=== PATIENT | female | born 1945 | race Caucasian/White ===

== ENCOUNTER → 2016-07-28 | Outpatient (CLI) | payer BC ==
[~2016-07-28] MED LIST: ALBUAER2 INH; AMOX875T PO; DIGO30TA PO; DIPH-437 PO; GABA1CAP4 PO; IMD/2 PO; INSDGI SC; INSUINJ7 SC; INSUINJ7 SQ; LABE1TAB28 PO; LEVO125T4 PO; LYR75 PO; OXYC-57 PO; PANT40TA PO; PREG1CAP70 PO; SPIR25TA PO; SYN125 PO; VNTHFA/IN INH; WARF4TAB43 PO; WARF4TAB44 PO
--- NOTE | 2016-07-28 15:12 | DIAGNOSTIC IMAGING REPORT ---
CHEST 2 VIEWS ROUTINE CLINICAL HISTORY: E11.9 Diabetes [id number] dyspnea COMPARISON STUDY: 11/18/2006 FINDINGS: The bones soft tissues and hemidiaphragms are normal. The cardiomediastinal silhouette is normal. The lungs are clear. The pulmonary vasculature is normal. IMPRESSION: Negative chest. Electronically signed by: Ron Spence M.D. 07/28/2016 3:11 PM Dictated Date/Time: 07/28/2016 3:10 PM
[2016-07-29 06:03] LABS: ESTIMATED AVERAGE GLUCOSE 163 mg/dl; HA1C FLAG Normal (Normal)
== END | disposition home or self-care (01) ==
LOC: C.RAD1850 14:27
PROVIDERS: ATTEND Internal Medicine
DX: E11.9 Type 2 diabetes mellitus without complications (principal); I10 Essential (primary) hypertension

== ENCOUNTER → 2016-08-15 | Outpatient (CLI) | payer BC ==
[~2016-08-15] MED LIST changes: -LEVO125T4 PO; +LEVO125T5 PO
[2016-08-15 16:39] LABS: URINE APPEARANCE CLOUDY (CLEAR); URINE BILIRUBIN NEG (NEG); URINE COLOR YELLOW; URINE NITRITE NEG (NEG); URINE SPECIFIC GRAVITY 1.014 (1.000-1.030); UROBILINOGEN NEG (NEG); ZZUR CULT IF INDIC CLEAN CATCH YES
[2016-08-15 16:40] LABS: REVIEW REQ? YES
[2016-08-15 16:41] LABS: MANUAL MICROSCOPIC REQUIRED? NO
== END | disposition home or self-care (01) ==
LOC: C.LABBFT 14:43
PROVIDERS: ATTEND Internal Medicine
DX: R39.9 Unspecified symptoms and signs involving the genitourinary system (principal)

== ENCOUNTER → 2016-08-21 | Outpatient (CLI) | payer BC ==
--- NOTE | 2016-08-22 07:42 | MAMMOGRAPHY REPORT ---
BILATERAL DIGITAL SCREENING MAMMOGRAM WITH CAD: 08/21/2016 CLINICAL HISTORY: Routine screening. Patient has no complaints. TECHNIQUE: Current study was also evaluated with a Computer Aided Detection (CAD) system. Bilatera l CC and MLO views were obtained. COMPARISON: Comparison is made to exams dated: 08/21/2015 mammogram, 08/17/2014 mammogram, 12/19/2009 [facility], 12/04/2008, 08/15/2008, and 10/27/2007. BREAST COMPOSITION: There are scattered areas of fibroglandular density in both breasts. FINDINGS: No suspicious masses, calcifications, or areas of architectural distortion are noted in e ither breast. There has been no significant interval change compared to prior exams. A linear scar marker denotes a scar on the left anterior breast. Bilateral benign vascular calcifications are aga in noted. Grouped calcifications seen within the left central breast are stable dating back to [place] the 2008 and 2007 exams, and are considered benign given long-term stability. Grouped coarse h eterogeneous calcifications in the left 12:00 breast are also stable dating back to the 2007 exam. IMPRESSION: ACR BI-RADS CATEGORY 2: BENIGN There is no mammographic evidence of malignancy. A 1 year screening mammogram is recommended. The p atient will receive written notification of the results. Approximately 10% of breast cancers are not detected with mammography. A negative mammographic repor t should not delay biopsy if a clinically suggestive mass is present. Jany Read M.D. ah/:08/21/2016 15:00:11 Hospital Librarian: Alexandra ALCARAZ(R)(George), [facility] letter sent: Normal 1/2 BI-RADS Code: ACR BI-RADS Category 2: Benign
== END | disposition home or self-care (01) ==
LOC: C.MAMM 11:36
PROVIDERS: ATTEND Internal Medicine
DX: Z12.31 Encounter for screening mammogram for malignant neoplasm of breast (principal)

== ENCOUNTER 2016-08-29 20:00 | Inpatient (IN) | payer BC, OTHER ==
[~2016-08-29] VITALS: Ht 162.6 cm; Wt 102.0 kg
[~2016-08-29 20:00] MED LIST changes: -AMOX875T PO; -DIGO30TA PO; -GABA1CAP4 PO; -INSUINJ7 SC; -LEVO125T5 PO; -LYR75 PO; -PREG1CAP70 PO; -VNTHFA/IN INH; -WARF4TAB43 PO; -WARF4TAB44 PO
[2016-08-29] MEDS ORDERED: SODIUM CHLORIDE 0.9% 1000ML 1,000 ML IV ONE (20:37)
--- NOTE | 2016-08-29 20:49 | EMERGENCY ROOM VISIT NOTE ---
History Report prepared by Kalen: Fuad Means Under the Supervision of: Dr. Swapnil Segal D.O. 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 Additional symptoms include fever, and shortness of breath with exertion. The patient states that she was walking up her stairs tonight when she became dizzy and fell down onto the stairs. She denies loss of consciousness. The patient mentions that she has been sick for the past two weeks. She was originally diagnosed with a respiratory infection, for which she was treated with amoxicillin. The patient states this turned in to a UTI. She is currently being treated with a 14 day course of Augmentin for this UTI. She has 4 days left of this prescription. The patient denies nausea, vomiting, swelling of the legs, abdominal pain, urinary symptoms, chest pain, cough, melena, hematochezia, and shortness of breath while lying flat. 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 A total of 10 systems reviewed and were otherwise negative. Past Medical & Surgical Medical Problems: (1) Diabetes (2) Hx of blood clots (3) Hypertension (4) Lymph edema (5) UTI (urinary tract infection) Family History Cancer Social History Smoking Status: Never Smoker Drug Use: none Marital Status: Housing Status: lives with significant other Current/Historical Medications Scheduled Acetaminophen/Diphenhydramine (Tylenol Pm), 2 TAB PO HS PRN Amoxicillin & Pot Clavulanate (Augmentin 875-125 mg), 1 TAB PO BID Insulin Glargine (Lantus), 50 UNITS SC AMPM Insulin Regular (Human) (Novolin R U-100), Unknown Dose SC DIRECTED Labetalol (Normodyne), 200 MG PO BID Levothyroxine Sodium (Levothyroxine Sodium), 125 MCG PO DAILY Loperamide Hcl (Imodium), 2 MG PO BID OR TID Oxycodone/Acetaminophen 5MG/325MG (Percocet 5MG/325MG), 1-2 TABLETS PO Q4HR PRN Pantoprazole (Protonix), 40 MG PO QAM Spironolactone (Aldactone), 25 MG PO BID Scheduled PRN Albuterol Hfa (Ventolin Hfa), 2 PUFFS INH Q6H PRN for Shortness of Breath Allergies Coded Allergies: Chloramphenicol (Verified Allergy, Mild, RASH, 08/29/16) RASH Quinolones (Verified Allergy, Mild, RASH, 08/29/16) RASH Ciprofloxacin (Verified Allergy, Unknown, UNKNOWN, 08/29/16) Codeine (Verified Allergy, Unknown, RASH, 08/29/16) Esomeprazole (Verified Allergy, Unknown, RASH - PT HAS TAKEN PROTONIX AT HOME, 08/29/16) Lansoprazole (Verified Allergy, Unknown, RASH - PT HAS TAKEN PROTONIX AT HOME, 08/29/16) Milk (Verified Allergy, Unknown, 08/29/16) Omeprazole (Verified Allergy, Unknown, RASH - PT HAS TAKEN PROTONIX AT HOME, 08/29/16) Procainamide (Verified Allergy, Unknown, UNKNOWN, 08/29/16) Propoxyphene (Verified Allergy, Unknown, 08/29/16) Verapamil (Verified Allergy, Unknown, 08/29/16) Physical Exam Vital Signs Date Time Temp Pulse Resp B/P Pulse Ox O2 Delivery O2 Flow Rate FiO2 08/30/16 00:30 37.9 81 22 135/79 95 Room Air 08/29/16 23:45 86 20 94 Room Air 08/29/16 23:15 82 20 94 Room Air 08/29/16 22:30 85 19 130/63 94 Room Air 08/29/16 22:01 88 17 135/66 96 Room Air 08/29/16 21:41 38.0 83 19 159/84 96 Room Air 08/29/16 21:20 Room Air 08/29/16 20:20 93 08/29/16 20:04 37.6 94 18 121/63 97 Room Air Physical Exam GENERAL: Somewhat listless appearing but comfortable. Does not appear to be experiencing any pain. EYES: The conjunctivae are clear. The pupils are round and reactive. EARS, NOSE, MOUTH AND THROAT: The nose is without any evidence of any deformity. Mucous membranes are dry, tongue is midline NECK: The neck is nontender and supple. RESPIRATORY: Normal respiratory effort is noted there is no evidence of wheezing rhonchi or rales CARDIOVASCULAR: Tachycardic but regular rhythm. No definite murmurs to auscultation. GASTROINTESTINAL: The abdomen is soft. Bowel sounds are present in all quadrants. Abdomen is nontender MUSCULOSKELETAL/EXTREMITIES: There is no evidence of gross deformity full range of motion is noted in the hips and shoulders SKIN: Pedal edema noted bilaterally. There is no obvious evidence of any rash. There are no petechiae, pallor or cyanosis noted. NEUROLOGIC: Patient is awake alert and oriented x3. Medical Decision & Procedures ER Provider Diagnostic Interpretation: X-ray results as stated below per interpretation by me and the radiologist. SINGLE VIEW CHEST CLINICAL HISTORY: Sepsis. FINDINGS: An AP, portable, upright chest radiograph is compared to study dated 07/28/2016 and correlated with chest CT dated 11/13/2006. The heart is mildly enlarged and there is atherosclerotic calcification of the thoracic aorta. The pulmonary vasculature is noncongested. Platelike atelectasis is seen at the left lung base. No airspace consolidation is seen typical for pneumonia and there is no large pleural effusion. No pneumothorax is seen. The skeletal structures are osteopenic. Degenerative change is noted throughout the thoracic spine. Fusion hardware is seen in the lower cervical spine. Calcific tendinopathy is noted in the right shoulder. Surgical clips project over the lower neck. IMPRESSION: Cardiomegaly with no acute cardiopulmonary abnormality. Electronically signed by: Tejas Klein M.D. 08/29/2016 8:51 PM Dictated Date/Time: 08/29/2016 8:50 PM Laboratory Results 08/29/16 21:21 Red Blood Count 4.29, Mean Corpuscular Volume 82.3, Mean Corpuscular Hemoglobin 27.5, Mean Corpuscular Hemoglobin Concent 33.4, Mean Platelet Volume 9.9, Neutrophils (%) (Auto) 83.8, Lymphocytes (%) (Auto) 10.7, Monocytes (%) (Auto) 4.0, Eosinophils (%) (Auto) 0.4, Basophils (%) (Auto) 0.1, Neutrophils # (Auto) 5.81, Lymphocytes # (Auto) 0.74, Monocytes # (Auto) 0.28, Eosinophils # (Auto) 0.03, Basophils # (Auto) 0.01 08/29/16 21:21 Test 08/29/16 21:21 08/29/16 23:35 White Blood Count 6.94 K/uL (4.8-10.8) Red Blood Count 4.29 M/uL (4.2-5.4) Hemoglobin 11.8 g/dL (12.0-16.0) Hematocrit 35.3 % (37-47) Mean Corpuscular Volume 82.3 fL (80-100) Mean Corpuscular Hemoglobin 27.5 pg (25-34) Mean Corpuscular Hemoglobin Concent 33.4 g/dl (32-36) Platelet Count 209 K/uL (130-400) Mean Platelet Volume 9.9 fL (7.4-10.4) Neutrophils (%) (Auto) 83.8 % Lymphocytes (%) (Auto) 10.7 % Monocytes (%) (Auto) 4.0 % Eosinophils (%) (Auto) 0.4 % Basophils (%) (Auto) 0.1 % Neutrophils # (Auto) 5.81 K/uL (1.4-6.5) Lymphocytes # (Auto) 0.74 K/uL (1.2-3.4) Monocytes # (Auto) 0.28 K/uL (0.11-0.59) Eosinophils # (Auto) 0.03 K/uL (0-0.5) Basophils # (Auto) 0.01 K/uL (0-0.2) RDW Standard Deviation 53.0 fL (36.4-46.3) RDW Coefficient of Variation 18.0 % (11.5-14.5) Immature Granulocyte % (Auto) 1.0 % Immature Granulocyte # (Auto) 0.07 K/uL (0.00-0.02) Erythrocyte Sedimentation Rate 28 mm/hr (0-21) Prothrombin Time 26.8 SECONDS (9.0-12.0) Prothromb Time International Ratio 2.4 (0.9-1.1) Activated Partial Thromboplast Time 28.7 SECONDS (21.0-31.0) Partial Thromboplastin Ratio 1.1 Anion Gap 8.0 mmol/L (3-11) Estimated GFR () 43.4 Estimated GFR (Non- 37.4 BUN/Creatinine Ratio 14.1 (10-20) Calcium Level 8.7 mg/dl (8.5-10.1) Phosphorus Level 2.1 mg/dl (2.5-4.9) Magnesium Level 1.5 mg/dl (1.8-2.4) Total Bilirubin 1.3 mg/dl (0.2-1) Aspartate Amino Transf (AST/SGOT) 33 U/L (15-37) Alanine Aminotransferase (ALT/SGPT) 35 U/L (12-78) Alkaline Phosphatase 85 U/L (45-117) Total Creatine Kinase 153 U/L (26-192) Creatine Kinase MB 1.2 ng/ml (0.5-3.6) Creatine Kinase MB Ratio 0.8 (0-3.0) Troponin I < 0.015 ng/ml (0-0.045) C-Reactive Protein 1.57 mg/dl (0-0.29) Pro-B-Type Natriuretic Peptide 262 pg/ml (0-900) Total Protein 7.6 gm/dl (6.4-8.2) Albumin 3.6 gm/dl (3.4-5.0) Globulin 4.0 gm/dl (2.5-4.0) Albumin/Globulin Ratio 0.9 (0.9-2) Lipase 41 U/L (73-393) Urine Color YELLOW Urine Appearance CLEAR (CLEAR) Urine pH 5.5 (4.5-7.5) Urine Specific [place] 1.018 (1.000-1.030) Urine Protein NEG (NEG) Urine Glucose (UA) 1+ (NEG) Urine Ketones NEG (NEG) Urine Occult Blood TRACE (NEG) Urine Nitrite NEG (NEG) Urine Bilirubin NEG (NEG) Urine Urobilinogen NEG (NEG) Urine Leukocyte Esterase MODERATE (NEG) Urine WBC (Auto) >30 /hpf (0-5) Urine RBC (Auto) 0-4 /hpf (0-4) Urine Hyaline Casts (Auto) 5-10 /lpf (0-5) Urine Epithelial Cells (Auto) 10-20 /lpf (0-5) Urine Bacteria (Auto) 2+ (NEG) Laboratory results per my review. Medications Administered Medications (Trade) Dose Ordered Sig/Dave Route Start Time Stop Time Status Last Admin Dose Admin Sodium Chloride (Nss 1000ml) 1,000 ml @ 999 mls/hr Q1H1M ONCE IV 08/29/16 20:37 08/29/16 21:37 DC 08/29/16 21:20 999 MLS/HR Magnesium Sulfate (Magnesium Sulfate) 2 gm NOW STAT IV 08/29/16 21:59 08/29/16 22:00 DC 08/29/16 23:04 2 GM Piperacillin Sod/ Tazobactam Sod (Zosyn Iv) 4.5 gm NOW STAT IV 08/29/16 23:51 08/29/16 23:52 DC 08/29/16 00:20 4.5 GM Acetaminophen (Tylenol Tab) 1,000 mg STK-MED ONCE PO 08/30/16 00:28 08/30/16 00:29 DC 08/30/16 00:30 1,000 MG ECG Indication: weakness Rate (beats per minute): 83 Rhythm: normal sinus Findings: no ectopy, other (No acute ST segment abnormality) Comparison ECG Date: 11/16/06 Change: no significant change ED Course 2025: The patient was evaluated in room B7. A complete history and physical examination were performed. 2036: Ordered Sodium Chloride 1,000 ml @ 999 mls/hr IV. 2158: Ordered Magnesium Sulfate 2 gm IV. Medical Decision Prior records/ancillary studies reviewed and summarized above. Nursing notes reviewed. Additional history obtained from the patient's family members. Differential diagnosis: Etiologies such as metabolic, infection, hypo/hyperglycemia, electrolyte abnormalities, cardiac sources, intracerebral event, toxicologic, neurologic, as well as others were entertained. The patient is a 71-year-old female who presented to the emergency department for an evaluation of generalized weakness. The patient has been diagnosed with urinary tract infection at the end of July. She's been on multiple antibiotics but the infection appears to continue to worsen. She presented to the emergency department today with family murmurs because of generalized weakness to the point where she had an episode where she fell and could not stand. The patient appeared to have an elevated lactic acid as well as signs of urinary tract infection. Urinalysis was positive for pseudomonas. The patient was started on Zosyn in the emergency department. She is allergic to quinolones. I discussed the patient's laboratory and radiographic studies with her. I also discussed his case with the on-call [facility] hospitalist group. They've agreed to evaluate the patient in the emergency department for further management and disposition. Consults Time Called: 24 Consulting Physician: Dr Jordan Returned Call: 29 He will evaluate the patient in the emergency department for further management and disposition. Impression Primary Impression: Weakness Additional Impressions: Hypomagnesemia Urinary tract infection Acute kidney injury (nontraumatic) Scribe Attestation The scribe's documentation has been prepared under my direction and personally reviewed by me in its entirety. I confirm that the note above accurately reflects all work, treatment, procedures, and medical decision making performed by me. Departure Information Referrals Manolo Milian M.D. (PCP) Patient Instructions My [facility] Problem Qualifiers Additional Impressions: Urinary tract infection Urinary tract infection type: site unspecified Hematuria presence: without hematuria Qualified Codes: N39.0 - Urinary tract infection, site not specified
--- NOTE | 2016-08-29 20:53 | DIAGNOSTIC IMAGING REPORT ---
SINGLE VIEW CHEST CLINICAL HISTORY: Sepsis. FINDINGS: An AP, portable, upright chest radiograph is compared to study dated 07/28/2016 and correlated with chest CT dated 11/13/2006. The heart is mildly enlarged and there is atherosclerotic calcification of the thoracic aorta. The pulmonary vasculature is noncongested. Platelike atelectasis is seen at the left lung base. No airspace consolidation is seen typical for pneumonia and there is no large pleural effusion. No pneumothorax is seen. The skeletal structures are osteopenic. Degenerative change is noted throughout the thoracic spine. Fusion hardware is seen in the lower cervical spine. Calcific tendinopathy is noted in the right shoulder. Surgical clips project over the lower neck. IMPRESSION: Cardiomegaly with no acute cardiopulmonary abnormality. Electronically signed by: Tejas Klein M.D. 08/29/2016 8:51 PM Dictated Date/Time: 08/29/2016 8:50 PM
[2016-08-29] MEDS ORDERED: INSDGI SC (21:07)
[2016-08-29] MEDS ORDERED: AMOX875T PO (21:07)
[2016-08-29] MEDS ORDERED: VNTHFA/IN INH (21:07)
[2016-08-29] MEDS ORDERED: LEVO125T5 PO (21:07)
[2016-08-29] MEDS ORDERED: INSUINJ7 SC (21:07)
[2016-08-29 21:38] LABS: BASO % 0.1 %; BASO ABS # 0.01 K/uL (0-0.2); COMPLETE YES; EOS % 0.4 %; HEMATOCRIT 35.3 % (37-47); LYMPH % 10.7 %; LYMPH ABS # 0.74 K/uL (1.2-3.4); MEAN CELL VOLUME 82.3 fL (80-100); MEAN CORPUSCULAR HEMOGLOBIN 27.5 pg (25-34); MEAN CORPUSCULAR HGB CONC 33.4 g/dl (32-36); MEAN PLATELET VOLUME 9.9 fL (7.4-10.4); NEUT % 83.8 %; PLATELET COUNT 209 K/uL (130-400); RED BLOOD COUNT 4.29 M/uL (4.2-5.4); WHITE BLOOD COUNT 6.94 K/uL (4.8-10.8)
[2016-08-29 21:47] LABS: INR 2.4 (0.9-1.1); PARTIAL THROMBOPLASTIN RATIO 1.1; PROTHROMBIN TIME (PATIENT) 26.8 SECONDS (9.0-12.0)
[2016-08-29 21:55] LABS: ALT/SGPT 35 U/L (12-78); BLOOD UREA NITROGEN 20 mg/dl (7-18); BUN/CREATININE RATIO 14.1 (10-20); C-REACTIVE PROTEIN 1.57 mg/dl (0-0.29); CARBON DIOXIDE 28 mmol/L (21-32); CHLORIDE 100 mmol/L (98-107); GLUCOSE 269 mg/dl (70-99); MAGNESIUM 1.5 mg/dl (1.8-2.4); POTASSIUM 3.6 mmol/L (3.5-5.1); SODIUM 136 mmol/L (136-145)
[2016-08-29 21:58] LABS: ALB/GLOB RATIO 0.9 (0.9-2); ALKALINE PHOSPHATASE 85 U/L (45-117); AST/SGOT 33 U/L (15-37); CKMB/CK RATIO 0.8 (0-3.0); PHOSPHORUS 2.1 mg/dl (2.5-4.9)
[2016-08-29] MEDS ORDERED: MAGNESIUM SULFATE 1GM / D5W 1 GM BAG IV STA (21:59)
[2016-08-29 22:04] LABS: CALCIUM 8.7 mg/dl (8.5-10.1)
[2016-08-29] MEDS ORDERED: PIPERACILLIN/TAZOBACTAM 4.5 GM/100ML D5W IV STA (23:51)
[2016-08-29 23:54] LABS: URINE APPEARANCE CLEAR (CLEAR); URINE BILIRUBIN NEG (NEG); URINE COLOR YELLOW; URINE NITRITE NEG (NEG); URINE PH 5.5 (4.5-7.5); URINE SPECIFIC GRAVITY 1.018 (1.000-1.030); UROBILINOGEN NEG (NEG); ZZURINE CULT IF INDIC CATH YES
[2016-08-30] VITALS (7 sets, daily range): BP systolic 106–131; BP diastolic 64–84; PULSE 73–89; TEMP 36.6–37.5; O2SAT 95–98; Ht 162.6 cm; Wt 102.0 kg
[2016-08-30 00:04] LABS: MANUAL MICROSCOPIC REQUIRED? NO; REVIEW REQ? NO
[2016-08-30] MEDS ORDERED: ACETAMINOPHEN 500 MG TAB PO ONE (00:28)
[2016-08-30] MEDS ORDERED: ALBUTEROL HFA 8 GM INHALER INH PRN (01:15)
[2016-08-30] MEDS ORDERED: MAGNESIUM HYDROXIDE SUSP 30 ML UDC PO PRN (01:15)
[2016-08-30] MEDS ORDERED: HEPARIN SOD 5000 UNIT/0.5 ML CARP SQ SCH (01:15)
[2016-08-30] MEDS ORDERED: OXYCODONE/ACETAMINOPHEN 5-325 TAB PO PRN (01:15)
[2016-08-30] MEDS ORDERED: ZOLPIDEM TARTRATE 5 MG TAB PO PRN (01:15)
[2016-08-30] MEDS ORDERED: ALUMINUM/MAGNESIUM/SIMETH (MAALOX MAX) 30 ML UDC PO PRN (01:15)
[2016-08-30] MEDS ORDERED: ONDANSETRON INJ 2 MG/ML 2 ML VIAL IV PRN (01:15)
[2016-08-30] MEDS ORDERED: ACETAMINOPHEN 325 MG TAB PO PRN (01:15)
--- NOTE | 2016-08-30 01:40 | History and Physical ---
History & Physical Date & Time of Service: Aug 30, 2016 at 01:22 Chief Complaint: Weakness,Fell At Home Primary Care Physician: Manolo Milian M.D. History of Present Illness Source: patient 71 y/o F w/Hx HTN, IDDM, recurrent UTIs. Pt has been treated for the past 3 weeks for a UTI. She has been taking Augmentin based on cultures which were + for Pseudomonas sensitive to Augmentin. Despite this she has become progressively weak over the past 2 days to the point where she could not support her own weight and suffered a few falls. She additionally had a fever this AM which was confirmed in the ER. She denies CP, SOB, N/V/D. Initial labs reveal a + UA and mild NATI. Past Medical/Surgical History Medical Problems: (1) Diabetes Status: Chronic (2) Hx of blood clots Status: Resolved (3) Hypertension Status: Chronic (4) Lymph edema Status: Chronic (5) UTI (urinary tract infection) Status: Resolved Family History Cancer Mother owing to lung CA Father due to pancreatic CA Social History Does not drink or smoke Smoking Status: Never Smoker Drug Use: none Marital Status: Immunizations History of Influenza Vaccine: Unknown History of Tetanus Vaccine?: Unknown History of Pneumococcal: Unknown History of Hepatitis B Vaccine: Unknown Multi-Drug Resistant Organisms History of MDRO: No Allergies Coded Allergies: Chloramphenicol (Verified Allergy, Mild, RASH, 08/29/16) RASH Quinolones (Verified Allergy, Mild, RASH, 08/29/16) RASH Ciprofloxacin (Verified Allergy, Unknown, UNKNOWN, 08/29/16) Codeine (Verified Allergy, Unknown, RASH, 08/29/16) Esomeprazole (Verified Allergy, Unknown, RASH - PT HAS TAKEN PROTONIX AT HOME, 08/29/16) Lansoprazole (Verified Allergy, Unknown, RASH - PT HAS TAKEN PROTONIX AT HOME, 08/29/16) Milk (Verified Allergy, Unknown, 08/29/16) Omeprazole (Verified Allergy, Unknown, RASH - PT HAS TAKEN PROTONIX AT HOME, 08/29/16) Procainamide (Verified Allergy, Unknown, UNKNOWN, 08/29/16) Propoxyphene (Verified Allergy, Unknown, 08/29/16) Verapamil (Verified Allergy, Unknown, 08/29/16) Home Medications Scheduled Acetaminophen/Diphenhydramine (Tylenol Pm), 2 TAB PO HS PRN Amoxicillin & Pot Clavulanate (Augmentin 875-125 mg), 1 TAB PO BID Insulin Glargine (Lantus), 50 UNITS SC AMPM Insulin Regular (Human) (Novolin R U-100), Unknown Dose SC DIRECTED Labetalol (Normodyne), 200 MG PO BID Levothyroxine Sodium (Levothyroxine Sodium), 125 MCG PO DAILY Loperamide Hcl (Imodium), 2 MG PO BID OR TID Oxycodone/Acetaminophen 5MG/325MG (Percocet 5MG/325MG), 1-2 TABLETS PO Q4HR PRN Pantoprazole (Protonix), 40 MG PO QAM Spironolactone (Aldactone), 25 MG PO BID Scheduled PRN Albuterol Hfa (Ventolin Hfa), 2 PUFFS INH Q6H PRN for Shortness of Breath Review of Systems Constitutional: + fatigue, + fever, + weakness, No chills, No sweats Eyes: No eye pain, No worsening of vision ENT: No hearing loss, No nasal symptoms, No unusual epistaxis Respiratory: No cough, No sputum, No wheezing Cardiovascular: No PND, No chest pain, No orthopnea Abdomen: No nausea, No pain, No vomiting Musculoskeletal: No joint pain, No muscle pain Genitourinary - Female: No dysuria, No hematuria, No urinary frequency, No urinary incontinence, No urinary retention, No urinary urgency Neurologic: No memory loss, No paralysis, No weakness Psychiatric: + depression symptoms Endocrine: + fatigue Hematologic / Lymphatic: No abnormal bleeding/bruising Integumentary: No rash Allergic / Immunologic: No environmental allergies Physical Exam Vital Signs Date Time Temp Pulse Resp B/P Pulse Ox O2 Delivery O2 Flow Rate FiO2 08/30/16 00:30 37.9 81 22 135/79 95 Room Air 08/29/16 23:45 86 20 94 Room Air 08/29/16 23:15 82 20 94 Room Air 08/29/16 22:30 85 19 130/63 94 Room Air 08/29/16 22:01 88 17 135/66 96 Room Air 08/29/16 21:41 38.0 83 19 159/84 96 Room Air 08/29/16 21:20 Room Air 08/29/16 20:20 93 08/29/16 20:04 37.6 94 18 121/63 97 Room Air General Appearance: WD/WN, no apparent distress Head: normocephalic, atraumatic Eyes: normal inspection, PERRL, EOMI ENT: normal ENT inspection, pharynx normal Neck: supple, no JVD Respiratory/Chest: chest non-tender, lungs clear, normal breath sounds, no respiratory distress, no accessory muscle use Cardiovascular: regular rate, rhythm, no edema, no gallop, no JVD, no murmur, normal peripheral pulses Abdomen/GI: normal bowel sounds, non tender, soft Back: normal inspection, no CVA tenderness, no muscle spasm, normal range of motion Extremities/Musculoskelatal: no calf tenderness, normal capillary refill, + pedal edema Neurologic/Psych: flake miller wheat and oats II-XII nml as tested, no motor/sensory deficits, alert, normal mood/affect, normal reflexes, oriented x 3 Skin: normal color, warm/dry, no rash Diagnostics Laboratory Results Results Past 24 Hours Test 08/29/16 21:21 08/29/16 23:35 Range/Units White Blood Count 6.94 4.8-10.8 K/uL Red Blood Count 4.29 4.2-5.4 M/uL Hemoglobin 11.8 12.0-16.0 g/dL Hematocrit 35.3 37-47 % Mean Corpuscular Volume 82.3 80-100 fL Mean Corpuscular Hemoglobin 27.5 25-34 pg Mean Corpuscular Hemoglobin Concent 33.4 32-36 g/dl Platelet Count 209 130-400 K/uL Mean Platelet Volume 9.9 7.4-10.4 fL Neutrophils (%) (Auto) 83.8 % Lymphocytes (%) (Auto) 10.7 % Monocytes (%) (Auto) 4.0 % Eosinophils (%) (Auto) 0.4 % Basophils (%) (Auto) 0.1 % Neutrophils # (Auto) 5.81 1.4-6.5 K/uL Lymphocytes # (Auto) 0.74 1.2-3.4 K/uL Monocytes # (Auto) 0.28 0.11-0.59 K/uL Eosinophils # (Auto) 0.03 0-0.5 K/uL Basophils # (Auto) 0.01 0-0.2 K/uL RDW Standard Deviation 53.0 36.4-46.3 fL RDW Coefficient of Variation 18.0 11.5-14.5 % Immature Granulocyte % (Auto) 1.0 % Immature Granulocyte # (Auto) 0.07 0.00-0.02 K/uL Erythrocyte Sedimentation Rate 28 0-21 mm/hr Prothrombin Time 26.8 9.0-12.0 SECONDS Prothromb Time International Ratio 2.4 0.9-1.1 Activated Partial Thromboplast Time 28.7 21.0-31.0 SECONDS Partial Thromboplastin Ratio 1.1 Sodium Level 136 136-145 mmol/L Potassium Level 3.6 3.5-5.1 mmol/L Chloride Level 100 98-107 mmol/L Carbon Dioxide Level 28 21-32 mmol/L Anion Gap 8.0 3-11 mmol/L Blood Urea Nitrogen 20 7-18 mg/dl Creatinine 1.40 0.60-1.20 mg/dl Estimated GFR () 43.4 Estimated GFR (Non- 37.4 BUN/Creatinine Ratio 14.1 10-20 Random Glucose 269 70-99 mg/dl Calcium Level 8.7 8.5-10.1 mg/dl Phosphorus Level 2.1 2.5-4.9 mg/dl Magnesium Level 1.5 1.8-2.4 mg/dl Total Bilirubin 1.3 0.2-1 mg/dl Aspartate Amino Transf (AST/SGOT) 33 15-37 U/L Alanine Aminotransferase (ALT/SGPT) 35 12-78 U/L Alkaline Phosphatase 85 45-117 U/L Total Creatine Kinase 153 26-192 U/L Creatine Kinase MB 1.2 0.5-3.6 ng/ml Creatine Kinase MB Ratio 0.8 0-3.0 Troponin I < 0.015 0-0.045 ng/ml C-Reactive Protein 1.57 0-0.29 mg/dl Pro-B-Type Natriuretic Peptide 262 0-900 pg/ml Total Protein 7.6 6.4-8.2 gm/dl Albumin 3.6 3.4-5.0 gm/dl Globulin 4.0 2.5-4.0 gm/dl Albumin/Globulin Ratio 0.9 0.9-2 Lipase 41 73-393 U/L Urine Color YELLOW Urine Appearance CLEAR CLEAR Urine pH 5.5 4.5-7.5 Urine Specific [place] 1.018 1.000-1.030 Urine Protein NEG NEG Urine Glucose (UA) 1+ NEG Urine Ketones NEG NEG Urine Occult Blood TRACE NEG Urine Nitrite NEG NEG Urine Bilirubin NEG NEG Urine Urobilinogen NEG NEG Urine Leukocyte Esterase MODERATE NEG Urine WBC (Auto) >30 0-5 /hpf Urine RBC (Auto) 0-4 0-4 /hpf Urine Hyaline Casts (Auto) 5-10 0-5 /lpf Urine Epithelial Cells (Auto) 10-20 0-5 /lpf Urine Bacteria (Auto) 2+ NEG Microbiology Results 08/29/16 Blood Culture, Received Pending 08/29/16 Blood Culture, Received Pending 08/29/16 Urine Culture, Received Pending Impression Assessment and Plan 71 y/o F w/Hx HTN, IDDM, recurrent UTIs. Pt has been treated for the past 3 weeks for a UTI. She has been taking Augmentin based on cultures which were + for Pseudomonas sensitive to Augmentin. Despite this she has become progressively weak over the past 2 days to the point where she could not support her own weight and suffered a few falls. She additionally had a fever this AM which was confirmed in the ER. She denies CP, SOB, N/V/D. Initial labs reveal a + UA and mild NATI. 1) UTI - recent micro indicates Pseudomonas - per sensitivity this should respond to Augmentin, however she continues to have fever and weakness and her UA is +. We will obtain repeat cultures, place her on Augmentin and consult ID. She may need urology involvement if this does not resolve. 2) NATI - IVF - hold Aldactone - repeat BMP AM 3) HTN - Cont Labetolol 4) DM -placed on sliding scale Full code - Heparin prophylaxis - Total time for this admit including review of labs, meds, records - discussion with ER MD and Pt 35 min Level of Care Med/Surg Resuscitation Status FULL RESUSCITATION VTE Prophylaxis VTE Risk Assessment Done? Y/N: Yes Risk Level: Moderate Given or contraindicated: Unfractionated heparin SQ
[2016-08-30] MEDS ORDERED: POLYETHYLENE (MIRALAX) 17 GM PACK PO PRN (01:45)
[2016-08-30] MEDS ORDERED: DEXTROSE 50% 50 ML SYR IV PRN (01:45)
[2016-08-30] MEDS ORDERED: GLUCOSE 40% GEL 15 GM TUBE PO PRN (01:45)
[2016-08-30] MEDS ORDERED: GLUCOSE 10 TABS/TUBE PO PRN (01:45)
[2016-08-30] MEDS ORDERED: GLUCAGON FOR INJ 1 MG VIAL SQ PRN (01:45)
[2016-08-30] MEDS ORDERED: IMIPENEM/CILASTATIN CONSULT ACTIVE PRN (02:45)
[2016-08-30] MEDS ORDERED: NSS + 20MEQ KCL 1000ML 1,000 ML IV SCH (03:00)
[2016-08-30] MEDS ORDERED: NURSING VERBAL MED ORDER ONE (03:00)
[2016-08-30] MEDS: IMIPENEM/CILASTATIN IV 500 MG in DEXTROSE 5% 100ML 100 ML IV SCH ×3 (03:03→18:33)
[2016-08-30] MEDS ORDERED: PIPERACILL/TAZOBAC IV 3.375 GM in DEXTROSE 5% 100ML 100 ML IV SCH (06:00)
[2016-08-30] MEDS: LEVOTHYROXINE 125 MCG TAB PO SCH (06:09)
[2016-08-30 06:50] LABS: INR 1.9 (0.9-1.1); PROTHROMBIN TIME (PATIENT) 21.4 SECONDS (9.0-12.0)
[2016-08-30] MEDS ORDERED: PNEUMOCOCCAL ADMINISTRATION CHARGE ONE (08:00)
[2016-08-30] MEDS: LOPERAMIDE HCL 2 MG CAP PO SCH ×2 (08:00→19:51)
[2016-08-30] MEDS ORDERED: PNEUMOCOCCAL POLYSACCHARIDES 25 MCG/0.5 ML VIAL/SYR IM. ONE (08:00)
[2016-08-30] MEDS: GABAPENTIN 100 MG CAP PO SCH ×2 (08:34→19:50)
[2016-08-30] MEDS: PANTOprazole SOD 40 MG TAB PO SCH (08:35)
[2016-08-30] MEDS: LABETALOL HCL 200 MG TAB PO SCH ×2 (08:35→19:50)
[2016-08-30] MEDS: INSULIN ASPART 100 UNITS/ML 3 ML PEN SC SCH ×4 (08:42→21:58)
[2016-08-30] MEDS: INSULIN GLARGINE SOLOSTAR 100 UNITS/ML 3 ML PEN SC SCH ×2 (08:42→21:59)
[2016-08-30] MEDS: PREGABALIN 75 MG CAP PO SCH (08:43)
[2016-08-30] MEDS ORDERED: SPIRONOLACTONE 25 MG TAB PO SCH (09:00)
--- NOTE | 2016-08-30 11:09 | Progress Note ---
Progress Note Date of Service Aug 30, 2016. Progress Note ID Consult Dictated #[id number] A/P: 1. Uti - pseudomonas -Pt will need to complete abx via IV as she has quinolone allergy -would give Imipenem x 3 days, then stop -thank you
--- NOTE | 2016-08-30 12:47 | Progress Note ---
Progress Note Date of Service Aug 30, 2016. Progress Note Patient admitted early this morning. I saw and examined patient today. Plan will be as per admission history and physial with the exception of the following : continue imipenem day #1/3 per ID recommendation and d/c IVF
[2016-08-30] MEDS: PREGABALIN 150 MG CAP PO SCH (21:59)
[2016-08-31] MEDS: IMIPENEM/CILASTATIN IV 500 MG in DEXTROSE 5% 100ML 100 ML IV SCH ×3 (03:20→18:34)
[2016-08-31] MEDS: LEVOTHYROXINE 125 MCG TAB PO SCH (06:09)
[2016-08-31 07:04] LABS: HEMATOCRIT 29.9 % (37-47); MEAN CELL VOLUME 80.4 fL (80-100); MEAN CORPUSCULAR HEMOGLOBIN 26.9 pg (25-34); MEAN CORPUSCULAR HGB CONC 33.4 g/dl (32-36); MEAN PLATELET VOLUME 9.8 fL (7.4-10.4); PLATELET COUNT 168 K/uL (130-400); RED BLOOD COUNT 3.72 M/uL (4.2-5.4); WHITE BLOOD COUNT 3.75 K/uL (4.8-10.8)
[2016-08-31 07:32] LABS: BUN/CREATININE RATIO 10.4 (10-20); CALCIUM 7.8 mg/dl (8.5-10.1); CREATININE 1.1 mg/dl (0.60-1.20); POTASSIUM 3.5 mmol/L (3.5-5.1)
[2016-08-31 07:49] VITALS: BP 138/82; PULSE 67; TEMP 37; O2SAT 95
[2016-08-31] MEDS: LABETALOL HCL 200 MG TAB PO SCH ×2 (08:33→20:31)
[2016-08-31] MEDS: INSULIN ASPART 100 UNITS/ML 3 ML PEN SC SCH ×4 (08:34→22:41)
[2016-08-31] MEDS: LOPERAMIDE HCL 2 MG CAP PO SCH ×2 (08:34→09:33)
[2016-08-31] MEDS: GABAPENTIN 100 MG CAP PO SCH ×2 (08:34→20:31)
[2016-08-31] MEDS: PANTOprazole SOD 40 MG TAB PO SCH (08:35)
[2016-08-31] MEDS: PREGABALIN 75 MG CAP PO SCH (08:44)
[2016-08-31] MEDS: INSULIN GLARGINE SOLOSTAR 100 UNITS/ML 3 ML PEN SC SCH ×2 (08:44→20:31)
[2016-08-31 15:30] VITALS: BP 113/74; PULSE 82; TEMP 36.5; O2SAT 96
[2016-08-31] MEDS ORDERED: WARFARIN SOD 2 MG TAB PO SCH (16:00)
--- NOTE | 2016-08-31 17:56 | Hospitalist Progress Note ---
Hospitalist Progress Note Date of Service Aug 31, 2016. Subjective Pt evaluation today including: conversation w/ patient Patient states she had diarrhea this am Pt denies any chest pain, n/v SOB Constitutional: No fever Eyes: No worsening of vision ENT: No hearing loss Respiratory: No cough, No shortness of breath Cardiovascular: No chest pain Abdomen: + diarrhea, No GI bleeding, No constipation, No nausea, No pain, No vomiting Musculoskeletal: No joint pain Female : No dysuria Objective Vital Signs Date Time Temp Pulse Resp B/P Pulse Ox O2 Delivery O2 Flow Rate FiO2 08/31/16 16:00 Room Air 08/31/16 08:00 Room Air 08/31/16 07:49 37.0 67 18 138/82 95 Room Air 08/31/16 00:00 Room Air 08/30/16 23:47 36.6 89 20 131/73 95 Room Air 08/30/16 20:00 Room Air Physical Exam General Appearance: WD/WN, no apparent distress Eyes: normal inspection ENT: normal ENT inspection Neck: supple, no adenopathy Respiratory/Chest: chest non-tender, lungs clear Cardiovascular: regular rate, rhythm, no edema Abdomen: normal bowel sounds, non tender, soft Extremities: normal range of motion, non-tender Neurologic/Psychiatric: educational interpreter II-XII nml as tested, no motor/sensory deficits, alert, oriented x 3 Skin: normal color, warm/dry, no rash Lymphatic: no adenopathy Laboratory Results Last 24 Hours Test 08/30/16 17:55 08/30/16 20:02 08/31/16 06:30 08/31/16 08:04 Bedside Glucose 244 mg/dl 233 mg/dl 155 mg/dl White Blood Count 3.75 K/uL Red Blood Count 3.72 M/uL Hemoglobin 10.0 g/dL Hematocrit 29.9 % Mean Corpuscular Volume 80.4 fL Mean Corpuscular Hemoglobin 26.9 pg Mean Corpuscular Hemoglobin Concent 33.4 g/dl RDW Standard Deviation 53.6 fL RDW Coefficient of Variation 18.3 % Platelet Count 168 K/uL Mean Platelet Volume 9.8 fL Sodium Level 141 mmol/L Potassium Level 3.5 mmol/L Chloride Level 105 mmol/L Carbon Dioxide Level 28 mmol/L Anion Gap 8.0 mmol/L Blood Urea Nitrogen 11 mg/dl Creatinine 1.10 mg/dl Est Creatinine Clear Calc Drug Dose 53.7 ml/min Estimated GFR () 58.1 Estimated GFR (Non- 50.1 BUN/Creatinine Ratio 10.4 Random Glucose 147 mg/dl Calcium Level 7.8 mg/dl Test 08/31/16 11:37 08/31/16 17:09 Bedside Glucose 220 mg/dl 204 mg/dl Assessment and Plan 71 y/o F w/Hx HTN, IDDM, recurrent UTIs. Pt has been treated for the past 3 weeks for a UTI. She has been taking Augmentin based on cultures which were + for Pseudomonas sensitive to Augmentin. Despite this she has become progressively weak over the past 2 days to the point where she could not support her own weight and suffered a few falls. She additionally had a fever this AM which was confirmed in the ER. Pseudomonas UTI - appreciate I/D input - continue imipenem day #3/3 - await sensitivities Chronic Diarrhea - check c- diff - cont loperamide NATI - resolved - hold Aldactone HTN - Cont Labetolol DM - sliding scale - continue lantus Full Code
[2016-08-31] MEDS ORDERED: LOPERAMIDE HCL 2 MG CAP PO SCH (20:00)
[2016-08-31] MEDS: PREGABALIN 150 MG CAP PO SCH (22:31)
[2016-09-01 00:22] VITALS: BP 102/61; PULSE 70; TEMP 36.8; O2SAT 95
[2016-09-01] MEDS: IMIPENEM/CILASTATIN IV 500 MG in DEXTROSE 5% 100ML 100 ML IV SCH ×2 (02:50→11:08)
[2016-09-01] MEDS: LEVOTHYROXINE 125 MCG TAB PO SCH (06:10)
[2016-09-01 07:01] LABS: HEMATOCRIT 29.6 % (37-47); MEAN CELL VOLUME 82.2 fL (80-100); MEAN CORPUSCULAR HEMOGLOBIN 26.9 pg (25-34); MEAN CORPUSCULAR HGB CONC 32.8 g/dl (32-36); MEAN PLATELET VOLUME 9.3 fL (7.4-10.4); PLATELET COUNT 171 K/uL (130-400)
[2016-09-01 07:05] VITALS: BP 99/63; PULSE 74; TEMP 36.7; O2SAT 96
--- NOTE | 2016-09-01 07:09 | INFECT. DISEASE CONSULTATION ---
DATE OF CONSULTATION: 08/30/2016 REQUESTING PHYSICIAN: Dr. Jordan. HISTORY OF PRESENT ILLNESS: This is a 71-year-old female who was admitted with UTI. She recently had a positive urine culture which grew pansensitive pseudomonas. She was placed on Augmentin but did not have any relief of her symptoms. She continued to have fevers and chills and some abdominal pain at home. She presented to the Emergency Room yesterday and was admitted and started on imipenem. Her white blood cell count was normal. Her sed rate was mildly elevated. She did have a T-max last night of 38. Urinalysis done in the Emergency Room had greater than 30 wbc's and +2 bacteria. She is tolerating antibiotics well. She did have 1 episode of diarrhea this morning but denies any diarrhea prior to admission. SHE DOES CARRY A QUINOLONE ALLERGY WHICH CAUSES A "RED RASH." She currently denies any chest pain, cough, shortness of breath, nausea, vomiting, or abdominal pain. She did have burning with urination, that seems to be getting better. All remaining review of systems are reviewed and are negative. PAST MEDICAL HISTORY: Significant for type 2 diabetes, history of DVT, hypertension, lymphedema, and urinary tract infection. PAST SURGICAL HISTORY: Unremarkable. FAMILY HISTORY: Unremarkable. SOCIAL HISTORY: Negative for alcohol, tobacco use or drug use. She is and lives with her family. She denies any sick contacts. ALLERGIES: INCLUDE CHLORAMPHENICOL, FLUOROQUINOLONES, CODEINE, PPI'S, MILK, PROCAINAMIDE, VERAPAMIL. CURRENT MEDICATIONS: Include Lyrica, Benadryl, Lantus, labetalol, Imodium, Protonix, Neurontin, Synthroid, insulin, potassium, imipenem, albuterol, Percocet, Tylenol, Maalox, milk of magnesia, Ambien, and Zofran. PHYSICAL EXAMINATION: VITAL SIGNS: T-max is 38, current temperature is 37.1, pulse 74, respiratory rate 18, blood pressure 121/84, oxygen saturation is 98% on room air. GENERAL: She is awake, alert and oriented x3. She is in no acute distress. HEENT: Mucous membranes are moist. Extraocular muscles are intact. HEART: Regular. LUNGS: Clear. ABDOMEN: Soft, nontender, nondistended. There is no edema. SKIN: Without rash. LABORATORY STUDIES: CBC on the reveals a white blood cell count of 6.9, hemoglobin 11.8 and platelets are 209. Chemistry panel yesterday reveals a sodium of 136, potassium 3.6, chloride 100, bicarbonate 28, BUN 20, creatinine 1.4, glucose is 186. LFTs are within normal limits. Urinalysis is as above. Urine and blood cultures are pending. Recent urine culture on 08/15 grew pansensitive pseudomonas. Chest x-ray was done in the ER and is unremarkable. ASSESSMENT AND PLAN: Pseudomonas urinary tract infection. She will continue on imipenem. She will need 3 days total. Unfortunately, she cannot tolerate quinolones and there are no other oral options available for treatment of this. She may stay on imipenem to complete a course of antibiotics. Thank you for this consultation.
[2016-09-01 07:14] LABS: INR 1.3 (0.9-1.1); PROTHROMBIN TIME (PATIENT) 14.6 SECONDS (9.0-12.0)
[2016-09-01 07:21] LABS: BUN/CREATININE RATIO 10.7 (10-20); CALCIUM 8.1 mg/dl (8.5-10.1); POTASSIUM 3.5 mmol/L (3.5-5.1)
[2016-09-01] MEDS ORDERED: LOPERAMIDE HCL 2 MG CAP PO SCH (08:00)
[2016-09-01] MEDS: PANTOprazole SOD 40 MG TAB PO SCH (08:00)
[2016-09-01] MEDS: LABETALOL HCL 200 MG TAB PO SCH (08:06)
[2016-09-01] MEDS: GABAPENTIN 100 MG CAP PO SCH (08:07)
[2016-09-01] MEDS: INSULIN ASPART 100 UNITS/ML 3 ML PEN SC SCH ×2 (08:07→12:17)
[2016-09-01] MEDS: PREGABALIN 75 MG CAP PO SCH (08:13)
[2016-09-01] MEDS: INSULIN GLARGINE SOLOSTAR 100 UNITS/ML 3 ML PEN SC SCH (08:13)
[2016-09-01] MEDS ORDERED: DIGO30TA PO (09:30)
[2016-09-01] MEDS ORDERED: NURSING DECISION MEDICATION ORDER SCH (09:30)
[2016-09-01] MEDS ORDERED: GABA1CAP4 PO (09:49)
[2016-09-01] MEDS ORDERED: WARF4TAB43 PO (09:49)
[2016-09-01] MEDS ORDERED: WARF4TAB44 PO (09:49)
[2016-09-01] MEDS ORDERED: LYR75 PO (09:50)
[2016-09-01] MEDS ORDERED: PREG1CAP70 PO (09:50)
[2016-09-01 11:27] VITALS: BP 99/63; PULSE 74; TEMP 36.7; O2SAT 96
--- NOTE | 2016-09-01 12:34 | Discharge Instructions ---
Discharge Instructions Date of Service Sep 01, 2016. Admission Reason for Admission: Systemic Inflammatory Response Syndrome, Uti Discharge Discharge Diagnosis / Problem: Urinary tract infection Discharge Goals Goal(s): Decrease discomfort, Improve function, Diagnostic testing, Therapeutic intervention Activity Recommendations Activity Limitations: resume your previous activity . Instructions / Follow-Up Instructions / Follow-Up You were admitted to the hospital after presenting to the emergency room with a urinary tract infection (UTI) that had failed outpatient treatment. Infectious disease was consulted on your case and you were started on a broad-spectrum IV antibiotic called imipenem, which you received for 3 days to complete the antibiotic course. Upon arriving to the ER, you were found to have some mild kidney impairment. This resolved with IV fluids. You are now medically stable for discharge. Medications: *STOP taking your spironolactone medication for now until you follow up with your primary care provider. This medication had been held while you were an inpatient due to the kidney impairment, and prior to discharge your blood pressure was low. You may resume spironolactone after seeing your primary care provider if your kidney function and blood pressure allow. *STOP Augmentin (amoxicillin/clavulanate) as you already received a full antibiotic course in the hospital. *Please resume your home warfarin dosing TOMORROW, September 02. You received a dose of warfarin 5 mg on 09/01 prior to discharge since your INR had been subtherapeutic. This was a one time higher dose to help you get into therapeutic range, but you may resume your home regimen tomorrow. *Resume your other home medications as prescribed. Follow up: *Continue to follow up routinely to check your PT/INR. *You have been scheduled to follow up with Michelle Cruz PA-C, who works with Dr. Milian, on September 08 at 12:30 pm. Please hold spironolactone until then. Please seek medical attention if you experience fevers, chills, sweats, chest pain, shortness of breath, nausea, vomiting, numbness, tingling, lightheadedness , or loss of consciousness. Current Hospital Diet Patient's current hospital diet: AHA Diet (Heart Healthy), Diabetes Type 2 Diet Discharge Diet Recommended Diet: AHA Diet (Heart Healthy), Diabetes Type 2 Diet Pending Studies Studies pending at discharge: no Laboratory Results Hemoglobin A1c Test 07/28/16 14:31 Range/Units Estimated Average Glucose 163 mg/dl Hemoglobin A1c 7.3 H 4.5-5.6 % Medical Emergencies . Who to Call and When: Medical Emergencies: If at any time you feel your situation is an emergency, please call 911 immediately. . Non-Emergent Contact Non-Emergency issues call your: Primary Care Provider Call Non-Emergent contact if: you have a fever, you have any medication questions . Past History Medical & Surgical History: (1) Urinary tract infection (2) Acute kidney injury (nontraumatic) . "Provider Documentation" section prepared by Rafaela Birch. VTE Core Measure Inpt VTE Proph given/why not?: Unfractionated heparin SQ
[2016-09-01] MEDS ORDERED: WARFARIN SOD 5 MG TAB PO ONE (13:00)
--- NOTE | 2016-09-01 14:45 | Discharge Summary ---
Discharge Summary Date of Service Sep 01, 2016. (Rafaela Birch PA-C) Discharge Summary Admission Date: Aug 30, 2016 at 01:07 Discharge Date: Sep 01, 2016 Discharge Disposition: Home Principal Diagnosis: UTI Immunizations: Have You Had Influenza Vaccine: Unknown History of Tetanus Vaccine?: Unknown History of Pneumococcal: Unknown History of Hepatitis B Vaccine: Unknown (Rafaela Birch PA-C) Medication Reconciliation Continued Medications: Acetaminophen/Diphenhydramine (Tylenol Pm) 500 Mg/25 Mg Tab 2 TAB PO HS PRN, 0 Refills Albuterol Hfa (Ventolin Hfa) 200 Puffs/12062 Mcg Aers 2 PUFFS INH Q6H PRN for Shortness of Breath, #1 INHALER Digoxin (Digitek) 0.125 Mg Tab 125 MCG PO QAM Gabapentin (Gabapentin) 300 Mg Cap 1 CAP PO BID for 30 Days, #60 CAP 5 Refills Insulin Glargine (Lantus) 100 Unit/Ml Inj 50 UNITS SC AMPM, VIAL Insulin Regular (Human) (Novolin R U-100) 100 Unit/Ml Inj Unknown Dose SC DIRECTED SLIDING SCALE PER MD. Labetalol (Normodyne) 200 Mg Tab 200 MG PO BID, 0 Refills Levothyroxine Sodium (Levothyroxine Sodium) 125 Mcg Tab 125 MCG PO DAILY for 90 Days, #90 TAB 3 Refills Loperamide Hcl (Imodium) 2 Mg Cap 2 MG PO BID OR TID, 0 Refills Pantoprazole (Protonix) 40 Mg Tab 40 MG PO QPM, #30 0 Refills Pregabalin (Lyrica) 75 Mg Cap 1 CAP PO QAM for 30 Days, #60 CAP 1 Refill Pregabalin (Lyrica) 150 Mg Cap 150 MG PO QPM, CAP Warfarin Sodium (Warfarin Sodium) 1 Mg Tab 1 TAB PO UD for 90 Days, #90 TAB Mondays and Wednesdays Warfarin Sodium (Warfarin Sodium) 2 Mg Tab 1 TAB PO UD for 90 Days, #90 TAB 1 Refill 5x/week Discontinued Medications: Amoxicillin & Pot Clavulanate (Augmentin 875-125 mg) 1 Tab Tab 1 TAB PO BID, #14 TAB STARTED 08/20/16 FOR 14 DAYS. Spironolactone (Aldactone) 25 Mg Tab 25 MG PO BID, 0 Refills Discharge Exam Patient reports feeling well. She denies any dysuria, urinary frequency, hematuria, suprapubic pain or cloudy urine. The patient denies fevers, chills, sweats, chest pain, palpitations, claudication, cough, wheezing, shortness of breath, nausea, vomiting, abdominal pain, dysuria, hematuria, urinary retention , paralysis, weakness, numbness and tingling. Review of Systems: Constitutional: No chills, No fever, No sweats Eyes: No diplopia, No discharge, No worsening of vision ENT: No hearing loss, No sore throat, No trouble swallowing Respiratory: No cough, No shortness of breath, No wheezing Cardiovascular: No chest pain, No claudication, No palpitations Abdomen: No nausea, No pain, No vomiting Musculoskeletal: No calf pain, No joint pain, No muscle pain Genitourinary - Female: No dysuria, No hematuria, No urinary frequency Neurologic: No numbness/tingling, No paralysis, No weakness Integumentary: No color change, No itch, No rash Physical Exam: General Appearance: WD/WN, no apparent distress, + obese Eyes: normal inspection, PERRL, EOMI ENT: normal ENT inspection, hearing grossly normal, pharynx normal Neck: supple, no JVD, trachea midline Respiratory/Chest: lungs clear, normal breath sounds, no respiratory distress Cardiovascular: regular rate, rhythm, no gallop, no murmur Abdomen / GI: normal bowel sounds, non tender, soft Extremities: no calf tenderness, normal capillary refill, no pedal edema Neurologic/Psychiatric: alert, normal mood/affect, oriented x 3 Skin: normal color, warm/dry, no rash (Rafaela Birch ., PA-C) Hospital Course 71 y/o female with a history of HTN, DM, a-fib, and recurrent UTIs. Pt has been treated for the past 3 weeks for a UTI. She has been taking Augmentin as an outpatient. Outpatient cultures positive for pseudomonas sensitive to Augmentin. Pt continued to feel progressively weak, subsequently had some falls. Also reported fever prior to arrival to the ED at home. Patient was febrile here at the ED as well. Pseudomonas UTI--stable -Admit to med/surg -Infectious disease consulted, appreciate recs: continue imipenem, total of 3 days abx. -Abx course completed while inpatient -Urine culture positive for pseudomonas, ha sensitive but failed outpatient tx Chronic Diarrhea--improving -C-diff negative -Continue loperamide NATI--baseline creatinine 1.2. Resolved -Creatinine 1.4 on arrival -Creatinine 1.0 on 09/01 -Spironolactone held due to NATI. Will continue to hold on discharge due to low BP, follow up with PCP in 1 week and can resume then HTN--stable, low to low normal -Continue labetalol -Spironolactone as above A-fib--currently in sinus rhythm -Continue digoxin 125 mcg PO qd -INR subtherapeutic at 1.3 on 09/01--pt not given warfarin while inpatient -Given warfarin 5 mg PO x1, resume home regimen at discharge DM II--HgbA1c on 07/28/16 was 7.3 -Lantus 50 units SC BID -Insulin sliding scale -Check BSGs q ac and qhs DVT prophylaxis -Warfarin Code Status -Level I, FULL RESUSCITATION STATUS This chart was completed in part utilizing [employer] Speech Voice Recognition software. Attempts were made to minimize the grammatical errors, random word insertions, pronoun errors and incomplete sentences. Any formal questions or concerns about the content, text or information contained within the body of this dictation should be directly addressed to the provider for clarification. Total Time Spent: Greater than 30 minutes This includes examination of the patient, discharge planning, medication reconciliation, and communication with other providers. (Rafaela Birch ., PA-C) I agree with PA assessment and plan and have seen and examined pt myself Pt resting comfortably in bed Finished 3 days IV antibx Asymptomatic No urinary sx Hemodynamically stable Discharge today (Shane Perez D.O.) Discharge Instructions Please refer to the electronic Patient Visit Report (Discharge Instructions) for additional information. (Rafaela Birch ., PA-C) Additional Copies To Manolo Milian M.D.
[2016-09-01] MEDS ORDERED: PANTOprazole SOD 40 MG TAB PO SCH (21:00)
== END 2016-09-01 15:17 | disposition home or self-care (01) | DRG 690 ==
LOC: ENRESERVTM → ENRESERVDT → C.EDB 20:01 → C.MS4W 08-30 01:07
PROVIDERS: ADMIT Internal Medicine; ATTEND Hospitalist
DX: N39.0 Urinary tract infection, site not specified (principal); N17.9 Acute kidney failure, unspecified; B96.5 Pseudomonas (aeruginosa) (mallei) (pseudomallei) as the cause of diseases classified elsewhere; E83.42 Hypomagnesemia; R29.6 Repeated falls; R79.1 Abnormal coagulation profile; K52.9 Noninfective gastroenteritis and colitis, unspecified; I48.91 Unspecified atrial fibrillation; E11.9 Type 2 diabetes mellitus without complications; I10 Essential (primary) hypertension; Z86.718 Personal history of other venous thrombosis and embolism; Z79.4 Long term (current) use of insulin; Z79.891 Long term (current) use of opiate analgesic; Z79.899 Other long term (current) drug therapy

== ENCOUNTER → 2016-09-08 | Outpatient (CLI) | payer BC ==
[~2016-09-08] MED LIST changes: -ALBUAER2 INH; +DIGO30TA PO; +GABA1CAP4 PO; +INSUINJ7 SC; -INSUINJ7 SQ; +LEVO125T5 PO; +LYR75 PO; -OXYC-57 PO; +PREG1CAP70 PO; -SPIR25TA PO; -SYN125 PO; +VNTHFA/IN INH; +WARF4TAB43 PO; +WARF4TAB44 PO
[2016-09-08 16:14] LABS: URINE APPEARANCE CLEAR (CLEAR); URINE BILIRUBIN NEG (NEG); URINE COLOR YELLOW; URINE NITRITE NEG (NEG); URINE PH 5.5 (4.5-7.5); URINE SPECIFIC GRAVITY 1.016 (1.000-1.030); UROBILINOGEN NEG (NEG)
[2016-09-08 16:19] LABS: MANUAL MICROSCOPIC REQUIRED? NO; REVIEW REQ? NO
== END | disposition home or self-care (01) ==
LOC: C.LAB1850 12:58
PROVIDERS: ATTEND Physician Assistant
DX: N39.0 Urinary tract infection, site not specified (principal)

== ENCOUNTER → 2016-09-24 | Outpatient (CLI) | payer BC ==
--- NOTE | 2016-09-24 12:08 | DIAGNOSTIC IMAGING REPORT ---
LEFT HAND MIN 3 VIEWS ROUTINE CLINICAL HISTORY: Left thumb pain following fall. COMPARISON: None FINDINGS: Severe arthritis of the left first carpometacarpal joint is noted. This makes evaluation for fracture difficult but no fracture is identified. 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 Osteopenia is noted. There is no acute fracture of the distal left radius or ulna. There is chondrocalcinosis within the TFCC. An apparent bone fragment at the level of the left first metacarpophalangeal joint likely reflects a sesamoid. IMPRESSION: 1. Apparent bone fragment at the level of the left first metacarpophalangeal joint likely reflects a sesamoid. A fracture fragment could appear similar but is considered less likely. 2. Severe arthritis of the left first carpometacarpal joint and multiple distal interphalangeal joints of the left hand. Electronically signed by: Kike Yi M.D. 09/24/2016 12:07 PM Dictated Date/Time: 09/24/2016 12:03 PM
[2016-09-24 12:40] LABS: MANUAL MICROSCOPIC REQUIRED? NO; REVIEW REQ? NO; URINE APPEARANCE TURBID (CLEAR); URINE BILIRUBIN NEG (NEG); URINE COLOR YELLOW; URINE NITRITE NEG (NEG); URINE PH 5.5 (4.5-7.5); URINE SPECIFIC GRAVITY 1.015 (1.000-1.030); UROBILINOGEN NEG (NEG)
== END | disposition home or self-care (01) ==
LOC: C.LAB1850 11:40
PROVIDERS: ATTEND Physician Assistant
DX: T14.8 Other injury of unspecified body region (principal); W19.XXXA Unspecified fall, initial encounter; N39.0 Urinary tract infection, site not specified; M18.12 Unilateral primary osteoarthritis of first carpometacarpal joint, left hand; M19.042 Primary osteoarthritis, left hand

== ENCOUNTER → 2016-10-09 | Outpatient (CLI) | payer BC | END | disposition home or self-care (01) | LOC: C.LABBFT 08:27 | PROVIDERS: ATTEND Physician Assistant | DX: N39.0 Urinary tract infection, site not specified (principal) ==

== ENCOUNTER → 2016-11-05 | Outpatient (CLI) | payer BC ==
[2016-11-05 12:14] LABS: BASO % 0.3 %; BASO ABS # 0.03 K/uL (0-0.2); COMPLETE YES; EOS % 2.9 %; HEMATOCRIT 38.1 % (37-47); IG% 0.3 %; LYMPH % 17.9 %; LYMPH ABS # 1.86 K/uL (1.2-3.4); MEAN CELL VOLUME 84.5 fL (80-100); MEAN CORPUSCULAR HEMOGLOBIN 28.2 pg (25-34); MEAN CORPUSCULAR HGB CONC 33.3 g/dl (32-36); MEAN PLATELET VOLUME 10.4 fL (7.4-10.4); MONO % 4.5 %; NEUT % 74.1 %; PLATELET COUNT 292 K/uL (130-400); RED BLOOD COUNT 4.51 M/uL (4.2-5.4); WHITE BLOOD COUNT 10.42 K/uL (4.8-10.8)
[2016-11-05 12:25] LABS: URINE APPEARANCE CLOUDY (CLEAR); URINE BILIRUBIN NEG (NEG); URINE COLOR YELLOW; URINE EPITHELIAL CELL AUTO 0-5 /lpf (0-5); URINE NITRITE POS (NEG); URINE PH 5.5 (4.5-7.5); URINE SPECIFIC GRAVITY 1.014 (1.000-1.030); UROBILINOGEN NEG (NEG)
[2016-11-05 12:30] LABS: MANUAL MICROSCOPIC REQUIRED? NO; REVIEW REQ? NO
[2016-11-05 12:47] LABS: ESTIMATED AVERAGE GLUCOSE 163 mg/dl; HA1C FLAG Normal (Normal)
[2016-11-05 13:08] LABS: ALT/SGPT 33 U/L (12-78); AST/SGOT 29 U/L (15-37); BLOOD UREA NITROGEN 17 mg/dl (7-18); BUN/CREATININE RATIO 13.1 (10-20); CALCIUM 8.7 mg/dl (8.5-10.1); CARBON DIOXIDE 29 mmol/L (21-32); CHLORIDE 102 mmol/L (98-107); CHOLESTEROL 115 mg/dl (0-200); GLUCOSE 161 mg/dl (70-99); POTASSIUM 3.4 mmol/L (3.5-5.1); SODIUM 140 mmol/L (136-145)
[2016-11-05 13:20] LABS: ALB/GLOB RATIO 0.9 (0.9-2); ALKALINE PHOSPHATASE 93 U/L (45-117); CHOLESTEROL/HDL RATIO 5.8; HDL CHOLESTEROL 20 mg/dl; LDL CHOLESTEROL CALCULATED 64 mg/dl; PROSTATE SPECIFIC ANTIGEN < 0.010 ng/ml (0.000-4.000); TRIGLYCERIDES 156 mg/dl (0-150); VERY LOW DENSITY LIPOPROT CALC 31 mg/dl
--- NOTE | 2016-11-10 13:34 | CODING QUERY MEDICAL NECESSITY ---
SUPPORTING DIAGNOSIS NEEDED A supporting diagnosis is required for the test/procedure performed on this patient in order for us to be reimbursed by the patient's insurance. Please provide a supporting diagnosis for the following test/procedure listed below next to the test name along with your signature. *If there is no additional diagnosis for this patient that would support the following test/procedure please document that below next to the test/procedure. Test(s)/Procedure(s) that require a supporting diagnosis: * HEMOGLOBIN A1C DIAGNOSIS: * PSA DIAGNOSIS: Provider Signature: Date: Thank you Kayli Hernandez [facility] [employer] Once completed, please kindly fax back to [phone] For questions please call [phone]
== END | disposition home or self-care (01) ==
LOC: C.LABBFT 08:35
PROVIDERS: ATTEND Physician Assistant
DX: I10 Essential (primary) hypertension (principal); R39.9 Unspecified symptoms and signs involving the genitourinary system; N39.0 Urinary tract infection, site not specified; E11.9 Type 2 diabetes mellitus without complications

== ENCOUNTER → 2016-11-07 | Outpatient (CLI) | payer BC ==
[2016-11-07 14:54] LABS: URINE APPEARANCE CLEAR (CLEAR); URINE BILIRUBIN NEG (NEG); URINE COLOR YELLOW; URINE EPITHELIAL CELL AUTO 0-5 /lpf (0-5); URINE NITRITE POS (NEG); URINE PH 5.5 (4.5-7.5); UROBILINOGEN NEG (NEG)
[2016-11-07 15:00] LABS: MANUAL MICROSCOPIC REQUIRED? NO; REVIEW REQ? NO
== END | disposition home or self-care (01) ==
LOC: C.LAB1850 12:37
PROVIDERS: ATTEND Internal Medicine
DX: N39.0 Urinary tract infection, site not specified (principal)

== ENCOUNTER → 2016-11-07 | Outpatient (CLI) | payer BC ==
--- NOTE | 2016-11-07 14:43 | DIAGNOSTIC IMAGING REPORT ---
ULTRASOUND KIDNEYS AND BLADDER CLINICAL HISTORY: Recurrent urinary tract infections. COMPARISON STUDY: Abdominal CT dated 12/05/2011. TECHNIQUE: Real-time, grayscale, and color flow sonography of the kidneys and bladder is performed. Images are reviewed in the transverse and longitudinal planes. FINDINGS: Kidneys: The kidneys demonstrate mild cortical atrophy and are normal in echotexture. The right kidney measures 10.4 x 5.0 x 5.7 cm and the left kidney measures 10.7 x 4.5 x 4.4 cm. There is no hydronephrosis. No shadowing renal calculi are identified. A 1.7 cm cyst is noted in the right upper pole. Left renal cysts measure up to 3 cm. Foci of cortical scarring are noted in the left kidney. There is no sonographic evidence of contour deforming renal mass lesion. No perinephric fluid is identified. Bladder: The bladder is normal in appearance. Bilateral ureteral jets were seen. Upper abdomen: Survey images of the liver show evidence of hepatomegaly and hepatic steatosis. IMPRESSION: 1. The kidneys demonstrate mild cortical atrophy and are without hydronephrosis. 2. The bladder is normal as visualized. 3. Hepatomegaly and hepatic steatosis. Electronically signed by: Tejas Klein M.D. 11/07/2016 2:41 PM Dictated Date/Time: 11/07/2016 2:39 PM
== END | disposition home or self-care (01) ==
LOC: C.ULTRBC 13:46
PROVIDERS: ATTEND Internal Medicine
DX: N39.0 Urinary tract infection, site not specified (principal)

== ENCOUNTER → 2016-12-02 | Outpatient (CLI) | payer BC ==
[~2016-12-02] MED LIST changes: +LEVO125T4 PO; -LEVO125T5 PO
[2016-12-02 14:54] LABS: URINE APPEARANCE CLEAR (CLEAR); URINE BILIRUBIN NEG (NEG); URINE COLOR YELLOW; URINE EPITHELIAL CELL AUTO 0-5 /lpf (0-5); URINE NITRITE POS (NEG); URINE PH 5.5 (4.5-7.5); URINE SPECIFIC GRAVITY 1.014 (1.000-1.030); UROBILINOGEN NEG (NEG)
[2016-12-02 14:56] LABS: MANUAL MICROSCOPIC REQUIRED? NO; REVIEW REQ? NO
== END | disposition home or self-care (01) ==
LOC: C.LAB1850 12:30
PROVIDERS: ATTEND Internal Medicine
DX: N39.0 Urinary tract infection, site not specified (principal); A49.8 Other bacterial infections of unspecified site

== ENCOUNTER → 2017-02-05 | Outpatient (CLI) | payer BC ==
[2017-02-06 05:44] LABS: ESTIMATED AVERAGE GLUCOSE 192 mg/dl; HA1C FLAG Normal (Normal)
== END | disposition home or self-care (01) ==
LOC: C.LABBFT 11:58
PROVIDERS: ATTEND Internal Medicine
DX: E11.9 Type 2 diabetes mellitus without complications (principal)

== ENCOUNTER 2017-05-14 18:49 | Inpatient (IN) | payer BC, OTHER ==
[~2017-05-14] VITALS: Ht 149.9 cm; Wt 108.3 kg
[~2017-05-14 18:49] MED LIST changes: +GABA-1219 PO; -GABA1CAP4 PO; -INSDGI SC; -LEVO125T4 PO; -VNTHFA/IN INH
[2017-05-14] MEDS ORDERED: KETOROLAC TROMETHAMINE 30 MG/ML VIAL IV STA (19:01)
[2017-05-14] MEDS ORDERED: SODIUM CHLORIDE 0.9% 1000ML 1,000 ML IV STA (19:01)
[2017-05-14] MEDS ORDERED: ACETAMINOPHEN 500 MG TAB PO STA (19:01)
--- NOTE | 2017-05-14 19:09 | EMERGENCY ROOM VISIT NOTE ---
History Report prepared by Kalen: Misty Cruz Under the Supervision of: Dr. Ahsan Fuller D.O. First contact with patient: 18:50 Stated Complaint: FALL/AMS/FEVER/COUGH History of Present Illness The patient is a 71 year old female who presents to the Emergency Room with complaints of worsening illness starting two days ago. Per nursing staff, the patient started to feel okay yesterday. They state that she came into the hospital to have her INR checked and it was 1.8. They report that they decided to keep the patient on 1 gram of Coumadin. Nursing staff states that the patient told her when she went home she started to feel weak. They report that she stumbled down a few stairs, but denies hitting her head or accumulating any trauma. The patient complains of a productive cough, fever, congestion, achiness , and a sore throat. She states that when she coughs, the substance is clear with some mucus. Nursing staff notes that that patient had some episodes of confusion with EMS, but was able to answer all questions. They states that her pre-hospital ECG showed atrial fibrillation. The patient notes that she has a history of atrial fibrillation. She notes that she has some bladder incontinence and is on Bactrim for consistent UTIs. The patient denies any chest pain. Source of History: patient, nursing staff Onset: two days ago Position: other (global) Quality: ache Timing: worsening Associated Symptoms: + sorethroat, + cough (productive), + weakness, No chest pain Note: The patient complains of congestion. Nursing staff note that the patient had confusion with EMS. Review of Systems See HPI for pertinent positives & negatives. A total of 10 systems reviewed and were otherwise negative. Past Medical & Surgical Medical Problems: (1) Atrial fibrillation (2) Diabetes (3) Hx of blood clots (4) Hypertension (5) Lymph edema (6) SIRS (systemic inflammatory response syndrome) (7) UTI (urinary tract infection) (8) UTI (urinary tract infection) Family History Cancer Social History Smoking Status: Never Smoker Drug Use: none Marital Status: Housing Status: lives with significant other Current/Historical Medications Scheduled Digoxin (Digitek), 125 MCG PO QAM Doxycycline Hyclate (Doxycycline Hyclate), 1 TAB PO BID Fluticasone Prop/Salmeterol (Advair Diskus 250/50 60 Dose), 1 PUFF INH BID Gabapentin (Neurontin), 600 MG PO BID Insulin Glargine (Lantus), 50 UNITS SC AMPM Insulin Regular (Human) (Novolin R U-100), UNITS SC TIDM Labetalol Hcl (Normodyne), 100 MG PO Q12 Levothyroxine Sodium (Levothyroxine Sodium), 125 MCG PO DAILY Pantoprazole (Protonix), 40 MG PO QPM Pregabalin (Lyrica), 1 CAP PO QAM Pregabalin (Lyrica), 150 MG PO QPM Sulfa/Trimethoprim (Bactrim Ds 800MG/160MG), 1 TAB PO MWF Warfarin Sodium (Warfarin Sodium), 1 MG PO UD Scheduled PRN Albuterol Hfa (Ventolin Hfa), 2 PUFFS INH Q6H PRN for Shortness of Breath Albuterol Sulfate (Albuterol Sulfate), 1 VIAL NEB Q4 PRN for Wheezing Loperamide Hcl (Imodium), 2 MG PO BID OR TID PRN for Diarrhea Allergies Coded Allergies: Chloramphenicol (Verified Allergy, Mild, RASH, 08/29/16) RASH Quinolones (Verified Allergy, Mild, RASH, 08/29/16) RASH Ciprofloxacin (Verified Allergy, Unknown, UNKNOWN, 08/29/16) Codeine (Verified Allergy, Unknown, RASH, 08/29/16) Esomeprazole (Verified Allergy, Unknown, RASH - PT HAS TAKEN PROTONIX AT HOME, 08/29/16) Lansoprazole (Verified Allergy, Unknown, RASH - PT HAS TAKEN PROTONIX AT HOME, 08/29/16) Milk (Verified Allergy, Unknown, 08/29/16) Omeprazole (Verified Allergy, Unknown, RASH - PT HAS TAKEN PROTONIX AT HOME, 08/29/16) Procainamide (Verified Allergy, Unknown, UNKNOWN, 08/29/16) Propoxyphene (Verified Allergy, Unknown, 08/29/16) Verapamil (Verified Allergy, Unknown, 08/29/16) Physical Exam Vital Signs Date Time Temp Pulse Resp B/P (MAP) Pulse Ox O2 Delivery O2 Flow Rate FiO2 05/14/17 22:24 37.6 05/14/17 22:10 86 23 93 05/14/17 22:00 130/66 05/14/17 21:40 84 16 93 05/14/17 21:30 104/58 12/28/17 21:10 94 21 94 05/14/17 21:00 122/65 05/14/17 20:40 97 18 93 05/14/17 20:35 83 22 96 05/14/17 20:31 117/65 05/14/17 20:05 101 21 93 05/14/17 20:00 125/69 05/14/17 19:35 100 17 05/14/17 19:30 129/77 05/14/17 19:19 92 21 05/14/17 19:03 39.2 100 18 152/69 97 Room Air 05/14/17 19:00 155/80 05/14/17 18:58 101 05/14/17 18:54 152/69 Physical Exam CONSTITUTIONAL/VITAL SIGNS: Reviewed / noted above. GENERAL: Non-toxic in appearance. INTEGUMENTARY: Warm, dry, and [place]. HEAD: Normocephalic. EYES: without scleral icterus or trauma. ENT/OROPHARYNX: clear and moist. LYMPHADENOPATHY/NECK: Is supple without lymphadenopathy or meningismus. RESPIRATORY: Lungs clear and equal. CARDIOVASCULAR: Regular rate and rhythm. GI/ABDOMEN: Soft and nontender. No organomegaly or pulsatile mass. No rebound or guarding. Normal bowel sounds. EXTREMITIES: Warm and well perfused. BACK: No CVA tenderness. NEUROLOGICAL: Intact without focal deficits. PSYCHIATRIC: normal affect. MUSCULOSKELETAL: Normally developed with good muscle tone. Medical Decision & Procedures ER Provider Diagnostic Interpretation: Radiology results as stated below per my review and radiologist interpretation: CHEST ONE VIEW PORTABLE CLINICAL HISTORY: 71 years-old Female presenting with Evaluate Fever/Sepsis. TECHNIQUE: Portable upright AP view of the chest was obtained. COMPARISON: 08/29/2016. FINDINGS: Atherosclerosis of aortic arch. Cardiac silhouette mildly enlarged. Pulmonary vascular prominence. Lungs essentially clear. Trace blunting of the left costophrenic angle. No pneumothorax. Irregular contour of the anterior fourth rib, possibly indicating posttraumatic deformity. This was not present on the prior exam. Degenerative changes of the spine. Partially visualized anterior cervical fusion hardware. Additional surgical clips at the right base of the neck. Upper abdomen normal. IMPRESSION: 1. Trace left effusion versus left basilar atelectasis or scarring. No other evidence of acute cardiopulmonary disease. 2. Mild cardiomegaly and vascular prominence could suggest volume overload. 3. Interval development of apparent deformity of the anterior right fourth rib could suggest interval fracture. Electronically signed by: Luis Armando Bhatia M.D. 05/14/2017 8:15 PM Dictated Date/Time: 05/14/2017 8:13 PM Laboratory Results 05/14/17 18:32 Red Blood Count 4.54, Mean Corpuscular Volume 82.4, Mean Corpuscular Hemoglobin 28.0, Mean Corpuscular Hemoglobin Concent 34.0, Mean Platelet Volume 9.9, Neutrophils (%) (Auto) 83.5, Lymphocytes (%) (Auto) 6.9, Monocytes (%) (Auto) 7.1, Eosinophils (%) (Auto) 1.6, Basophils (%) (Auto) 0.2, Neutrophils # (Auto) 8.51, Lymphocytes # (Auto) 0.70, Monocytes # (Auto) 0.72, Eosinophils # (Auto) 0.16, Basophils # (Auto) 0.02 05/14/17 18:32 Test 05/14/17 18:32 05/14/17 19:15 05/14/17 20:35 White Blood Count 10.18 K/uL (4.8-10.8) Red Blood Count 4.54 M/uL (4.2-5.4) Hemoglobin 12.7 g/dL (12.0-16.0) Hematocrit 37.4 % (37-47) Mean Corpuscular Volume 82.4 fL (80-100) Mean Corpuscular Hemoglobin 28.0 pg (25-34) Mean Corpuscular Hemoglobin Concent 34.0 g/dl (32-36) Platelet Count 246 K/uL (130-400) Mean Platelet Volume 9.9 fL (7.4-10.4) Neutrophils (%) (Auto) 83.5 % Lymphocytes (%) (Auto) 6.9 % Monocytes (%) (Auto) 7.1 % Eosinophils (%) (Auto) 1.6 % Basophils (%) (Auto) 0.2 % Neutrophils # (Auto) 8.51 K/uL (1.4-6.5) Lymphocytes # (Auto) 0.70 K/uL (1.2-3.4) Monocytes # (Auto) 0.72 K/uL (0.11-0.59) Eosinophils # (Auto) 0.16 K/uL (0-0.5) Basophils # (Auto) 0.02 K/uL (0-0.2) RDW Standard Deviation 48.9 fL (36.4-46.3) RDW Coefficient of Variation 16.3 % (11.5-14.5) Immature Granulocyte % (Auto) 0.7 % Immature Granulocyte # (Auto) 0.07 K/uL (0.00-0.02) Prothrombin Time 17.6 SECONDS (9.0-12.0) Prothromb Time International Ratio 1.7 (0.9-1.1) Activated Partial Thromboplast Time 30.1 SECONDS (21.0-31.0) Partial Thromboplastin Ratio 1.2 Anion Gap 9.0 mmol/L (3-11) Est Creatinine Clear Calc Drug Dose 35.6 ml/min Estimated GFR () 38.1 Estimated GFR (Non- 32.9 BUN/Creatinine Ratio 13.6 (10-20) Calcium Level 8.9 mg/dl (8.5-10.1) Total Bilirubin 0.6 mg/dl (0.2-1) Direct Bilirubin 0.2 mg/dl (0-0.2) Aspartate Amino Transf (AST/SGOT) 49 U/L (15-37) Alanine Aminotransferase (ALT/SGPT) 43 U/L (12-78) Alkaline Phosphatase 100 U/L (45-117) Total Creatine Kinase 331 U/L (26-192) Creatine Kinase MB 2.3 ng/ml (0.5-3.6) Creatine Kinase MB Ratio 0.7 (0-3.0) Troponin I < 0.015 ng/ml (0-0.045) Total Protein 7.6 gm/dl (6.4-8.2) Albumin 3.6 gm/dl (3.4-5.0) Lipase 42 U/L (73-393) Influenza Type A Antigen POS for Influ A (NEG) Influenza Type B Antigen Neg for Influ B (NEG) Urine Color YELLOW Urine Appearance CLOUDY (CLEAR) Urine pH 5.5 (4.5-7.5) Urine Specific [place] 1.022 (1.000-1.030) Urine Protein TRACE (NEG) Urine Glucose (UA) 2+ (NEG) Urine Ketones TRACE (NEG) Urine Occult Blood 2+ (NEG) Urine Nitrite NEG (NEG) Urine Bilirubin NEG (NEG) Urine Urobilinogen NEG (NEG) Urine Leukocyte Esterase MODERATE (NEG) Urine WBC (Auto) >30 /hpf (0-5) Urine RBC (Auto) >30 /hpf (0-4) Urine Hyaline Casts (Auto) 1-5 /lpf (0-5) Urine Epithelial Cells (Auto) 10-20 /lpf (0-5) Urine Bacteria (Auto) 4+ (NEG) Laboratory results as stated above per my review. Medications Administered Medications (Trade) Dose Ordered Sig/Dave Route Start Time Stop Time Status Last Admin Dose Admin Sodium Chloride 1,000 ml @ 999 mls/hr Q1H1M STAT IV 05/14/17 19:01 05/14/17 20:01 DC 05/14/17 19:11 999 MLS/HR Acetaminophen (Tylenol Tab) 1,000 mg NOW STAT PO 05/14/17 19:01 05/14/17 19:04 DC 05/14/17 19:11 1,000 MG Ketorolac Tromethamine (Toradol Inj) 30 mg NOW STAT IV 05/14/17 19:01 05/14/17 19:04 DC 05/14/17 19:11 30 MG Oseltamivir Phosphate (Tamiflu Cap) 75 mg NOW STAT PO 05/14/17 20:15 05/14/17 20:16 DC 05/14/17 20:31 75 MG Ceftriaxone Sodium (Rocephin Inj) 1 gm NOW STAT IV 05/14/17 20:59 05/14/17 21:00 DC 05/14/17 21:12 1 GM ECG Indication: weakness Rate (beats per minute): 97 Rhythm: sinus rhythm Findings: PAC, no acute ischemic change Comparison ECG Date: August 29, 2016 Change: no significant change ED Course 1853: Previous medical records were reviewed. The patient was evaluated in room B7. A complete history and physical examination was performed. 1900: Ordered Toradol Inj 30 mg IV, Tylenol Tab 1000 mg PO, NSS 1000 ml @ 999 mls/hr IV. 1950: The patient has a positive influenza. 2014: Ordered Tamiflu Cap 75 mg PO. 2020: I revaluated the patient and updated her on her test results. 2056: Discussed the patient's case with Dr. Donahue. The patient will be evaluated for further treatment and disposition. 2058: Ordered Rocephin Inj1 gm IV. Medical Decision Differential includes viral illness, influenza, streptococcal pharyngitis, meningitis, pneumonia, sinusitis, UTI, pyelonephritis, otitis media. This is a 71-year-old female who presents to the ED with a chief complaint of fever and cough. The patient states that she developed the symptoms couple of days ago. She feels weak and stumbled today going down the steps. She reports a productive cough for a white phlegm. The patient's temperature here today was 3 9.2. Her exam is noted above. Nothing remarkable. EKG shows a normal sinus rhythm. CBC is unremarkable. INR is 1.7. Creatinine is 1.56. Glucose is 253. Troponin was negative. Flu is positive for influenza A. Chest x-ray did not show acute disease. Urine appears to be infected. The patient was given Tamiflu by mouth. She was given IV Rocephin. She was hydrated with normal saline IV. She was given oral Tylenol and IV Toradol. The patient will be seen by the hospitalist for further evaluation and care. She does have a small contusion to the right knee from her stumble and near fall as she hit her knee on the steps. There does not appear to be any evidence of fracture. The patient, according to the is too weak to get to the bathroom. Medication Reconcilliation Current Medication List: was personally reviewed by me Blood Pressure Screening Patient's blood pressure: Elevated blood pressure Will be further monitored by the hospitalist. Consults Time Called: 2022 Consulting Physician: Dr. Donahue- Hospitalist Returned Call: [phone] Discussed the patient's case with Dr. Donahue. The patient will be evaluated for further treatment and disposition. Impression Primary Impression: Influenza A Additional Impressions: Weakness Fall UTI (urinary tract infection) Scribe Attestation The scribe's documentation has been prepared under my direction and personally reviewed by me in its entirety. I confirm that the note above accurately reflects all work, treatment, procedures, and medical decision making performed by me. Departure Information Dispostion Being Evaluated By Hospitalist Referrals Manolo Milian M.D. (PCP) Problem Qualifiers
[2017-05-14 19:11] LABS: BASO % 0.2 %; BASO ABS # 0.02 K/uL (0-0.2); EOS % 1.6 %; EOS ABS # 0.16 K/uL (0-0.5); HEMATOCRIT 37.4 % (37-47); HEMOGLOBIN 12.7 g/dL (12.0-16.0); IG# 0.07 K/uL (0.00-0.02); LYMPH % 6.9 %; MEAN CELL VOLUME 82.4 fL (80-100); MEAN PLATELET VOLUME 9.9 fL (7.4-10.4); MONO % 7.1 %; MONO ABS # 0.72 K/uL (0.11-0.59); NEUT % 83.5 %; NEUT ABS # 8.51 K/uL (1.4-6.5); PLATELET COUNT 246 K/uL (130-400); RED CELL DISTRIBUTION WIDTH CV 16.3 % (11.5-14.5); RED CELL DISTRIBUTION WIDTH SD 48.9 fL (36.4-46.3); WHITE BLOOD COUNT 10.18 K/uL (4.8-10.8)
[2017-05-14 19:19] LABS: ALBUMIN 3.6 gm/dl (3.4-5.0); ALT/SGPT 43 U/L (12-78); BLOOD UREA NITROGEN 21 mg/dl (7-18); CALCIUM 8.9 mg/dl (8.5-10.1); CARBON DIOXIDE 28 mmol/L (21-32); CREATININE 1.56 mg/dl (0.60-1.20); GLUCOSE 253 mg/dl (70-99); LIPASE 42 U/L (73-393); POTASSIUM 3.7 mmol/L (3.5-5.1); SODIUM 133 mmol/L (136-145)
[2017-05-14 19:21] LABS: INR 1.7 (0.9-1.1); PTT PATIENT 30.1 SECONDS (21.0-31.0)
[2017-05-14 19:24] LABS: ALKALINE PHOSPHATASE 100 U/L (45-117); AST/SGOT 49 U/L (15-37); CKMB 2.3 ng/ml (0.5-3.6); TOTAL PROTEIN 7.6 gm/dl (6.4-8.2)
[2017-05-14 19:49] LABS: INFLUENZA B ANTIGEN Neg for Influ B (NEG)
[2017-05-14] MEDS ORDERED: LBT/100 PO (20:03)
[2017-05-14] MEDS ORDERED: ADVIN25/60 INH (20:03)
[2017-05-14] MEDS ORDERED: GABA-113 PO (20:03)
[2017-05-14] MEDS ORDERED: SULF800T23 PO (20:03)
[2017-05-14] MEDS ORDERED: ALBU1.257 NEB (20:03)
[2017-05-14] MEDS ORDERED: DOXY100T PO (20:03)
[2017-05-14] MEDS ORDERED: OSELTAMIVIR PHOSPHATE 75 MG CAP PO STA (20:15)
--- NOTE | 2017-05-14 20:16 | DIAGNOSTIC IMAGING REPORT ---
CHEST ONE VIEW PORTABLE CLINICAL HISTORY: 71 years-old Female presenting with Evaluate Fever/Sepsis. TECHNIQUE: Portable upright AP view of the chest was obtained. COMPARISON: 08/29/2016. FINDINGS: Atherosclerosis of aortic arch. Cardiac silhouette mildly enlarged. Pulmonary vascular prominence. Lungs essentially clear. Trace blunting of the left costophrenic angle. No pneumothorax. Irregular contour of the anterior fourth rib, possibly indicating posttraumatic deformity. This was not present on the prior exam. Degenerative changes of the spine. Partially visualized anterior cervical fusion hardware. Additional surgical clips at the right base of the neck. Upper abdomen normal. IMPRESSION: 1. Trace left effusion versus left basilar atelectasis or scarring. No other evidence of acute cardiopulmonary disease. 2. Mild cardiomegaly and vascular prominence could suggest volume overload. 3. Interval development of apparent deformity of the anterior right fourth rib could suggest interval fracture. Electronically signed by: Luis Armando Bhatia M.D. 05/14/2017 8:15 PM Dictated Date/Time: 05/14/2017 8:13 PM
[2017-05-14] MEDS ORDERED: CEFTRIAXONE SOD INJ 1 GM ADDVIAL IV STA (20:59)
[2017-05-14] MEDS ORDERED: LEVO125T5 PO (21:07)
[2017-05-14] MEDS ORDERED: INSDGI SC (21:07)
[2017-05-14] MEDS ORDERED: VNTHFA/IN INH (21:07)
[2017-05-14] MEDS ORDERED: ZOLPIDEM TARTRATE 5 MG TAB PO PRN (21:45)
[2017-05-14] MEDS ORDERED: GLUCOSE 40% GEL 15 GM TUBE PO PRN (21:45)
[2017-05-14] MEDS ORDERED: ONDANSETRON 8MG OD TAB PO PRN (21:45)
[2017-05-14] MEDS ORDERED: LOPERAMIDE HCL 2 MG CAP PO PRN (21:45)
[2017-05-14] MEDS ORDERED: ALBUTEROL HFA 8 GM INHALER INH PRN (21:45)
[2017-05-14] MEDS ORDERED: GLUCOSE 10 TABS/TUBE PO PRN (21:45)
[2017-05-14] MEDS ORDERED: GLUCAGON FOR INJ 1 MG VIAL SQ PRN (21:45)
[2017-05-14] MEDS ORDERED: DEXTROSE 50% 50 ML SYR IV PRN (21:45)
[2017-05-14 23:25] VITALS: BP 107/67; PULSE 92; TEMP 36.9; O2SAT 95
[2017-05-15] VITALS (8 sets, daily range): BP systolic 151–162; BP diastolic 61–80; PULSE 80–108; TEMP 36.6–39.3; O2SAT 91–96; Ht 149.9 cm; Wt 108.3 kg
--- NOTE | 2017-05-15 | NUR ---
ID: Patient admitted to [facility]. Patient alert and oriented x 4. No complaints of pain. Lungs diminished on room air. Bowel sounds present in all four quadrants. No edema noted, palpable pedal pulses. Skin intact. Minimal assist in room. Bed alarm on. See EMR for full head to toe assessment. Will continue to monitor. Addendum: 05/15/17 at 0326 by Nella Ji RN - Droplet precautions for Flu.
--- NOTE | 2017-05-15 03:07 | History and Physical ---
History & Physical Date & Time of Service: May 15, 2017 at 02:41. The patient was seen and examined on 05/14/2017. Chief Complaint: Influenza A, Weakness Primary Care Physician: Manolo Milian M.D. History of Present Illness Source: patient, spouse, hospital records The patient is a 71-year-old female who presents to the emergency department with worsening generalized weakness leading to stumbling down a few stairs today and landing on her knees, without head or other trauma. 2 days ago she began to develop a productive cough, fever, congestion, generalized achiness and a sore throat, which had briefly improved yesterday, but worsened again today. EMS reports the patient had intermittent episodes of confusion, but was able to answer other questions. She does have a history of atrial fibrillation, which was demonstrated on a prehospital EKG, for which she is on warfarin 1 mg daily, with her most recent INR yesterday being 1.8. She denies any recent episodes of palpitations. She is presently on Bactrim for recurrent UTIs. She does have some hesitancy during the interview now, and is aware of slowed thinking and difficulty with recall at this time. Past Medical/Surgical History Medical Problems: (1) Diabetes Status: Chronic (2) Hx of blood clots Status: Resolved (3) Hypertension Status: Chronic (4) Lymph edema Status: Chronic (5) UTI (urinary tract infection) Status: Resolved Family History Cancer Social History Smoking Status: Never Smoker Drug Use: none Marital Status: Immunizations History of Influenza Vaccine: Unknown History of Tetanus Vaccine?: Unknown History of Pneumococcal: Unknown History of Hepatitis B Vaccine: Unknown Multi-Drug Resistant Organisms History of MDRO: No Allergies Coded Allergies: Chloramphenicol (Verified Allergy, Mild, RASH, 08/29/16) RASH Quinolones (Verified Allergy, Mild, RASH, 08/29/16) RASH Ciprofloxacin (Verified Allergy, Unknown, UNKNOWN, 08/29/16) Codeine (Verified Allergy, Unknown, RASH, 08/29/16) Esomeprazole (Verified Allergy, Unknown, RASH - PT HAS TAKEN PROTONIX AT HOME, 08/29/16) Lansoprazole (Verified Allergy, Unknown, RASH - PT HAS TAKEN PROTONIX AT HOME, 08/29/16) Milk (Verified Allergy, Unknown, 08/29/16) Omeprazole (Verified Allergy, Unknown, RASH - PT HAS TAKEN PROTONIX AT HOME, 08/29/16) Procainamide (Verified Allergy, Unknown, UNKNOWN, 08/29/16) Propoxyphene (Verified Allergy, Unknown, 08/29/16) Verapamil (Verified Allergy, Unknown, 08/29/16) Home Medications Scheduled Digoxin (Digitek), 125 MCG PO QAM Doxycycline Hyclate (Doxycycline Hyclate), 1 TAB PO BID Fluticasone Prop/Salmeterol (Advair Diskus 250/50 60 Dose), 1 PUFF INH BID Gabapentin (Neurontin), 600 MG PO BID Insulin Glargine (Lantus), 50 UNITS SC AMPM Insulin Regular (Human) (Novolin R U-100), UNITS SC TIDM Labetalol Hcl (Normodyne), 100 MG PO Q12 Levothyroxine Sodium (Levothyroxine Sodium), 125 MCG PO DAILY Pantoprazole (Protonix), 40 MG PO QPM Pregabalin (Lyrica), 1 CAP PO QAM Pregabalin (Lyrica), 150 MG PO QPM Sulfa/Trimethoprim (Bactrim Ds 800MG/160MG), 1 TAB PO MWF Warfarin Sodium (Warfarin Sodium), 1 MG PO UD Scheduled PRN Albuterol Hfa (Ventolin Hfa), 2 PUFFS INH Q6H PRN for Shortness of Breath Albuterol Sulfate (Albuterol Sulfate), 1 VIAL NEB Q4 PRN for Wheezing Loperamide Hcl (Imodium), 2 MG PO BID OR TID PRN for Diarrhea Review of Systems The patient denies chest pain, palpitations, lower extremity swelling, vision change, hearing change, nausea, vomiting, diarrhea or constipation, abdominal pain, pelvic pain, blood in urine or stool, dysuria, urinary frequency or urgency, loss of consciousness, rash, abnormal bruising or bleeding, focal weakness, numbness or tingling in arms or legs, back or neck pain, or night sweats. The review of systems is otherwise negative other than for that already noted above, and at least 10 systems have been reviewed. Physical Exam Vital Signs Date Time Temp Pulse Resp B/P (MAP) Pulse Ox O2 Delivery O2 Flow Rate FiO2 05/15/17 00:46 Room Air 05/15/17 00:00 Room Air 05/14/17 23:25 36.9 92 18 107/67 (80) 95 Room Air 05/14/17 22:24 37.6 05/14/17 22:10 86 23 93 05/14/17 22:00 130/66 05/14/17 21:40 84 16 93 05/14/17 21:30 104/58 05/14/17 21:10 94 21 94 05/14/17 21:00 122/65 05/14/17 20:40 97 18 93 05/14/17 20:35 83 22 96 05/14/17 20:31 117/65 05/14/17 20:05 101 21 93 05/14/17 20:00 125/69 05/14/17 19:35 100 17 05/14/17 19:30 129/77 05/14/17 19:19 92 21 05/14/17 19:03 39.2 100 18 152/69 97 Room Air 05/14/17 19:00 155/80 05/14/17 18:58 101 05/14/17 18:54 152/69 The patient is awake, alert and oriented 3, reports occasional loss of memory due to being too tired to think, normocephalic and atraumatic, lying in bed and in no acute distress. HEENT--PERRL, EOMI, mucous membranes and oropharynx dry. Neck--supple, no JVD or bruits, thyroid normal, trachea midline, no adenopathy. Heart--normal S1 and S2, no extra beats, no murmurs, rubs or gallops. Lungs--clear bilaterally, no respiratory distress, no accessory muscle use. Abdomen--normal bowel sounds and soft, nontender and nondistended, no hernias or masses, and obese. Extremities--no cyanosis, clubbing or edema. There are good distal pulses b/l. Dermatologic--mild abrasions on knees and top of shins bilaterally Neurologic--cranial nerves II through XII grossly intact. Rheumatologic--normal range of motion. Psychiatric--normal affect. Diagnostics Laboratory Results Results Past 24 Hours Test 05/14/17 18:32 05/14/17 19:15 05/14/17 20:35 Range/Units White Blood Count 10.18 4.8-10.8 K/uL Red Blood Count 4.54 4.2-5.4 M/uL Hemoglobin 12.7 12.0-16.0 g/dL Hematocrit 37.4 37-47 % Mean Corpuscular Volume 82.4 80-100 fL Mean Corpuscular Hemoglobin 28.0 25-34 pg Mean Corpuscular Hemoglobin Concent 34.0 32-36 g/dl Platelet Count 246 130-400 K/uL Mean Platelet Volume 9.9 7.4-10.4 fL Neutrophils (%) (Auto) 83.5 % Lymphocytes (%) (Auto) 6.9 % Monocytes (%) (Auto) 7.1 % Eosinophils (%) (Auto) 1.6 % Basophils (%) (Auto) 0.2 % Neutrophils # (Auto) 8.51 1.4-6.5 K/uL Lymphocytes # (Auto) 0.70 1.2-3.4 K/uL Monocytes # (Auto) 0.72 0.11-0.59 K/uL Eosinophils # (Auto) 0.16 0-0.5 K/uL Basophils # (Auto) 0.02 0-0.2 K/uL RDW Standard Deviation 48.9 36.4-46.3 fL RDW Coefficient of Variation 16.3 11.5-14.5 % Immature Granulocyte % (Auto) 0.7 % Immature Granulocyte # (Auto) 0.07 0.00-0.02 K/uL Prothrombin Time 17.6 9.0-12.0 SECONDS Prothromb Time International Ratio 1.7 0.9-1.1 Activated Partial Thromboplast Time 30.1 21.0-31.0 SECONDS Partial Thromboplastin Ratio 1.2 Sodium Level 133 136-145 mmol/L Potassium Level 3.7 3.5-5.1 mmol/L Chloride Level 96 98-107 mmol/L Carbon Dioxide Level 28 21-32 mmol/L Anion Gap 9.0 3-11 mmol/L Blood Urea Nitrogen 21 7-18 mg/dl Creatinine 1.56 0.60-1.20 mg/dl Est Creatinine Clear Calc Drug Dose 35.6 ml/min Estimated GFR () 38.1 Estimated GFR (Non- 32.9 BUN/Creatinine Ratio 13.6 10-20 Random Glucose 253 70-99 mg/dl Calcium Level 8.9 8.5-10.1 mg/dl Total Bilirubin 0.6 0.2-1 mg/dl Direct Bilirubin 0.2 0-0.2 mg/dl Aspartate Amino Transf (AST/SGOT) 49 15-37 U/L Alanine Aminotransferase (ALT/SGPT) 43 12-78 U/L Alkaline Phosphatase 100 45-117 U/L Total Creatine Kinase 331 26-192 U/L Creatine Kinase MB 2.3 0.5-3.6 ng/ml Creatine Kinase MB Ratio 0.7 0-3.0 Troponin I < 0.015 0-0.045 ng/ml Total Protein 7.6 6.4-8.2 gm/dl Albumin 3.6 3.4-5.0 gm/dl Lipase 42 73-393 U/L Influenza Type A Antigen POS for Influ A NEG Influenza Type B Antigen Neg for Influ B NEG Urine Color YELLOW Urine Appearance CLOUDY CLEAR Urine pH 5.5 4.5-7.5 Urine Specific [place] 1.022 1.000-1.030 Urine Protein TRACE NEG Urine Glucose (UA) 2+ NEG Urine Ketones TRACE NEG Urine Occult Blood 2+ NEG Urine Nitrite NEG NEG Urine Bilirubin NEG NEG Urine Urobilinogen NEG NEG Urine Leukocyte Esterase MODERATE NEG Urine WBC (Auto) >30 0-5 /hpf Urine RBC (Auto) >30 0-4 /hpf Urine Hyaline Casts (Auto) 1-5 0-5 /lpf Urine Epithelial Cells (Auto) 10-20 0-5 /lpf Urine Bacteria (Auto) 4+ NEG Microbiology Results 05/14/17 Blood Culture, Received Pending 05/14/17 Blood Culture, Received Pending 05/14/17 Urine Culture, Received Pending Diagnostic Radiology Patient Name: MAE COTO Unit Number: [id number] Dictated: 05/14/172012 Transcribed: 05/14/172012 PBS Printed Date/Time: [~ rep prt dt]/[~ rep prt tm] [~ rep ct labl] - [~ rep ct ivnm] [facility] [place] [address] Dictated: 05/14/172012 Transcribed: 05/14/172012 PBS Printed Date/Time: [~ rep prt dt]/[~ rep prt tm] [~ rep ct labl] - [~ rep ct ivnm] [~ rep ct add3]] CHEST ONE VIEW PORTABLE CLINICAL HISTORY: 71 years-old Female presenting with Evaluate Fever/Sepsis. TECHNIQUE: Portable upright AP view of the chest was obtained. COMPARISON: 08/29/2016. FINDINGS: Atherosclerosis of aortic arch. Cardiac silhouette mildly enlarged. Pulmonary vascular prominence. Lungs essentially clear. Trace blunting of the left costophrenic angle. No pneumothorax. Irregular contour of the anterior fourth rib, possibly indicating posttraumatic deformity. This was not present on the prior exam. Degenerative changes of the spine. Partially visualized anterior cervical fusion hardware. Additional surgical clips at the right base of the neck. Upper abdomen normal. IMPRESSION: 1. Trace left effusion versus left basilar atelectasis or scarring. No other evidence of acute cardiopulmonary disease. 2. Mild cardiomegaly and vascular prominence could suggest volume overload. 3. Interval development of apparent deformity of the anterior right fourth rib could suggest interval fracture. Electronically signed by: Luis Armando Bhatia M.D. 05/14/2017 8:15 PM Dictated Date/Time: 05/14/2017 8:13 PM The status of this report is Signed. Draft = Not yet reviewed or approved by Radiologist. Signed = Reviewed and approved by Radiologist. <AttendingPhy></AttendingPhy> <FamilyPhy>Manolo Milian M.D.</FamilyPhy> < PrimaryPhy>Manolo Milian M.D.</PrimaryPhy> <UnitNumber>[id number]</UnitNumber > <VisitNumber>[id number]</VisitNumber> <PatientName>MAE COTO</ PatientName> <DateOfBirth>1945</DateOfBirth> <Location>C.EDB</Location> < ServiceDate>05/14/17</ServiceDate> <MNE>ESINDI</MNE> <OrderingPhy>Ahsan Fuller D.O.</OrderingPhy> <OrderingPhyMNE>f rep ord dr guerra</OrderingPhyMNE> < DictatingPhyMNE>f rep dict dr guerra</DictatingPhyMNE> <CCListMNE>f rep ct mne</ CCListMNE> <AdmittingPhyMNE>f pt admit dr guerra</AdmittingPhyMNE> <AttendingPhyMNE >f pt attend dr guerra</AttendingPhyMNE> <ConsultingPhyMNE>f pt consult dr guerra</ConsultingPhyMNE> <FamilyPhyMNE>f pt fam dr guerra</FamilyPhyMNE> <OtherPhyMNE>f pt other dr guerra</OtherPhyMNE> < PrimaryPhyMNE>f pt prim care dr guerra</PrimaryPhyMNE> <ReferringPhyMNE>f pt referring dr guerra</ReferringPhyMNE> EKG EKG shows normal sinus rhythm at 97 bpm, nonspecific ST-T changes, occasional PACs. Impression Assessment and Plan Influenza A-- Continue Tamiflu 75 mg by mouth twice a day begun in the ED. Continue Advair discus Duonebs every 4 hours while awake and every 2 hours as needed. Monitor for any heart rate change. UTI-- Ceftriaxone 1 g IV daily Follow urine culture and sensitivity report Atrial fibrillation/hypertension/NATI Continue digoxin 125 g every morning, check a dig level Continue warfarin 1 mg daily, check serial PT/INRs Continue labetalol 100 mg by mouth every 12 hours Encourage oral intake of liquids Diabetes mellitus-- Change Lantus insulin from 50-30 units subcutaneous twice a day until oral intake is improved Place on Accu-Cheks before meals and at bedtime with NovoLog coverage per scale. Of note, patient does use regular for coverage in the outpatient setting. GERD-- Continue pantoprazole 40 mg by mouth every evening Peripheral neuropathy-- Continue Lyrica 75 mg in the a.m. and 150 mg in the evening Continue gabapentin 600 mg by mouth twice a day Verify in a.m. the patient is to be on both Hypothyroidism-- Continue levothyroxine sodium 125 g by mouth daily Level of Care Med/Surg Advanced Directives Existing Advance Directive: No Existing Living Will: No Existing Power of Nanny Caregiver: No Resuscitation Status FULL RESUSCITATION VTE Prophylaxis VTE Risk Assessment Done? Y/N: Yes Risk Level: Moderate Given or contraindicated: SCD's Social Service Consult None Apply
[2017-05-15 03:36] LABS: BASO % 0.2 %; BASO ABS # 0.01 K/uL (0-0.2); EOS % 2.6 %; EOS ABS # 0.16 K/uL (0-0.5); HEMATOCRIT 31.8 % (37-47); HEMOGLOBIN 10.5 g/dL (12.0-16.0); IG# 0.04 K/uL (0.00-0.02); LYMPH % 19.4 %; LYMPH ABS # 1.19 K/uL (1.2-3.4); MEAN CORPUSCULAR HEMOGLOBIN 27.4 pg (25-34); MEAN PLATELET VOLUME 9.3 fL (7.4-10.4); MONO % 9.9 %; MONO ABS # 0.61 K/uL (0.11-0.59); NEUT % 67.2 %; NEUT ABS # 4.13 K/uL (1.4-6.5); PLATELET COUNT 184 K/uL (130-400); RED CELL DISTRIBUTION WIDTH CV 16.6 % (11.5-14.5); RED CELL DISTRIBUTION WIDTH SD 50.5 fL (36.4-46.3); WHITE BLOOD COUNT 6.14 K/uL (4.8-10.8)
[2017-05-15 03:52] LABS: CREATININE 1.52 mg/dl (0.60-1.20)
[2017-05-15 03:53] LABS: CALCIUM 8.2 mg/dl (8.5-10.1); POTASSIUM 3.2 mmol/L (3.5-5.1)
[2017-05-15 04:11] LABS: INR 1.6 (0.9-1.1)
[2017-05-15] MEDS: LEVOTHYROXINE 125 MCG TAB PO SCH (05:57)
[2017-05-15] MEDS: ALBUT/IPRATROP 3MG/0.5MG NEB 3 ML VIAL INH SCH ×4 (07:07→20:17)
[2017-05-15] MEDS: ACETAMINOPHEN 325 MG TAB PO PRN ×2 (07:30→23:08)
[2017-05-15] MEDS ORDERED: HEPARIN SOD 5000 UNIT/0.5 ML CARP SQ SCH (09:00)
[2017-05-15] MEDS ORDERED: INSULIN GLARGINE SOLOSTAR 100 UNITS/ML 3 ML PEN SC SCH (09:00)
[2017-05-15] MEDS: LABETALOL HCL 100 MG TAB PO SCH ×2 (09:04→21:08)
[2017-05-15] MEDS: FLUTICASONE/SALMETEROL 250/50 (ADVAIR) 14 PUFF/1 INHALER INH SCH ×2 (09:04→21:09)
[2017-05-15] MEDS: OSELTAMIVIR PHOSPHATE 75 MG CAP PO SCH ×2 (09:05→21:07)
[2017-05-15] MEDS: GABAPENTIN 300 MG CAP PO SCH ×2 (09:05→21:07)
[2017-05-15] MEDS: PREGABALIN 75 MG CAP PO SCH (09:08)
[2017-05-15] MEDS: INSULIN ASPART 100 UNITS/ML 3 ML PEN SC SCH ×4 (09:21→21:17)
[2017-05-15] MEDS: INSULIN GLARGINE SOLOSTAR 100 UNITS/ML 3 ML PEN SC SCH ×2 (09:21→21:18)
[2017-05-15] MEDS ORDERED: BACITRACIN/POLYMYXIN B OINT 90 APPLN/28.4 GM TUBE EXT PRN (11:45)
--- NOTE | 2017-05-15 14:07 | NUR ---
flight surgeon [facility]: I call Dr. Milian's office to arrange a follow up appointment but there are no openings. The gastroenterology professor will have the nurse call the pt w/ appointment information. Pt has an existing appt w/ the [facility] on ThursdayMay 19 at 11:00 am. This info was added to the DC instructions.
--- NOTE | 2017-05-15 14:42 | Progress Note ---
Subjective Date of Service: May 15, 2017. Subjective pt feels somewhat better, still is fatigued and has some back pain from her chronic spinal stenosis. her is at the bedside and feels she looks improved but not yet ready to have home yet Problem List Medical Problems: (1) Acute kidney injury (nontraumatic) Status: Acute (2) Fall Status: Acute (3) Hypomagnesemia Status: Acute (4) Influenza A Status: Acute (5) Urinary tract infection Status: Acute (6) Weakness Status: Acute (7) Weakness Status: Acute Review of Systems Constitutional: + fever, + weakness, + fatigue Respiratory: + cough, + shortness of breath, + dyspnea on exertion Cardiac: No chest pain, No edema Abdomen: No pain, No nausea, No vomiting, No diarrhea Neurologic: + weakness, + balance problems, No memory loss Psychiatric: No depression symptoms, No anhedonism, No anxiety Objective Vital Signs Date Time Temp Pulse Resp B/P (MAP) Pulse Ox O2 Delivery O2 Flow Rate FiO2 05/15/17 00:46 Room Air 05/15/17 00:00 Room Air 05/14/17 23:25 36.9 92 18 107/67 (80) 95 Room Air 05/14/17 22:24 37.6 05/14/17 22:10 86 23 93 05/14/17 22:00 130/66 05/14/17 21:40 84 16 93 05/14/17 21:30 104/58 05/14/17 21:10 94 21 94 05/14/17 21:00 122/65 05/14/17 20:40 97 18 93 05/14/17 20:35 83 22 96 05/14/17 20:31 117/65 05/14/17 20:05 101 21 93 05/14/17 20:00 125/69 05/14/17 19:35 100 17 05/14/17 19:30 129/77 05/14/17 19:19 92 21 05/14/17 19:03 39.2 100 18 152/69 97 Room Air 05/14/17 19:00 155/80 05/14/17 18:58 101 05/14/17 18:54 152/69 Physical Exam General Appearance: WD/WN, + mild distress Eyes: normal inspection, sclerae normal Neck: supple, no carotid bruits Respiratory/Chest: chest non-tender, + decreased breath sounds, + rhonchi Cardiovascular: regular rate, rhythm, no murmur Abdomen: normal bowel sounds, non tender, soft Extremities: no pedal edema, no calf tenderness Neurologic/Psychiatric: alert, oriented x 3 Laboratory Results Last 24 Hours Test 05/14/17 18:32 05/14/17 19:15 05/14/17 20:35 05/15/17 03:24 White Blood Count 10.18 K/uL 6.14 K/uL Red Blood Count 4.54 M/uL 3.83 M/uL Hemoglobin 12.7 g/dL 10.5 g/dL Hematocrit 37.4 % 31.8 % Mean Corpuscular Volume 82.4 fL 83.0 fL Mean Corpuscular Hemoglobin 28.0 pg 27.4 pg Mean Corpuscular Hemoglobin Concent 34.0 g/dl 33.0 g/dl Platelet Count 246 K/uL 184 K/uL Mean Platelet Volume 9.9 fL 9.3 fL Neutrophils (%) (Auto) 83.5 % 67.2 % Lymphocytes (%) (Auto) 6.9 % 19.4 % Monocytes (%) (Auto) 7.1 % 9.9 % Eosinophils (%) (Auto) 1.6 % 2.6 % Basophils (%) (Auto) 0.2 % 0.2 % Neutrophils # (Auto) 8.51 K/uL 4.13 K/uL Lymphocytes # (Auto) 0.70 K/uL 1.19 K/uL Monocytes # (Auto) 0.72 K/uL 0.61 K/uL Eosinophils # (Auto) 0.16 K/uL 0.16 K/uL Basophils # (Auto) 0.02 K/uL 0.01 K/uL RDW Standard Deviation 48.9 fL 50.5 fL RDW Coefficient of Variation 16.3 % 16.6 % Immature Granulocyte % (Auto) 0.7 % 0.7 % Immature Granulocyte # (Auto) 0.07 K/uL 0.04 K/uL Prothrombin Time 17.6 SECONDS 16.5 SECONDS Prothromb Time International Ratio 1.7 1.6 Activated Partial Thromboplast Time 30.1 SECONDS 31.0 SECONDS Partial Thromboplastin Ratio 1.2 1.2 Sodium Level 133 mmol/L 136 mmol/L Potassium Level 3.7 mmol/L 3.2 mmol/L Chloride Level 96 mmol/L 101 mmol/L Carbon Dioxide Level 28 mmol/L 31 mmol/L Anion Gap 9.0 mmol/L 4.0 mmol/L Blood Urea Nitrogen 21 mg/dl 23 mg/dl Creatinine 1.56 mg/dl 1.52 mg/dl Est Creatinine Clear Calc Drug Dose 35.6 ml/min 36.6 ml/min Estimated GFR () 38.1 39.3 Estimated GFR (Non- 32.9 33.9 BUN/Creatinine Ratio 13.6 15.1 Random Glucose 253 mg/dl 168 mg/dl Calcium Level 8.9 mg/dl 8.2 mg/dl Total Bilirubin 0.6 mg/dl Direct Bilirubin 0.2 mg/dl Aspartate Amino Transf (AST/SGOT) 49 U/L Alanine Aminotransferase (ALT/SGPT) 43 U/L Alkaline Phosphatase 100 U/L Total Creatine Kinase 331 U/L Creatine Kinase MB 2.3 ng/ml Creatine Kinase MB Ratio 0.7 Troponin I < 0.015 ng/ml Total Protein 7.6 gm/dl Albumin 3.6 gm/dl Lipase 42 U/L Influenza Type A Antigen POS for Influ A Influenza Type B Antigen Neg for Influ B Urine Color YELLOW Urine Appearance CLOUDY Urine pH 5.5 Urine Specific [place] 1.022 Urine Protein TRACE Urine Glucose (UA) 2+ Urine Ketones TRACE Urine Occult Blood 2+ Urine Nitrite NEG Urine Bilirubin NEG Urine Urobilinogen NEG Urine Leukocyte Esterase MODERATE Urine WBC (Auto) >30 /hpf Urine RBC (Auto) >30 /hpf Urine Hyaline Casts (Auto) 1-5 /lpf Urine Epithelial Cells (Auto) 10-20 /lpf Urine Bacteria (Auto) 4+ Magnesium Level 1.7 mg/dl Digoxin Level 0.8 ng/ml Assessment and Plan 71 F with history of Chronic Respiratory failure, here with acute influenza A Influenza A-- Tamiflu 75 mg by mouth twice a day begun in the ED. COPD Advair discus, Duonebs UTI--POA Ceftriaxone 1 g IV daily, pending culture results Atrial fibrillation/hypertension/NATI rate controlled with digoxin 125 g, labetalol 100 mg bid Anticoagulated with warfarin 1 mg daily hypokalemia and hypomagnesemia, will repeat Diabetes mellitus-- Lantus insulin from 50-->30 units subcutaneous twice a day until oral intake is improved, plus SSI GERD--pantoprazole 40 mg by mouth every evening Peripheral neuropathy-- Lyrica 75 mg in the a.m. and 150 mg in the evening plus gabapentin 600 mg bid Hypothyroidism-- levothyroxine sodium 125 g by mouth daily
[2017-05-15] MEDS ORDERED: MAGNESIUM SULFATE 1GM / D5W 1 GM in PREMIXED IN D5W 100 ML IV ONE (15:00)
[2017-05-15] MEDS: DIGOXIN 0.125 MG TAB PO SCH (17:18)
[2017-05-15] MEDS: PREGABALIN 150 MG CAP PO SCH (21:06)
[2017-05-15] MEDS: PANTOprazole SOD 40 MG TAB PO SCH (21:07)
[2017-05-15] MEDS: POTASSIUM CHLORIDE 20 MEQ TABCR PO SCH (21:09)
[2017-05-15] MEDS: CEFTRIAXONE SOD INJ 1 GM in DEXTROSE 5% ADD-VANTAGE 50ML 50 ML IV SCH (21:20)
[2017-05-16] VITALS (7 sets, daily range): BP systolic 113–143; BP diastolic 67–79; PULSE 70–89; TEMP 37–37.2; O2SAT 92–95
--- NOTE | 2017-05-16 06:15 | NUR ---
ID: Patient admitted with Influenza A. AAO x4. Brief period of confusion overnight. Intermittent fever and chills. Lungs diminished on room air. Productive cough. Supervision with ambulation. Discharge plan uncertain at this time.
[2017-05-16] MEDS: LEVOTHYROXINE 125 MCG TAB PO SCH (06:32)
[2017-05-16 07:28] LABS: BASO % 0.2 %; BASO ABS # 0.01 K/uL (0-0.2); EOS % 4.3 %; EOS ABS # 0.21 K/uL (0-0.5); HEMATOCRIT 33.7 % (37-47); HEMOGLOBIN 10.7 g/dL (12.0-16.0); IG# 0.04 K/uL (0.00-0.02); LYMPH % 27.8 %; LYMPH ABS # 1.35 K/uL (1.2-3.4); MEAN CORPUSCULAR HEMOGLOBIN 26.4 pg (25-34); MEAN CORPUSCULAR HGB CONC 31.8 g/dl (32-36); MEAN PLATELET VOLUME 9.9 fL (7.4-10.4); MONO ABS # 0.58 K/uL (0.11-0.59); NEUT % 54.9 %; NEUT ABS # 2.66 K/uL (1.4-6.5); PLATELET COUNT 199 K/uL (130-400); RED CELL DISTRIBUTION WIDTH CV 16.5 % (11.5-14.5); RED CELL DISTRIBUTION WIDTH SD 50.2 fL (36.4-46.3); WHITE BLOOD COUNT 4.85 K/uL (4.8-10.8)
[2017-05-16 07:33] LABS: INR 1.2 (0.9-1.1); PTT PATIENT 29.2 SECONDS (21.0-31.0)
[2017-05-16] MEDS: ALBUT/IPRATROP 3MG/0.5MG NEB 3 ML VIAL INH SCH ×4 (07:33→19:41)
[2017-05-16 07:55] LABS: CREATININE 1.28 mg/dl (0.60-1.20); POTASSIUM 3.5 mmol/L (3.5-5.1)
[2017-05-16] MEDS: INSULIN ASPART 100 UNITS/ML 3 ML PEN SC SCH ×4 (08:37→21:13)
[2017-05-16] MEDS: INSULIN GLARGINE SOLOSTAR 100 UNITS/ML 3 ML PEN SC SCH ×2 (08:38→21:14)
[2017-05-16] MEDS: FLUTICASONE/SALMETEROL 250/50 (ADVAIR) 14 PUFF/1 INHALER INH SCH ×2 (08:40→21:07)
[2017-05-16] MEDS: GABAPENTIN 300 MG CAP PO SCH ×2 (08:40→21:08)
[2017-05-16] MEDS: OSELTAMIVIR PHOSPHATE 75 MG CAP PO SCH ×2 (08:41→21:09)
[2017-05-16] MEDS: POTASSIUM CHLORIDE 20 MEQ TABCR PO SCH ×2 (08:41→21:09)
[2017-05-16] MEDS: LABETALOL HCL 100 MG TAB PO SCH ×2 (08:41→21:08)
[2017-05-16] MEDS: PREGABALIN 75 MG CAP PO SCH (08:52)
--- NOTE | 2017-05-16 12:16 | Progress Note ---
Subjective Date of Service: May 16, 2017. Subjective pt did have a temp >38in the last 24 hours and still is very tired and weak, she has a non productive cough and overall feels terrible Problem List Medical Problems: (1) Acute kidney injury (nontraumatic) Status: Acute (2) Fall Status: Acute (3) Hypomagnesemia Status: Acute (4) Influenza A Status: Acute (5) Urinary tract infection Status: Acute (6) Weakness Status: Acute (7) Weakness Status: Acute Review of Systems Constitutional: + fever, + chills, + weakness, + fatigue ENT: + sore throat, No unusual epistaxis Respiratory: + cough, No sputum, No shortness of breath, No dyspnea on exertion Cardiac: No chest pain, No orthopnea, No PND, No edema Abdomen: No pain, No nausea, No vomiting, No diarrhea Female : + dysuria, No urinary frequency, No hematuria, No incontinence Psychiatric: + depression symptoms, No anxiety Objective Vital Signs Date Time Temp Pulse Resp B/P (MAP) Pulse Ox O2 Delivery O2 Flow Rate FiO2 05/16/17 11:22 76 16 95 Room Air 05/16/17 09:40 Room Air 05/16/17 07:33 74 16 92 Room Air 05/16/17 07:32 37.0 70 18 113/67 (82) 94 05/16/17 00:00 Room Air 05/15/17 23:22 38.2 85 20 151/80 (103) 94 Room Air 05/15/17 20:19 86 16 92 Room Air 05/15/17 20:00 Room Air 05/15/17 17:18 102 05/15/17 16:06 Room Air 05/15/17 15:35 36.9 80 20 157/61 (93) 96 Room Air 05/15/17 14:43 80 16 96 Room Air Physical Exam General Appearance: WD/WN, + moderate distress Respiratory/Chest: chest non-tender, lungs clear, + decreased breath sounds ( bases) Cardiovascular: regular rate, rhythm, no murmur Abdomen: normal bowel sounds, non tender, soft Extremities: no pedal edema, no calf tenderness Neurologic/Psychiatric: alert, oriented x 3 Laboratory Results Last 24 Hours Test 05/15/17 16:40 05/15/17 20:28 05/16/17 07:02 05/16/17 07:41 Bedside Glucose 245 mg/dl 262 mg/dl 246 mg/dl White Blood Count 4.85 K/uL Red Blood Count 4.06 M/uL Hemoglobin 10.7 g/dL Hematocrit 33.7 % Mean Corpuscular Volume 83.0 fL Mean Corpuscular Hemoglobin 26.4 pg Mean Corpuscular Hemoglobin Concent 31.8 g/dl Platelet Count 199 K/uL Mean Platelet Volume 9.9 fL Neutrophils (%) (Auto) 54.9 % Lymphocytes (%) (Auto) 27.8 % Monocytes (%) (Auto) 12.0 % Eosinophils (%) (Auto) 4.3 % Basophils (%) (Auto) 0.2 % Neutrophils # (Auto) 2.66 K/uL Lymphocytes # (Auto) 1.35 K/uL Monocytes # (Auto) 0.58 K/uL Eosinophils # (Auto) 0.21 K/uL Basophils # (Auto) 0.01 K/uL RDW Standard Deviation 50.2 fL RDW Coefficient of Variation 16.5 % Immature Granulocyte % (Auto) 0.8 % Immature Granulocyte # (Auto) 0.04 K/uL Prothrombin Time 12.6 SECONDS Prothromb Time International Ratio 1.2 Activated Partial Thromboplast Time 29.2 SECONDS Partial Thromboplastin Ratio 1.1 Sodium Level 136 mmol/L Potassium Level 3.5 mmol/L Chloride Level 102 mmol/L Carbon Dioxide Level 28 mmol/L Anion Gap 6.0 mmol/L Blood Urea Nitrogen 20 mg/dl Creatinine 1.28 mg/dl Est Creatinine Clear Calc Drug Dose 43.4 ml/min Estimated GFR () 48.4 Estimated GFR (Non- 41.7 BUN/Creatinine Ratio 15.4 Random Glucose 248 mg/dl Calcium Level 8.0 mg/dl Magnesium Level 1.9 mg/dl Assessment and Plan 71 F with history of Chronic Respiratory failure, here with acute influenza A Influenza A-- Tamiflu 75 mg by mouth twice a day begun in the ED. still with fever not sure if from flu or uti poa COPD Advair discus, DuoNeb her breathing has been stable despite cough UTI--POA ha sensitive E Coli, may be to cipro on discharge, concern as has had many recurrent uti's, discussed using urine acidification, seek gyne referral for eval and possible estrogen cream and more persistent survielence Atrial fibrillation/hypertension/NATI continues to be rate controlled with digoxin 125 g, labetalol 100 mg bid Anticoagulated with warfarin 1 mg daily hypokalemia and hypomagnesemia, continue to replete Diabetes mellitus-- Lantus insulin from resume 50 units twice a day, plus SSI GERD--pantoprazole 40 mg by mouth every evening Peripheral neuropathy-- Lyrica 75 mg in the a.m. and 150 mg in the evening plus gabapentin 600 mg bid Hypothyroidism-- levothyroxine sodium 125 g by mouth daily
[2017-05-16] MEDS ORDERED: INSULIN GLARGINE SOLOSTAR 100 UNITS/ML 3 ML PEN SC ONE (12:30)
[2017-05-16] MEDS: DIGOXIN 0.125 MG TAB PO SCH (16:26)
[2017-05-16] MEDS ORDERED: COUGH DROP (SUGAR FREE) LOZ 24 LOZ/1 BOX PO PRN (16:45)
[2017-05-16] MEDS ORDERED: NURSING DECISION MEDICATION ORDER ONE (16:45)
[2017-05-16] MEDS: PANTOprazole SOD 40 MG TAB PO SCH (21:08)
[2017-05-16] MEDS: PREGABALIN 150 MG CAP PO SCH (21:13)
[2017-05-16] MEDS: CEFTRIAXONE SOD INJ 1 GM in DEXTROSE 5% ADD-VANTAGE 50ML 50 ML IV SCH (21:14)
--- NOTE | 2017-05-17 03:39 | NUR ---
ID: Pt. alert and oriented x4. BP: 143/79. All other vitals WNL. Saline locked. Denies pain. Tolerating AHA, Diabetic Type 2 diet. voiding in toilet. Abrasions to both knees; Band-Aid to left knee. Ambulating independently in room. Discharge plans uncertain at this time.
[2017-05-17] MEDS: LEVOTHYROXINE 125 MCG TAB PO SCH (06:05)
[2017-05-17 06:18] LABS: BASO % 0.2 %; BASO ABS # 0.01 K/uL (0-0.2); EOS % 5.1 %; EOS ABS # 0.27 K/uL (0-0.5); HEMATOCRIT 32.8 % (37-47); HEMOGLOBIN 10.7 g/dL (12.0-16.0); IG# 0.04 K/uL (0.00-0.02); LYMPH % 27.6 %; LYMPH ABS # 1.47 K/uL (1.2-3.4); MEAN CELL VOLUME 83.7 fL (80-100); MEAN CORPUSCULAR HEMOGLOBIN 27.3 pg (25-34); MEAN CORPUSCULAR HGB CONC 32.6 g/dl (32-36); MEAN PLATELET VOLUME 9.4 fL (7.4-10.4); MONO % 8.3 %; MONO ABS # 0.44 K/uL (0.11-0.59); PLATELET COUNT 189 K/uL (130-400); RED CELL DISTRIBUTION WIDTH CV 16.5 % (11.5-14.5); RED CELL DISTRIBUTION WIDTH SD 49.9 fL (36.4-46.3); WHITE BLOOD COUNT 5.33 K/uL (4.8-10.8)
[2017-05-17 06:33] LABS: INR 1.1 (0.9-1.1); PTT PATIENT 26.9 SECONDS (21.0-31.0)
[2017-05-17 06:46] LABS: CALCIUM 8.1 mg/dl (8.5-10.1); CREATININE 1.09 mg/dl (0.60-1.20); POTASSIUM 3.8 mmol/L (3.5-5.1)
[2017-05-17 07:09] VITALS: PULSE 82; O2SAT 94
[2017-05-17] MEDS: ALBUT/IPRATROP 3MG/0.5MG NEB 3 ML VIAL INH SCH ×3 (07:09→15:03)
[2017-05-17 07:39] VITALS: BP 130/82; PULSE 78; TEMP 36.6; O2SAT 91
[2017-05-17] MEDS: GABAPENTIN 300 MG CAP PO SCH (08:57)
[2017-05-17] MEDS: LABETALOL HCL 100 MG TAB PO SCH (08:58)
[2017-05-17] MEDS: FLUTICASONE/SALMETEROL 250/50 (ADVAIR) 14 PUFF/1 INHALER INH SCH (08:58)
[2017-05-17] MEDS: OSELTAMIVIR PHOSPHATE 75 MG CAP PO SCH (08:58)
[2017-05-17] MEDS: INSULIN ASPART 100 UNITS/ML 3 ML PEN SC SCH ×2 (09:02→12:31)
[2017-05-17] MEDS: INSULIN GLARGINE SOLOSTAR 100 UNITS/ML 3 ML PEN SC SCH (09:05)
[2017-05-17] MEDS: PREGABALIN 150 MG CAP PO SCH (09:09)
[2017-05-17] MEDS: PREGABALIN 75 MG CAP PO SCH (09:12)
[2017-05-17 09:50] VITALS: PULSE 88; O2SAT 94
[2017-05-17 11:06] VITALS: PULSE 81; O2SAT 95
--- NOTE | 2017-05-17 12:41 | NUR ---
Case Management: Pt is going to require 4 more days of IV antibiotic per Dr Tejeda and needs to be set up in the [facility]. I contacted admissions and then spoke with Regan Cardoza to arrange a time. Pt is to come into the [facility] at 0830 for the next 4 days. Will inform pt and fax script to [facility]. Addendum: 05/17/17 at 1307 by Nory Wheeler SERV Pt informed of above discharge plan.
[2017-05-17] MEDS: CEFTRIAXONE SOD INJ 1 GM in DEXTROSE 5% ADD-VANTAGE 50ML 50 ML IV SCH (13:28)
[2017-05-17 14:11] VITALS: BP 130/82; PULSE 81; TEMP 36.6; O2SAT 95
[2017-05-17 14:49] VITALS: BP 121/77; PULSE 75; TEMP 36.7; O2SAT 94
[2017-05-17] MEDS ORDERED: NITR1CAP16 PO (15:03)
[2017-05-17] MEDS ORDERED: CEFT1INJ26 IV (15:03)
[2017-05-17] MEDS ORDERED: PRED-603 PO (15:03)
[2017-05-17] MEDS ORDERED: TMF75 PO (15:03)
--- NOTE | 2017-05-17 15:15 | Discharge Instructions ---
Discharge Instructions Date of Service May 17, 2017. 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 Instructions / Follow-Up Instructions / Follow-Up From Dr. Tejeda - 1. Influenza type "A" infection - * there is a good chance you are no longer contagious as you have not had a fever in nearly 36 hours * with that said it is likely a very good idea for friends & family to avoid coming to your home for another 2-3 days * please take the tamiflu for 2 more days (4 doses) * start this TONIGHT 2. Asthma with exacerbation - * you may be at the beginning of an asthma flare due to the flu * please take an albuterol neb treatment every 4-6 hours SCHEDULED for the next 3-4 days * if your cough or wheezing seem to be worsening you can fill the prescription for the prednisone and let your family doctor know right away * you can also take [id number] mucinex up to 1200mg twice a day for cough/ congestion 3. E. coli Urinary Tract Infection - * during this hospital stay you received 3 doses of rocephin (ceftriaxone) * please report to the [facility] ("[facility]") on 05/18/17, to start 4 days more of IV rocephin * you may want to wear a mask when you come for your first and second treatments * AFTER you have completed your rocephin course please do the following - * STOP your bactrim you had previously taken to prevent UTIs * START macrobid (nitrofurantoin) 100mg once daily and take EVERY DAY 4. Recurrent UTIs - * continue to see Dr. Frausto from urology * consider seeing your in service educator for any other work-up and/or treatments to prevent UTI 5. Coumadin - * resume your coumadin TODAY, 05/17/17, according to your previous schedule * have your INR checked on 05/19/17 as scheduled 6. Return to [facility] if - * you develop fever over 101 degrees * you have worsening cough or shortness of breath * you have worsening wheezing * severe diarrhea occurs * your albuterol is not relieving your chest symptoms * any other concerns 7. Follow-up - * see Dr. Milian THIS WEEK (within 3-5 days) * INR check on 05/19/17 as scheduled Current Hospital Diet Patient's current hospital diet: AHA Diet (Heart Healthy), Diabetes Type 2 Diet Discharge Diet Recommended Diet: AHA Diet (Heart Healthy), Diabetes Type 2 Diet Procedures Procedures Performed: chest x-ray Pending Studies Studies pending at discharge: no Medical Emergencies . Who to Call and When: Medical Emergencies: If at any time you feel your situation is an emergency, please call 911 immediately. . Non-Emergent Contact Non-Emergency issues call your: Primary Care Provider Call Non-Emergent contact if: you have any medication questions . . "Provider Documentation" section prepared by Manolo Tejeda. . VTE Core Measure Inpt VTE Proph given/why not?: SCD's
--- NOTE | 2017-05-17 15:55 | NUR ---
A: Patient discharged. Dressed with help of . SL removed intact from left forearm. Discharge instructions given to patient and . All belongings and paperwork sent with the patient. patient left the floor via wheelchair with at 1555.
--- NOTE | 2017-05-18 08:51 | Discharge Summary ---
Discharge Summary Date of Service May 17, 2017. Discharge Summary Admission Date: May 14, 2017 at 21:44 Discharge Date: May 17, 2017 Discharge Disposition: Home Principal Diagnosis: influenza type A infection Problems/Secondary Diagnoses: 1. multi-drug resistant e. coli UTI 2. h/o recurrent UTIs 3. asthma with early exacerbation 4. T2DM 5. hypothyroidism 6. hyponatremia - resolved 7. h/o DVT 8. h/o paroxysmal a. fib on chronic coumadin 9. hypomagnesemia - resolved Immunizations: Have You Had Influenza Vaccine: Unknown History of Tetanus Vaccine?: Unknown History of Pneumococcal: Unknown History of Hepatitis B Vaccine: Unknown Procedures: chest x-ray Consultations: PT, OT Medication Reconciliation New Medications: Ceftriaxone Sodium (Rocephin) 1 Gm Inj 1 GM IV DAILY for 4 Days, #4 DOSE 0 Refills begin 05/18/17 Nitrofurantoin Monohyd Macro (Macrobid) 100 Mg Cap 1 CAP PO DAILY for 30 Days, #30 CAP 2 Refills for UTI prevention Prednisone (Deltasone) 20 Mg Tab 60 MG PO DAILY for 5 Days, #15 TAB 0 Refills Oseltamivir Phosphate (Tamiflu) 75 Mg Cap 75 MG PO BID for 2 Days, #4 CAP 0 Refills Continued Medications: Albuterol Hfa (Ventolin Hfa) 200 Puffs/89862 Mcg Aers 2 PUFFS INH Q6H PRN for Shortness of Breath, #1 INHALER Albuterol Sulfate (Albuterol Sulfate) 1.25 Mg/3 Ml Neb 1 VIAL NEB Q4 PRN for Wheezing for 5 Days, #75 ML Digoxin (Digitek) 0.125 Mg Tab 125 MCG PO QAM Fluticasone Prop/Salmeterol (Advair Diskus 250/50 60 Dose) 1 Ea Aerp 1 PUFF INH BID, INHALER Gabapentin (Neurontin) 300 Mg Cap 600 MG PO BID, CAP Insulin Glargine (Lantus) 100 Unit/Ml Inj 50 UNITS SC AMPM, VIAL Insulin Regular (Human) (Novolin R U-100) 100 Unit/Ml Inj UNITS SC TIDM SLIDING SCALE PER MD. Labetalol Hcl (Normodyne) 100 Mg Tab 100 MG PO Q12, TAB Levothyroxine Sodium (Levothyroxine Sodium) 125 Mcg Tab 125 MCG PO DAILY for 90 Days, #90 TAB 3 Refills Loperamide Hcl (Imodium) 2 Mg Cap 2 MG PO BID OR TID PRN for Diarrhea, 0 Refills Pantoprazole (Protonix) 40 Mg Tab 40 MG PO QPM, #30 0 Refills Pregabalin (Lyrica) 75 Mg Cap 1 CAP PO QAM for 30 Days, #60 CAP 1 Refill Pregabalin (Lyrica) 150 Mg Cap 150 MG PO QPM, CAP Warfarin Sodium (Warfarin Sodium) 1 Mg Tab 1 MG PO UD for 90 Days, #90 TAB UD BY ANTICOAGULATION CLINIC. PATIENT DOES NOT REMEMBER DOSE. Discontinued Medications: Doxycycline Hyclate (Doxycycline Hyclate) 100 Mg Tab 1 TAB PO BID for 10 Days, #20 TAB Sulfa/Trimethoprim (Bactrim Ds 800MG/160MG) Tab 1 TAB PO MWF, #6 TAB Discharge Exam Physical Exam: General Appearance: no apparent distress, + obese ENT: pharynx normal, + muffled/hoarse voice (hoarse) Neck: no JVD Respiratory/Chest: no respiratory distress, no accessory muscle use, + wheezing (b/l) Cardiovascular: regular rate, rhythm, no gallop, no murmur, normal peripheral pulses Abdomen / GI: normal bowel sounds, non tender, soft, no organomegaly Extremities: no pedal edema Neurologic/Psychiatric: alert, oriented x 3 Skin: no rash Hospital Course HISTORY OF PRESENT ILLNESS: The patient is a 71-year-old female who presents to the emergency department with worsening generalized weakness leading to stumbling down a few stairs today and landing on her knees, without head or other trauma. 2 days ago she began to develop a productive cough, fever, congestion, generalized achiness and a sore throat, which had briefly improved yesterday, but worsened again today. EMS reports the patient had intermittent episodes of confusion, but was able to answer other questions. She does have a history of atrial fibrillation, which was demonstrated on a prehospital EKG, for which she is on warfarin 1 mg daily, with her most recent INR yesterday being 1.8. She denies any recent episodes of palpitations. She is presently on Bactrim for recurrent UTIs. In the ER her rapid flu test was positive for influenza type A. HOSPITAL COURSE: The patient was treated for influenza type A infection with tamiflu and supportive care. Her fever resolved about 36 hours prior to discharge. Chest x-ray failed to demonstrate any pneumonia. She never required oxygen during her stay. She had evidence of mild acute kidney injury likely due to dehydration. This resolved with IV fluids. In addition to the above she had an e. coli UTI. Unfortunately this pathogen had multi-drug resistance. Because of quinolone allergy a course of IV rocephin was recommended. She received 3 doses of IV rocephin while hospitalized and will complete 4 more days of treatment at the [facility] starting 05/18/17. The patient has a history of recurrent UTIs and had been taking bactrim for UTI prophylaxis. The e. coli isolated during this admission showed bactrim resistance. Thus, it was recommended that she STOP the bactrim and START daily macrobid for UTI prophylaxis. She will start the macrobid after her rocephin course is complete. She follows with Dr. Frausto from urology for her UTIs and follow-up with him was recommended. I also recommended she see gynecology in the event she has a pelvic disorder setting her up for UTIs. The patient may have the beginning of an asthma exacerbation. I provided her with a 5-day course of prednisone in the event her pulmonary symptoms (wheezing , cough, etc) worsen shortly after discharge. INR on day of discharge was 1.1. She was asked to resume her normal coumadin regimen and follow-up with the Anticoagulation Clinic on 05/19/17. All other medical problems remained stable while hospitalized. Total Time Spent: Greater than 30 minutes This includes examination of the patient, discharge planning, medication reconciliation, and communication with other providers. Discharge Instructions Please refer to the electronic Patient Visit Report (Discharge Instructions) for additional information. Follow-Up 1. [facility] clinic - 05/19/17 - for INR 2. Dr. Milian, PCP, within 1 week Additional Copies To Manolo Milian M.D.
== END 2017-05-17 15:55 | disposition home or self-care (01) | DRG 194 ==
LOC: EDBD 18:49 → C.EDB 18:50 → C.MS2W 21:44 → ENRESERV 22:01
PROVIDERS: ADMIT Hospitalist; ATTEND Internal Medicine
DX: J10.1 Influenza due to other identified influenza virus with other respiratory manifestations (principal); N39.0 Urinary tract infection, site not specified; N17.9 Acute kidney failure, unspecified; J45.901 Unspecified asthma with (acute) exacerbation; E87.1 Hypo-osmolality and hyponatremia; J96.10 Chronic respiratory failure, unspecified whether with hypoxia or hypercapnia; I48.91 Unspecified atrial fibrillation; E11.40 Type 2 diabetes mellitus with diabetic neuropathy, unspecified; Z86.718 Personal history of other venous thrombosis and embolism; I10 Essential (primary) hypertension; Z79.4 Long term (current) use of insulin; K21.9 Gastro-esophageal reflux disease without esophagitis; B96.20 Unspecified Escherichia coli [E. coli] as the cause of diseases classified elsewhere; E87.6 Hypokalemia; Z16.24 Resistance to multiple antibiotics; E03.9 Hypothyroidism, unspecified; I48.0 Paroxysmal atrial fibrillation; Z79.01 Long term (current) use of anticoagulants; E83.42 Hypomagnesemia; E86.0 Dehydration; Z87.440 Personal history of urinary (tract) infections

== ENCOUNTER → 2017-05-27 | Outpatient (CLI) | payer BC ==
[~2017-05-27] MED LIST changes: +ADVIN25/60 INH; +ALBU1.257 NEB; +CEFT1INJ26 IV; -DIPH-437 PO; +GABA-113 PO; -GABA-1219 PO; +INSDGI SC; -LABE1TAB28 PO; +LBT/100 PO; +LEVO125T5 PO; +NITR1CAP16 PO; +PRED-603 PO; +TMF75 PO; +VNTHFA/IN INH; -WARF4TAB43 PO
== END | disposition home or self-care (01) ==
LOC: C.PAPS 14:06
PROVIDERS: ATTEND Physician Assistant
DX: Z01.411 Encounter for gynecological examination (general) (routine) with abnormal findings (principal); N95.2 Postmenopausal atrophic vaginitis

== ENCOUNTER → 2017-05-29 | Outpatient (CLI) | payer BC | END | disposition home or self-care (01) | LOC: C.PATHSPEC 13:25 | PROVIDERS: ATTEND Obstetrics & Gynecology | DX: C54.1 Malignant neoplasm of endometrium (principal); N95.0 Postmenopausal bleeding ==

== ENCOUNTER → 2017-06-10 | Outpatient (CLI) | payer BC ==
[2017-06-10 13:14] LABS: BASO % 0.2 %; BASO ABS # 0.02 K/uL (0-0.2); EOS % 2.1 %; EOS ABS # 0.25 K/uL (0-0.5); HEMATOCRIT 37.6 % (37-47); HEMOGLOBIN 12.3 g/dL (12.0-16.0); IG# 0.07 K/uL (0.00-0.02); LYMPH % 16.7 %; LYMPH ABS # 2.02 K/uL (1.2-3.4); MEAN CELL VOLUME 82.8 fL (80-100); MEAN CORPUSCULAR HEMOGLOBIN 27.1 pg (25-34); MEAN CORPUSCULAR HGB CONC 32.7 g/dl (32-36); MEAN PLATELET VOLUME 10.2 fL (7.4-10.4); MONO % 4.8 %; MONO ABS # 0.58 K/uL (0.11-0.59); NEUT % 75.6 %; NEUT ABS # 9.12 K/uL (1.4-6.5); PLATELET COUNT 283 K/uL (130-400); RED CELL DISTRIBUTION WIDTH CV 16.1 % (11.5-14.5); RED CELL DISTRIBUTION WIDTH SD 48.6 fL (36.4-46.3); WHITE BLOOD COUNT 12.06 K/uL (4.8-10.8)
[2017-06-10 13:56] LABS: ALBUMIN 3.6 gm/dl (3.4-5.0); ALT/SGPT 31 U/L (12-78); AST/SGOT 24 U/L (15-37); BLOOD UREA NITROGEN 23 mg/dl (7-18); CALCIUM 9.1 mg/dl (8.5-10.1); CARBON DIOXIDE 31 mmol/L (21-32); CREATININE 1.27 mg/dl (0.60-1.20); GLUCOSE 180 mg/dl (70-99); POTASSIUM 3.5 mmol/L (3.5-5.1); SODIUM 136 mmol/L (136-145)
[2017-06-10 13:58] LABS: ALKALINE PHOSPHATASE 90 U/L (45-117); TOTAL PROTEIN 7.8 gm/dl (6.4-8.2)
== END | disposition home or self-care (01) ==
LOC: C.LAB1850 11:50
PROVIDERS: ATTEND Physician Assistant Medical
DX: C54.1 Malignant neoplasm of endometrium (principal)

== ENCOUNTER → 2017-06-20 | Outpatient (CLI) | payer BC ==
[2017-06-20 12:44] LABS: BASO % 0.3 %; BASO ABS # 0.03 K/uL (0-0.2); EOS % 2.2 %; EOS ABS # 0.22 K/uL (0-0.5); HEMATOCRIT 37.6 % (37-47); HEMOGLOBIN 12.3 g/dL (12.0-16.0); IG# 0.03 K/uL (0.00-0.02); LYMPH % 20.9 %; LYMPH ABS # 2.08 K/uL (1.2-3.4); MEAN CELL VOLUME 82.8 fL (80-100); MEAN CORPUSCULAR HEMOGLOBIN 27.1 pg (25-34); MEAN CORPUSCULAR HGB CONC 32.7 g/dl (32-36); NEUT % 72.3 %; NEUT ABS # 7.21 K/uL (1.4-6.5); PLATELET COUNT 238 K/uL (130-400); RED CELL DISTRIBUTION WIDTH CV 15.9 % (11.5-14.5); RED CELL DISTRIBUTION WIDTH SD 47.9 fL (36.4-46.3); WHITE BLOOD COUNT 9.97 K/uL (4.8-10.8)
[2017-06-20 12:55] LABS: HEMOGLOBIN A1C 7.6 % (4.5-5.6)
[2017-06-20 13:11] LABS: BLOOD UREA NITROGEN 20 mg/dl (7-18); CALCIUM 9.1 mg/dl (8.5-10.1); CARBON DIOXIDE 29 mmol/L (21-32); CHOLESTEROL 121 mg/dl (0-200); CREATININE 1.25 mg/dl (0.60-1.20); GLUCOSE 214 mg/dl (70-99); POTASSIUM 3.6 mmol/L (3.5-5.1); SODIUM 137 mmol/L (136-145)
[2017-06-20 13:21] LABS: LDL CHOLESTEROL CALCULATED 65 mg/dl
== END | disposition home or self-care (01) ==
LOC: C.LAB 11:48
PROVIDERS: ATTEND Internal Medicine
DX: I10 Essential (primary) hypertension (principal); R26.89 Other abnormalities of gait and mobility

== ENCOUNTER → 2017-07-03 | Outpatient (CLI) | payer BC | END | disposition home or self-care (01) | LOC: C.LABSPEC 14:49 | PROVIDERS: ATTEND Nurse Practitioner Adult Health | DX: R39.9 Unspecified symptoms and signs involving the genitourinary system (principal); N39.0 Urinary tract infection, site not specified ==

== ENCOUNTER → 2017-08-24 | Outpatient (CLI) | payer BC ==
--- NOTE | 2017-08-25 07:40 | MAMMOGRAPHY REPORT ---
BILATERAL DIGITAL SCREENING MAMMOGRAM TOMOSYNTHESIS WITH CAD: 08/24/2017 CLINICAL HISTORY: Routine screening. Patient has no complaints. TECHNIQUE: Breast tomosynthesis in addition to standard 2D mammography was performed. Current study was also evaluated with a Computer Aided Detection (CAD) system. COMPARISON: Comparison is made to exams dated: 08/21/2015 mammogram, 08/21/2016 mammogram, 08/17/2014 mamm ogram - [facility], 12/04/2008, 12/19/2009 mammogram - [facility], a nd 10/27/2007. BREAST COMPOSITION: There are scattered areas of fibroglandular density in both breasts. FINDINGS: There are moderate vascular calcifications in the breasts. A grouping of punctate microcal cifications in the 6:00 left breast appears stable dating back to at least 2007, therefore likely renetta ign. No suspicious mass, architectural distortion or new cluster of microcalcifications is seen. IMPRESSION: ACR BI-RADS CATEGORY 1: NEGATIVE There is no mammographic evidence of malignancy. A 1 year screening mammogram is recommended. The pa tient will receive written notification of the results. Approximately 10% of breast cancers are not detected with mammography. A negative mammographic report should not delay biopsy if a clinically suggestive mass is present. Eneida Frausto M.D. ay/:08/24/2017 15:37:44 [employer] Tester: Rajwinder ALCARAZ(Malathi)(M), [facility] letter sent: Normal 1/2 BI-RADS Code: ACR BI-RADS Category 1: Negative
== END | disposition home or self-care (01) ==
LOC: C.MAMM 11:08
PROVIDERS: ATTEND Internal Medicine
DX: Z12.31 Encounter for screening mammogram for malignant neoplasm of breast (principal)

== ENCOUNTER → 2017-09-23 | Outpatient (CLI) | payer BC ==
[2017-09-23 12:30] LABS: HEMOGLOBIN A1C 9.6 % (4.5-5.6)
== END | disposition home or self-care (01) ==
LOC: C.LABBFT 10:11
PROVIDERS: ATTEND Internal Medicine
DX: I10 Essential (primary) hypertension (principal)

== ENCOUNTER 2020-01-27 16:01 | Observation (INO) ==
[2020-01-27 18:43] LABS: Basophils # (auto) 0.01 K/uL (0-0.2); Basophils % (auto) 0.1 %; Eosinophils # (auto) 0.35 K/uL (0-0.5); Eosinophils % (auto) 3.2 %; Hematocrit (blood only) 34.1 % (37-47); Immature Granulocytes # (auto) 0.05 K/uL (0.00-0.02); Immature Granulocytes % (auto) 0.5 %; Lymphocytes # (auto) 1.75 K/uL (1.2-3.4); Lymphocytes % (auto) 16.2 %; Mean Corpuscular Hemoglobin 26.4 pg (25-34); Mean Corpuscular Hgb Conc 32.3 g/dL (32-36); Mean Platelet Volume 9.1 fL (7.4-10.4); Monocytes # (auto) 0.57 K/uL (0.11-0.59); Monocytes % (auto) 5.3 %; Neutrophils # (auto) 8.04 K/uL (1.4-6.5); Neutrophils % (auto) 74.7 %; Platelet Count 342 K/uL (130-400); RDW Coefficient of Variation 15.4 % (11.5-14.5); RDW Standard Deviation 45.4 fL (36.4-46.3); Red Blood Count 4.16 M/uL (4.2-5.4); White Blood Count 10.77 K/uL (4.8-10.8)
--- NOTE | 2020-01-27 18:50 | XRay Report ---
XR foot RT min 3V routine CLINICAL HISTORY: fall COMPARISON: None FINDINGS: Lateral view demonstrates a markedly displaced vertical fracture through the anterior proc ess of the calcaneus which extends into the subtalar joint. Multiple bone fragments are present. Frac ture is displaced approximately 2 cm. Note is made of apparent lucency within the adjacent midportion of the calcaneus. No additional fractures are noted. There is right foot soft tissue swelling. Moder ate vascular calcification is noted. Tarsometatarsal joints are intact. There is posterior and planta r calcaneal spurring. IMPRESSION: Acute markedly displaced vertical fracture through the anterior process of the calcaneus with multipl e bone fragments and extension to the subtalar joint with possible malalignment of the subtalar joint . Apparent lucency within the adjacent midportion of the calcaneus is probably artifactual however os teomyelitis with pathologic fracture cannot be excluded. ACT 112: Negative or not required by law. Electronically signed by: Kike Yi M.D. 01/27/2020 6:48 PM
[2020-01-27 19:00] LABS: BUN Creatinine Ratio 13.3 (10-20); Blood Urea Nitrogen 15 mg/dl (7-18); Calcium 9.5 mg/dl (8.5-10.1); Carbon Dioxide 32 mmol/L (21-32); Chloride 100 mmol/L (98-107); Est GFR (African American) 57.5; Est GFR (Non-African American) 49.6; Glucose 118 mg/dl (70-99); Potassium 3.4 mmol/L (3.5-5.1); Sodium 139 mmol/L (136-145)
[2020-01-27 19:11] LABS: Appearance Urine Clear (Clear); Bacteria Urine Automated Negative (Negative); Bilirubin Urine Negative (Negative); Blood Urine Negative (Negative); Cast Urine Automated 0 /lpf (0-5); Color Urine Yellow; Epithelial Cell Urine Auto 20-30 /lpf (0-5); Glucose Urine UA Negative (Negative); Ketones Urine Negative (Negative); Leukocyte Esterase Urine Trace (Negative); Nitrite Urine Negative (Negative); Protein Urine Negative (Negative); RBC Urine Automated 0-4 /hpf (0-4); Specific Gravity Urine 1.018 (1.000-1.030); Urobilinogen Urine Negative (Negative)
[2020-01-27] MEDS ORDERED: VANCOMYCIN HCL 2,000 MG in SODIUM CHLORIDE 0.9% 500 ML IV ONE (19:11)
[2020-01-27] MEDS ORDERED: VANCOMYCIN CONSULT ACTIVE PRN (19:11)
--- NOTE | 2020-01-27 20:50 | CT Scan Report ---
CT OF THE RIGHT ANKLE WITHOUT CONTRAST CLINICAL HISTORY: Fracture. COMPARISON STUDY: Right foot radiographs performed earlier today. TECHNIQUE: Axial images of the right ankle were obtained without IV contrast. Sagittal and coronal re constructions were viewed. Automated exposure control was utilized for the study. A dose lowering te chnique was utilized adhering to the principles of ALARA. FINDINGS: The displaced calcaneal fracture is better depicted on the CT of the right foot which will be reported separately. There is no acute fracture of the distal right tibia or fibula. Talar dome is intact. Numerous small ossific/calcific densities adjacent to the distal right tibia and fibula are likely chronic. No suspicious osseous lesion is noted. There is moderate vascular calcification. Soft tissue swelling is noted. No fluid collection is identified. There is no soft tissue gas. IMPRESSION: 1. Displaced right calcaneal fracture, better depicted on the CT of the right foot. Please see that r eport for further description. 2. No acute fracture of the distal right tibia, fibula or the talus. Small calcific/ossific densities adjacent to the distal right tibia and fibula are probably chronic. ACT 112: Negative or not required by law. Electronically signed by: Kike Yi M.D. 01/27/2020 8:48 PM
--- NOTE | 2020-01-27 20:53 | Consultation Report ---
DATE OF CONSULTATION: 01/27/2020 CHIEF COMPLAINT: Right ankle pain. HISTORY OF PRESENT ILLNESS: Melissa is a 74-year-old female who reports that approximately 8 days ago, she fell off 2 steps. She reports that she somehow injured her right heel at that time. Her looked at it and saw a bruise. She thereafter was able to continue bearing weight on the ankle despite having some pain and swelling. Because of ongoing discomfort, she saw Dr. Milian for treatment. She has been weightbearing on her right leg. There is no prior history of injury. PAST MEDICAL HISTORY: Significant for many medical problems including frequent falls, leg swelling, radiculopathy, gastric ulcer, carpal tunnel, endometrial cancer, obesity, lymphedema, hypertension, diabetes with neuropathy, atrial fibrillation. MEDICATIONS: Include albuterol, vitamin C, digoxin, gabapentin, inhalers, insulin, levocetirizine, levothyroxine, loperamide, oxybutynin, pantoprazole, pregabalin, rivaroxaban, spironolactone, tramadol. ALLERGIES: INCLUDE CIPRO, PROCAINAMIDE, SHRIMP, VERAPAMIL, CHLORAMPHENICOL, CODEINE, ESOMEPRAZOLE, LANSOPRAZOLE, PROPOXYPHENE, QUINOLONE, CIPRO, AND OMEPRAZOLE. PAST SURGICAL HISTORY: Surgically, she has had her cataracts removed. Colonoscopy, cystoscopy, D and C, EGD, cervical spine fusion, partial thyroidectomy, cyst excision, tonsillectomy, adenoidectomy, cholecystectomy, right knee replacement, hysterectomy with ovary removal. PHYSICAL EXAMINATION: Examination of the right leg reveals that it is markedly swollen, mildly erythematous and diffusely warm. There is a 2 x 3 cm superficial ulceration over the lateral aspect of the heel. There is bruising underneath it with dried skin over top, which is debrided sharply with scissors. The area underneath is bleeding and granulating. There is no open wound and no drainage. No significant surrounding erythema or induration. She is able to wiggle her toes and flex and extend them with 5-/5 strength. Ankle dorsiflexion is 5/5 and ankle plantar flexion is only 4/5. Her leg and foot are nontender, but she has tenderness to palpation with crepitation is noted on palpation of the heel. X-rays of the foot show a displaced fracture through the distal portion of the calcaneus with subluxation of the talocalcaneal joint. There is some fragmentation evident. The radiologist has commented on some lucency, which I think is the angle of Giss[place]. IMPRESSION: Right calcaneal fracture secondary to injury and neuropathy. PLAN: My findings are discussed with the patient and her daughter. She is placed into a very well-padded posterior splint with U-stirrup, ankle in neutral position. I applied Xeroform and gauze pads over the open wound. I have discussed with Dr. Haywood. I do not think that this represents infection or osteomyelitis and I think that not administering antibiotics would be appropriate. I think that this is a Charcot neuropathy either alone by itself or in conjunction with a minor injury to the calcaneus, which has gotten worse because of her neuropathy and walking on it. She will need to be nonweightbearing. Elevate, ice. I think she will probably need some sort of temporary placement as she will need to be nonweightbearing for a number of weeks. I would also recommend that we get her to see on an outpatient basis a foot and ankle specialist for further evaluation and treatment in the near future. Her current anticoagulation should suffice for DVT prophylaxis. I will continue to follow with her. She does not need any acute surgery at this time. CHUCKY
--- NOTE | 2020-01-27 20:57 | History & Physical Report ---
Date of Service January 27, 2020 Assessment & Plan (1) Falls frequently: Caveat: History Limited by - patient is a vague historian. Spouse is present at bedside for history. Angelo is a 73 year old female with a medical hx of asthma, anemia, frequent falls, lumbar back pain, dysphagia with aspiration, hypertension, atrial fibrillation, chronic renal insufficiency, DM insulin controlled, peripheral neuropathy, osteoarthritis, who presented to [facility] ED after being seen at PCP for CC of right foot wound. -It was noted that she had opened wound on the right side of foot. - Ortho saw patient in ED for concern of Osteomyelitis vs fracture on imaging. Patient was given Vanc in ED x 1 dose, but Ortho considered this to be acute fracture process without infection. She was then needed to be admitted with plans to help acquire placement to SNF. - Her spouse notes frequent falls weekly. There are about 12 steps to get inside from outside. There are another 12 steps that go to the second floor, there is no bathroom on the 1st floor only the second. Spouse notes they have been using bedside commodes on the first floor. He notes he helps her up the steps to go to bed at night otherwise she doesn't use the stairs because of fall risk. - Case management consult placed for help with SNF placement - PT/OT ordered - CT of right foot showed: Acute displaced vertical fracture involving the anterior process of the calcaneus with extension into the subtalar joint. Several associated fracture fragments. Irregularity and lucency within the adjacent mid aspect of the calcaneus is probably related to the fracture. Osteomyelitis related to the overlying wound is considered less likely but cannot be excluded with resultant pathologic fracture. Ortho consult continued. - Fall precautions ordered. - Will not continue with abx as no current signs of infectious process. Follow blood cultures. DVT ppx: C/w Home Xarelto 20mg daily FENGI: Heart healthy, DM2, Pantoprazole 40mg PO daily Dispo: Full admit, med/surg Code: DNR/DNI (2) Confusion: Appears to be occurring in evenings, unsure of etiology, denies prior events greater than 3 weeks ago. Will follow clinically here. Alert Oriented X3 here No reported hypoglycemic events with confusion Perhaps pregabalin pain medication is a contributor. Is on Oxybutnin and is an anti-cholinergic which can cause confusion and will hold this medication. (3) Open wound of right heel: unable to view as recently wrapped this was noted from outpatient visit note on review Will consult wound care, can discontinue as appropriate (4) Fever: Reported elevated temps at home but not greater than 100.4 F Blood cultures were drawn Will monitor temps here afebrile here No obvious signs of infection here (5) Anemia: appears at baseline without signs of bleed (6) Hx of gastric ulcer: c/w home Pantoprazole 40mg PO daily (7) Diabetes mellitus with polyneuropathy: Continue with Basaglar 35units SQ BID ISS CF 25, CR 10, goal 120-180 Will check A1C (8) Hypertension: c/w home meds - Spironalactone-HCTZ 25mg-25mg (9) Asthma: Duoneb PRN c/w home Advair diskus 1inh inhalation BID (10) Atrial fibrillation: c/w home digoxin 125mcg PO qAM c/w home Xarelto 20mg PO daily (11) Hypothyroidism: c/w home synthroid 125mcg will check TSH in AM History of Present Illness Chief Complaint: Right foot injury/Falls Primary Care Provider: Manolo Milian MD Caveat: History Limited by - patient is a vague historian. Spouse is present at bedside for history. Angelo is a 73 year old female with a medical hx of asthma, anemia, frequent falls, lumbar back pain, dysphagia with aspiration, hypertension, atrial fibrillation, chronic renal insufficiency, DM insulin controlled, peripheral neuropathy, osteoarthritis, who presented to [facility] ED after being seen at PCP for CC of right foot wound. She notes she injured right foot falling forward while going up stairs on 01/19/20, she denies any pain noting that she has chronic peripheral neuropathy. She notes she had injury to right foot with a significant bruise that "wrapped around my entire foot." It was noted that she had opened wound on the right side of foot. Her spouse notes frequent falls weekly. There are about 12 steps to get inside from outside. There are another 12 steps that go to the second floor, there is no bathroom on the 1st floor only the second. Spouse notes they have been using bedside commodes on the first floor. He notes he helps her up the steps to go to bed at night otherwise she doesn't use the stairs because of fall risk. He notes that she has been acting confused in the evenings over the past 3 weeks. She notes she has insight knowing that she is confused "some people don't know when they are acting confused, I do." notes she gets agitated and is mean tempered. He is vague regarding the details. He notes that once he gets her into bed she is fine throughout the night. He notes that she hasn't had any hypoglycemic events with this and that they checked her blood sugar to ensure. He notes sometimes she is on the phone and will lose her train of thought. She notes she was treated presumptively for a UTI based on urinary frequency. She notes finishing a course of keflex within the past 3 weeks. She was given another Rx for ceftin as symptoms returned but hasn't taken it yet. notes that Melissa is weak. She notes she uses a walker to get around. He notes she has had intermittent fevers Tmax 100.3 for 3 weeks that is improved with Tylenol. He notes temps were 99.8 this week. She denies chest pain, dyspnea, abdominal pain. She is on Xarelto and is taking this daily. Ortho saw patient in ED for concern of Osteomyelitis vs fracture on imaging. Patient was given Vanc in ED x 1 dose, but Ortho considered this to be acute fracture process without infection. She was then needed to be admitted with plans to help acquire placement to SNF. Allergies Allergy/AdvReac Type Severity Reaction Status Date / Time ciprofloxacin Allergy Intermediate severe rash Verified 01/27/20 15:05 procainamide Allergy Intermediate shaky, Verified 01/27/20 15:05 rapid heart beat, rash shrimp Allergy Intermediate Hives Verified 01/27/20 15:05 verapamil Allergy Intermediate shaky, Verified 01/27/20 15:05 rapid heart beat, rash chloramphenicol Allergy Mild rash,diarrh Verified 01/27/20 15:05 [From Chloromycetin] ea codeine Allergy Mild RASH Verified 01/27/20 15:05 esomeprazole Allergy Mild Rash Verified 01/27/20 15:05 lansoprazole Allergy Mild Rash Verified 01/27/20 15:05 propoxyphene Allergy Mild Rash Verified 01/27/20 15:05 Quinolones Allergy Mild RASH Verified 01/27/20 15:05 Cipro Allergy Unknown UNKNOWN Verified 05/21/17 08:05 omeprazole Allergy Unknown Rash Verified 01/27/20 15:05 Home Medications Home Medications Medication Instructions Recorded Confirmed Type albuterol sulfate 1.25 mg/3 mL 1.25 mg INH Q4H PRN 07/05/18 01/27/20 History solution for nebulization albuterol sulfate 90 mcg/actuation 2 puffs INH Q6H PRN 07/05/18 01/27/20 History aerosol inhaler fluticasone 250 mcg-salmeterol 50 1 inha INH BID 07/05/18 01/27/20 History mcg/dose blistr powdr for inhalation ascorbic acid (vitamin C) 250 mg 250 mg PO QAM tab 12/23/18 01/27/20 History chewable tablet loperamide 2 mg tablet 2 mg PO DAILY PRN tab 12/23/18 01/27/20 History spironolactone 25 1 tab PO BID #60 tab 12/23/18 01/27/20 History mg-hydrochlorothiazide 25 mg tablet blood sugar diagnostic #100 ea 06/21/19 01/27/20 Rx levothyroxine [Synthroid] 125 mcg PO QAM 07/27/19 01/27/20 History pregabalin 150 mg PO HS 07/27/19 01/27/20 History trimethoprim 100 mg PO HS 07/27/19 01/27/20 History lidocaine 4 % topical patch 1 patch TOP DAILY PRN #10 ea 07/28/19 01/27/20 Rx gabapentin 300 mg capsule 600 mg PO BID #360 cap 08/11/19 01/27/20 Rx pen needle, diabetic 29 gauge x #360 ea 09/21/19 01/27/20 Rx 1/2" insulin aspart U-100 100 unit/mL 0 units SQ TIDM vial 11/29/19 01/27/20 History subcutaneous solution pantoprazole 40 mg tablet,delayed 40 mg PO BID #60 tab 11/30/19 01/27/20 Rx release levocetirizine 5 mg tablet 5 mg PO DAILY #30 tab 12/01/19 01/27/20 Rx insulin glargine 100 unit/mL (3 45 units SUBCUT BID ml 12/13/19 01/27/20 History mL) subcutaneous pen rivaroxaban 20 mg tablet 20 mg PO QAM #30 tab 01/03/20 01/27/20 Rx insulin syringe-needle U-100 0.3 See Rx Instructions .ROUTE 01/05/20 01/27/20 Rx mL 31 gauge x 09/30" .COMPLEX #100 unspecified pregabalin 75 mg capsule 75 mg PO QAM cap 01/17/20 01/27/20 History tramadol 50 mg tablet 50 mg PO BID PRN tab 01/17/20 01/27/20 History digoxin 125 mcg (0.125 mg) tablet 125 mcg PO QAM #90 tab 01/24/20 01/27/20 Rx oxybutynin chloride 5 mg tablet 5 mg PO BID #180 tab 01/24/20 01/27/20 Rx Past Med/Surg History Medical History (Updated 01/27/20 @ 21:58 by Tito Florence DO) A-fib Asthma inhaler daily/prn, nebulizer prn Atrial fibrillation reason for xarelto/digoxin, follows with Dr. Milian Depression Dysphagia Endometrial cancer diagnosed 2017--sx H/O bladder infections Herniated intervertebral disc of lumbar spine History of gastric ulcer History of pulmonary embolism 2018--d/t sx HTN (hypertension) Hypothyroidism Lumbar back pain Morbid obesity with BMI of 40.0-44.9, adult On anticoagulant therapy xarelto daily Osteoarthritis Peripheral neuropathy Radiculopathy Spinal stenosis Tremor of both hands Uncontrolled type 2 diabetes mellitus Surgical History History of bilateral cataract extraction History of colonoscopy History of cystoscopy x3 History of dilatation and curettage x3 History of esophagogastroduodenoscopy (EGD) History of fusion of cervical spine x2--slightly stiff, normal ROM History of partial thyroidectomy Right--benign tumor History of removal of cyst off left breast History of tonsillectomy and adenoidectomy History of tooth extraction all teeth History of total hysterectomy with bilateral salpingo-oophorectomy (BSO) History of total right knee replacement Hx of cholecystectomy Family History Mother , 86 - COPD/Lung CA T2DM (type 2 diabetes mellitus) Lung cancer Steroid-induced diabetes mellitus COPD (chronic obstructive pulmonary disease) Father , 59 - Pancreatic CA Pancreatic cancer T2DM (type 2 diabetes mellitus) Sister , 55 - Rare Vaginal CA with mets to the liver and pancreas Vaginal cancer Sister Melanoma Grandmother (Maternal) , 93 Hypertension Stroke Grandfather (Maternal) , 93 T2DM (type 2 diabetes mellitus) Myocardial infarction Grandmother (Paternal) , 73 T2DM (type 2 diabetes mellitus) Grandfather (Paternal) , 70 Rheumatoid arthritis Heart disease Aunt , 72 - Pancreatic CA Pancreatic cancer Daughter Family history of malignant hyperthermia went into malignant hyperthermia with appy sx 26yrs ago Social History Smoking Status: Never smoker Second Hand Exposure: No; Hx Alcohol Use: No Hx Substance Use: No Preferred Language: Telugu Communication Ability: Effective Brick Picker Required: No Beliefs That Will Affect Care: None marital status: Current Living Situation: Spouse 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 Safe at Home: Yes Review of Systems Review of Systems: All systems reviewed & are unremarkable except as noted in HPI & below Constitutional: as per Subjective / HPI Eyes: no blind spots and no spots in vision Ear, Nose, Mouth, Throat: no nasal congestion, no nasal obstruction and no epistaxis Respiratory: no cough and no dyspnea Cardiovascular: no chest pain, no palpitations and no syncope Gastrointestinal: no abdominal pain, no nausea, no vomiting, no diarrhea/loose stools and no blood in stools Genitourinary: + urinary frequency; no dysuria Musculoskeletal: + back pain (chronic low back); no neck pain Integumentary: as per Subjective / HPI; no rash Neurologic: as per Subjective / HPI and + falls; no localized weakness Endocrine: no polydipsia, no polyphagia and no polyuria Physical Exam Constitutional: WD/WN, vitals as above + obese, cooperative and comfortable Eyes: PERRL, conjunctivae normal, anicteric sclerae ENMT: external ear and nose normal, oropharynx normal Neck: normal visual inspection and trachea midline Respiratory: normal respiratory effort, lungs clear to auscultation Cardiovascular: Rate/Rhythm: regular rate irregularly irregular Gastrointestinal (Abdomen): Percussion/Palpation: abdomen soft; abdomen nontender, no guarding and abdomen not rigid Musculoskeletal: Head/Neck/Chest: normocephalic and head atraumatic Skin: right lower extremtiy wrapped in heavy fashion, right distal foot and toes were visible without signs of erythema or warmth Neurologic: moves all extremities and awake Psychiatric: A+Ox3, euthymic affect Results & Data Results & Data ([facility]) Vital Signs (Past 12 Hours) Vital Signs Temp Pulse Pulse Resp BP BP Pulse Ox 01/27/20 19:17 74 18 148/83 H 98 01/27/20 16:05 37.1 C 86 20 134/79 97 Laboratory Results Laboratory Results - last 24 hr 01/27/20 01/27/20 01/27/20 18:20 18:20 18:20 WBC 10.77 RBC 4.16 L Hgb 11.0 L Hct 34.1 L MCV 82.0 MCH 26.4 MCHC 32.3 RDW Std Deviation 45.4 RDW Coeff of Filomena 15.4 H Plt Count 342 MPV 9.1 Immature Gran % (Auto) 0.5 Neut % (Auto) 74.7 Lymph % (Auto) 16.2 [place] % (Auto) 5.3 Eos % (Auto) 3.2 Baso % (Auto) 0.1 Neut # (Auto) 8.04 H Lymph # (Auto) 1.75 [place] # (Auto) 0.57 Eos # (Auto) 0.35 Baso # (Auto) 0.01 Immature Gran # (Auto) 0.05 H Sodium 139 Potassium 3.4 L Chloride 100 Carbon Dioxide 32 Anion Gap 7.0 BUN 15 Creatinine 1.09 Est Cr Clr Drug Dosing Not Reportable Est GFR ( Amer) 57.5 Est GFR (Non-Af Amer) 49.6 BUN/Creatinine Ratio 13.3 Glucose 118 H Lactate 1.8 Calcium 9.5 Urine Color Urine Appearance Urine pH Ur Specific [place] Urine Protein Urine Glucose (UA) Urine Ketones Urine Blood Urine Nitrite Urine Bilirubin Urine Urobilinogen Ur Leukocyte Esterase Urine WBC (Auto) Urine RBC (Auto) U Hyaline Cast (Auto) U Epithel Cells (Auto) Urine Bacteria (Auto) 01/27/20 18:20 WBC RBC Hgb Hct MCV MCH MCHC RDW Std Deviation RDW Coeff of Filomena Plt Count MPV Immature Gran % (Auto) Neut % (Auto) Lymph % (Auto) [place] % (Auto) Eos % (Auto) Baso % (Auto) Neut # (Auto) Lymph # (Auto) [place] # (Auto) Eos # (Auto) Baso # (Auto) Immature Gran # (Auto) Sodium Potassium Chloride Carbon Dioxide Anion Gap BUN Creatinine Est Cr Clr Drug Dosing Est GFR ( Amer) Est GFR (Non-Af Amer) BUN/Creatinine Ratio Glucose Lactate Calcium Urine Color Yellow Urine Appearance Clear Urine pH 7.0 Ur Specific [place] 1.018 Urine Protein Negative Urine Glucose (UA) Negative Urine Ketones Negative Urine Blood Negative Urine Nitrite Negative Urine Bilirubin Negative Urine Urobilinogen Negative Ur Leukocyte Esterase Trace H Urine WBC (Auto) 1-5 Urine RBC (Auto) 0-4 U Hyaline Cast (Auto) 0 U Epithel Cells (Auto) 20-30 H Urine Bacteria (Auto) Negative Medications Administered Vancomycin HCl 2,000 mg/ (Sodium Chloride) 540 mls @ 200 mls/hr IV NOW ONE Stop: 01/27/20 21:52 Last Admin: 01/27/20 19:44 Dose: 200 mls/hr Documented by: [id number] Code Status & VTE Plan Code Status DNR/ DNI VTE Prophylaxis Plan VTE Prophylaxis will be ordered: Yes Resident Activity Tracking Resident Involvement: Resident Care Provided Care Provided: Adult Hospital Medicine (1) Hypertension Hypertension type: essential hypertension Qualified Code(s): I10 - Essential (primary) hypertension (2) Atrial fibrillation Atrial fibrillation type: unspecified Qualified Code(s): I48.91 - Unspecified atrial fibrillation
--- NOTE | 2020-01-27 20:58 | CT Scan Report ---
CT OF THE RIGHT FOOT WITHOUT CONTRAST CLINICAL HISTORY: Fracture. COMPARISON STUDY: Right 4 radiographs performed earlier today. TECHNIQUE: Axial images of the right forearm were obtained without IV contrast. Sagittal and coronal reconstructions were viewed. Please note that the right ankle CT will be reported separately. Automat ed exposure control was utilized for the study. A dose lowering technique was utilized adhering to t he principles of ALARA. FINDINGS: Tarsometatarsal joints are intact. Note is made of an acute appearing displaced vertical fr acture involving the anterior process of the calcaneus. This extends to the subtalar joint. Fracture is displaced 2.2 cm. A few fracture fragments are present. No additional acute fractures within the r ight foot are noted. There is right foot soft tissue swelling. A bandage on the lateral right hindfoo t is noted. No soft tissue gas is present. No fluid collection is identified. IMPRESSION: Acute displaced vertical fracture involving the anterior process of the calcaneus with extension into the subtalar joint. Several associated fracture fragments. Irregularity and lucency within the adjac ent mid aspect of the calcaneus is probably related to the fracture. Osteomyelitis related to the ove rlying wound is considered less likely but cannot be excluded with resultant pathologic fracture. ACT 112: Negative or not required by law. Electronically signed by: Kike Yi M.D. 01/27/2020 8:57 PM
--- NOTE | 2020-01-27 21:39 | Progress Notes ---
DATE: 01/27/2020 ADDENDUM White count normal, hemoglobin 11, hematocrit 34, platelet count is 342. PRP is noted. Upon admission, she should have consultation with Physical Therapy and Occupational Therapy for transfer training and be made nonweightbearing on her right lower extremity. The leg should be elevated and iced.
--- NOTE | 2020-01-27 22:13 | Emergency Department Note ---
History of Present Illness General Chief complaint: Infection, Wound Stated complaint: sore on right heel, fever Time Seen by Provider: 01/27/20 17:23 History of Present Illness Provider complaint: Right foot pain fever Onset (ago): day(s) 8 Location: lower extremity (Foot) and right Radiation: non-radiation Severity: moderate Pain Consistency: + constant Maximum Pain Intensity: 6 Current Pain Intensity: 5 Quality: + aching and + dull Relieved By: + none Exacerbated By: + none Associated symptoms: + fever/chills (T-max 99.8); no cough and no headaches 74-year-old insulin diabetic female presents emergency department with right foot pain. Patient states she fell while walking up the steps 8 days ago. She reports pain of her right foot over the heel area. Patient reports she has had fevers. T-max nine 9.8. She also reports that she was on antibiotics for possible UTI and just finished the antibiotic course. She states she saw her PCP Dr. Milian who wanted her to come and be evaluated in the emergency department. Home Medications Home Medications Medication Instructions Recorded Confirmed Type albuterol sulfate 1.25 mg/3 mL 1.25 mg INH Q4H PRN 07/05/18 01/27/20 History solution for nebulization albuterol sulfate 90 mcg/actuation 2 puffs INH Q6H PRN 07/05/18 01/27/20 History aerosol inhaler fluticasone 250 mcg-salmeterol 50 1 inha INH BID 07/05/18 01/27/20 History mcg/dose blistr powdr for inhalation ascorbic acid (vitamin C) 250 mg 250 mg PO QAM tab 12/23/18 01/27/20 History chewable tablet loperamide 2 mg tablet 2 mg PO DAILY PRN tab 12/23/18 01/27/20 History spironolactone 25 1 tab PO BID #60 tab 12/23/18 01/27/20 History mg-hydrochlorothiazide 25 mg tablet blood sugar diagnostic #100 ea 06/21/19 01/27/20 Rx levothyroxine [Synthroid] 125 mcg PO QAM 07/27/19 01/27/20 History pregabalin 150 mg PO HS 07/27/19 01/27/20 History trimethoprim 100 mg PO HS 07/27/19 01/27/20 History lidocaine 4 % topical patch 1 patch TOP DAILY PRN #10 ea 07/28/19 01/27/20 Rx gabapentin 300 mg capsule 600 mg PO BID #360 cap 08/11/19 01/27/20 Rx pen needle, diabetic 29 gauge x #360 ea 09/21/19 01/27/20 Rx 1/2" insulin aspart U-100 100 unit/mL 0 units SQ TIDM vial 11/29/19 01/27/20 History subcutaneous solution pantoprazole 40 mg tablet,delayed 40 mg PO BID #60 tab 11/30/19 01/27/20 Rx release levocetirizine 5 mg tablet 5 mg PO DAILY #30 tab 12/01/19 01/27/20 Rx insulin glargine 100 unit/mL (3 45 units SUBCUT BID ml 12/13/19 01/27/20 History mL) subcutaneous pen rivaroxaban 20 mg tablet 20 mg PO QAM #30 tab 01/03/20 01/27/20 Rx insulin syringe-needle U-100 0.3 See Rx Instructions .ROUTE 01/05/20 01/27/20 Rx mL 31 gauge x 5/16" .COMPLEX #100 unspecified pregabalin 75 mg capsule 75 mg PO QAM cap 01/17/20 01/27/20 History tramadol 50 mg tablet 50 mg PO BID PRN tab 01/17/20 01/27/20 History digoxin 125 mcg (0.125 mg) tablet 125 mcg PO QAM #90 tab 01/24/20 01/27/20 Rx oxybutynin chloride 5 mg tablet 5 mg PO BID #180 tab 01/24/20 01/27/20 Rx Allergies Allergy/AdvReac Type Severity Reaction Status Date / Time ciprofloxacin Allergy Intermediate severe rash Verified 01/27/20 15:05 procainamide Allergy Intermediate shaky, Verified 01/27/20 15:05 rapid heart beat, rash shrimp Allergy Intermediate Hives Verified 01/27/20 15:05 verapamil Allergy Intermediate shaky, Verified 01/27/20 15:05 rapid heart beat, rash chloramphenicol Allergy Mild rash,diarrh Verified 01/27/20 15:05 [From Chloromycetin] ea codeine Allergy Mild RASH Verified 01/27/20 15:05 esomeprazole Allergy Mild Rash Verified 01/27/20 15:05 lansoprazole Allergy Mild Rash Verified 01/27/20 15:05 propoxyphene Allergy Mild Rash Verified 01/27/20 15:05 Quinolones Allergy Mild RASH Verified 01/27/20 15:05 Cipro Allergy Unknown UNKNOWN Verified 05/21/17 08:05 omeprazole Allergy Unknown Rash Verified 01/27/20 15:05 Past Med/Surg History Medical History A-fib Asthma inhaler daily/prn, nebulizer prn Atrial fibrillation reason for xarelto/digoxin, follows with Dr. Milian Depression Dysphagia Endometrial cancer diagnosed 2017--sx H/O bladder infections Herniated intervertebral disc of lumbar spine History of gastric ulcer History of pulmonary embolism 2018--d/t sx HTN (hypertension) Hypothyroidism Lumbar back pain Morbid obesity with BMI of 40.0-44.9, adult On anticoagulant therapy xarelto daily Osteoarthritis Peripheral neuropathy Radiculopathy Spinal stenosis Tremor of both hands Uncontrolled type 2 diabetes mellitus Surgical History History of bilateral cataract extraction History of colonoscopy History of cystoscopy x3 History of dilatation and curettage x3 History of esophagogastroduodenoscopy (EGD) History of fusion of cervical spine x2--slightly stiff, normal ROM History of partial thyroidectomy Right--benign tumor History of removal of cyst off left breast History of tonsillectomy and adenoidectomy History of tooth extraction all teeth History of total hysterectomy with bilateral salpingo-oophorectomy (BSO) History of total right knee replacement Hx of cholecystectomy Family History Mother , 86 - COPD/Lung CA T2DM (type 2 diabetes mellitus) Lung cancer Steroid-induced diabetes mellitus COPD (chronic obstructive pulmonary disease) Father , 59 - Pancreatic CA Pancreatic cancer T2DM (type 2 diabetes mellitus) Sister , 55 - Rare Vaginal CA with mets to the liver and pancreas Vaginal cancer Sister Melanoma Grandmother (Maternal) , 93 Hypertension Stroke Grandfather (Maternal) , 93 T2DM (type 2 diabetes mellitus) Myocardial infarction Grandmother (Paternal) , 73 T2DM (type 2 diabetes mellitus) Grandfather (Paternal) , 70 Rheumatoid arthritis Heart disease Aunt , 72 - Pancreatic CA Pancreatic cancer Daughter Family history of malignant hyperthermia went into malignant hyperthermia with appy sx 26yrs ago Social History Smoking Status: Never smoker Second Hand Exposure: No; Hx Alcohol Use: Yes Alcohol type: wine Alcohol Intake Frequency Comment: 2 drinks per week Hx Substance Use: No Preferred Language: Thai Communication Ability: Effective Float Nurse Required: No Beliefs That Will Affect Care: None marital status: Current Living Situation: Spouse 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 Safe at Home: Yes Safety Concerns: Feels Safe At This Time Review of Systems A total of 10 systems reviewed and were otherwise negative Physical Exam Vital Signs Vital Signs - 24 hr 01/27/20 16:05 01/27/20 19:17 Temperature 37.1 C Temperature Source Oral Pulse Rate 86 Pulse Rate [Finger] 74 Respiratory Rate 20 18 Respiratory Effort / Characteristics Non-Labored Spontaneous Respiratory Depth Normal Blood Pressure 134/79 Blood Pressure [Left Arm] 148/83 H Blood Pressure Mean 97 Blood Pressure Mean [Left Arm] 104 Blood Pressure Position Sitting Pulse Oximetry 97 98 Oxygen Delivery Method Room Air Sepsis Recent Fever Within 48 Hours No Sepsis New/Unexplained Change in Mental Status N/A Sepsis Action Taken by Nursing No Action Required Physical Exam GENERAL: She is oriented to person, place, and time. She appears well-developed and well-nourished. She does not appear distressed. HENT: Exam performed. -Head: Normocephalic and atraumatic. -Right Ear: External ear normal. No mastoid tenderness. -Left Ear: External ear normal. No mastoid tenderness. -Mouth/Throat: The oropharynx is clear and moist. No trismus in the jaw. No dental abscesses or uvula swelling. No oropharyngeal exudate or tonsillar abscesses. EYES: Conjunctivae and EOM are normal. Pupils are equal, round, and reactive to light. Right eye exhibits no discharge. Left eye exhibits no discharge. No scleral icterus. NECK: Normal range of motion. Neck supple. No JVD present. No spinous process tenderness present. No carotid bruit present. No rigidity. No tracheal deviation and normal range of motion present. No Brudzinski's sign and no Kernig's sign noted. CV: Normal rate, irregular rhythm, normal heart sounds and intact distal pulses. There is no peripheral edema. Palpable radial pulses bue. PULM/CHEST: Effort normal and breath sounds normal. No respiratory distress. No stridor. She has no wheezes. She has no rales. -Chest Wall: She exhibits no tenderness. ABD: The abdomen is soft. Bowel sounds are normal. She has no distension. No mass is present. There is no tenderness. There is no rebound, no guarding, no Barrera's sign and no tenderness at McBurney's point. Rovsig negative MUSC/SKEL: Right lower extremity: Swelling over the right lower extremity over the dorsal aspect of the foot and the heel. NEURO: She is alert and oriented to person, place, and time. She has normal strength. No cranial nerve deficit or sensory deficit. Coordination and gait normal. GCS eye subscore is 4. GCS verbal subscore is 5. GCS motor subscore is 6. Cerebellar tests wnl. SKIN: 3 x 3 cm abrasion/superficial ulceration of the lateral aspect of the right heel. PSYCH: She has a normal mood and affect. Behavior is normal. Judgment and tho ught content normal. Course Course 1722: The patient was evaluated in room A3. A complete history and physical exam was performed. 1900: Vital signs stable. Labs within normal limits. X-ray shows calcaneus fracture with possible osteomyelitis. Discussed with Dr. Enrique orthopedics who stated to order CT of the foot and ankle. Recommended that the patient be admitted to hospital medicine service. Vancomycin will be started for possible osteomyelitis. Patient and family in agreement with the plan. Dr. Brayden Escobar [facility] was [facility]. 2023: Dr. Enrique evaluated patient at bedside does not believe the patient has osteomyelitis. He remains patient be nonweightbearing and states patient will need possible correction or rehab since she cannot walk up the stairs at home. Medicine team was made aware. Administered Medications Discontinued Medications Vancomycin HCl 2,000 mg/ (Sodium Chloride) 540 mls @ 200 mls/hr IV NOW ONE Stop: 01/27/20 21:52 Last Admin: 01/27/20 19:44 Dose: 200 mls/hr Documented by: [id number] Medical Decision Making Laboratory Data Result diagrams: 01/27/20 18:20 01/27/20 18:20 Lab Results 01/27/20 01/27/20 01/27/20 Range/Units 18:20 18:20 18:20 WBC 10.77 (4.8-10.8) K/uL RBC 4.16 L (4.2-5.4) M/uL Hgb 11.0 L (12.0-16.0) g/dL Hct 34.1 L (37-47) % MCV 82.0 (80-100) fL MCH 26.4 (25-34) pg MCHC 32.3 (32-36) g/dL RDW Std Deviation 45.4 (36.4-46.3) fL RDW Coeff of Filomena 15.4 H (11.5-14.5) % Plt Count 342 (130-400) K/uL MPV 9.1 (7.4-10.4) fL Immature Gran % (Auto) 0.5 % Neut % (Auto) 74.7 % Lymph % (Auto) 16.2 % Hughes % (Auto) 5.3 % Eos % (Auto) 3.2 % Baso % (Auto) 0.1 % Neut # (Auto) 8.04 H (1.4-6.5) K/uL Lymph # (Auto) 1.75 (1.2-3.4) K/uL Hughes # (Auto) 0.57 (0.11-0.59) K/uL Eos # (Auto) 0.35 (0-0.5) K/uL Baso # (Auto) 0.01 (0-0.2) K/uL Immature Gran # (Auto) 0.05 H (0.00-0.02) K/uL Sodium 139 (136-145) mmol/L Potassium 3.4 L (3.5-5.1) mmol/L Chloride 100 (98-107) mmol/L Carbon Dioxide 32 (21-32) mmol/L Anion Gap 7.0 (3-11) BUN 15 (7-18) mg/dl Creatinine 1.09 (0.6-1.2) mg/dl Est Cr Clr Drug Dosing Not Reportable Est GFR ( Amer) 57.5 Est GFR (Non-Af Amer) 49.6 BUN/Creatinine Ratio 13.3 (10-20) Glucose 118 H (70-99) mg/dl Lactate 1.8 (0.4-2.0) mmol/L Calcium 9.5 (8.5-10.1) mg/dl Urine Color Urine Appearance (Clear) Urine pH (4.5-7.5) Ur Specific [place] (1.000-1.030) Urine Protein (Negative) Urine Glucose (UA) (Negative) Urine Ketones (Negative) Urine Blood (Negative) Urine Nitrite (Negative) Urine Bilirubin (Negative) Urine Urobilinogen (Negative) Ur Leukocyte Esterase (Negative) Urine WBC (Auto) (0-5) /hpf Urine RBC (Auto) (0-4) /hpf U Hyaline Cast (Auto) (0-5) /lpf U Epithel Cells (Auto) (0-5) /lpf Urine Bacteria (Auto) (Negative) 01/27/20 Range/Units 18:20 WBC (4.8-10.8) K/uL RBC (4.2-5.4) M/uL Hgb (12.0-16.0) g/dL Hct (37-47) % MCV (80-100) fL MCH (25-34) pg MCHC (32-36) g/dL RDW Std Deviation (36.4-46.3) fL RDW Coeff of Filomena (11.5-14.5) % Plt Count (130-400) K/uL MPV (7.4-10.4) fL Immature Gran % (Auto) % Neut % (Auto) % Lymph % (Auto) % Hughes % (Auto) % Eos % (Auto) % Baso % (Auto) % Neut # (Auto) (1.4-6.5) K/uL Lymph # (Auto) (1.2-3.4) K/uL Hughes # (Auto) (0.11-0.59) K/uL Eos # (Auto) (0-0.5) K/uL Baso # (Auto) (0-0.2) K/uL Immature Gran # (Auto) (0.00-0.02) K/uL Sodium (136-145) mmol/L Potassium (3.5-5.1) mmol/L Chloride (98-107) mmol/L Carbon Dioxide (21-32) mmol/L Anion Gap (3-11) BUN (7-18) mg/dl Creatinine (0.6-1.2) mg/dl Est Cr Clr Drug Dosing Est GFR ( Amer) Est GFR (Non-Af Amer) BUN/Creatinine Ratio (10-20) Glucose (70-99) mg/dl Lactate (0.4-2.0) mmol/L Calcium (8.5-10.1) mg/dl Urine Color Yellow Urine Appearance Clear (Clear) Urine pH 7.0 (4.5-7.5) Ur Specific [place] 1.018 (1.000-1.030) Urine Protein Negative (Negative) Urine Glucose (UA) Negative (Negative) Urine Ketones Negative (Negative) Urine Blood Negative (Negative) Urine Nitrite Negative (Negative) Urine Bilirubin Negative (Negative) Urine Urobilinogen Negative (Negative) Ur Leukocyte Esterase Trace H (Negative) Urine WBC (Auto) 1-5 (0-5) /hpf Urine RBC (Auto) 0-4 (0-4) /hpf U Hyaline Cast (Auto) 0 (0-5) /lpf U Epithel Cells (Auto) 20-30 H (0-5) /lpf Urine Bacteria (Auto) Negative (Negative) Imaging Data Radiologist's Impression: XR foot RT min 3V routine CLINICAL HISTORY: fall COMPARISON: None FINDINGS: Lateral view demonstrates a markedly displaced vertical fracture through the anterior process of the calcaneus which extends into the subtalar joint. Multiple bone fragments are present. Fracture is displaced approximately 2 cm. Note is made of apparent lucency within the adjacent midportion of the calcaneus. No additional fractures are noted. There is right foot soft tissue swelling. Moderate vascular calcification is noted. Tarsometatarsal joints are intact. There is posterior and plantar calcaneal spurring. IMPRESSION: Acute markedly displaced vertical fracture through the anterior process of the calcaneus with multiple bone fragments and extension to the subtalar joint with possible malalignment of the subtalar joint. Apparent lucency within the adjacent midportion of the calcaneus is probably artifactual however osteomyelitis with pathologic fracture cannot be excluded. ACT 112: Negative or not required by law. Electronically signed by: Kike Yi M.D. 01/27/2020 6:48 PM Dictated: 01/27/[id number] Transcribed: 01/27/201842 [facility] Narrative 1723: The patient was evaluated in room A3. A complete history and physical exam was performed. 1900: Vital signs stable. Labs within normal limits. X-ray shows calcaneus fracture with possible osteomyelitis. Discussed with Dr. Sherbondy orthopedics who stated to order CT of the foot and ankle. Recommended that the patient be admitted to hospital medicine service. Vancomycin will be started for possible osteomyelitis. Patient and family in agreement with the plan. Dr. Brayden Escobar teams [facility] was notified. 2023: Dr. Enrique evaluated patient at bedside does not believe the patient has osteomyelitis. He remains patient be nonweightbearing and states patient will need possible correction or rehab since she cannot walk up the stairs at home. Medicine team was made aware. Impression & Plan Calcaneus fracture, right Discharge Plan Visit Data Chief Complaint: Infection, Wound Stated Complaint: sore on right heel, fever ED Provider: Jacky Haywood Discharge Problem: Calcaneus fracture, right Patient Disposition: Admitted As Inpatient Discharge Instructions Interventions: ED Discharge Assessment Last Done: 01/27/20 21:49 Discharge Problem: Calcaneus fracture, right Qualifiers: Encounter type: initial encounter Calcaneus location: unspecified portion of calcaneus Fracture type: closed Fracture alignment: displaced Qualified Code(s): S92.001A - Unspecified fracture of right calcaneus, initial encounter for closed fracture
[2020-01-27] MEDS ORDERED: POLYETHYLENE (MIRALAX) 17 GM PACK PO PRN (22:14)
[2020-01-27] MEDS ORDERED: GLUCOSE 10 TABS/TUBE PO PRN (22:14)
[2020-01-27] MEDS ORDERED: DEXTROSE 50% 50 ML SYRINGE IV PRN (22:14)
[2020-01-27] MEDS ORDERED: GLUCAGON FOR INJ 1 MG VIAL SQ PRN (22:14)
[2020-01-27] MEDS ORDERED: ACETAMINOPHEN 325 MG TAB PO PRN (22:14)
[2020-01-27] MEDS ORDERED: GLUCOSE 40% GEL 15 GM TUBE PO PRN (22:14)
[2020-01-27] MEDS ORDERED: CARBOHYDRATES FOR HYPOGLYCEMIA PO PRN (22:14)
[2020-01-27] MEDS ORDERED: ONDANSETRON INJ 2 MG/ML 2 ML VIAL IV PRN (22:14)
[2020-01-27] MEDS: SPIRONOLACTONE/HCTZ 25-25 PO SCH (22:58)
[2020-01-27] MEDS: GABAPENTIN 600 MG TAB PO SCH (22:58)
[2020-01-27] MEDS: PANTOprazole 40 MG TAB PO SCH (22:58)
[2020-01-27] MEDS: PREGABALIN 150 MG CAP PO SCH (23:00)
[2020-01-28 06:13] LABS: Basophils # (auto) 0.01 K/uL (0-0.2); Basophils % (auto) 0.1 %; Eosinophils # (auto) 0.36 K/uL (0-0.5); Eosinophils % (auto) 4.1 %; Hematocrit (blood only) 31.9 % (37-47); Hemoglobin 10.2 g/dL (12.0-16.0); Immature Granulocytes # (auto) 0.03 K/uL (0.00-0.02); Immature Granulocytes % (auto) 0.3 %; Lymphocytes # (auto) 1.79 K/uL (1.2-3.4); Lymphocytes % (auto) 20.2 %; Mean Corpuscular Hemoglobin 26.2 pg (25-34); Mean Platelet Volume 9.1 fL (7.4-10.4); Monocytes # (auto) 0.66 K/uL (0.11-0.59); Monocytes % (auto) 7.5 %; Neutrophils # (auto) 5.99 K/uL (1.4-6.5); Neutrophils % (auto) 67.8 %; Platelet Count 327 K/uL (130-400); RDW Coefficient of Variation 15.5 % (11.5-14.5); RDW Standard Deviation 45.8 fL (36.4-46.3); Red Blood Count 3.89 M/uL (4.2-5.4); White Blood Count 8.84 K/uL (4.8-10.8)
[2020-01-28] MEDS: LEVOTHYROXINE SODIUM 125 MCG TABLET PO SCH (06:17)
[2020-01-28 06:19] LABS: Estimated Average Glucose 151 mg/dl; Hemoglobin A1C 6.9 % (4.5-5.6)
[2020-01-28 06:42] LABS: BUN Creatinine Ratio 11.6 (10-20); Creatinine Clr Calc Pharmacy 54.7 ml/min; Est GFR (African American) 64.6; Est GFR (Non-African American) 55.7; Potassium 2.9 mmol/L (3.5-5.1)
[2020-01-28 06:52] LABS: Thyroid Stimulating Hormone 0.518 uIu/ml (0.300-4.500)
[2020-01-28] MEDS: FLUTICASONE/VILANTEROL 200/25MCG 14 PUFFS/INHALER INH SCH (09:06)
[2020-01-28] MEDS: SPIRONOLACTONE/HCTZ 25-25 PO SCH ×2 (09:07→17:07)
[2020-01-28] MEDS: GABAPENTIN 600 MG TAB PO SCH ×2 (09:07→21:33)
[2020-01-28] MEDS: PANTOprazole 40 MG TAB PO SCH ×2 (09:07→21:33)
[2020-01-28] MEDS: DIGOXIN 0.125 MG TAB PO SCH (09:07)
[2020-01-28] MEDS: RIVAROXABAN 20 MG TAB PO SCH (09:07)
[2020-01-28] MEDS: INSULIN ASPART 100 UNITS/ML 3 ML PEN SC SCH ×4 (09:11→21:27)
[2020-01-28] MEDS: PREGABALIN 75 MG CAP PO SCH (09:21)
[2020-01-28] MEDS ORDERED: POTASSIUM CHLORIDE 10 MEQ / 100ML WTR IV STA (09:29)
--- NOTE | 2020-01-28 09:29 | Hospitalist Progress Note ---
Date of Service January 28, 2020 Assessment & Plan (1) Falls frequently: Angelo is a 73 year old female with a medical hx of asthma, anemia, frequent falls, lumbar back pain, dysphagia with aspiration, hypertension, atrial fibrillation, chronic renal insufficiency, DM insulin controlled, peripheral neuropathy, osteoarthritis, who presented to [facility] ED after being seen at PCP for CC of right foot wound. Ortho saw patient in ED for concern of Osteomyelitis vs fracture on imaging. P pablo was given Vanc in ED x 1 dose, but Ortho considered this to be acute fracture process without infection. She was then needed to be admitted with plans to help acquire placement to SNF. - Her spouse notes frequent falls weekly. mostly due to stairs at house - Case management consult placed for help with SNF placement - PT/OT ordered - CT of right foot showed: Acute displaced vertical fracture involving the anterior process of the calcaneus with extension into the subtalar joint. Several associated fracture fragments. Irregularity and lucency within the adjacent mid aspect of the calcaneus is probably related to the fracture. Osteomyelitis related to the overlying wound is considered less likely but cannot be excluded with resultant pathologic fracture. Ortho consult continued. - Fall precautions ordered. - Will not continue with abx as no current signs of infectious process. Follow blood cultures. (2) Confusion: Reportedly worse in the evenings may be medication related this morning she is perfectly clear we will stop her oxybutynin and be cautious with opiate pain control (3) Open wound of right heel: Large bulky splint encompassing her entire right lower leg is in place by orthopedics this was noted from outpatient visit note on review Will consult wound care, can discontinue as appropriate (4) Fever: Reported elevated temps at home but not greater than 100.4 F Blood cultures being monitored Recurrent fever since admission (5) Anemia: appears at baseline without signs of bleed, hemoglobin is in the 10 g range this may be anemia of chronic disease (6) Hx of gastric ulcer: c/w home Pantoprazole 40mg PO daily (7) Diabetes mellitus with polyneuropathy: Continue with Basaglar 35units SQ BID ISS CF 25, CR 10, goal 120-180 Hemoglobin A1c is 6.9% (8) Hypertension: - Spironalactone-HCTZ 25mg-25mg (9) Asthma: Stable, Duoneb PRN, Advair diskus 1inh inhalation BID (10) Atrial fibrillation: An EKG shows her to be in sinus rhythm with first-degree block, continues on digoxin 125mcg PO qAM Anticoagulated with Xarelto 20mg PO daily (11) Hypothyroidism: home synthroid 125mcg TSH is normal on 01/27/2020 (12) DVT prophylaxis: DVT ppx: C/w Home Xarelto 20mg daily Code: DNR/DNI Admission and Anticipated Discharge Date Admission Date: January 27, 2020 Subjective Patient is in good spirits. She recalls us meeting when I worked back at [facility] 15 years ago or so. She has no complaints or problems today. Her foot is sore but tolerable. She is a large splint on her right lower leg Review of Systems Review of Systems: Mild distress and fatigue no headache, blurry or double vision no speech or swallowing issues no chest pain, pressure or palpitations no shortness of breath, cough or wheezes no abdominal pain, nausea or vomiting, diarrhea or constipation no dysuria, hematuria or frequency Significant distal right leg pain splint is in place no back pain, CVA tenderness or radicular pain no bruising, bleeding or rashes no focal signs of weakness or numbness or altered sensation no complaints or anxiety or depression. Physical Exam Physical Exam: The patient appeared well nourished and normally developed. Vital signs as documented. Head exam is normocephalic atraumatic no scleral icterus Neck is without JVD, thyromegaly, or carotid bruits. Lungs are clear to auscultation, decreased breath sounds at the bases Cardiac exam, Rhythm is regular.. No murmurs, rubs or gallops. Abdominal exam reveals normal bowel sounds, soft non tender, no masses Extremitie large splint on the right leg she has good distal capillary refill sensation and can move her toes which are exposed Neurologic exam is alert and oriented, no focal loss of strength or sensation Skin is without bruises or rashes Psychologically is without concerns for anxiety or depression. Results & Data Results & Data ([facility]) Vital Signs (Past 12 Hours) Vital Signs Temp Pulse Pulse Resp BP BP Pulse Ox 01/28/20 09:07 67 01/28/20 07:52 98.6 F 67 16 156/83 H 94 01/27/20 23:43 99.7 F H 68 16 129/69 95 01/27/20 22:06 99.5 F 81 16 135/63 97 PG Care Time/CCT Total # of Minutes Spent Total Time Spent with Patient: Total time spent is greater than 50% in coordination of care (as documented) at patient's floor/unit and/or counseling patient: Coding Level of Care Code 56918 Subseq Hosp Care Lvl 3 Diagnoses Falls frequently R29.6 Confusion R41.0 Open wound of right heel S91.301A Fever R50.9 Anemia D64.9 Hx of gastric ulcer Z87.19 Diabetes mellitus with polyneuropathy E11.42 Hypertension I10 Hypertension type: essential hypertension Asthma J45.909 Atrial fibrillation I48.91 Atrial fibrillation type: unspecified Hypothyroidism E03.9 DVT prophylaxis Z29.9 (1) Atrial fibrillation Atrial fibrillation type: unspecified Qualified Code(s): I48.91 - Unspecified atrial fibrillation (2) Hypertension Hypertension type: essential hypertension Qualified Code(s): I10 - Essential (primary) hypertension
[2020-01-28] MEDS ORDERED: MAGNESIUM SULFATE / D5W 1 GM/100 ML BAG IV ONE (10:00)
[2020-01-28] MEDS: POTASSIUM CHLORIDE / WTR 10 MEQ/100 ML PLCT IV SCH ×3 (10:03→12:10)
[2020-01-28] MEDS: POTASSIUM CHLORIDE 20 MEQ TABCR PO SCH ×2 (10:38→21:32)
[2020-01-28] MEDS: TRAMADOL HCL 50 MG TABLET PO PRN (14:27)
[2020-01-28] MEDS: PREGABALIN 150 MG CAP PO SCH (21:35)
[2020-01-29] MEDS: LEVOTHYROXINE SODIUM 125 MCG TABLET PO SCH (06:21)
[2020-01-29 07:53] LABS: BUN Creatinine Ratio 11.7 (10-20); Creatinine Clr Calc Pharmacy 48.8 ml/min; Est GFR (African American) 56.3; Est GFR (Non-African American) 48.5; Magnesium 1.7 mg/dl (1.8-2.4); Potassium 4.1 mmol/L (3.5-5.1)
[2020-01-29] MEDS ORDERED: MAGNESIUM SULFATE / D5W 1 GM/100 ML BAG IV ONE (08:30)
[2020-01-29] MEDS: INSULIN ASPART 100 UNITS/ML 3 ML PEN SC SCH ×4 (09:00→21:37)
[2020-01-29] MEDS: RIVAROXABAN 20 MG TAB PO SCH (09:03)
[2020-01-29] MEDS: GABAPENTIN 600 MG TAB PO SCH ×2 (09:03→21:34)
[2020-01-29] MEDS: SPIRONOLACTONE/HCTZ 25-25 PO SCH ×2 (09:03→17:49)
[2020-01-29] MEDS: PREGABALIN 75 MG CAP PO SCH (09:03)
[2020-01-29] MEDS: POTASSIUM CHLORIDE 20 MEQ TABCR PO SCH (09:03)
[2020-01-29] MEDS: DIGOXIN 0.125 MG TAB PO SCH (09:03)
[2020-01-29] MEDS: PANTOprazole 40 MG TAB PO SCH ×2 (09:04→22:31)
[2020-01-29] MEDS: FLUTICASONE/VILANTEROL 200/25MCG 14 PUFFS/INHALER INH SCH (09:04)
--- NOTE | 2020-01-29 12:26 | Hospitalist Progress Note ---
Date of Service January 29, 2020 Assessment & Plan (1) Falls frequently: Agnelo is a 73 year old female with a medical hx of asthma, anemia, frequent falls, lumbar back pain, dysphagia with aspiration, hypertension, atrial fibrillation, chronic renal insufficiency, DM insulin controlled, peripheral neuropathy, osteoarthritis, who presented to [facility] ED after being seen at PCP for CC of right foot wound. Ortho saw patient in ED for concern of Osteomyelitis vs fracture on imaging. P pablo was given Vanc in ED x 1 dose, but Ortho considered this to be acute fracture process without infection. She was then needed to be admitted with plans to help acquire placement to SNF. - Her spouse notes frequent falls weekly. mostly due to stairs at house - Case management consult placed for help with SNF placement - PT/OT ordered - CT of right foot showed: Acute displaced vertical fracture involving the anterior process of the calcaneus with extension into the subtalar joint. Several associated fracture fragments. Irregularity and lucency within the adjacent mid aspect of the calcaneus is probably related to the fracture. Osteomyelitis related to the overlying wound is considered less likely but cannot be excluded with resultant pathologic fracture. Ortho consult continued. - Fall precautions ordered. - Will not continue with abx as no current signs of infectious process. Follow blood cultures. (2) Confusion: some mild sundowning, does not want "strong meds" agrees to try melatonin in pm of 01/28, did stop her oxybutynin and be cautious with opiate pain control (3) Open wound of right heel: Large bulky splint encompassing her entire right lower leg is in place by orthopedics this was noted from outpatient visit note on review Consult wound care, (4) Fever: Reported elevated temps at home but not greater than 100.4 F Blood cultures being monitored No Recurrent fever since admission (5) Anemia: appears at baseline without signs of bleed, hemoglobin is in the 10 g range this may be anemia of chronic disease (6) Hx of gastric ulcer: c/w home Pantoprazole 40mg PO daily (7) Diabetes mellitus with polyneuropathy: Continue with Basaglar 35units SQ BID ISS CF 25, CR 10, goal 120-180 Hemoglobin A1c is 6.9% (8) Hypertension: - Spironalactone-HCTZ 25mg-25mg (9) Asthma: Stable, Duoneb PRN, Advair diskus 1inh inhalation BID (10) Atrial fibrillation: An EKG shows her to be in sinus rhythm with first-degree block, continues on digoxin 125mcg PO qAM Anticoagulated with Xarelto 20mg PO daily (11) Hypothyroidism: home synthroid 125mcg TSH is normal on 01/27/2020 (12) DVT prophylaxis: DVT ppx: C/w Home Xarelto 20mg daily Code: DNR/DNI Admission and Anticipated Discharge Date Admission Date: January 27, 2020 Subjective Patient is in good spirits. She continues to discuss working together at [facility] 15 years ago or so. She has no complaints or problems today. Her foot remains sore but tolerable. She is a large splint on her right lower leg Review of Systems Review of Systems: Mild distress and fatigue no headache, blurry or double vision no speech or swallowing issues no chest pain, pressure or palpitations no shortness of breath, cough or wheezes no abdominal pain, nausea or vomiting, diarrhea or constipation no dysuria, hematuria or frequency Significant distal right leg pain splint is in place no back pain, CVA tenderness or radicular pain no bruising, bleeding or rashes no focal signs of weakness or numbness or altered sensation no complaints or anxiety or depression. Physical Exam Physical Exam: The patient appeared well nourished and normally developed. Vital signs as documented. Head exam is normocephalic atraumatic no scleral icterus Neck is without JVD, thyromegaly, or carotid bruits. Lungs are clear to auscultation, decreased breath sounds at the bases Cardiac exam, Rhythm is regular.. No murmurs, rubs or gallops. Abdominal exam reveals normal bowel sounds, soft non tender, no masses Extremitie large splint on the right leg she has good distal capillary refill sensation and can move her toes which are exposed Neurologic exam is alert and oriented, no focal loss of strength or sensation Skin is without bruises or rashes Psychologically is without concerns for anxiety or depression. Results & Data Results & Data ([facility]) Vital Signs (Past 12 Hours) Vital Signs Temp Pulse Pulse Resp BP Pulse Ox 01/29/20 09:03 74 01/29/20 07:00 98.6 F 74 19 132/76 98 PG Care Time/CCT Total # of Minutes Spent Total Time Spent with Patient: Total time spent is greater than 50% in coordination of care (as documented) at patient's floor/unit and/or counseling patient: Coding Level of Care Code 20897 Subseq Hosp Care Lvl 2 Diagnoses Falls frequently R29.6 Confusion R41.0 Open wound of right heel S91.301A Fever R50.9 Anemia D64.9 Hx of gastric ulcer Z87.19 Diabetes mellitus with polyneuropathy E11.42 Hypertension I10 Hypertension type: essential hypertension Asthma J45.909 Atrial fibrillation I48.91 Atrial fibrillation type: unspecified Hypothyroidism E03.9 DVT prophylaxis Z29.9 (1) Hypertension Hypertension type: essential hypertension Qualified Code(s): I10 - Essential (primary) hypertension (2) Atrial fibrillation Atrial fibrillation type: unspecified Qualified Code(s): I48.91 - Unspecified atrial fibrillation
[2020-01-29] MEDS ORDERED: INSULIN GLARGINE SOLOSTAR 100 UNITS/ML 3 ML PEN SC ONE (12:45)
[2020-01-29] MEDS: TRAMADOL HCL 50 MG TABLET PO PRN (13:26)
[2020-01-29] MEDS: INSULIN GLARGINE SOLOSTAR 100 UNITS/ML 3 ML PEN SC SCH (21:35)
[2020-01-29] MEDS: MELATONIN 3 MG TAB PO SCH (21:35)
[2020-01-29] MEDS: PREGABALIN 150 MG CAP PO SCH (21:41)
[2020-01-30] MEDS: LEVOTHYROXINE SODIUM 125 MCG TABLET PO SCH (05:45)
[2020-01-30 06:11] LABS: Hematocrit (blood only) 32.6 % (37-47); Hemoglobin 10.5 g/dL (12.0-16.0); Mean Corpuscular Hemoglobin 26.4 pg (25-34); Mean Corpuscular Hgb Conc 32.2 g/dL (32-36); Mean Corpuscular Volume 81.9 fL (80-100); Mean Platelet Volume 9.3 fL (7.4-10.4); Platelet Count 316 K/uL (130-400); RDW Coefficient of Variation 15.4 % (11.5-14.5); RDW Standard Deviation 45.6 fL (36.4-46.3); Red Blood Count 3.98 M/uL (4.2-5.4); White Blood Count 8.52 K/uL (4.8-10.8)
[2020-01-30 06:46] LABS: BUN Creatinine Ratio 12.8 (10-20); Calcium 9.4 mg/dl (8.5-10.1); Creatinine Clr Calc Pharmacy 48.3 ml/min; Est GFR (African American) 55.6; Potassium 3.8 mmol/L (3.5-5.1)
[2020-01-30] MEDS: INSULIN ASPART 100 UNITS/ML 3 ML PEN SC SCH ×4 (08:48→21:24)
[2020-01-30] MEDS: INSULIN GLARGINE SOLOSTAR 100 UNITS/ML 3 ML PEN SC SCH ×2 (08:49→21:24)
[2020-01-30] MEDS: DIGOXIN 0.125 MG TAB PO SCH (08:50)
[2020-01-30] MEDS: GABAPENTIN 600 MG TAB PO SCH ×2 (08:51→21:22)
[2020-01-30] MEDS: RIVAROXABAN 20 MG TAB PO SCH (08:51)
[2020-01-30] MEDS: SPIRONOLACTONE/HCTZ 25-25 PO SCH ×2 (08:51→18:08)
[2020-01-30] MEDS: PANTOprazole 40 MG TAB PO SCH ×2 (08:51→21:23)
[2020-01-30] MEDS: FLUTICASONE/VILANTEROL 200/25MCG 14 PUFFS/INHALER INH SCH (08:52)
[2020-01-30] MEDS: PREGABALIN 75 MG CAP PO SCH (08:55)
[2020-01-30] MEDS: TRAMADOL HCL 50 MG TABLET PO PRN (09:45)
[2020-01-30] MEDS ORDERED: INSULIN GLARGINE SOLOSTAR 100 UNITS/ML 3 ML PEN SC ONE (12:21)
--- NOTE | 2020-01-30 14:30 | Hospitalist Progress Note ---
Date of Service January 30, 2020 Assessment & Plan (1) Falls frequently: Angelo is a 73 year old female with a medical hx of asthma, anemia, frequent falls, lumbar back pain, dysphagia with aspiration, hypertension, atrial fibrillation, chronic renal insufficiency, DM insulin controlled, peripheral neuropathy, osteoarthritis, who presented to [facility] ED after being seen at PCP for CC of right foot wound. Ortho saw patient in ED for concern of Osteomyelitis vs fracture on imaging. P pablo was given Vanc in ED x 1 dose, but Ortho considered this to be acute fracture process without infection. - Her spouse notes frequent falls weekly. mostly due to stairs at house - Case management consult placed for help with SNF placement - PT/OT ordered will plan to d/c to [facility] tomorrow - CT of right foot showed: Acute displaced vertical fracture involving the anterior process of the calcaneus with extension into the subtalar joint. Several associated fracture fragments. Irregularity and lucency within the adjacent mid aspect of the calcaneus is probably related to the fracture. Osteomyelitis related to the overlying wound is considered less likely but cannot be excluded with resultant pathologic fracture. Ortho consult continued. - Fall precautions ordered. (2) Calcaneus fracture, right: treated with cast non-weight bearing, continue PT/OT follow up with ortho after discharge (3) Confusion: some mild sundowning, does not want "strong meds" agrees to try melatonin, really "knocked her out" d/w Dr. Milian, he requested checking Gabapentin level, this was sent out (4) Open wound of right heel: Large bulky splint encompassing her entire right lower leg is in place by orthopedics this was noted from outpatient visit note on review Consult wound care, (5) Fever: Reported elevated temps at home but not greater than 100.4 F Blood cultures being monitored, no growth No Recurrent fever since admission (6) Anemia: appears at baseline without signs of bleed, hemoglobin is in the 10 g range this may be anemia of chronic disease (7) Hx of gastric ulcer: c/w home Pantoprazole 40mg PO daily (8) Diabetes mellitus with polyneuropathy: hyperglycemia today, sugars in 320's increased Lantus back to 45 units BID, tightened novolog coverage and carb ration sugars a little better later today Hemoglobin A1c is 6.9% (9) Hypertension: - Spironalactone-HCTZ 25mg-25mg (10) Asthma: Stable, Duoneb PRN, Advair diskus 1inh inhalation BID (11) Atrial fibrillation: An EKG shows her to be in sinus rhythm with first-degree block, continues on digoxin 125mcg PO qAM Anticoagulated with Xarelto 20mg PO daily (12) Hypothyroidism: home synthroid 125mcg TSH is normal on 01/27/2020 (13) DVT prophylaxis: DVT ppx: C/w Home Xarelto 20mg daily Code: DNR/DNI Admission and Anticipated Discharge Date Admission Date: January 27, 2020 Subjective patient doing well, participating in therapy has some mild pain in her right foot from the fracture sugars elevated today, 320's noted that her Lantus was only at 30 BID, supposed to be on 45 BID gave her extra 10 units and tightened up her Novolog coverage discussed with patient, she recalls that she had been on Lantus 60 units BID recently but was told to reduce due to some hypoglycemic episodes d/w case management, she can go to [facility] tomorrow she is eating well, no chest pain, no fever, no dyspnea Review of Systems Review of Systems: All systems reviewed & are unremarkable except as noted in Subjective Musculoskeletal: + joint pain (right foot) Physical Exam Constitutional: WD/WN, vitals as above + overweight Eyes: PERRL, conjunctivae normal, anicteric sclerae ENMT: external ear and nose normal, oropharynx normal Neck: trachea midline, no thyromegaly Respiratory: normal respiratory effort, lungs clear to auscultation Cardiovascular: RRR, no murmur, no edema Gastrointestinal (Abdomen): normal bowel sounds, soft, nontender, no hepatosplenomegaly Musculoskeletal: Head/Neck/Chest: normocephalic, head atraumatic and neck supple Extremities: + abnormal strength (generalized weakness); + extremities abnormal to inspection (right foot in cast), no cyanosis, no clubbing and no petechiae Skin: no rashes, warm and dry Neurologic: patellar DTR's 2+ bilat, sensation intact and PERRL, EOMI, accommodation nl, no face palsy, no dysarthria Psychiatric: A+Ox3, euthymic affect Lymphatic: no cervical or axillary lymphadenopathy Results & Data Results & Data ([facility]) Vital Signs (Past 12 Hours) Vital Signs Temp Pulse Pulse Resp BP Pulse Ox 01/30/20 08:50 86 01/30/20 07:06 36.8 C 92 H 18 135/70 98 Laboratory Results Laboratory Results - last 24 hr 01/29/20 01/29/20 01/30/20 17:07 20:47 05:30 WBC 8.52 RBC 3.98 L Hgb 10.5 L Hct 32.6 L MCV 81.9 MCH 26.4 MCHC 32.2 RDW Std Deviation 45.6 RDW Coeff of Filomena 15.4 H Plt Count 316 MPV 9.3 Sodium Potassium Chloride Carbon Dioxide Anion Gap BUN Creatinine Est Cr Clr Drug Dosing Est GFR ( Amer) Est GFR (Non-Af Amer) BUN/Creatinine Ratio Glucose POC Glucose 282 H 266 H Calcium Gabapentin 01/30/20 01/30/20 01/30/20 05:30 07:59 10:32 WBC RBC Hgb Hct MCV MCH MCHC RDW Std Deviation RDW Coeff of Filomena Plt Count MPV Sodium 138 Potassium 3.8 Chloride 100 Carbon Dioxide 31 Anion Gap 7.0 BUN 14 Creatinine 1.12 Est Cr Clr Drug Dosing 48.3 Est GFR ( Amer) 55.6 Est GFR (Non-Af Amer) 48.0 BUN/Creatinine Ratio 12.8 Glucose 186 H POC Glucose 228 H Calcium 9.4 Gabapentin Pending 01/30/20 01/30/20 11:55 11:56 WBC RBC Hgb Hct MCV MCH MCHC RDW Std Deviation RDW Coeff of Filomena Plt Count MPV Sodium Potassium Chloride Carbon Dioxide Anion Gap BUN Creatinine Est Cr Clr Drug Dosing Est GFR ( Amer) Est GFR (Non-Af Amer) BUN/Creatinine Ratio Glucose POC Glucose 321 H* 322 H* Calcium Gabapentin Medications Administered Current Inpatient Medications Acetaminophen (Acetaminophen 325 Mg Tab) 650 mg PO Q4H PRN PRN Reason: Pain or Fever Stop: 02/26/20 22:13 Dextrose (Dextrose 50% 50 Ml Syringe) 25 - 50 ml IV UD PRN; Protocol PRN Reason: Hypoglycemia Protocol Stop: 02/26/20 22:13 Digoxin (Digoxin 0.125 Mg Tab) 0.125 mg PO QAM [facility] Stop: 02/27/20 08:59 Last Admin: 01/30/20 08:50 Dose: 0.125 mg Documented by: Fluticasone/Vilanterol (Fluticasone/Vilanterol 200/25mcg 14 Puffs/Inhaler) 1 puffs INH DAILY [facility]; Protocol Stop: 02/27/20 08:59 Last Admin: 01/30/20 08:52 Dose: 1 puffs Documented by: Gabapentin (Gabapentin 600 Mg Tab) 600 mg PO BID ANU Stop: 02/26/20 22:59 Last Admin: 01/30/20 08:51 Dose: 600 mg Documented by: Glucagon (Glucagon For Inj 1 Mg Vial) 1 mg SQ UD PRN; Protocol PRN Reason: Hypoglycemia Protocol Stop: 02/26/20 22:13 Glucose (Glucose 10 Tabs/Tube) 4 - 8 tabs PO UD PRN; Protocol PRN Reason: Hypoglycemia Protocol Stop: 02/26/20 22:13 Glucose (Glucose 40% Gel 15 Gm Tube) 15 - 30 gm PO UD PRN; Protocol PRN Reason: Hypoglycemia Protocol Stop: 02/26/20 22:13 HCTZ/Spironolactone (Spironolactone/Hctz 25-25) 1 tab PO BID17 [facility] Stop: 02/26/20 22:59 Last Admin: 01/30/20 08:51 Dose: 1 tab Documented by: Insulin Aspart (Insulin Aspart 100 Units/Ml 3 Ml Pen) 0 units SC ACHS [facility] Stop: 02/27/20 07:29 Last Admin: 01/30/20 12:42 Dose: 17 units Documented by: Insulin Glargine (Insulin Glargine Solostar 100 Units/Ml 3 Ml Pen) 45 units SC BID [facility] Stop: 02/29/20 20:59 Levothyroxine Sodium (Levothyroxine Sodium 125 Mcg Tablet) 125 mcg PO DAILYBB ANU Stop: 02/27/20 06:29 Last Admin: 01/30/20 05:45 Dose: 125 mcg Documented by: Melatonin (Melatonin 3 Mg Tab) 3 mg PO HS [facility] Stop: 02/28/20 20:59 Last Admin: 01/29/20 21:35 Dose: 3 mg Documented by: Miscellaneous (Carbohydrates For Hypoglycemia ) 15 - 30 gm PO UD PRN PRN Reason: Hypoglycemia Protocol Stop: 02/26/20 22:13 Ondansetron HCl (Ondansetron Inj 2 Mg/Ml 2 Ml Vial) 4 mg IV Q6H PRN PRN Reason: Nausea Stop: 02/26/20 22:13 Pantoprazole Sodium (Pantoprazole 40 Mg Tab) 40 mg PO BID [facility] Stop: 02/26/20 22:59 Last Admin: 01/30/20 08:51 Dose: 40 mg Documented by: Polyethylene Glycol (Polyethylene (Miralax) 17 Gm Pack) 17 gm PO DAILY PRN PRN Reason: Constipation Stop: 02/26/20 22:13 Pregabalin (Pregabalin 75 Mg Cap) 75 mg PO QAM ANU Stop: 02/27/20 08:59 Last Admin: 01/30/20 08:55 Dose: 75 mg Documented by: Pregabalin (Pregabalin 150 Mg Cap) 150 mg PO HS ANU Stop: 02/26/20 22:29 Last Admin: 01/29/20 21:41 Dose: 150 mg Documented by: Rivaroxaban (Rivaroxaban 20 Mg Tab) 20 mg PO DAILY@0800 [facility] Stop: 02/27/20 07:59 Last Admin: 01/30/20 08:51 Dose: 20 mg Documented by: Tramadol HCl (Tramadol Hcl 50 Mg Tablet) 50 mg PO BID PRN PRN Reason: Pain Stop: 02/26/20 22:13 Last Admin: 01/30/20 09:45 Dose: 50 mg Documented by: PG Care Time/CCT Total # of Minutes Spent Total Time Spent with Patient: Total time spent is greater than 50% in coordination of care (as documented) at patient's floor/unit and/or counseling patient: Coding Level of Care Code 07919 Subseq Hosp Care Lvl 2 Diagnoses Falls frequently R29.6 Calcaneus fracture, right S92.001A Calcaneus location: unspecified portion of calcaneus Encounter type: initial encounter Fracture alignment: displaced Fracture type: closed Confusion R41.0 Open wound of right heel S91.301A Fever R50.9 Anemia D64.9 Hx of gastric ulcer Z87.19 Diabetes mellitus with polyneuropathy E11.42 Hypertension I10 Hypertension type: essential hypertension Asthma J45.909 Atrial fibrillation I48.91 Atrial fibrillation type: unspecified Hypothyroidism E03.9 DVT prophylaxis Z29.9 (1) Atrial fibrillation Atrial fibrillation type: unspecified Qualified Code(s): I48.91 - Unspecified atrial fibrillation (2) Hypertension Hypertension type: essential hypertension Qualified Code(s): I10 - Essential (primary) hypertension (3) Calcaneus fracture, right Calcaneus location: unspecified portion of calcaneus Encounter type: initial encounter Fracture alignment: displaced Fracture type: closed Qualified Code(s): S92.001A - Unspecified fracture of right calcaneus, initial encounter for closed fracture
[2020-01-30] MEDS: MELATONIN 3 MG TAB PO SCH (21:23)
[2020-01-30] MEDS: PREGABALIN 150 MG CAP PO SCH (21:30)
[2020-01-31] MEDS: LEVOTHYROXINE SODIUM 125 MCG TABLET PO SCH (06:05)
[2020-01-31] MEDS: TRAMADOL HCL 50 MG TABLET PO PRN (06:09)
[2020-01-31 06:11] LABS: Creatinine Clr Calc Pharmacy 47.5 ml/min; Est GFR (African American) 54.5; Potassium 3.5 mmol/L (3.5-5.1)
[2020-01-31] MEDS: FLUTICASONE/VILANTEROL 200/25MCG 14 PUFFS/INHALER INH SCH (09:31)
[2020-01-31] MEDS: PANTOprazole 40 MG TAB PO SCH (09:31)
[2020-01-31] MEDS: SPIRONOLACTONE/HCTZ 25-25 PO SCH (09:31)
[2020-01-31] MEDS: RIVAROXABAN 20 MG TAB PO SCH (09:31)
[2020-01-31] MEDS: DIGOXIN 0.125 MG TAB PO SCH (09:32)
[2020-01-31] MEDS: GABAPENTIN 600 MG TAB PO SCH (09:33)
[2020-01-31] MEDS: INSULIN GLARGINE SOLOSTAR 100 UNITS/ML 3 ML PEN SC SCH (09:34)
[2020-01-31] MEDS: INSULIN ASPART 100 UNITS/ML 3 ML PEN SC SCH (09:35)
[2020-01-31] MEDS: PREGABALIN 75 MG CAP PO SCH (09:43)
--- NOTE | 2020-01-31 22:40 | Discharge Summary ---
Date of Service January 31, 2020 Admission HPI Per Admitting Provider Caveat: History Limited by - patient is a vague historian. Spouse is present at bedside for history. Angelo is a 73 year old female with a medical hx of asthma, anemia, frequent falls, lumbar back pain, dysphagia with aspiration, hypertension, atrial fibrillation, chronic renal insufficiency, DM insulin controlled, peripheral neuropathy, osteoarthritis, who presented to [facility] ED after being seen at PCP for CC of right foot wound. She notes she injured right foot falling forward while going up stairs on 01/19/20, she denies any pain noting that she has chronic peripheral neuropathy. She notes she had injury to right foot with a significant bruise that "wrapped around my entire foot." It was noted that she had opened wound on the right side of foot. Her spouse notes frequent falls weekly. There are about 12 steps to get inside from outside. There are another 12 steps that go to the second floor, there is no bathroom on the 1st floor only the second. Spouse notes they have been using bedside commodes on the first floor. He notes he helps her up the steps to go to bed at night otherwise she doesn't use the stairs because of fall risk. He notes that she has been acting confused in the evenings over the past 3 weeks. She notes she has insight knowing that she is confused "some people don't know when they are acting confused, I do." notes she gets agitated and is mean tempered. He is vague regarding the details. He notes that once he gets her into bed she is fine throughout the night. He notes that she hasn't had any hypoglycemic events with this and that they checked her blood sugar to ensure. He notes sometimes she is on the phone and will lose her train of thought. She notes she was treated presumptively for a UTI based on urinary frequency. She notes finishing a course of keflex within the past 3 weeks. She was given another Rx for ceftin as symptoms returned but hasn't taken it yet. notes that Melissa is weak. She notes she uses a walker to get around. He notes she has had intermittent fevers Tmax 100.3 for 3 weeks that is improved with Tylenol. He notes temps were 99.8 this week. She denies chest pain, dyspnea, abdominal pain. She is on Xarelto and is taking this daily. Ortho saw patient in ED for concern of Osteomyelitis vs fracture on imaging. Patient was given Vanc in ED x 1 dose, but Ortho considered this to be acute fracture process without infection. She was then needed to be admitted with plans to help acquire placement to SNF. Principal Diagnosis Right calcaneous fracture Discharge Exam Constitutional WD/WN, vitals as above + overweight Eyes PERRL, conjunctivae normal, anicteric sclerae ENMT external ear and nose normal, oropharynx normal Neck trachea midline, no thyromegaly Respiratory normal respiratory effort, lungs clear to auscultation Cardiovascular RRR, no murmur, no edema Gastrointestinal (Abdomen) normal bowel sounds, soft, nontender, no hepatosplenomegaly Musculoskeletal Head/Neck/Chest: normocephalic, head atraumatic and neck supple Extremities: + abnormal strength (generalized weakness); + extremities abnormal to inspection (right foot in cast), no cyanosis, no clubbing and no petechiae Skin no rashes, warm and dry Neurologic patellar DTR's 2+ bilat, sensation intact and PERRL, EOMI, accommodation nl, no face palsy, no dysarthria Psychiatric A+Ox3, euthymic affect Lymphatic no cervical or axillary lymphadenopathy Discharge Data Allergies Allergy/AdvReac Type Severity Reaction Status Date / Time ciprofloxacin Allergy Intermediate severe rash Verified 01/27/20 15:05 procainamide Allergy Intermediate shaky, Verified 01/27/20 15:05 rapid heart beat, rash shrimp Allergy Intermediate Hives Verified 01/27/20 15:05 verapamil Allergy Intermediate shaky, Verified 01/27/20 15:05 rapid heart beat, rash chloramphenicol Allergy Mild rash,diarrh Verified 01/27/20 15:05 [From Chloromycetin] ea codeine Allergy Mild RASH Verified 01/27/20 15:05 esomeprazole Allergy Mild Rash Verified 01/27/20 15:05 lansoprazole Allergy Mild Rash Verified 01/27/20 15:05 propoxyphene Allergy Mild Rash Verified 01/27/20 15:05 Quinolones Allergy Mild RASH Verified 01/27/20 15:05 Cipro Allergy Unknown UNKNOWN Verified 05/21/17 08:05 omeprazole Allergy Unknown Rash Verified 01/27/20 15:05 Consultations 01/27/20 19:12 ED Decision to Admit Stat 01/27/20 22:14 Consult Case Management - Discharge Planning Routine Consult Orthopedic Surgery Stat Ordered Studies 01/27/20 19:22 CT ankle RT wo con Stat CT foot RT wo con Stat Hospital Course (1) Falls frequently: Angelo is a 73 year old female with a medical hx of asthma, anemia, frequent falls, lumbar back pain, dysphagia with aspiration, hypertension, atrial fibrillation, chronic renal insufficiency, DM insulin controlled, peripheral neuropathy, osteoarthritis, who presented to [facility] ED after being seen at PCP for CC of right foot wound. Ortho saw patient in ED for concern of Osteomyelitis vs fracture on imaging. Patient was given Vanc in ED x 1 dose, but Ortho considered this to be acute fracture process without infection. - Her spouse notes frequent falls weekly. mostly due to stairs at house - Case management consult placed for help with SNF placement - PT/OT ordered will plan to d/c to [facility] tomorrow - CT of right foot showed: Acute displaced vertical fracture involving the anterior process of the calcaneus with extension into the subtalar joint. Several associated fracture fragments. Irregularity and lucency within the adjacent mid aspect of the calcaneus is probably related to the fracture. - Fall precautions ordered. will go to [facility] for inpatient rehab, improve strength so she can return home (2) Calcaneus fracture, right: treated with cast non-weight bearing, continue PT/OT should follow up with Dr. Enrique can elevated leg and apply ice as needed pain is well controlled follow up with ortho after discharge could be Charcot neuropathy fracture in the setting of diabetes with neuropathy (3) Confusion: some mild sundowning, does not want "strong meds" agrees to try melatonin, really "knocked her out" d/w Dr. Milian, he requested checking Gabapentin level, this was sent out GABAPENTIN level is still pending, she takes gabapentin and Lyrica (4) Open wound of right heel: Large bulky splint encompassing her entire right lower leg is in place by orthopedics this was noted from outpatient visit note on review keep splint in place follow up with Dr. Enrique in two weeks (5) Anemia: appears at baseline without signs of bleed, hemoglobin is in the 10 g range this may be anemia of chronic disease (6) Diabetes mellitus with polyneuropathy: hyperglycemia on 01/29, sugars in 320's increased Lantus back to 45 units BID, tightened novolog coverage and carb ratio sugars are now better Hemoglobin A1c is 6.9% (7) Hypertension: - Spironalactone-HCTZ 25mg-25mg (8) Asthma: Stable, Duoneb PRN, Advair diskus 1inh inhalation BID (9) Atrial fibrillation: An EKG shows her to be in sinus rhythm with first-degree block, continues on digoxin 125mcg PO qAM Anticoagulated with Xarelto 20mg PO daily (10) Hypothyroidism: home synthroid 125mcg TSH is normal on 01/27/2020 Total Time Total Time Spent Total Time Spent (In Minutes): 33 minutes Total Time Includes: Examination of the Patient, Discharge Planning, Medication Reconciliation and Communication With Other Providers (ortho) Discharge Plan Discharge Items Patient Disposition: Transfer Shelter Fac Reason For Visit: FALLS,RIGHT FOOT FRACTURE Discharge Diagnosis: Frequent falls at home Intermittent confusion Right calcaneous fracture, non-weight bearing Condition on Discharge: Good Goals: increase strength and mobility follow up with orthopedics Activity: Per Instructions section Weightbearing: Right non-weightbearing Non-emergency contact: Primary Care Provider and Surgeon Call non-emergency contact if: you have any medication questions, your symptoms worsen, your pain is not controlled and you have a fever Follow-up/Referrals: Manolo Milian MD [Primary Care Provider] - Luis Armando Enrique MD [Surgeon] - (2-4 weeks) Diet: Carb Consistent or DM2 Addtl Attending Provider Instructions: Medications: no changes Patient needs to remain non-weight bearing on right leg until cleared by Dr. Enrique keep in splint, keep leg elevated and iced when possible follow up in 2-[address] Enrique Patient had some hyperglycemia but that resolved once she was on her home dose of Lantus 45 units BID and Novolog sliding scale Addtl C S S Representative Provider Instructions: Consultation from Dr. Enrique, orthopedics IMPRESSION: Right calcaneal fracture secondary to injury and neuropathy. PLAN: My findings are discussed with the patient and her daughter. She is placed into a very well-padded posterior splint with U-stirrup, ankle in neutral position. I applied Xeroform and gauze pads over the open wound. I have discussed with Dr. Haywood. I do not think that this represents infection or osteomyelitis and I think that not administering antibiotics would be appropriate. I think that this is a Charcot neuropathy either alone by itself or in conjunction with a minor injury to the calcaneus, which has gotten worse because of her neuropathy and walking on it. She will need to be nonweightbearing. Elevate, ice. I think she will probably need some sort of temporary placement as she will need to be nonweightbearing for a number of weeks. I would also recommend that we get her to see on an outpatient basis a foot and ankle specialist for further evaluation and treatment in the near future. Her current anticoagulation should suffice for DVT prophylaxis. I will continue to follow with her. She does not need any acute surgery at this time. Dr. Enrique is arranging referral and follow up appointment with [facility]. Will notify SNF when appointment scheduled. Maintain NWB right lower extremity Keep splint on at all times Elevate right leg above heart for swelling Ice to right ankle as needed for pain/swelling. Pending Studies at Discharge: Yes Studies:: gabapentin level, sent out on 01/29 Stand-Alone Forms: My [facility] Skilled Items Patient informed of condition?: Yes DNR: Yes Discharge Level of Care: Skilled Communicable Disease: No Discharge Prognosis: Stable Lines: None Urinary Catheter: No Medications and DC Order Prescriptions: Continued albuterol sulfate 90 mcg/actuation HFA aerosol inhaler 2 puffs INH Q6H PRN (Reason: Shortness Of Breath) RF: 0 albuterol sulfate 1.25 mg/3 mL solution for nebulization 1.25 mg INH Q4H PRN (Reason: Shortness Of Breath) RF: 0 fluticasone propion-salmeterol [Advair Diskus] 250-50 mcg/dose blister with device 1 inha INH BID RF: 0 loperamide [Imodium A-D] 2 mg tablet 2 mg PO DAILY PRN (Reason: loose stool) RF: 0 (DME) OneTouch Verio test strips Strip See Rx Instructions .ROUTE .MEDSUPPLY Qty: 100 RF: 5 gabapentin 300 mg capsule 600 mg PO BID Qty: 360 RF: 1 (DME) pen needle, diabetic [Lite Touch Insulin Pen [place]] 29 gauge x 1/2" needle See Dose Instructions .ROUTE .MEDSUPPLY Qty: 360 RF: 3 pantoprazole [Protonix] 40 mg tablet,delayed release (DR/EC) 40 mg PO BID Qty: 60 RF: 5 Xarelto 20 mg tablet 20 mg PO QAM Qty: 30 RF: 5 insulin syringe-needle U-100 [BD Insulin Syringe Ultra-Fine] 0.3 mL 31 gauge x 5/16" syringe See Rx Instructions .ROUTE .COMPLEX Qty: 100 RF: 0 digoxin 125 mcg (0.125 mg) tablet 125 mcg PO QAM Qty: 90 RF: 3 oxybutynin chloride 5 mg tablet 5 mg PO BID Qty: 180 RF: 3 spironolacton-hydrochlorothiaz 25-25 mg tablet 1 tab PO BID Qty: 60 RF: 0 ascorbic acid (vitamin C) 250 mg tablet,chewable 250 mg PO QAM RF: 0 Novolog U-100 Insulin aspart 100 unit/mL solution 0 units SQ TIDM RF: 0 Basaglar KwikPen U-100 Insulin 100 unit/mL (3 mL) insulin pen 45 units subcut BID RF: 0 levocetirizine 5 mg tablet 5 mg PO DAILY Qty: 30 RF: 2 pregabalin 75 mg capsule 75 mg PO QAM RF: 0 tramadol 50 mg tablet 50 mg PO BID PRN (Reason: Pain) RF: 0 lidocaine 4 % adhesive patch,medicated 1 patch TOP DAILY PRN (Reason: pain) Qty: 10 RF: 0 pregabalin 75 mg Capsule 150 mg PO HS RF: 0 levothyroxine [Synthroid] 125 mcg tablet 125 mcg PO QAM RF: 0 Discontinued trimethoprim 100 mg tablet 100 mg PO HS RF: 0 Hold Instructions: difficulty swallowing pill Discharge Orders: Discharge Order (Routine); Ordered 01/31/20 Ordered By: Turner Izquierdo/Other Patient Handouts: Managing Type 2 Diabetes Admission Data Admit Date/Time: 01/27/20 21:22 Attending Provider: Turner Carvajal Admit Provider: Tito Florence Primary Care Provider: Manolo Milian Other Providers: Radha Escobar ; Luis Armando Enrique ; Mehran Bernardo ; [place] ; [facility] Akash Bernardo Other Interventions: Discharge Summary Assessment (RN) Last Done: 01/31/20 10:57 Coding Level of Care Code D/C Day Management >30 mins Diagnoses Falls frequently R29.6 Calcaneus fracture, right S92.001A Calcaneus location: unspecified portion of calcaneus Encounter type: initial encounter Fracture alignment: displaced Fracture type: closed Confusion R41.0 Open wound of right heel S91.301A Anemia D64.9 Diabetes mellitus with polyneuropathy E11.42 Hypertension I10 Hypertension type: essential hypertension Asthma J45.909 Atrial fibrillation I48.91 Atrial fibrillation type: unspecified Hypothyroidism E03.9
== END 2020-01-31 11:25 ==
LOC: ED 16:01 → SUATTDRO 21:22 → INTOOBSV 21:22 → 3N 21:22

== ENCOUNTER 2020-12-19 19:02 | Observation (INO) ==
[2020-12-19] MEDS ORDERED: SODIUM CHLORIDE 0.9% 500 ML IV STA (19:39)
[2020-12-19] MEDS: SODIUM CHLORIDE 0.9% 1000ML 1,000 ML IV STA ×2 (20:00→22:35)
[2020-12-19 20:25] LABS: Basophils # (auto) 0.01 K/uL (0-0.2); Basophils % (auto) 0.1 %; Eosinophils # (auto) 0.08 K/uL (0-0.5); Eosinophils % (auto) 0.8 %; Hematocrit (blood only) 35.5 % (37-47); Hemoglobin 11.7 g/dL (12.0-16.0); Immature Granulocytes # (auto) 0.07 K/uL (0.00-0.02); Immature Granulocytes % (auto) 0.7 %; Lymphocytes # (auto) 1.54 K/uL (1.2-3.4); Lymphocytes % (auto) 14.6 %; Mean Corpuscular Hemoglobin 27.1 pg (25-34); Mean Corpuscular Volume 82.4 fL (80-100); Monocytes # (auto) 0.66 K/uL (0.11-0.59); Monocytes % (auto) 6.2 %; Neutrophils # (auto) 8.22 K/uL (1.4-6.5); Neutrophils % (auto) 77.6 %; Platelet Count 231 K/uL (130-400); RDW Coefficient of Variation 15.8 % (11.5-14.5); RDW Standard Deviation 47.9 fL (36.4-46.3); Red Blood Count 4.31 M/uL (4.2-5.4); White Blood Count 10.58 K/uL (4.8-10.8)
--- NOTE | 2020-12-19 20:47 | XRay Report ---
XR chest 1V portable HISTORY: 75 years-old Female Fever acute fever COMPARISON: Chest radiograph 01/05/2020 TECHNIQUE: Portable AP view of the chest FINDINGS: Cardiac silhouette is enlarged. Calcific plaque of the thoracic aorta. No pneumothorax, pleural effus ion, airspace consolidation or overt pulmonary edema. Degenerative changes of the shoulders and spine . Surgical clips of the neck with cervical spinal fusion hardware. IMPRESSION: No acute process. ACT 112: Negative or not required by law. The above report was generated using voice recognition software. It may contain grammatical, syntax o r spelling errors. Electronically signed by: Florentin Acosta M.D. 12/19/2020 8:45 PM
[2020-12-19 20:48] LABS: Alanine Aminotransferase 26 U/L (12-78); Albumin Level 3.5 gm/dl (3.4-5.0); Aspartate Aminotransferase 22 U/L (15-37); Blood Urea Nitrogen 23 mg/dl (7-18); Calcium 8.6 mg/dl (8.5-10.1); Carbon Dioxide 28 mmol/L (21-32); Chloride 102 mmol/L (98-107); Creatinine Clr Calc Pharmacy 48.1 ml/min; Est GFR (African American) 54.1 ml/min; Est GFR (Non-African American) 46.7 ml/min; Glucose 193 mg/dl (70-99); Potassium 3.5 mmol/L (3.5-5.1); Sodium 136 mmol/L (136-145)
[2020-12-19 20:52] LABS: Albumin Globulin Ratio 0.9 (0.9-2); Alkaline Phosphatase 84 U/L (45-117); Bilirubin,Total 0.7 mg/dl (0.2-1); Globulin 3.7 gm/dl (2.5-4.0); Total Protein 7.2 gm/dl (6.4-8.2); Troponin I < 0.015 ng/ml (0-0.045)
[2020-12-19] MEDS ORDERED: ACETAMINOPHEN 500 MG TAB PO STA (20:58)
[2020-12-19] MEDS ORDERED: cefTRIAXone SODIUM 2,000 MG/70 ML BAG IV STA (20:59)
[2020-12-19 21:19] LABS: Appearance Urine Turbid (Clear); Bacteria Urine Automated 4+ (Negative); Bilirubin Urine Negative (Negative); Blood Urine 3+ (Negative); Color Urine Yellow; Epithelial Cell Urine Auto >30 /lpf (0-5); Glucose Urine UA Negative (Negative); Ketones Urine Negative (Negative); Leukocyte Esterase Urine 3+ (Negative); Nitrite Urine Positive (Negative); Protein Urine Trace (Negative); Specific Gravity Urine 1.016 (1.000-1.030); Urobilinogen Urine Negative (Negative); WBC Urine Automated >30 /hpf (0-5); pH Urine 6.5 (4.5-7.5)
[2020-12-19 21:24] LABS: Lyme Ab IgG w/WB Rflx Negative (Negative); Lyme Ab IgM w/WB Rflx Negative (Negative)
[2020-12-19 21:47] LABS: Cast Urine Automated 0 /lpf (0-5)
--- NOTE | 2020-12-19 23:05 | Emergency Department Note ---
History of Present Illness General Chief complaint: Weakness Stated complaint: WEAKNESS Time Seen by Provider: 12/19/20 19:33 Source: patient and family Mode of arrival: ambulatory Limitations: no limitations History of Present Illness Provider complaint: fever, weakness This patient is a 75-year-old female who presents emergency department with complaints of generalized weakness, chills, nausea, and lower extremity edema that began yesterday. This has happened previously. The patient has a history of diabetes and is incontinent of urine. She does have a history of recurrent UTIs. Patient is currently in a boot due to a calcaneus fracture on the right. She does have a history of atrial fibrillation and is anticoagulated with rivaroxaban. Patient denies any chest pain, shortness of breath, cough, vomi ting or diarrhea. Home Medications Medication Instructions Recorded Confirmed Type albuterol sulfate 1.25 mg/3 mL 1.25 mg INH Q4H PRN 07/05/18 12/19/20 History solution for nebulization albuterol sulfate 90 mcg/actuation 2 puffs INH Q6H PRN 07/05/18 12/19/20 History aerosol inhaler loperamide 2 mg tablet (Imodium 2 mg PO TID PRN tab 12/23/18 12/19/20 History A-D) digoxin 125 mcg (0.125 mg) tablet 125 mcg PO QAM #90 tab 01/24/20 12/19/20 Rx pen needle, diabetic 29 gauge x ea 03/20/20 12/06/20 History 1/2" (Lite Touch Insulin Pen [place]) spironolactone 25 1 tab PO BID #180 tab 04/17/20 12/19/20 Rx mg-hydrochlorothiazide 25 mg tablet fluticasone 250 mcg-salmeterol 50 See Rx Instructions INH BID #60 ea 04/26/20 12/19/20 Rx mcg/dose blistr powdr for inhalation (Advair Diskus) levothyroxine 125 mcg tablet 125 mcg PO QAM #90 tab 06/04/20 12/19/20 Rx (Synthroid) rivaroxaban 20 mg tablet (Xarelto) 20 mg PO QAM #30 tab 07/23/20 12/19/20 Rx blood sugar diagnostic (OneTouch #100 ea 07/31/20 12/06/20 Rx Verio test strips) propranolol 20 mg tablet 20 mg PO BID #60 tab 09/10/20 12/19/20 Rx pantoprazole 40 mg tablet,delayed 40 mg PO BID #60 tab 12/04/20 12/19/20 Rx release (Protonix) blood-glucose meter,continuous 12/06/20 12/06/20 History (Dexcom G6 Athletics Director) blood-glucose sensor (Dexcom G6 12/06/20 12/06/20 History Sensor) blood-glucose transmitter (Dexcom 12/06/20 12/06/20 History G6 Transmitter) insulin aspart U-100 100 unit/mL 0 unit SUBCUT TIDM ml 12/06/20 12/19/20 History subcutaneous solution (Novolog U-100 Insulin aspart) insulin glargine 100 unit/mL (3 115 unit SUBCUT UD ml 12/06/20 12/19/20 History mL) subcutaneous pen (Basaglar KwikPen U-100 Insulin) gabapentin 300 mg capsule 300 mg PO BID 12/19/20 12/19/20 History pregabalin 75 mg capsule 75 mg PO QAM 12/19/20 12/19/20 History pregabalin 75 mg capsule 150 mg PO QPM 12/19/20 12/19/20 History cefdinir 300 mg capsule 300 mg PO BID #9 cap 12/22/20 Rx sucralfate 1 gram tablet (Carafate) 1 g PO ACHS #120 tab 12/22/20 Rx Allergies Allergy/AdvReac Type Severity Reaction Status Date / Time ciprofloxacin Allergy Intermediate severe rash Verified 12/19/20 20:37 procainamide Allergy Intermediate shaky, Verified 12/19/20 20:37 rapid heart beat, rash shrimp Allergy Intermediate Hives Verified 12/19/20 20:37 verapamil Allergy Intermediate shaky, Verified 12/19/20 20:37 rapid heart beat, rash chloramphenicol Allergy Mild rash,diarrh Verified 12/19/20 20:37 [From Chloromycetin] ea codeine Allergy Mild RASH Verified 12/19/20 20:37 esomeprazole Allergy Mild Rash Verified 12/19/20 20:37 lansoprazole Allergy Mild Rash Verified 12/19/20 20:37 propoxyphene Allergy Mild Rash Verified 12/19/20 20:37 Quinolones Allergy Mild RASH Verified 12/19/20 20:37 Cipro Allergy Unknown UNKNOWN Verified 01/04/18 08:05 omeprazole Allergy Unknown Rash Verified 12/19/20 20:37 Past Med/Surg History Medical History Asthma Calcaneus fracture, right Endometrial cancer diagnosed 2018--sx H/O bladder infections Herniated intervertebral disc of lumbar spine History of gastric ulcer History of pulmonary embolism 2018--d/t sx Hx of gastric ulcer Morbid obesity with BMI of 40.0-44.9, adult On anticoagulant therapy xarelto daily Open wound of right heel Pressure ulcer of left heel, stage 1 SIRS (systemic inflammatory response syndrome) Surgical History History of bilateral cataract extraction History of colonoscopy History of cystoscopy x3 History of dilatation and curettage x3 History of esophagogastroduodenoscopy (EGD) History of fusion of cervical spine x2--slightly stiff, normal ROM History of partial thyroidectomy Right--benign tumor History of removal of cyst off left breast History of tonsillectomy and adenoidectomy History of tooth extraction all teeth History of total hysterectomy with bilateral salpingo-oophorectomy (BSO) History of total right knee replacement Hx of cholecystectomy Family History Mother , 86 - COPD/Lung CA T2DM (type 2 diabetes mellitus) Lung cancer Steroid-induced diabetes mellitus COPD (chronic obstructive pulmonary disease) Father , 59 - Pancreatic CA Pancreatic cancer T2DM (type 2 diabetes mellitus) Sister , 55 - Rare Vaginal CA with mets to the liver and pancreas Vaginal cancer Sister Melanoma Grandmother (Maternal) , 93 Hypertension Stroke Grandfather (Maternal) , 93 T2DM (type 2 diabetes mellitus) Myocardial infarction Grandmother (Paternal) , 73 T2DM (type 2 diabetes mellitus) Grandfather (Paternal) , 70 Rheumatoid arthritis Heart disease Aunt , 72 - Pancreatic CA Pancreatic cancer Daughter Family history of malignant hyperthermia went into malignant hyperthermia with appy sx 26yrs ago Social History Smoking Status: Never smoker Second Hand Exposure: No; Hx Alcohol Use: Yes Alcohol type: wine Alcohol Intake Frequency Comment: 2 drinks per week Hx Substance Use: No Preferred Language: Romanian Communication Ability: Effective Associate Professor Of Musicology Required: No Beliefs That Will Affect Care: None marital status: Current Living Situation: Spouse 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 and A total of 10 systems reviewed and were otherwise negative Physical Exam Vital Signs Vital Signs - 24 hr 12/19/20 18:55 12/19/20 20:00 12/19/20 20:22 Temperature 39.3 C H 37.6 C H Temperature Source Oral Oral Pulse Rate 93 H 91 H Pulse Rate from SpO2 Sensor 91 H Pulse Rhythm Regular Pulse Strength Normal Respiratory Rate 16 23 Respiratory Effort / Characteristics Non-Labored Respiratory Depth Normal Respiratory Pattern Regular Blood Pressure 145/76 H 146/82 H Blood Pressure Mean 99 103 Blood Pressure Position Lying Pulse Oximetry 97 95 Oxygen Delivery Method Room Air Room Air Sepsis Recent Fever Within 48 Hours Yes Sepsis New/Unexplained Change in Mental Status No Sepsis Action Taken by Nursing No Action Required 12/19/20 21:00 12/19/20 22:00 12/19/20 22:34 Temperature 37.0 C Temperature Source Oral Pulse Rate 82 77 Pulse Rate from SpO2 Sensor Pulse Rhythm Pulse Strength Respiratory Rate 23 19 Respiratory Effort / Characteristics Respiratory Depth Respiratory Pattern Blood Pressure 174/85 H 155/73 H Blood Pressure Mean 114 100 Blood Pressure Position Pulse Oximetry 95 95 Oxygen Delivery Method Room Air Room Air Sepsis Recent Fever Within 48 Hours Sepsis New/Unexplained Change in Mental Status Sepsis Action Taken by Nursing Vital signs reviewed. Noted to be febrile General: Chronically ill-appearing 75-year-old female, in no significant distress. HEENT: No scleral icterus, PERRLA, neck supple. Moist mucous membranes. Cardiovascular: Regular rate and rhythm, no extra sounds. Pulmonary: Clear to auscultation bilaterally, normal work of breathing. Abdomen: Soft, obese, nontender, nondistended, positive bowel sounds. Musculoskeletal: Atraumatic, moderate peripheral edema. Right lower extremity boot removed. Neurologic: Patient awake alert and oriented x 3 Skin: Warm, dry, no rash. Small ulceration noted to the left heel without surrounding erythema or drainage. Course Administered Medications Discontinued Medications Acetaminophen (Acetaminophen 500 Mg Tab) 1,000 mg PO NOW STA Stop: 12/19/20 20:59 Last Admin: 12/19/20 21:28 Dose: 1,000 mg Documented by: [id number] Acetaminophen (Acetaminophen 325 Mg Tab) 650 mg PO Q4H PRN PRN Reason: Pain or Fever Stop: 01/19/21 00:54 Last Admin: 12/20/20 20:28 Dose: 650 mg Documented by: [id number] Digoxin (Digoxin 0.125 Mg Tab) 0.125 mg PO QAM [facility] Stop: 01/19/21 08:59 Last Admin: 12/22/20 09:04 Dose: 0.125 mg Documented by: [id number] Admin: 12/21/20 09:19 Dose: 0.125 mg Documented by: [id number] Admin: 12/20/20 09:13 Dose: 0.125 mg Documented by: [id number] Fluticasone/Vilanterol (Fluticasone/Vilanterol 200/25mcg 14 Puffs/Inhaler) 1 puffs INH DAILY [facility]; Protocol Stop: 01/19/21 08:59 Last Admin: 12/22/20 09:36 Dose: Not Given Documented by: [id number] Admin: 12/21/20 09:20 Dose: Not Given Documented by: [id number] Admin: 12/20/20 09:17 Dose: Not Given Documented by: [id number] Gabapentin (Gabapentin 300 Mg Cap) 300 mg PO BID [facility] Stop: 01/19/21 08:59 Last Admin: 12/22/20 09:02 Dose: 300 mg Documented by: [id number] Admin: 12/21/20 20:50 Dose: 300 mg Documented by: [id number] Admin: 12/21/20 09:19 Dose: 300 mg Documented by: [id number] Admin: 12/20/20 20:20 Dose: 300 mg Documented by: [id number] Admin: 12/20/20 09:13 Dose: 300 mg Documented by: [id number] HCTZ/Spironolactone (Spironolactone/Hctz 25-25) 1 tab PO BID17 [facility] Stop: 01/19/21 08:59 Last Admin: 12/22/20 09:07 Dose: 1 tab Documented by: [id number] Admin: 12/21/20 18:05 Dose: 1 tab Documented by: [id number] Admin: 12/21/20 09:19 Dose: 1 tab Documented by: [id number] Admin: 12/20/20 17:58 Dose: 1 tab Documented by: [id number] Admin: 12/20/20 09:13 Dose: 1 tab Documented by: [id number] Sodium Chloride (Nss) 500 mls @ 999 mls/hr IV .Q31M STA Stop: 12/19/20 20:09 Last Infusion: 12/19/20 21:00 Dose: 0 mls/hr Documented by: [id number] Admin: 12/19/20 20:00 Dose: 999 mls/hr Documented by: [id number] Sodium Chloride (Nss 1000ml) 1,000 mls @ 125 mls/hr IV .Q8H STA Stop: 12/20/20 03:38 Last Infusion: 12/20/20 05:52 Dose: 0 mls/hr Documented by: [id number] Admin: 12/19/20 22:35 Dose: 125 mls/hr Documented by: [id number] Ceftriaxone Sodium (Rocephin) 2,000 mg in 70 mls @ 140 mls/hr IV NOW STA Stop: 12/19/20 21:28 Last Infusion: 12/19/20 22:35 Dose: 0 mls/hr Documented by: [id number] Admin: 12/19/20 21:29 Dose: 140 mls/hr Documented by: [id number] Sodium Chloride (Nss 1000ml) 1,000 mls @ 125 mls/hr IV .Q8H ANU Stop: 12/20/20 08:54 Last Infusion: 12/20/20 05:49 Dose: 0 mls/hr Documented by: [id number] Admin: 12/20/20 01:00 Dose: 125 mls/hr Documented by: [id number] Ertapenem 1,000 mg/ Sodium (Chloride) 60 mls @ 100 mls/hr IV Q24H ANU Stop: 12/30/20 09:29 Last Infusion: 12/22/20 10:23 Dose: 0 mls/hr Documented by: [id number] Admin: 12/22/20 09:43 Dose: 100 mls/hr Documented by: [id number] Infusion: 12/21/20 11:12 Dose: 0 mls/hr Documented by: [id number] Admin: 12/21/20 10:36 Dose: 100 mls/hr Documented by: [id number] Infusion: 12/20/20 10:00 Dose: 0 mls/hr Documented by: [id number] Admin: 12/20/20 09:24 Dose: 100 mls/hr Documented by: [id number] Insulin Aspart (Insulin Aspart 100 Units/Ml 3 Ml Pen) 0 units SC ACHS [facility] Stop: 01/19/21 01:44 Last Admin: 12/22/20 12:44 Dose: 4 units Documented by: [id number] Cosigned by: [id number] Admin: 12/22/20 09:08 Dose: 4 units Documented by: [id number] Cosigned by: [id number] Admin: 12/21/20 20:58 Dose: 3 units Documented by: [id number] Cosigned by: [id number] Admin: 12/21/20 18:03 Dose: 8 units Documented by: [id number] Cosigned by: [id number] Admin: 12/21/20 12:31 Dose: 3 units Documented by: [id number] Cosigned by: [id number] Admin: 12/21/20 09:17 Dose: 5 units Documented by: [id number] Cosigned by: [id number] Admin: 12/20/20 20:19 Dose: 3 units Documented by: [id number] Cosigned by: [id number] Admin: 12/20/20 17:57 Dose: 4 units Documented by: [id number] Cosigned by: [id number] Admin: 12/20/20 12:50 Dose: 7 units Documented by: [id number] Cosigned by: [id number] Admin: 12/20/20 09:10 Dose: 3 units Documented by: [id number] Cosigned by: [id number] Admin: 12/20/20 04:05 Dose: 2 units Documented by: [id number] Cosigned by: [id number] Insulin Glargine (Insulin Glargine Solostar 100 Units/Ml 3 Ml Pen) 60 units SQ QAM [facility] Stop: 01/19/21 08:59 Last Admin: 12/22/20 09:18 Dose: 60 units Documented by: [id number] Cosigned by: [id number] Admin: 12/21/20 09:20 Dose: 60 units Documented by: [id number] Cosigned by: [id number] Admin: 12/20/20 09:14 Dose: 60 units Documented by: [id number] Cosigned by: [id number] Insulin Glargine (Insulin Glargine Solostar 100 Units/Ml 3 Ml Pen) 55 units SQ QPM [facility] Stop: 01/19/21 20:59 Last Admin: 12/21/20 20:57 Dose: 55 units Documented by: [id number] Cosigned by: [id number] Admin: 12/20/20 20:17 Dose: 55 units Documented by: [id number] Cosigned by: [id number] Levothyroxine Sodium (Levothyroxine Sodium 125 Mcg Tablet) 125 mcg PO DAILYBB ANU Stop: 01/19/21 06:29 Last Admin: 12/22/20 06:13 Dose: 125 mcg Documented by: [id number] Admin: 12/21/20 05:58 Dose: 125 mcg Documented by: [id number] Admin: 12/20/20 04:07 Dose: 125 mcg Documented by: [id number] Ondansetron HCl (Ondansetron Inj 2 Mg/Ml 2 Ml Vial) 4 mg IV NOW STA Stop: 12/21/20 10:36 Last Admin: 12/21/20 10:46 Dose: 4 mg Documented by: [id number] Pantoprazole Sodium (Pantoprazole 40 Mg Tab) 40 mg PO BID ANU Stop: 01/19/21 08:59 Last Admin: 12/22/20 09:01 Dose: 40 mg Documented by: [id number] Admin: 12/21/20 20:50 Dose: 40 mg Documented by: [id number] Admin: 12/21/20 09:19 Dose: 40 mg Documented by: [id number] Admin: 12/20/20 20:21 Dose: 40 mg Documented by: [id number] Admin: 12/20/20 09:12 Dose: 40 mg Documented by: [id number] Pregabalin (Pregabalin 75 Mg Cap) 75 mg PO QAM ANU Stop: 01/19/21 08:59 Last Admin: 12/22/20 09:26 Dose: 75 mg Documented by: [id number] Admin: 12/21/20 09:30 Dose: 75 mg Documented by: [id number] Admin: 12/20/20 09:24 Dose: 75 mg Documented by: [id number] Pregabalin (Pregabalin 150 Mg Cap) 150 mg PO QPM ANU Stop: 01/19/21 20:59 Last Admin: 12/21/20 20:50 Dose: 150 mg Documented by: [id number] Admin: 12/20/20 20:24 Dose: 150 mg Documented by: [id number] Propranolol HCl (Propranolol Hcl 20 Mg Tab) 20 mg PO BID ANU Stop: 01/19/21 08:59 Last Admin: 12/22/20 09:01 Dose: 20 mg Documented by: [id number] Admin: 12/21/20 20:50 Dose: 20 mg Documented by: [id number] Admin: 12/21/20 09:30 Dose: 20 mg Documented by: [id number] Admin: 12/20/20 20:20 Dose: 20 mg Documented by: [id number] Admin: 12/20/20 09:14 Dose: 20 mg Documented by: [id number] Rivaroxaban (Rivaroxaban 20 Mg Tab) 20 mg PO DAILY@0800 ANU Stop: 01/19/21 07:59 Last Admin: 12/22/20 09:08 Dose: 20 mg Documented by: [id number] Admin: 12/21/20 09:18 Dose: 20 mg Documented by: [id number] Admin: 12/20/20 09:13 Dose: 20 mg Documented by: [id number] Medical Decision Making Differential Diagnosis Infection, dehydration, metabolic abnormality, hypo/hyperglycemia, electrolyte disturbance, anemia, hypoxia, cardiac sources, intracerebral event, toxicologic, neurologic, as well as other pathologies. Medical Records Attestation: I reviewed the patient's medical records. Home Medications Current Medication List: was personally reviewed by me Laboratory Data Attestation: I reviewed the patient's lab results. Result diagrams: 12/22/20 07:43 12/22/20 07:43 Lab Results 12/19/20 12/19/20 12/19/20 Range/Units 19:55 19:55 20:08 WBC 10.58 (4.8-10.8) K/uL RBC 4.31 (4.2-5.4) M/uL Hgb 11.7 L (12.0-16.0) g/dL Hct 35.5 L (37-47) % MCV 82.4 (80-100) fL MCH 27.1 (25-34) pg MCHC 33.0 (32-36) g/dL RDW Std Deviation 47.9 H (36.4-46.3) fL RDW Coeff of Filomena 15.8 H (11.5-14.5) % Plt Count 231 (130-400) K/uL MPV 10.0 (7.4-10.4) fL Immature Gran % (Auto) 0.7 % Neut % (Auto) 77.6 % Lymph % (Auto) 14.6 % [place] % (Auto) 6.2 % Eos % (Auto) 0.8 % Baso % (Auto) 0.1 % Neut # (Auto) 8.22 H (1.4-6.5) K/uL Lymph # (Auto) 1.54 (1.2-3.4) K/uL [place] # (Auto) 0.66 H (0.11-0.59) K/uL Eos # (Auto) 0.08 (0-0.5) K/uL Baso # (Auto) 0.01 (0-0.2) K/uL Immature Gran # (Auto) 0.07 H (0.00-0.02) K/uL Sodium (136-145) mmol/L Potassium (3.5-5.1) mmol/L Chloride (98-107) mmol/L Carbon Dioxide (21-32) mmol/L Anion Gap (3-11) BUN (7-18) mg/dl Creatinine (0.6-1.2) mg/dl Est Cr Clr Drug Dosing ml/min Est GFR ( Amer) ml/min Est GFR (Non-Af Amer) ml/min BUN/Creatinine Ratio (10-20) Glucose (70-99) mg/dl Lactate (0.4-2.0) mmol/L Calcium (8.5-10.1) mg/dl Total Bilirubin (0.2-1) mg/dl AST (15-37) U/L ALT (12-78) U/L Alkaline Phosphatase (45-117) U/L Troponin I (0-0.045) ng/ml Total Protein (6.4-8.2) gm/dl Albumin (3.4-5.0) gm/dl Globulin (2.5-4.0) gm/dl Albumin/Globulin Ratio (0.9-2) Urine Color Urine Appearance (Clear) Urine pH (4.5-7.5) Ur Specific [place] (1.000-1.030) Urine Protein (Negative) Urine Glucose (UA) (Negative) Urine Ketones (Negative) Urine Blood (Negative) Urine Nitrite (Negative) Urine Bilirubin (Negative) Urine Urobilinogen (Negative) Ur Leukocyte Esterase (Negative) Urine WBC (Auto) (0-5) /hpf Urine RBC (Auto) (0-4) /hpf U Hyaline Cast (Auto) (0-5) /lpf U Epithel Cells (Auto) (0-5) /lpf Urine Bacteria (Auto) (Negative) Urine Yeast Anaplasma Smear Cancelled Lyme Disease IgG Ab (Negative) Lyme Disease IgM Ab (Negative) COVID-19 Eval Order Covid19 at [facility] SARS-CoV-2 (PCR) NEGATIVE (Negative) 12/19/20 12/19/20 12/19/20 Range/Units 20:08 20:08 20:08 WBC (4.8-10.8) K/uL RBC (4.2-5.4) M/uL Hgb (12.0-16.0) g/dL Hct (37-47) % MCV (80-100) fL MCH (25-34) pg MCHC (32-36) g/dL RDW Std Deviation (36.4-46.3) fL RDW Coeff of Filomena (11.5-14.5) % Plt Count (130-400) K/uL MPV (7.4-10.4) fL Immature Gran % (Auto) % Neut % (Auto) % Lymph % (Auto) % [place] % (Auto) % Eos % (Auto) % Baso % (Auto) % Neut # (Auto) (1.4-6.5) K/uL Lymph # (Auto) (1.2-3.4) K/uL [place] # (Auto) (0.11-0.59) K/uL Eos # (Auto) (0-0.5) K/uL Baso # (Auto) (0-0.2) K/uL Immature Gran # (Auto) (0.00-0.02) K/uL Sodium 136 (136-145) mmol/L Potassium 3.5 (3.5-5.1) mmol/L Chloride 102 (98-107) mmol/L Carbon Dioxide 28 (21-32) mmol/L Anion Gap 6.0 (3-11) BUN 23 H (7-18) mg/dl Creatinine 1.14 (0.6-1.2) mg/dl Est Cr Clr Drug Dosing 48.1 ml/min Est GFR ( Amer) 54.1 ml/min Est GFR (Non-Af Amer) 46.7 ml/min BUN/Creatinine Ratio 20.0 (10-20) Glucose 193 H (70-99) mg/dl Lactate 1.8 (0.4-2.0) mmol/L Calcium 8.6 (8.5-10.1) mg/dl Total Bilirubin 0.7 (0.2-1) mg/dl AST 22 (15-37) U/L ALT 26 (12-78) U/L Alkaline Phosphatase 84 (45-117) U/L Troponin I < 0.015 (0-0.045) ng/ml Total Protein 7.2 (6.4-8.2) gm/dl Albumin 3.5 (3.4-5.0) gm/dl Globulin 3.7 (2.5-4.0) gm/dl Albumin/Globulin Ratio 0.9 (0.9-2) Urine Color Urine Appearance (Clear) Urine pH (4.5-7.5) Ur Specific [place] (1.000-1.030) Urine Protein (Negative) Urine Glucose (UA) (Negative) Urine Ketones (Negative) Urine Blood (Negative) Urine Nitrite (Negative) Urine Bilirubin (Negative) Urine Urobilinogen (Negative) Ur Leukocyte Esterase (Negative) Urine WBC (Auto) (0-5) /hpf Urine RBC (Auto) (0-4) /hpf U Hyaline Cast (Auto) (0-5) /lpf U Epithel Cells (Auto) (0-5) /lpf Urine Bacteria (Auto) (Negative) Urine Yeast Anaplasma Smear Lyme Disease IgG Ab Negative (Negative) Lyme Disease IgM Ab Negative (Negative) COVID-19 Eval Order SARS-CoV-2 (PCR) (Negative) 12/19/20 Range/Units 20:54 WBC (4.8-10.8) K/uL RBC (4.2-5.4) M/uL Hgb (12.0-16.0) g/dL Hct (37-47) % MCV (80-100) fL MCH (25-34) pg MCHC (32-36) g/dL RDW Std Deviation (36.4-46.3) fL RDW Coeff of Filomena (11.5-14.5) % Plt Count (130-400) K/uL MPV (7.4-10.4) fL Immature Gran % (Auto) % Neut % (Auto) % Lymph % (Auto) % [place] % (Auto) % Eos % (Auto) % Baso % (Auto) % Neut # (Auto) (1.4-6.5) K/uL Lymph # (Auto) (1.2-3.4) K/uL [place] # (Auto) (0.11-0.59) K/uL Eos # (Auto) (0-0.5) K/uL Baso # (Auto) (0-0.2) K/uL Immature Gran # (Auto) (0.00-0.02) K/uL Sodium (136-145) mmol/L Potassium (3.5-5.1) mmol/L Chloride (98-107) mmol/L Carbon Dioxide (21-32) mmol/L Anion Gap (3-11) BUN (7-18) mg/dl Creatinine (0.6-1.2) mg/dl Est Cr Clr Drug Dosing ml/min Est GFR ( Amer) ml/min Est GFR (Non-Af Amer) ml/min BUN/Creatinine Ratio (10-20) Glucose (70-99) mg/dl Lactate (0.4-2.0) mmol/L Calcium (8.5-10.1) mg/dl Total Bilirubin (0.2-1) mg/dl AST (15-37) U/L ALT (12-78) U/L Alkaline Phosphatase (45-117) U/L Troponin I (0-0.045) ng/ml Total Protein (6.4-8.2) gm/dl Albumin (3.4-5.0) gm/dl Globulin (2.5-4.0) gm/dl Albumin/Globulin Ratio (0.9-2) Urine Color Yellow Urine Appearance Turbid A (Clear) Urine pH 6.5 (4.5-7.5) Ur Specific [place] 1.016 (1.000-1.030) Urine Protein Trace H (Negative) Urine Glucose (UA) Negative (Negative) Urine Ketones Negative (Negative) Urine Blood 3+ H (Negative) Urine Nitrite Positive A (Negative) Urine Bilirubin Negative (Negative) Urine Urobilinogen Negative (Negative) Ur Leukocyte Esterase 3+ H (Negative) Urine WBC (Auto) >30 H (0-5) /hpf Urine RBC (Auto) 10-30 H (0-4) /hpf U Hyaline Cast (Auto) 0 (0-5) /lpf U Epithel Cells (Auto) >30 H (0-5) /lpf Urine Bacteria (Auto) 4+ H (Negative) Urine Yeast Not Reportable Anaplasma Smear Lyme Disease IgG Ab (Negative) Lyme Disease IgM Ab (Negative) COVID-19 Eval Order SARS-CoV-2 (PCR) (Negative) Imaging Data Radiologist's Impression: Chest X-Ray 12/19/20 19:39 XR chest 1V portable HISTORY: 75 years-old Female Fever acute fever COMPARISON: Chest radiograph 01/05/2020 TECHNIQUE: Portable AP view of the chest FINDINGS: Cardiac silhouette is enlarged. Calcific plaque of the thoracic aorta. No pneumothorax, pleural effusion, airspace consolidation or overt pulmonary edema. Degenerative changes of the shoulders and spine. Surgical clips of the neck with cervical spinal fusion hardware. IMPRESSION: No acute process. ACT 112: Negative or not required by law. The above report was generated using voice recognition software. It may contain grammatical, syntax or spelling errors. Electronically signed by: Florentin Acosta M.D. 12/19/2020 8:45 PM ECG Data Attestation: I personally reviewed and interpreted this ECG as follows: Indication: + weakness Rate (beats per minute): 88 Rhythm: + normal sinus ECG Intervals/blocks: + Normal QT-c ECG [place]: + Normal ECG ST segments: + Normal ST segments and + repolarization abnormalities (Nonspecific T wave abnormality) ECG Findings: no PACs or no PVCs Comparison ECG Date: from (08/01/19) Change: the following changes noted (Nonspecific T wave abnormality in the ant erior leads and now evident) Blood Pressure Blood Pressure Findings: Normal blood pressure Blood Pressure Disposition: did not require urgent referral MDM Narrative This patient was evaluated and appeared to be in no significant distress. IV access was obtained and laboratory work was drawn. An order for cardiac monitoring was placed and the patient was noted to be in normal sinus rhythm at 82 bpm. Patient was hydrated with normal saline solution. Laboratory work reveals a normal WBC and a lactate of 1.8. Vital signs have remained stable. Patient was given Tylenol for fever 39.3 degrees. Blood cultures were obtained as well as UA. UA is indicative of infection. Patient was given 2 g of IV ceftriaxone. Given the patient's generalized weakness, +UA and fever, was felt patient would best be served with an evaluation by the hospitalist service. Covid swab was obtained and is negative. Patient and were aware of the plan and agreed. Impression & Plan UTI (urinary tract infection), Weakness, Fever, Diabetes Discharge Plan Visit Data Chief Complaint: Weakness Stated Complaint: WEAKNESS ED Provider: Mary Mccabe Discharge Problem: UTI (urinary tract infection), Weakness, Fever, Diabetes Patient Disposition: Admitted As Inpatient Discharge Instructions Interventions: ED Discharge Assessment Last Done: 12/20/20 00:33 Discharge Problem: UTI (urinary tract infection) Qualifiers: Urinary tract infection type: acute cystitis Hematuria presence: without hematuria Qualified Code(s): N30.00 - Acute cystitis without hematuria Fever Qualifiers: Fever type: due to other condition Qualified Code(s): R50.81 - Fever presenting with conditions classified elsewhere Diabetes Qualifiers: Diabetes mellitus type: type 2 Diabetes mellitus life skills coordinator volunteer insulin use: with life skills coordinator volunteer use Diabetes mellitus complication status: with skin complications Laisha betes mellitus complication detail: with foot ulcer Qualified Code(s): E11.621 - Type 2 diabetes mellitus with foot ulcer
--- NOTE | 2020-12-19 23:06 | History & Physical Report ---
Date of Service December 19, 2020 Assessment & Plan (1) Weakness: Plan: Mrs. Stephens is a 75 yo woman who presents for evaluation of generalized weakness and fever. - etiology uncertain: may be due to infection vs. anemia (although low, Hgb is nearly at its baseline) vs. deconditioning vs multifactorial - SIRS criteria not met, patient not septic. WBC not elevated, although she was febrile. CXR showing no evidence of PNA. COVID was negative. Lyme negative, Anaplasmosis testing pending. UA was suspicious for infection. Urine and blood cultures pending. Upon review of previous urine cultures, culture from 10/05 showing ecoli with resistance to ampicillin, bactrim, gent, tobramycin and cefazolin. Urine culture from 05/06 showing Ecoli ESBL. Patient was given Ceftriaxone in ED - will continue this agent for now, pending culture results. escalate to Zosyn if patient clinically worsens before culture returns. - PT/OT ordered (2) Anemia: Plan: - Hgb at 11.7, MCV at 82 - baseline Hgb ~ 11-12 - normocytic anemia - UA 3+ for blood (patient is on Xarelto) (3) Hypothyroidism: Plan: - continue home dose levothyroxine (4) Atrial fibrillation: Plan: - not in RVR on exam - anticoagulated on Xaralto - rate controlled with propranolol - continue home digoxin (5) Uncontrolled type 2 diabetes mellitus: Plan: - continue home insulin regimen - not on alejo/arb, but is on HCTZ-spironolactone combo pill for blood pressure. No mention of allergies to alejo/arbs on chart. Consider change of medication for BP control and renoprotection - DM Carb consistent diet Diet: carb consistent, heart healthy DVT ppx: on Xarelto Code: Full, I discussed with patient Dispo: Med/Surg History of Present Illness Primary Care Provider: AARTI Barillas Mrs. Stephens is a 75 yo woman who presented to the [facility] ED for evaluation of generalized weakness and fever of 2 days duration. She has a stair lift at her home - and even with its aid, she has had a difficult time getting around due to weakness. She denies any sore throat, runny nose, cough, SOB, chest pain, abdominal pain, nausea/vomiting, diarrhea, rashes, headaches, joint pain, dysuria, burning with urination. She is incontinent of urine. She denies any recent tick bites. Of note she has a R heel fracture for which she is following with [facility] [place]. In the ED, she was febrile to 39.3. Her HR was 93. Her BP was 155/73. RR was 19, O2 sat 95 on room air. Her WC was WNL. Her Hgb was mildly low at 11.7, MCV at 82. Cr at 11, BUN mildly elevated to 23. Electrolytes WNL. Lfts WNL. Trop undetectable. Lactate not elevated. UA showing 3+ blood, + nitrite, 3+ LE, > 30 WBCs, 4+ bacteria. Blood and Urine cultures pending. Lyme testing negative. Anaplasma DNA ordered. COVID 19 neg. CXR showing no active disease. She was given a dose of Ceftriaxone, 1 liter of NSS and 1g of Tylenol. Allergies Allergy/AdvReac Type Severity Reaction Status Date / Time ciprofloxacin Allergy Intermediate severe rash Verified 12/19/20 20:37 procainamide Allergy Intermediate shaky, Verified 12/19/20 20:37 rapid heart beat, rash shrimp Allergy Intermediate Hives Verified 12/19/20 20:37 verapamil Allergy Intermediate shaky, Verified 12/19/20 20:37 rapid heart beat, rash chloramphenicol Allergy Mild rash,diarrh Verified 12/19/20 20:37 [From Chloromycetin] ea codeine Allergy Mild RASH Verified 12/19/20 20:37 esomeprazole Allergy Mild Rash Verified 12/19/20 20:37 lansoprazole Allergy Mild Rash Verified 12/19/20 20:37 propoxyphene Allergy Mild Rash Verified 12/19/20 20:37 Quinolones Allergy Mild RASH Verified 12/19/20 20:37 Cipro Allergy Unknown UNKNOWN Verified 05/21/17 08:05 omeprazole Allergy Unknown Rash Verified 12/19/20 20:37 Home Medications Medication Instructions Recorded Confirmed Type albuterol sulfate 1.25 mg/3 mL 1.25 mg INH Q4H PRN 07/05/18 12/19/20 History solution for nebulization albuterol sulfate 90 mcg/actuation 2 puffs INH Q6H PRN 07/05/18 12/19/20 History aerosol inhaler loperamide 2 mg tablet (Imodium 2 mg PO TID PRN tab 12/23/18 12/19/20 History A-D) digoxin 125 mcg (0.125 mg) tablet 125 mcg PO QAM #90 tab 01/24/20 12/19/20 Rx pen needle, diabetic 29 gauge x ea 03/20/20 12/06/20 History 1/2" (Lite Touch Insulin Pen [place]) spironolactone 25 1 tab PO BID #180 tab 04/17/20 12/19/20 Rx mg-hydrochlorothiazide 25 mg tablet fluticasone 250 mcg-salmeterol 50 See Rx Instructions INH BID #60 ea 04/26/20 12/19/20 Rx mcg/dose blistr powdr for inhalation (Advair Diskus) levothyroxine 125 mcg tablet 125 mcg PO QAM #90 tab 06/04/20 12/19/20 Rx (Synthroid) rivaroxaban 20 mg tablet (Xarelto) 20 mg PO QAM #30 tab 07/23/20 12/19/20 Rx blood sugar diagnostic (OneTouch #100 ea 07/31/20 12/06/20 Rx Verio test strips) propranolol 20 mg tablet 20 mg PO BID #60 tab 09/10/20 12/19/20 Rx pantoprazole 40 mg tablet,delayed 40 mg PO BID #60 tab 12/04/20 12/19/20 Rx release (Protonix) blood-glucose meter,continuous 12/06/20 12/06/20 History (Dexcom G6 [place]) blood-glucose sensor (Dexcom G6 12/06/20 12/06/20 History Sensor) blood-glucose transmitter (Dexcom 12/06/20 12/06/20 History G6 Transmitter) insulin aspart U-100 100 unit/mL 0 unit SUBCUT TIDM ml 12/06/20 12/19/20 History subcutaneous solution (Novolog U-100 Insulin aspart) insulin glargine 100 unit/mL (3 115 unit SUBCUT UD ml 12/06/20 12/19/20 History mL) subcutaneous pen (Basaglar KwikPen U-100 Insulin) gabapentin 300 mg capsule 300 mg PO BID 12/19/20 12/19/20 History pregabalin 75 mg capsule 75 mg PO QAM 12/19/20 12/19/20 History pregabalin 75 mg capsule 150 mg PO QPM 12/19/20 12/19/20 History Past Med/Surg History Medical History (Updated 12/20/20 @ 16:27 by RICKY PriceC) Asthma Calcaneus fracture, right Endometrial cancer diagnosed 2018--sx H/O bladder infections Herniated intervertebral disc of lumbar spine History of gastric ulcer History of pulmonary embolism 2018--d/t sx Hx of gastric ulcer Morbid obesity with BMI of 40.0-44.9, adult On anticoagulant therapy xarelto daily Open wound of right heel Pressure ulcer of left heel, stage 1 SIRS (systemic inflammatory response syndrome) Surgical History History of bilateral cataract extraction History of colonoscopy History of cystoscopy x3 History of dilatation and curettage x3 History of esophagogastroduodenoscopy (EGD) History of fusion of cervical spine x2--slightly stiff, normal ROM History of partial thyroidectomy Right--benign tumor History of removal of cyst off left breast History of tonsillectomy and adenoidectomy History of tooth extraction all teeth History of total hysterectomy with bilateral salpingo-oophorectomy (BSO) History of total right knee replacement Hx of cholecystectomy Family History Mother , 86 - COPD/Lung CA T2DM (type 2 diabetes mellitus) Lung cancer Steroid-induced diabetes mellitus COPD (chronic obstructive pulmonary disease) Father , 59 - Pancreatic CA Pancreatic cancer T2DM (type 2 diabetes mellitus) Sister , 55 - Rare Vaginal CA with mets to the liver and pancreas Vaginal cancer Sister Melanoma Grandmother (Maternal) , 93 Hypertension Stroke Grandfather (Maternal) , 93 T2DM (type 2 diabetes mellitus) Myocardial infarction Grandmother (Paternal) , 73 T2DM (type 2 diabetes mellitus) Grandfather (Paternal) , 70 Rheumatoid arthritis Heart disease Aunt , 72 - Pancreatic CA Pancreatic cancer Daughter Family history of malignant hyperthermia went into malignant hyperthermia with appy sx 26yrs ago Social History Smoking Status: Never smoker Second Hand Exposure: No; Do You Dip or Chew Tobacco: No; Tobacco Cessation Education Requested by Patient: No Hx Alcohol Use: Yes Alcohol type: wine Alcohol Intake Frequency Comment: 2 drinks per week Hx Substance Use: No Preferred Language: Montene[place]in Communication Ability: Effective Surface Grinder Required: No Beliefs That Will Affect Care: None marital status: Current Living Situation: Spouse current occupational status: retired Other Information That Helps Us Care for You: 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 Safe at Home: Yes Safety Concerns: Feels Safe At This Time Assistive Devices: Brace/Splint/Immobilizer and Walker Review of Systems Constitutional: + fever and + weakness Physical Exam Constitutional: WD/WN, vitals as above + obese and cooperative; no acute distress Eyes: + anicteric sclerae ENMT: external ear and nose normal, oropharynx normal Neck: trachea midline Respiratory: normal respiratory effort, lungs clear to auscultation no cough Cardiovascular: RRR, no murmur, no edema Heart Sounds: normal S1 and normal S2 Gastrointestinal (Abdomen): normal bowel sounds, soft, nontender, no hepatosplenomegaly Musculoskeletal: Head/Neck/Chest: normocephalic and head atraumatic Extremities: + lower leg abnormality Right (in boot) Skin: no rashes, warm and dry + ulcer (left heel, 1cm, healing well. ) Psychiatric: A+Ox3, euthymic affect Results & Data Results & Data ([facility]) Vital Signs (Past 12 Hours) Vital Signs Temp Pulse Resp BP Pulse Ox 12/19/20 22:34 37.0 C 12/19/20 22:00 77 19 155/73 H 95 12/19/20 21:00 82 23 174/85 H 95 12/19/20 20:22 37.6 C H 12/19/20 20:00 91 H 23 146/82 H 95 12/19/20 18:55 39.3 C H 93 H 16 145/76 H 97 Supervising Physician Co-Signing Physician Notes Attending addendum: I have physically seen this patient, have supervised the medical residents activities, and agree with the H&P unless as otherwise noted. Assessment and Plan: UTI/fever/generalized weakness- Follow urine culture and sensitivities History of ESBL E. coli and other MDR E. coli Antibiotic selection to cover these bacteria IV fluids Atrial fibrillation- Continue propranolol, digoxin and Xarelto Diabetes mellitus- Continue home regimen Placed on Accu-Cheks before meals and at bedtime with NovoLog coverage per scale Remaining orders and notations as noted Resident Activity Tracking Resident Involvement: Resident Care Provided Care Provided: Adult Hospital Medicine (1) Atrial fibrillation Atrial fibrillation type: unspecified Qualified Code(s): I48.91 - Unspecified atrial fibrillation
[2020-12-20] MEDS ORDERED: DEXTROSE 50% 50 ML SYRINGE IV PRN (00:55)
[2020-12-20] MEDS ORDERED: CARBOHYDRATES FOR HYPOGLYCEMIA PO PRN (00:55)
[2020-12-20] MEDS ORDERED: ONDANSETRON INJ 2 MG/ML 2 ML VIAL IV PRN (00:55)
[2020-12-20] MEDS ORDERED: GLUCAGON FOR INJ 1 MG VIAL SQ PRN (00:55)
[2020-12-20] MEDS ORDERED: GLUCOSE 40% GEL 15 GM TUBE PO PRN (00:55)
[2020-12-20] MEDS ORDERED: SODIUM CHLORIDE 0.9% 1000ML 1,000 ML IV SCH (00:55)
[2020-12-20] MEDS ORDERED: ACETAMINOPHEN 325 MG TAB PO PRN (00:55)
[2020-12-20] MEDS ORDERED: POLYETHYLENE (MIRALAX) 17 GM PACK PO PRN (00:55)
[2020-12-20] MEDS ORDERED: GLUCOSE 10 TABS/TUBE PO PRN (00:55)
[2020-12-20] MEDS ORDERED: ALBUTEROL 0.083% NEBU SOLN 3 ML VIAL INH PRN (01:09)
[2020-12-20] MEDS: INSULIN ASPART 100 UNITS/ML 3 ML PEN SC SCH ×5 (04:05→20:19)
[2020-12-20] MEDS: LEVOTHYROXINE SODIUM 125 MCG TABLET PO SCH (04:07)
[2020-12-20 07:03] LABS: Basophils # (auto) 0.01 K/uL (0-0.2); Basophils % (auto) 0.1 %; Eosinophils # (auto) 0.12 K/uL (0-0.5); Eosinophils % (auto) 1.5 %; Hematocrit (blood only) 33.1 % (37-47); Immature Granulocytes # (auto) 0.05 K/uL (0.00-0.02); Immature Granulocytes % (auto) 0.6 %; Lymphocytes # (auto) 1.57 K/uL (1.2-3.4); Lymphocytes % (auto) 20.2 %; Mean Corpuscular Hemoglobin 27.8 pg (25-34); Mean Corpuscular Hgb Conc 33.2 g/dL (32-36); Mean Corpuscular Volume 83.8 fL (80-100); Monocytes # (auto) 0.73 K/uL (0.11-0.59); Monocytes % (auto) 9.4 %; Neutrophils # (auto) 5.31 K/uL (1.4-6.5); Neutrophils % (auto) 68.2 %; Platelet Count 200 K/uL (130-400); RDW Coefficient of Variation 15.9 % (11.5-14.5); RDW Standard Deviation 48.9 fL (36.4-46.3); Red Blood Count 3.95 M/uL (4.2-5.4); White Blood Count 7.79 K/uL (4.8-10.8)
[2020-12-20] MEDS: PANTOprazole 40 MG TAB PO SCH ×2 (09:12→20:21)
[2020-12-20] MEDS: SPIRONOLACTONE/HCTZ 25-25 PO SCH ×2 (09:13→17:58)
[2020-12-20] MEDS: GABAPENTIN 300 MG CAP PO SCH ×2 (09:13→20:20)
[2020-12-20] MEDS: DIGOXIN 0.125 MG TAB PO SCH (09:13)
[2020-12-20] MEDS: RIVAROXABAN 20 MG TAB PO SCH (09:13)
[2020-12-20] MEDS: INSULIN GLARGINE SOLOSTAR 100 UNITS/ML 3 ML PEN SQ SCH ×2 (09:14→20:17)
[2020-12-20] MEDS: PROPRANOLOL HCL 20 MG TAB PO SCH ×2 (09:14→20:20)
[2020-12-20] MEDS: FLUTICASONE/VILANTEROL 200/25MCG 14 PUFFS/INHALER INH SCH (09:17)
[2020-12-20] MEDS: PREGABALIN 75 MG CAP PO SCH (09:24)
[2020-12-20] MEDS: ERTAPENEM SODIUM 1,000 MG in SODIUM CHLORIDE 0.9% 50 ML IV SCH (09:24)
--- NOTE | 2020-12-20 16:34 | Hospitalist Progress Note ---
Date of Service December 20, 2020 Assessment & Plan (1) UTI (urinary tract infection): Plan: -Patient hospitalized and empirically started on Rocephin. Will transition to Invanz given her known history of ESBL E. coli. -Blood culture/urine culture orderedpending. Antibiotic therapy to be tailored based on final culture data - Tylenol as needed for fever (2) Fever: Plan: -Likely secondary to #1. See above (3) Weakness: Plan: -Likely secondary to #1. See above (4) Ulcer of left heel: Plan: -Not actively infected and mostly healed (5) Calcaneus fracture, right: Plan: -Follow up with Ortho (6) Uncontrolled type 2 diabetes mellitus: Plan: -Patient has been continued on her Lantus/log. Continue this with sliding scale for correction dosing -Patient asked if we can use her Dexcom for blood sugar monitoring. Okay for this. -Continue gabapentin/Lyrica for neuropathy (7) Hypertension: Plan: -Continue propranolol, Aldactone/HCTZ as prior to hospitalization (8) Atrial fibrillation: Plan: -Continue digoxin and Xarelto as prior to hospitalization (9) Dyslipidemia: Plan: -Diet controlled (10) Asthma: Plan: -Continue Advair (11) Hypothyroidism: Plan: -Continue levothyroxine Plan: Plan of care to be discussed with Dr. Carvajal. Further orders as warranted. Admission and Anticipated Discharge Date Admission Date: December 19, 2020 Subjective Patient seen on daily rounds today. 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 She presented to the ED yesterday due to increasing weakness over 2 days with a fever of 102 degrees. In the ED she was found to be febrile 102.74 but hemodynamically stable. White blood cell count was normal. Her urine was grossly infected as it was leukocyte esterase and nitrite positive. Covid test was negative. Chest x-ray showed no acute pathology. Blood cultures were obtainedpending. Patient denies having any dysuria, frequency but rather urgency and increased incontinence. No odor noted. Patient was hospitalized for UTI with associated weakness and fever. Patient does have a history of ESBL E. coli. Of note: Patient has been nonambulatory for nearly 11 months. She fractured her right calcaneus and has been nonweightbearing. Is following Ortho. Slow/delayed healing noted. Subsequently developed a pressure ulcer on her left heel that is healing. Typically can transfer but over the course of the past 2 days, unable to do even that. Review of Systems Review of Systems: All systems reviewed and are unremarkable except as noted in HPI and below Denies fevers, chills, headache, nasal congestion, sore throat, cough, chest pain, shortness of breath, abdominal pain, nausea, vomiting, dysuria, hematuria, Does have a known pressure ulcer of her left heel. Physical Exam Physical Exam: General: Resting comfortably in his/her hospital bed/bedside chair. NAD. Neck: No JVD. Negative hepatojugular reflex Cardiac: Currently in a normal sinus rhythm with controlled ventricular rate Lungs: CTA without W/R/R Abdomen: Normoactive X4. Soft and nontender in all quadrants. No suprapubic pain or CVA tenderness Extremities: Right lower extremity in a boot. Left lower extremity with very small pressure ulcer on medial surface of heel that has no active drainage. No surrounding erythema. Wound is actually callused over Neuro: A&O X4 cranial nerves II through XII are grossly intact no focal neuro deficits Skin: No obvious skin lesions or rashes Results & Data Results & Data ([facility]) Vital Signs (Past 12 Hours) Vital Signs Temp Pulse Pulse Resp BP BP BP 12/20/20 09:13 84 12/20/20 09:05 84 150/78 H 12/20/20 07:30 37.5 C 71 20 137/75 12/20/20 05:56 37.2 C 69 20 132/62 12/20/20 00:16 79 20 162/73 H 12/19/20 23:00 87 23 155/73 H 12/19/20 22:34 37.0 C Pulse Ox 12/20/20 09:13 12/20/20 09:05 12/20/20 07:30 97 12/20/20 05:56 94 12/20/20 00:16 95 12/19/20 23:00 94 12/19/20 22:34 Laboratory Results 12/20/20 06:23 12/19/20 20:08 Urine Culture Preliminary 12/20/20-1442 Organism 1 Gram negative bacilli [place] Count >100,000 CFU/ml Sens Sensitivities to Follow Urine Culture Final 05/16/20-1053 Organism 1 Escherichia coli ESBL [place] Count >100,000 CFU/ml Sens Sensitivities to Follow ESBL E col RX M.I.C. --- --------- Amikacin S <=16 Ampicillin R >16 Amp/Sul R >16/8 Cefazolin R >16 Cefepime R <=4 Cefotaxime R <=2 Cefoxitin I 16 Ceftriaxone R <=1 Cefuroxime R 8 Ciprofloxacin S <=1 Ertapenem S <=1 Gentamicin R >8 Levofloxacin S <=2 Meropenem S <=1 Nitrofurantoin R >64 Tobramycin I 8 Trimeth/Sulfa R >2/38 Pip/Tazo S <=16 PG Care Time/CCT Total # of Minutes Spent Total Time Spent with Patient: Total time spent is greater than 50% in coordination of care (as documented) at patient's floor/unit and/or counseling patient: [place] [address] Subseq Hosp Care Lvl 2 Patient Type Established History Expanded Problem Focused Exam Expanded Problem Focused Medical Decision Making Low Complexity Diagnoses UTI (urinary tract infection) N39.0 Fever R50.9 Weakness R53.1 Ulcer of left heel L97.429 Calcaneus fracture, right S92.001A Calcaneus location: unspecified portion of calcaneus Encounter type: initial encounter Fracture alignment: displaced Fracture type: closed Dyslipidemia E78.5 Asthma J45.909 Uncontrolled type 2 diabetes mellitus E11.65 Hypertension I10 Hypertension type: essential hypertension Atrial fibrillation I48.91 Atrial fibrillation type: unspecified Hypothyroidism E03.9 (1) Calcaneus fracture, right Calcaneus location: unspecified portion of calcaneus Encounter type: initial encounter Fracture alignment: displaced Fracture type: closed Qualified Code(s): S92.001A - Unspecified fracture of right calcaneus, initial encounter for closed fracture (2) Hypertension Hypertension type: essential hypertension Qualified Code(s): I10 - Essential (primary) hypertension (3) Atrial fibrillation Atrial fibrillation type: unspecified Qualified Code(s): I48.91 - Unspecified atrial fibrillation
[2020-12-20] MEDS: PREGABALIN 150 MG CAP PO SCH (20:24)
[2020-12-20] MEDS ORDERED: cefTRIAXone SODIUM 1,000 MG in DEXTROSE 5% 50 ML IV SCH (21:00)
--- NOTE | 2020-12-21 02:09 | Billing Data ---
Date of Service December 21, 2020 Coding Level of Care Code INT OBSERVATION CARE 69M LVL 3
[2020-12-21] MEDS: LEVOTHYROXINE SODIUM 125 MCG TABLET PO SCH (05:58)
[2020-12-21 06:39] LABS: Basophils # (auto) 0.01 K/uL (0-0.2); Basophils % (auto) 0.1 %; Eosinophils # (auto) 0.15 K/uL (0-0.5); Hematocrit (blood only) 34.9 % (37-47); Hemoglobin 11.5 g/dL (12.0-16.0); Immature Granulocytes # (auto) 0.05 K/uL (0.00-0.02); Immature Granulocytes % (auto) 0.7 %; Lymphocytes # (auto) 1.73 K/uL (1.2-3.4); Lymphocytes % (auto) 22.8 %; Mean Corpuscular Hemoglobin 27.6 pg (25-34); Mean Corpuscular Volume 83.7 fL (80-100); Mean Platelet Volume 9.9 fL (7.4-10.4); Monocytes % (auto) 7.9 %; Neutrophils # (auto) 5.05 K/uL (1.4-6.5); Neutrophils % (auto) 66.5 %; Platelet Count 217 K/uL (130-400); RDW Coefficient of Variation 15.9 % (11.5-14.5); RDW Standard Deviation 48.5 fL (36.4-46.3); Red Blood Count 4.17 M/uL (4.2-5.4); White Blood Count 7.59 K/uL (4.8-10.8)
[2020-12-21 07:05] LABS: BUN Creatinine Ratio 14.6 (10-20); Calcium 8.7 mg/dl (8.5-10.1); Creatinine Clr Calc Pharmacy 48.7 ml/min; Est GFR (African American) 55.3 ml/min; Est GFR (Non-African American) 47.7 ml/min; Potassium 3.5 mmol/L (3.5-5.1)
[2020-12-21] MEDS: INSULIN ASPART 100 UNITS/ML 3 ML PEN SC SCH ×4 (09:17→20:58)
[2020-12-21] MEDS: RIVAROXABAN 20 MG TAB PO SCH (09:18)
[2020-12-21] MEDS: DIGOXIN 0.125 MG TAB PO SCH (09:19)
[2020-12-21] MEDS: GABAPENTIN 300 MG CAP PO SCH ×2 (09:19→20:50)
[2020-12-21] MEDS: PANTOprazole 40 MG TAB PO SCH ×2 (09:19→20:50)
[2020-12-21] MEDS: SPIRONOLACTONE/HCTZ 25-25 PO SCH ×2 (09:19→18:05)
[2020-12-21] MEDS: FLUTICASONE/VILANTEROL 200/25MCG 14 PUFFS/INHALER INH SCH (09:20)
[2020-12-21] MEDS: INSULIN GLARGINE SOLOSTAR 100 UNITS/ML 3 ML PEN SQ SCH ×2 (09:20→20:57)
[2020-12-21] MEDS: PREGABALIN 75 MG CAP PO SCH (09:30)
[2020-12-21] MEDS: PROPRANOLOL HCL 20 MG TAB PO SCH ×2 (09:30→20:50)
[2020-12-21] MEDS ORDERED: ONDANSETRON INJ 2 MG/ML 2 ML VIAL IV STA (10:35)
[2020-12-21] MEDS ORDERED: ONDANSETRON INJ 2 MG/ML 2 ML VIAL IV PRN (10:36)
[2020-12-21] MEDS: ERTAPENEM SODIUM 1,000 MG in SODIUM CHLORIDE 0.9% 50 ML IV SCH (10:36)
--- NOTE | 2020-12-21 17:33 | Hospitalist Progress Note ---
Date of Service December 21, 2020 Assessment & Plan (1) UTI (urinary tract infection): Plan: -Patient hospitalized and empirically started on Rocephin. Will transition to Invanz given her known history of ESBL E. coli. -Blood culture/urine culture orderedpending. Antibiotic therapy to be tailored based on final culture data - Tylenol as needed for fever (2) Weakness: Plan: Mrs. Stephens is a 75 yo woman who presents for evaluation of generalized weakness and fever likely a result of a UTIsee above (3) Fever: Plan: -Patient has since defervesced since initiation of antibiotic therapy (4) Anemia: Plan: - Hgb at 11.5 and stable, MCV at 82 - baseline Hgb ~ 11-12 - normocytic anemia - UA 3+ for blood (patient is on Xarelto) (5) Hypothyroidism: Plan: - continue home dose levothyroxine (6) Atrial fibrillation: Plan: - not in RVR on exam - anticoagulated on Xaralto - rate controlled with propranolol - continue home digoxin. Digoxin level added given nausea. Patient not dig toxic (7) Uncontrolled type 2 diabetes mellitus: Plan: -Patient has been continued on her Lantus/log. Continue this with sliding scale for correction dosing -Patient asked if we can use her Dexcom for blood sugar monitoring. Okay for this. -Continue gabapentin/Lyrica for neuropathy (8) Ulcer of left heel: Plan: -Not grossly infected (9) Calcaneus fracture, right: Plan: -Following Ortho Plan: continue: Diet: carb consistent, heart healthy DVT ppx: on Xarelto Plan of care to be discussed with Dr. Carvajal. Further orders as warranted. Admission and Anticipated Discharge Date Admission Date: December 19, 2020 Subjective Patient seen on daily rounds today. Had some mild nausea this morning (uncertain as to why) that was improved with some Zofran. Otherwise, she remains empirically on Invanz for her UTI (given history of ESBL E. coli). Urine culture pendingpreliminary showing gram-negative bacilli. Otherwise, patient denies any fevers, chills, abdominal pain, dysuria, hematuria or frequency. Her white blood cell count remains normal. Review of Systems Review of Systems: All systems reviewed and are unremarkable except as noted in HPI and below Denies fevers, chills, headache, nasal congestion, sore throat, cough, chest pain, shortness of breath, abdominal pain, vomiting, dysuria, hematuria, frequency, skin lesions or rashes. Physical Exam Physical Exam: General: Resting comfortably in her hospital bed. NAD. Neck: No JVD. Negative hepatojugular reflex Cardiac: Currently in a normal sinus rhythm with controlled ventricular rate Lungs: CTA without W/R/R Abdomen: Normoactive X4. Soft and nontender in all quadrants. Extremities: No peripheral clubbing cyanosis or edema Neuro: A&O X4 cranial nerves II through XII are grossly intact no focal neuro deficits Skin: No obvious skin lesions or rashes Results & Data Results & Data ([facility]) Vital Signs (Past 12 Hours) Vital Signs Temp Pulse Pulse Resp BP Pulse Ox 12/21/20 17:03 36.7 C 72 18 136/69 95 12/21/20 09:19 74 12/21/20 07:42 36.8 C 74 16 148/79 H 96 Laboratory Results 12/21/20 05:55 12/21/20 05:55 Urine Culture Preliminary 12/21/20-1005 Organism 1 Gram negative bacilli [place] Count >100,000 CFU/ml Sens Sensitivities to Follow PG Care Time/CCT Total # of Minutes Spent Total Time Spent with Patient: Total time spent is greater than 50% in coordination of care (as documented) at patient's floor/unit and/or counseling patient: Coding [place] [address] Subseq Hosp Care Lvl 2 Patient Type Established History Expanded Problem Focused Exam Expanded Problem Focused Medical Decision Making Moderate Complexity Diagnoses Weakness R53.1 Anemia D64.9 Hypothyroidism E03.9 Atrial fibrillation I48.91 Atrial fibrillation type: unspecified Uncontrolled type 2 diabetes mellitus E11.65 UTI (urinary tract infection) N39.0 Fever R50.9 Ulcer of left heel L97.429 Calcaneus fracture, right S92.001A Calcaneus location: unspecified portion of calcaneus Encounter type: initial encounter Fracture alignment: displaced Fracture type: closed (1) Atrial fibrillation Atrial fibrillation type: unspecified Qualified Code(s): I48.91 - Unspecified atrial fibrillation (2) Calcaneus fracture, right Calcaneus location: unspecified portion of calcaneus Encounter type: initial encounter Fracture alignment: displaced Fracture type: closed Qualified Code(s): S92.001A - Unspecified fracture of right calcaneus, initial encounter for closed fracture
--- NOTE | 2020-12-21 17:58 | Electrocardiogram Report ---
Test Reason : Blood Pressure : / mmHG Vent. Rate : 088 BPM Atrial Rate : 088 BPM P-R Int : 200 ms QRS Dur : 090 ms QT Int : 368 ms P-R-T Axes : 059 009 047 degrees QTc Int : 445 ms Normal sinus rhythm Nonspecific T wave abnormality Abnormal ECG When compared with ECG of 01-AUG-2019 10:02, Nonspecific T wave abnormality now evident in Anterior leads Confirmed by Kd Keys ([id number]) on 12/21/2020 5:58:25 PM Referred By: REFERRED SELF Confirmed By:Kd Keys
[2020-12-21] MEDS: PREGABALIN 150 MG CAP PO SCH (20:50)
[2020-12-22] MEDS: LEVOTHYROXINE SODIUM 125 MCG TABLET PO SCH (06:13)
[2020-12-22 08:21] LABS: BUN Creatinine Ratio 14.9 (10-20); Creatinine Clr Calc Pharmacy 48.3 ml/min; Est GFR (African American) 54.7 ml/min; Est GFR (Non-African American) 47.2 ml/min; Potassium 3.6 mmol/L (3.5-5.1)
[2020-12-22 08:24] LABS: Basophils # (auto) 0.02 K/uL (0-0.2); Basophils % (auto) 0.2 %; Eosinophils # (auto) 0.28 K/uL (0-0.5); Hematocrit (blood only) 38.1 % (37-47); Hemoglobin 12.7 g/dL (12.0-16.0); Immature Granulocytes # (auto) 0.05 K/uL (0.00-0.02); Immature Granulocytes % (auto) 0.5 %; Lymphocytes # (auto) 1.89 K/uL (1.2-3.4); Lymphocytes % (auto) 20.3 %; Mean Corpuscular Hemoglobin 28.1 pg (25-34); Mean Corpuscular Volume 84.3 fL (80-100); Mean Platelet Volume 10.3 fL (7.4-10.4); Monocytes # (auto) 0.67 K/uL (0.11-0.59); Monocytes % (auto) 7.2 %; Neutrophils # (auto) 6.41 K/uL (1.4-6.5); Neutrophils % (auto) 68.8 %; Platelet Count 279 K/uL (130-400); RDW Coefficient of Variation 15.8 % (11.5-14.5); RDW Standard Deviation 48.6 fL (36.4-46.3); Red Blood Count 4.52 M/uL (4.2-5.4); White Blood Count 9.32 K/uL (4.8-10.8)
[2020-12-22 08:26] LABS: Mean Corpuscular Hgb Conc 33.3 g/dL (32-36)
[2020-12-22] MEDS: PANTOprazole 40 MG TAB PO SCH (09:01)
[2020-12-22] MEDS: PROPRANOLOL HCL 20 MG TAB PO SCH (09:01)
[2020-12-22] MEDS: GABAPENTIN 300 MG CAP PO SCH (09:02)
[2020-12-22] MEDS: FLUTICASONE/VILANTEROL 200/25MCG 14 PUFFS/INHALER INH SCH ×2 (09:03→09:36)
[2020-12-22] MEDS: DIGOXIN 0.125 MG TAB PO SCH (09:04)
[2020-12-22] MEDS: SPIRONOLACTONE/HCTZ 25-25 PO SCH (09:07)
[2020-12-22] MEDS: RIVAROXABAN 20 MG TAB PO SCH (09:08)
[2020-12-22] MEDS: INSULIN ASPART 100 UNITS/ML 3 ML PEN SC SCH ×2 (09:08→12:44)
[2020-12-22] MEDS: INSULIN GLARGINE SOLOSTAR 100 UNITS/ML 3 ML PEN SQ SCH (09:18)
[2020-12-22] MEDS: PREGABALIN 75 MG CAP PO SCH (09:26)
[2020-12-22] MEDS: ERTAPENEM SODIUM 1,000 MG in SODIUM CHLORIDE 0.9% 50 ML IV SCH (09:43)
--- NOTE | 2020-12-22 18:28 | Discharge Summary ---
Date of Service December 22, 2020 Admission HPI Per Admitting Provider Mrs. Stephens is a 75 yo woman who presented to the [facility] ED for evaluation of generalized weakness and fever of 2 days duration. She has a stair lift at her home - and even with its aid, she has had a difficult time getting around due to weakness. She denies any sore throat, runny nose, cough, SOB, chest pain, abdominal pain, nausea/vomiting, diarrhea, rashes, headaches, joint pain, dysuria, burning with urination. She is incontinent of urine. She denies any recent tick bites. Of note she has a R heel fracture for which she is following with [facility] orthopedics. In the ED, she was febrile to 39.3. Her HR was 93. Her BP was 155/73. RR was 19, O2 sat 95 on room air. Her WC was WNL. Her Hgb was mildly low at 11.7, MCV at 82. Cr at 11, BUN mildly elevated to 23. Electrolytes WNL. Lfts WNL. Trop undetectable. Lactate not elevated. UA showing 3+ blood, + nitrite, 3+ LE, > 30 WBCs, 4+ bacteria. Blood and Urine cultures pending. Lyme testing negative. Anaplasma DNA ordered. COVID 19 neg. CXR showing no active disease. She was given a dose of Ceftriaxone, 1 liter of NSS and 1g of Tylenol. Principal Diagnosis Working diagnoses: 1. Urinary tract infection 2. Fever 3. Generalized weakness 4. Nausea with history of PUD Discharge Exam General: Resting comfortably in her hospital bed. NAD. Neck: No JVD. Negative hepatojugular reflex Cardiac: Currently in a normal sinus rhythm with controlled ventricular rate Lungs: CTA without W/R/R Abdomen: Normoactive X4. Soft and nontender in all quadrants. Extremities: No peripheral clubbing cyanosis or edema Neuro: A&O X4 cranial nerves II through XII are grossly intact no focal neuro deficits Skin: No obvious skin lesions or rashes Discharge Data Allergies Allergy/AdvReac Type Severity Reaction Status Date / Time ciprofloxacin Allergy Intermediate severe rash Verified 12/19/20 20:37 procainamide Allergy Intermediate shaky, Verified 12/19/20 20:37 rapid heart beat, rash shrimp Allergy Intermediate Hives Verified 12/19/20 20:37 verapamil Allergy Intermediate shaky, Verified 12/19/20 20:37 rapid heart beat, rash chloramphenicol Allergy Mild rash,diarrh Verified 12/19/20 20:37 [From Chloromycetin] ea codeine Allergy Mild RASH Verified 12/19/20 20:37 esomeprazole Allergy Mild Rash Verified 12/19/20 20:37 lansoprazole Allergy Mild Rash Verified 12/19/20 20:37 propoxyphene Allergy Mild Rash Verified 12/19/20 20:37 Quinolones Allergy Mild RASH Verified 12/19/20 20:37 Cipro Allergy Unknown UNKNOWN Verified 05/21/17 08:05 omeprazole Allergy Unknown Rash Verified 12/19/20 20:37 Consultations 12/19/20 22:17 ED Decision to Admit Stat Ordered Studies 12/22/20 07:43 12/22/20 07:43 Microbiology 12/19/20 20:54 Urine Culture - Final Urine,Clean Catch Klebsiella oxytoca 12/19/20 20:08 Aerobic Blood Culture - Preliminary Blood No growth in Aerobic bottle after 48 hours. Anaerobic Blood Culture - Preliminary No growth in Anaerobic bottle after 48 hours. 12/19/20 20:08 Aerobic Blood Culture - Preliminary Blood No growth in Aerobic bottle after 48 hours. Anaerobic Blood Culture - Preliminary No growth in Anaerobic bottle after 48 hours. Urine Culture Final 12/22/20-1052 Organism 1 Klebsiella oxytoca [place] Count >100,000 CFU/ml Sens Sensitivities to Follow Kleb oxyto RX M.I.C. --- --------- Amox/Clav S <=8/4 Amp/Sul S <=8/4 Cefazolin R 8 Cefepime S <=2 Ceftriaxone S <=1 Ciprofloxacin S <=0.25 Ertapenem S <=0.5 Gentamicin S <=4 Levofloxacin S <=0.5 Meropenem S <=1 Nitrofurantoin S <=32 Tobramycin S <=4 Trimeth/Sulfa S <=2/38 Pip/Tazo S <=16 Hospital Course (1) UTI (urinary tract infection): -Patient hospitalized and empirically started on Rocephin. The following morning, this was transitioned to Invanz given her known history of ESBL E. coli. -Blood cultures obtained and showing no growth at 48 hours -Patient defervesced. Her white blood cell count remains normal. Her generalized weakness improved. -Urine culture showed growth of Klebsiella oxytocin with ha sensitivity -Patient transitioned to oral cefdinir and discharged home with home PT/OT and visiting nurses (2) Weakness: Mrs. Stephens is a 75 yo woman who presents for evaluation of generalized weakness and fever likely a result of a UTIsee above (3) Fever: -Patient has since defervesced since initiation of antibiotic therapy (4) Anemia: - Hgb at 11.5 and stable, MCV at 82 - baseline Hgb ~ 11-12 - normocytic anemia - UA 3+ for blood (patient is on Xarelto) (5) Hypothyroidism: - continue home dose levothyroxine (6) Atrial fibrillation: - not in RVR on exam - anticoagulated on Xaralto - rate controlled with propranolol - continue home digoxin. Digoxin level added given nausea. Patient not dig toxic (7) Uncontrolled type 2 diabetes mellitus: -Patient has been continued on her Lantus/log. Continue this with sliding scale for correction dosing -Patient asked if we can use her Dexcom for blood sugar monitoring. Okay for this. -Continue gabapentin/Lyrica for neuropathy (8) Ulcer of left heel: -Not grossly infected (9) Calcaneus fracture, right: -Following Ortho Patient did have multiple reports of nausea throughout this hospital stay. She was not dig toxic (0.8). She does have a significant history of peptic ulcer disease and admits to taking Advil on a daily basis. She is on a PPI but also takes Xarelto. Denies melena or hematochezia. Her H&H has remained stable. Given this history and the fact that she is not the greatest candidate for an EGD right now she is dealing with a nonhealing fracture of her right heel and a wound on her left footwe will empirically start Carafate X 1 month. Up to PCP to continue. If no improvement in her symptomatology, would recommend follow-up with GI (with whom she is established). Home Health Attestation I certify that this patient is under my care and that I, or a physicians ambulance assistant working with me, had a face to-face encounter that meets the home health [id number] encounter requirements with this patient. The encounter with the patient was in whole, or in part, for the following medical condition, which is the primary reason for home health care (list medical condition): I certify that, based on my findings, the following services are medically necessary home health services: My clinical findings support the need for the above services because: OT Assess ADL Status and Restore Function w ADLs PT Assessment for Endurance / Balance / Strength Further, I certify that my clinical findings support that this patient is homebound (i.e. absences from home require considerable and taxing effort and are for medical reasons or scientologist services or infrequently or of short duration when for other reasons) because: Certification for Home Health Services: Based on the above findings, I certify that this patient is confined to the home and needs intermittent assisted care, physical therapy and/or speech therapy or continues to need occupational therapy. The patient is under my care, and I have initiated the establishment of the plan of care. This patient will be followed by a physician who will periodically review the plan of care. Total Time Total Time Spent Total Time Spent (In Minutes): 60 Discharge Plan Discharge Items Patient Disposition: Home - Self-Care Reason For Visit: FEVER, UTI Discharge Diagnosis: 1. UTI with weakness- improved 2. Fever- secondary to UTI-- resolved 3. Nausea-- ? Reflux Activity: Resume your previous activity Non-emergency contact: Primary Care Provider Call non-emergency contact if: you have any medication questions and you have a fever Follow-up/Referrals: Betina Escobar CRNP [Primary Care Provider] - Diet: Carb Consistent or DM2 Addtl Attending Provider Instructions: - complete full course of antibiotic therapy (Cefdinir 300mg twice a day until complete)--> next dose due tonight - note the addition of Carafate given hx of ulcer and active symptoms. Continue taking your Pantoprazole twice a day. I have prescribed Carafate for 1 month but may need longer. Discuss this with PCP. STOP ADVIL!!!!! - follow up with PCP: 7-10 days - Return to the ED for new or worsening symptoms Pending Studies at Discharge: No Stand-Alone Forms: My [facility] Medications and DC Order Prescriptions: New cefdinir 300 mg capsule 300 mg PO BID Qty: 9 RF: 0 sucralfate [Carafate] 1 gram tablet 1 g PO ACHS Qty: 120 RF: 0 Continued albuterol sulfate 90 mcg/actuation HFA aerosol inhaler 2 puffs INH Q6H PRN (Reason: Shortness Of Breath) RF: 0 albuterol sulfate 1.25 mg/3 mL solution for nebulization 1.25 mg INH Q4H PRN (Reason: Shortness Of Breath) RF: 0 loperamide [Imodium A-D] 2 mg tablet 2 mg PO TID PRN (Reason: loose stool) RF: 0 digoxin 125 mcg (0.125 mg) tablet 125 mcg PO QAM Qty: 90 RF: 3 spironolacton-hydrochlorothiaz 25-25 mg tablet 1 tab PO BID Qty: 180 RF: 3 fluticasone propion-salmeterol [Advair Diskus] 250-50 mcg/dose blister with device See Rx Instructions INH BID Qty: 60 RF: 11 levothyroxine [Synthroid] 125 mcg tablet 125 mcg PO QAM Qty: 90 RF: 3 Xarelto 20 mg tablet 20 mg PO QAM Qty: 30 RF: 5 (DME) OneTouch Verio test strips Strip See Rx Instructions .ROUTE .MEDSUPPLY Qty: 100 RF: 5 propranolol 20 mg tablet 20 mg PO BID Qty: 60 RF: 5 pantoprazole [Protonix] 40 mg tablet,delayed release (DR/EC) 40 mg PO BID Qty: 60 RF: 5 insulin aspart U-100 [Novolog U-100 Insulin aspart] 100 unit/mL solution 0 unit subcut TIDM RF: 0 Basaglar KwikPen U-100 Insulin 100 unit/mL (3 mL) insulin pen 115 unit subcut UD RF: 0 (DME) Dexcom G6 Sensor Device See Rx Instructions .ROUTE RF: 0 (DME) Dexcom G6 Vocational Instructor Misc See Rx Instructions .ROUTE RF: 0 (DME) Dexcom G6 Transmitter Device See Rx Instructions .ROUTE RF: 0 (DME) pen needle, diabetic [Lite Touch Insulin Pen [place]] 29 gauge x 1/2" needle See Rx Instructions .ROUTE .MEDSUPPLY RF: 0 gabapentin 300 mg capsule 300 mg PO BID RF: 0 pregabalin 75 mg capsule 150 mg PO QPM RF: 0 pregabalin 75 mg capsule 75 mg PO QAM RF: 0 Discharge Orders: Discharge Order (Routine); Ordered 12/22/20 Ordered By: Subha Izquierdo/Other Patient Handouts: Urinary Tract Infections in Women Admission Data Admit Date/Time: 12/19/20 22:59 Attending Provider: Turner Carvajal Admit Provider: Angelique Barrett Primary Care Provider: Betina Escobar Other Providers: Vamshi Donahue ; [facility] Other Interventions: Discharge Summary Assessment (RN) Last Done: 12/22/20 13:06 Supervising Physician Co-Signing Physician Notes Patient seen and examined on the day of discharge. I agree with the discharge summary by Subha ALMAGUER. I have reviewed the chart including labs, imaging and plans for discharge. patient doing well, has some mild nausea but she can manage, she was able to eat no dysuria no fever reviewed culture results - UTI, Klebsiella: treated with Invanz to cover for h/o ESBL can transition to Cefdinir on discharge follow up with PCP [place] [address] OBS Care - Discharge Patient Type Established Diagnoses UTI (urinary tract infection) N39.0 Weakness R53.1 Fever R50.9 Anemia D64.9 Hypothyroidism E03.9 Atrial fibrillation I48.91 Atrial fibrillation type: unspecified Uncontrolled type 2 diabetes mellitus E11.65 Ulcer of left heel L97.429 Calcaneus fracture, right S92.001A Calcaneus location: unspecified portion of calcaneus Encounter type: initial encounter Fracture alignment: displaced Fracture type: closed Time Spent (min) 60
[2020-12-22] MEDS ORDERED: INSULIN GLARGINE 100 UNIT/ML VIAL SQ SCH (21:00)
[2020-12-23] MEDS ORDERED: INSULIN GLARGINE 100 UNIT/ML VIAL SQ SCH (09:00)
== END 2020-12-22 15:10 | disposition home or self-care (01) ==
LOC: 3W 19:02 → ED 19:02 → SUATTDRO 22:59 → 3W 12-20 00:33

== ENCOUNTER 2024-08-03 21:38 | Inpatient (IN) ==
[2024-08-03] MEDS: OPTIRAY 320 125ml IV ONE (21:43)
[2024-08-03] MEDS ORDERED: VANCOMYCIN CONSULT ACTIVE PRN (22:03)
[2024-08-03] MEDS ORDERED: VANCOMYCIN HCL 1,800 MG in SODIUM CHLORIDE 0.9% 500 ML IV ONE (22:03)
--- NOTE | 2024-08-03 22:06 | Emergency Department Note ---
Impression & Plan Sepsis, Subarachnoid bleed, Altered mental status, Pneumocephalus, Subdural bleeding ED Provider Note NAME: MAE COTO AGE: 78 SEX: F : 1945 ARRIVES VIA: Ambulance INFORMANT: Patient ED PROVIDER(S): Angel Magaña DO CHIEF COMPLAINT: Altered mental status HPI: Patient is a 78-year-old female with a past medical history of a fall, subdural with recent craniotomy who just got [facility] where she was found to be obtunded and sent into the ER. Patient was found to be febrile at 102. History is unobtainable from patient as she cannot talk. Did discuss with the who provided additional history and confirms the history from EMS. He notes that she was talking yesterday and interacting. She was not walking. Her left side was weaker than her right at that time as well. He notes he saw her in the rehab facility today and patient was very lethargic. ADDITIONAL HISTORY OBTAINED: Per HPI Chronic Medical/Social Conditions Affecting Care: Per HPI PAST MEDICAL HISTOR:See Below PAST SURGICAL HISTORY:See Below FAMILY HISTORY:See Below SOCIAL HISTORY:See Below HOME MEDICATIONS:See Below ALLERGIES:See Below VITALS:See Below PHYSICAL EXAMINATION: GENERAL: Sitting up in bed, ill-appearing, eyes are open, nonverbal HEAD: Right-sided craniotomy with francisco in place which are clean dry EYE EXAM: normal conjunctiva. OROPHARYNX: no exudate, no erythema, lips, buccal mucosa, and tongue normal and mucous membranes are moist NECK: supple, no nuchal rigidity, no adenopathy, non-tender LUNGS: Clear to auscultation. Normal chest wall mechanics HEART: no murmurs, S1 normal and S2 normal ABDOMEN: abdomen soft, non-tender, normo-active bowel sounds, no masses, no rebound or guarding. UPPER EXTREMITIES: upper extremities are grossly normal. LOWER EXTREMITIES: No pitting edema. NEURO EXAM: Patient is nonverbal eyes are open and not moving extremities MEDICAL DECISION MAKING: Patient is a 78-year-old female who presents ER for above-stated complaint. IV was established blood work was obtained. Labs show leukocytosis of 13,000. Anemia at 8.9. After protracted conversation with the he notes that his is a DNR/DNI and does not want any additional surgeries but is agreeable to treating with IV antibiotics. She does not want any surgeries even if the bleed were to start getting bigger in her brain or if there is an infection. Patient was given 2 g of cefepime and IV vancomycin. BMP with slightly elevated glucose at 205. Lactic was normal. LFTs and bilirubin were unremarkable. Troponin was negative. Pro-Daniel is 0.1. UA eventually resulted and was consistent with a UTI. Do favor this likely because of the fever and tachycardia. Of note patient was initially a stroke alert upon arrival so we can compare images however neurosurgery was not able to visualize these on the cart and we had to transmit them to [facility]. They did review these and felt as though it was consistent with postop changes. I discussed the case with Dr. Yari Escobar for further evaluation management and treatment here. Consults/Care Managements Discussions: Per [facility] Triage Nursing notes reviewed. Limited review of prior medical records performed Vital Signs: reviewed and remarkable for febrile and tachycardic Differential diagnosis: Differential diagnosis includes etiologies such as sepsis, UTI, pneumonia, metabolic, electrolyte abnormalities, cardiac sources, intracerebral event, toxicologic, neurological, as well as others were entertained. ER treatment provided: See below Diagnostics interpreted by me include EKG and cardiac monitoring as listed below: -Cardiac Monitoring: An order was placed for continuous cardiac monitoring. The monitor shows a rate of 120 with sinus rhythm. -ECG: Sinus tachycardia rate of 116 Normal axis No PVCs QTc 453 -Laboratory studies:Interpreted by me as stated above in MDM and shown below. Imaging studies: Xrays: As interpreted by me: Portable AP upright 1 view of the chest shows no focal infiltrate CTs show: CT of the head per my pleurae interpretation showed subarachnoid, subdural and pneumocephalus Procedures:none Critical Care: I have personally spent 75 minutes of critical care time in the direct management of this patient. This includes bedside care, interpretation of diagnostic studies, and testing, discussion with consultants, patient, and family members, and other required patient management activities. This 75 minutes is in excess of all separately billable procedures. 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) Frequent falls Peripheral neuropathy (Acute) Exogenous obesity (Acute) Lumbosacral radiculopathy at L5 Charcot foot due to diabetes mellitus (Chronic) Weakness (Acute) Impaired gait and mobility Hypertension (Chronic) Depression (Chronic) Osteoarthritis (Acute) Asthma (Chronic) inhaler daily/prn, nebulizer prn Recurrent UTI (urinary tract infection) (Chronic) Hypothyroidism Dyslipidemia Atrial fibrillation (Chronic) reason for xarelto/digoxin Stage 3a chronic kidney disease (CKD) Medical History Calcaneus fracture, right Confusion Endometrial cancer Family history of malignant hyperthermia Fever Herniated intervertebral disc of lumbar spine History of pulmonary embolism Hx of gastric ulcer On anticoagulant therapy Pressure ulcer of left heel, stage 1 Walker as ambulation aid Surgical History History of bilateral cataract extraction History of colonoscopy History of cystoscopy History of dilatation and curettage History of esophagogastroduodenoscopy (EGD) History of fusion of cervical spine History of partial thyroidectomy History of removal of cyst History of tonsillectomy and adenoidectomy History of tooth extraction History of total hysterectomy with bilateral salpingo-oophorectomy (BSO) History of total right knee replacement Hx of cholecystectomy Family History (Updated 06/27/24 @ 11:30 by Lesli May RN) Mother , 86 - COPD/Lung CA T2DM (type 2 diabetes mellitus) Lung cancer Steroid-induced diabetes mellitus COPD (chronic obstructive pulmonary disease) Father , 59 - Pancreatic CA Pancreatic cancer T2DM (type 2 diabetes mellitus) Sister , 55 - Rare Vaginal CA with mets to the liver and pancreas Vaginal cancer Sister Melanoma Grandmother (Maternal) , 93 Hypertension Stroke T2DM (type 2 diabetes mellitus) Pancreatic cancer Grandfather (Maternal) , 93 T2DM (type 2 diabetes mellitus) Myocardial infarction Grandmother (Paternal) , 73 T2DM (type 2 diabetes mellitus) Grandfather (Paternal) , 70 Rheumatoid arthritis Heart disease Aunt , 72 - Pancreatic CA Pancreatic cancer Daughter Family history of malignant hyperthermia went into malignant hyperthermia with appy sx 26yrs ago Sarcoma of body of uterus Social History (Updated 06/27/24 @ 11:31 by Lesli May RN) Smoking Status: Unknown if ever smoked Second Hand Exposure: Yes; Do You Dip or Chew Tobacco: No; Hx Alcohol Use: Yes Alcohol type: wine Alcohol Intake Frequency: Monthly or Less Hx Substance Use: No Preferred Language: Kinyarwanda Communication Ability: Effective Visual Impairment: Limited Hearing Ability: Hard of Hearing Numerical Analysis Group Manager Required: No Beliefs That Will Affect Care: None marital status: Current Living Situation: Spouse 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 Safe at Home: Yes Diet: diabetic caffeine: Yes Seatbelt Use: always Assistive Devices: Denture - Upper, Glasses, Nebulizer, Special Shoe, Stair Lift, Walker and Wheelchair Allergies Allergies Allergy/AdvReac Type Severity Reaction Status Date / Time ciprofloxacin Allergy Intermediate severe rash Verified 08/04/24 00:25 procainamide Allergy Intermediate shaky, Verified 08/04/24 00:25 rapid heart beat, rash shrimp Allergy Intermediate Hives Verified 08/04/24 00:25 verapamil Allergy Intermediate shaky, Verified 08/04/24 00:25 rapid heart beat, rash chloramphenicol Allergy Mild rash,diarrh Verified 08/04/24 00:25 [From Chloromycetin] ea codeine Allergy Mild RASH Verified 08/04/24 00:25 esomeprazole Allergy Mild Rash Verified 08/04/24 00:25 lansoprazole Allergy Mild Rash Verified 08/04/24 00:25 omeprazole Allergy Mild Rash Verified 08/04/24 00:25 propoxyphene Allergy Mild Rash Verified 08/04/24 00:25 Quinolones Allergy Mild RASH Verified 08/04/24 00:25 metformin AdvReac Intermediate Severe Verified 08/04/24 00:25 diarrhea (incontinent) Home Meds Home Medications Medication Instructions Recorded Confirmed loperamide 2 mg tablet (Imodium 2 mg PO TID PRN loose stool 12/23/18 08/04/24 A-D) blood-glucose meter,continuous 12/06/20 06/22/24 (Dexcom G6 Capture Manager) acetaminophen 650 mg 650 mg PO HS 01/15/21 08/04/24 tablet,extended release (Tylenol 8 Hour) diphenhydramine HCl 25 mg capsule 25 mg PO HS PRN Sleep 06/16/22 08/04/24 (Benadryl) cholecalciferol (vitamin D3) 25 25 mcg PO DAILY 08/12/22 08/04/24 mcg (1,000 unit) capsule gabapentin 300 mg capsule 300 mg PO QAM 08/04/24 08/04/24 gabapentin 300 mg capsule 600 mg PO QPM 08/04/24 08/04/24 levothyroxine 125 mcg tablet 125 mcg PO DAILYBB 08/04/24 08/04/24 (Synthroid) Previous Rx's Medication Instructions Recorded blood sugar diagnostic (OneTouch #50 ea 06/20/21 Verio test strips) insulin syringe-needle U-100 1 mL #400 ea 04/15/22 31 gauge x 16" (BD Insulin Syringe Ultra-Fine) Diabetic Shoes #1 ea 07/10/22 albuterol sulfate 1.25 mg/3 mL 1.25 mg (3 mL) inhalation Q4H PRN 01/30/23 solution for nebulization Shortness Of Breath #15 mL albuterol sulfate 90 mcg/actuation 2 puff inhalation Q6H PRN 04/13/23 aerosol inhaler Shortness Of Breath #8.5 grams tramadol 50 mg tablet 50 mg PO DAILY PRN pain #30 tabs 12/17/23 Dexcom G6 Sensor (blood-glucose #9 ea 05/04/24 sensor) Dexcom G6 Transmitter #1 ea 05/04/24 (blood-glucose transmitter) empagliflozin 10 mg tablet 10 mg PO DAILY #30 tabs 05/17/24 (Jardiance) rivaroxaban 20 mg tablet (Xarelto) 20 mg PO QAM #90 tabs 06/03/24 digoxin 125 mcg (0.125 mg) tablet 125 mcg PO QAM #90 tabs 06/23/24 levocetirizine 5 mg tablet 5 mg PO QPM allergy symptoms #90 06/23/24 tabs metoprolol succinate 50 mg 50 mg PO QAM #90 tabs 06/23/24 tablet,extended release 24 hr pantoprazole 40 mg tablet,delayed 40 mg PO DAILY #90 tabs 06/23/24 release (Protonix) pen needle, diabetic 31 gauge x #600 ea 06/23/24 316" rosuvastatin 10 mg tablet 10 mg PO HS #90 tabs 06/23/24 spironolactone 25 2 tab PO QAM #180 tabs 06/23/24 mg-hydrochlorothiazide 25 mg tablet sertraline 100 mg tablet 100 mg PO QAM #90 tabs 06/24/24 Novolog FlexPen U-100 Insulin 100 60 unit (0.6 mL) subcut DAILY #60 07/13/24 unit/mL (3 mL) subcutaneous mL (insulin aspart U-100) insulin glargine 100 unit/mL (3 76 unit (0.76 mL) subcut BID #150 07/13/24 mL) subcutaneous pen (Lantus mL Solostar U-100 Insulin) Results & Data (ED) Vital Signs Vital Signs - 24 hr 08/03/24 21:40 08/03/24 22:00 08/03/24 22:00 Temperature 38.6 C H Temperature Source Oates Cath ( Temp Sensing) Pulse Rate 120 H 121 H 119 H Pulse Rate [Apical] Pulse Rate from SpO2 Sensor Respiratory Rate 26 H 26 H Blood Pressure 150/90 H 150/90 H Blood Pressure Mean 110 110 Pulse Oximetry 95 96 Oxygen Delivery Method Nasal Cannula Nasal Cannula Oxygen Flow Rate 2 2 Sepsis Recent Fever Within 48 Hours Yes Sepsis New/Unexplained Change in Mental Status No Sepsis Action Taken by Nursing Physician Notified 08/03/24 22:30 08/03/24 22:30 08/03/24 22:40 Temperature 38.9 C H Temperature Source Oates Cath ( Temp Sensing) Pulse Rate 118 H Pulse Rate [Apical] 112 H Pulse Rate from SpO2 Sensor 118 H Respiratory Rate 24 26 H Blood Pressure 154/99 H Blood Pressure Mean 128 Pulse Oximetry 98 98 97 Oxygen Delivery Method Nasal Cannula Room Air Nasal Cannula Oxygen Flow Rate 2 2 Sepsis Recent Fever Within 48 Hours Sepsis New/Unexplained Change in Mental Status Sepsis Action Taken by Nursing 08/03/24 23:00 08/03/24 23:30 08/04/24 00:00 Temperature Temperature Source Pulse Rate 117 H 108 H 107 H Pulse Rate [Apical] Pulse Rate from SpO2 Sensor 115 H 109 H 112 H Respiratory Rate 26 H 22 21 Blood Pressure 151/85 H 156/78 H 155/85 H Blood Pressure Mean 116 103 109 Pulse Oximetry 90 95 99 Oxygen Delivery Method Room Air Nasal Cannula Nasal Cannula Oxygen Flow Rate 2 2 Sepsis Recent Fever Within 48 Hours Sepsis New/Unexplained Change in Mental Status Sepsis Action Taken by Nursing Laboratory Data 08/03/24 21:58 08/03/24 21:58 Lab Results 08/03/24 08/03/24 08/03/24 Range/Units 21:58 21:59 22:00 WBC 13.72 H (4.8-10.8) K/ul RBC 3.50 L (4.20-5.40) M/uL Hgb 8.9 L (12.0-16.0) g/dl POC Hgb 8.8 L (12.0-16.0) g/dl Hct 28.3 L (37.0-47.0) % POC Hct 26 L (37-47) % MCV 80.9 (80.0-100.0) fL MCH 25.4 (25.0-34.0) pg MCHC 31.4 L (32.0-36.0) g/dL RDW Std Deviation 51.3 H (36.4-46.3) fL RDW Coeff of Filomena 17.3 H (11.5-14.5) % Plt Count 359 (130-400) K/uL MPV 9.8 (9.4-12.4) fL Immature Gran % (Auto) 0.8 % Neut % (Auto) 81.6 % Lymph % (Auto) 11.1 % [place] % (Auto) 6.0 % Eos % (Auto) 0.3 % Baso % (Auto) 0.2 % Neut # (Auto) 11.19 H (1.40-6.50) K/uL Lymph # (Auto) 1.52 (1.20-3.40) K/uL [place] # (Auto) 0.83 H (0.11-0.59) K/uL Eos # (Auto) 0.04 (0.00-0.50) K/uL Baso # (Auto) 0.03 (0.00-0.20) K/uL Immature Gran # (Auto) 0.11 (0.01-0.20) K/uL PT 12.2 H (9.0-12.0) Seconds INR 1.1 (0.9-1.1) APTT 25 (21-31) Seconds PTT Ratio 0.9 POC Sodium 140 (135-144) mmol/L Sodium 140 (136-145) mmol/L POC Potassium 4.4 (3.3-5.0) mmol/L Potassium 4.4 (3.5-5.1) mmol/L POC Chloride 105 (101-112) mmol/L Chloride 105 (98-107) mmol/L Carbon Dioxide 23 (21-32) mmol/L POC Total CO2 21 L (24-31) mmol/L Anion Gap 12 H (3-11) POC Anion Gap 19.0 (16-25) mmol/L POC BUN 21 H (7-18) mg/dl BUN 24 H (6-23) mg/dl Creatinine 0.98 (0.6-1.2) mg/dl POC Creatinine 1.1 (0.6-1.3) mg/dl Est Cr Clr Drug Dosing 56.1 ml/min eGFR 58.71 BUN/Creatinine Ratio 24.5 H (10-20) Glucose 216 H (70-99(Fasting)) mg/dl POC Glucose (70-99) mg/dl POC Glucose (other) 210 H (70-99) mg/dl Lactate 1.3 (0.4-2.0) mmol/L Calcium 8.6 (8.6-10.3) mg/dl POC Ioniz Calcium James 1.08 L (1.12-1.32) mmol/l Magnesium 1.9 (1.7-2.4) mg/dl Total Bilirubin 0.8 (0.2-1.0) mg/dl AST 18 (13-39) U/L ALT 10 (7-52) U/L Alkaline Phosphatase 56 (34-104) U/L Troponin I High Sens 10.9 (0-14) pg/ml Total Protein 6.6 (6.0-8.3) gm/dl Albumin 3.4 (3.4-5.0) gm/dl Globulin 3.2 (2.5-4.0) gm/dl Albumin/Globulin Ratio 1.1 (0.9-2) Procalcitonin 0.10 (0-0.5) ng/ml Urine Color Urine Appearance (Clear) Urine pH (4.5-7.5) Ur Specific [place] (1.000-1.030) Urine Protein (Negative) Urine Glucose (UA) (Negative) Urine Ketones (Negative) Urine Blood (Negative) Urine Nitrite (Negative) Urine Bilirubin (Negative) Urine Urobilinogen (Negative) Ur Leukocyte Esterase (Negative) Urine WBC (Auto) (0-5) /hpf Urine RBC (Auto) (0-2) /hpf U Hyaline Cast (Auto) (0-2) /lpf U Epithel Cells (Auto) (0-2) /hpf Urine Bacteria (Auto) (None Seen) Calcium Oxalate Crystal (None Prsent) Urine Mucus (None Prsent) 08/03/24 08/03/24 Range/Units 22:16 22:55 WBC (4.8-10.8) K/ul RBC (4.20-5.40) M/uL Hgb (12.0-16.0) g/dl POC Hgb (12.0-16.0) g/dl Hct (37.0-47.0) % POC Hct (37-47) % MCV (80.0-100.0) fL MCH (25.0-34.0) pg MCHC (32.0-36.0) g/dL RDW Std Deviation (36.4-46.3) fL RDW Coeff of Filomena (11.5-14.5) % Plt Count (130-400) K/uL MPV (9.4-12.4) fL Immature Gran % (Auto) % Neut % (Auto) % Lymph % (Auto) % [place] % (Auto) % Eos % (Auto) % Baso % (Auto) % Neut # (Auto) (1.40-6.50) K/uL Lymph # (Auto) (1.20-3.40) K/uL [place] # (Auto) (0.11-0.59) K/uL Eos # (Auto) (0.00-0.50) K/uL Baso # (Auto) (0.00-0.20) K/uL Immature Gran # (Auto) (0.01-0.20) K/uL PT (9.0-12.0) Seconds INR (0.9-1.1) APTT (21-31) Seconds PTT Ratio POC Sodium (135-144) mmol/L Sodium (136-145) mmol/L POC Potassium (3.3-5.0) mmol/L Potassium (3.5-5.1) mmol/L POC Chloride (101-112) mmol/L Chloride (98-107) mmol/L Carbon Dioxide (21-32) mmol/L POC Total CO2 (24-31) mmol/L Anion Gap (3-11) POC Anion Gap (16-25) mmol/L POC BUN (7-18) mg/dl BUN (6-23) mg/dl Creatinine (0.6-1.2) mg/dl POC Creatinine (0.6-1.3) mg/dl Est Cr Clr Drug Dosing ml/min eGFR BUN/Creatinine Ratio (10-20) Glucose (70-99(Fasting)) mg/dl POC Glucose 205 H (70-99) mg/dl POC Glucose (other) (70-99) mg/dl Lactate (0.4-2.0) mmol/L Calcium (8.6-10.3) mg/dl POC Ioniz Calcium James (1.12-1.32) mmol/l Magnesium (1.7-2.4) mg/dl Total Bilirubin (0.2-1.0) mg/dl AST (13-39) U/L ALT (7-52) U/L Alkaline Phosphatase (34-104) U/L Troponin I High Sens (0-14) pg/ml Total Protein (6.0-8.3) gm/dl Albumin (3.4-5.0) gm/dl Globulin (2.5-4.0) gm/dl Albumin/Globulin Ratio (0.9-2) Procalcitonin (0-0.5) ng/ml Urine Color Yellow Urine Appearance Turbid A (Clear) Urine pH 5.5 (4.5-7.5) Ur Specific [place] 1.030 (1.000-1.030) Urine Protein 2+ H (Negative) Urine Glucose (UA) Trace H (Negative) Urine Ketones 3+ H (Negative) Urine Blood 2+ H (Negative) Urine Nitrite Positive A (Negative) Urine Bilirubin Negative (Negative) Urine Urobilinogen Negative (Negative) Ur Leukocyte Esterase 3+ H (Negative) Urine WBC (Auto) >50 H (0-5) /hpf Urine RBC (Auto) 6-10 H (0-2) /hpf U Hyaline Cast (Auto) 0-2 (0-2) /lpf U Epithel Cells (Auto) 0-2 (0-2) /hpf Urine Bacteria (Auto) 4+ H (None Seen) Calcium Oxalate Crystal Present A (None Prsent) Urine Mucus Present A (None Prsent) Administered Medications Discontinued Medications Cefepime HCl (Maxipime 2000mg) 2,000 mg in 20 mls @ 5 mls/min IV NOW STA; Protocol Stop: 08/03/24 22:05 Last Admin: 08/03/24 22:32 Dose: 5 mls/min Documented By: KARSON Sodium Chloride (Nss) 1,000 mls @ 999 mls/hr IV .Q1H1M ONE Stop: 08/03/24 23:04 Last Infusion: 08/03/24 23:14 Dose: Infused Documented By: Admin: 08/03/24 22:13 Dose: 999 mls/hr Documented By: JESUS ALBERTO Vancomycin HCl 2,000 mg/ (Sodium Chloride) 540 mls @ 200 mls/hr IV NOW STA Stop: 08/04/24 00:52 Last Admin: 08/03/24 22:34 Dose: 200 mls/hr Documented By: KARSON Ioversol (Optiray 320 125ml) 119 ml IV ONCE ONE Stop: 08/03/24 21:43 Last Admin: 08/03/24 21:43 Dose: 119 ml Documented By: GES Imaging Data Radiologist's Impression: Head CT 08/03/24 21:39 CR Exam(s): CT HEAD Without Contrast EXAM: CT Head Without Intravenous Contrast CLINICAL HISTORY: neuro deficit, acute stroke suspected. TECHNIQUE: Axial computed tomography images of the head/brain without intravenous contrast. CTDI is 64.15 mGy and DLP is 1011.54 mGy-cm. Automated exposure control was utilized for the study. A dose lowering technique was utilized adhering to the principles of ALARA. COMPARISON: CT head dated 07/29/2024 FINDINGS: Limitations: There is motion artifact, which degrades image quality on multiple image slices. Brain: There has been interval surgical decompression of the right hemispheric hemorrhagic subdural collection. The collection now measures up to 13 mm in diameter anteriorly from 17 mm previously. There is partial decompression of the hemorrhagic products, smaller in volume. Minimal residual hemorrhagic products noted along the posterior falx. Minimal pneumocephalus noted in the extra-axial operative bed. Chronic underlying chronic periventricular deep white matter hypodense changes remain. There is some improvement in the previously noted diffuse effacement in the right hemispheric cerebral sulci with some minimal residual mass-effect noted. Ventricles: There is interval improvement in the right to left midline shift of the septum pellucidum, now measuring 5 mm from 10 mm previously with mild improvement in the partial effacement of the right lateral ventricle. Bones/joints: Right hemispheric large craniotomy now identified. No acute fracture. Soft tissues: The superficial soft tissues demonstrate normal postoperative changes with skin francisco. No postoperative complication. Sinuses: Unremarkable as visualized. No acute sinusitis. Mastoid air cells: Unremarkable as visualized. No mastoid effusion. IMPRESSION: 1. There has been interval surgical decompression of the right hemispheric hemorrhagic subdural collection. The collection now measures up to 13 mm in diameter anteriorly from 17 mm previously. There is partial decompression of the hemorrhagic products, smaller in volume. Minimal residual hemorrhagic products noted along the posterior falx. 2. There is interval improvement in the right to left midline shift of the septum pellucidum, now measuring 5 mm from 10 mm previously with mild improvement in the partial effacement of the right lateral ventricle. Communications: Call Doctor Stroke Electronically signed by: Francisco Adams MD 08/03/24 22:32 PM Chest X-Ray 08/03/24 21:53 Exam(s): XR CXR 1 VIEW EXAM: XR Chest, 1 View CLINICAL HISTORY: ?pna. TECHNIQUE: Frontal view of the chest. COMPARISON: Chest single view 07/29/2024 FINDINGS: Lungs: No focal consolidation. The pulmonary vasculature demonstrates no significant radiographic abnormality. Pleural space: Unremarkable. No pneumothorax. No large pleural effusion. Heart: Unremarkable. No cardiomegaly. Mediastinum: The mediastinal contours are stable and unremarkable. The trachea is midline. Bones/joints: Unremarkable. No acute fracture. IMPRESSION: No acute cardiopulmonary process or significant alteration from the prior examination. Electronically signed by: Francisco Adams MD 08/03/24 23:09 PM Discharge Plan Visit Data Chief Complaint: Stroke Alert Stated Complaint: Stroke Alert ED Provider: Angel Magaña Discharge Problem: Sepsis, Subarachnoid bleed, Altered mental status, Pneumocephalus, Subdural bleeding Patient Disposition: Against Medical Advice Discharge Instructions Interventions: ED Discharge Assessment Last Done: 08/04/24 00:59 Forms Stand Alone Forms: [facility] Prescriptions Prescriptions: No Action loperamide [Imodium A-D] 2 mg tablet 2 mg PO TID PRN (Reason: loose stool) (DME) insulin syringe-needle U-100 [BD Insulin Syringe Ultra-Fine] 1 mL 31 gauge x 5/16 syringe See Rx Instructions .Route Qty: 400 3RF Rx Instructions: use one with each insulin injection QID (DME) Diabetic Shoes Misc See Rx Instructions .Route Qty: 1 0RF Rx Instructions: As directed albuterol sulfate 1.25 mg/3 mL solution for nebulization 1.25 mg INH Q4H PRN (Reason: Shortness Of Breath) Qty: 15 3RF albuterol sulfate 90 mcg/actuation HFA aerosol inhaler 2 puff INH Q6H PRN (Reason: Shortness Of Breath) Qty: 8.5 3RF (DME) Dexcom G6 Sensor Device See Rx Instructions .Route Qty: 9 3RF Rx Instructions: Change sensor every 10 days ([facility]) Dexcom G6 Transmitter Device See Rx Instructions .Route Qty: 1 3RF Rx Instructions: change transmitter every 90 days Jardiance 10 mg tablet 10 mg PO DAILY Qty: 30 3RF Xarelto 20 mg tablet 20 mg PO QAM Qty: 90 3RF Rx Instructions: 1 tablet per day must administer with a meal/food (DME) pen needle, diabetic 31 gauge x 3/16" needle See Rx Instructions .Route Qty: 600 3RF Rx Instructions: use 6 times daily digoxin 125 mcg (0.125 mg) tablet 125 mcg PO QAM Qty: 90 3RF levocetirizine 5 mg tablet 5 mg PO QPM Qty: 90 3RF metoprolol succinate 50 mg tablet extended release 24 hr 50 mg PO QAM Qty: 90 3RF pantoprazole [Protonix] 40 mg tablet,delayed release (DR/EC) 40 mg PO DAILY Qty: 90 3RF rosuvastatin 10 mg tablet 10 mg PO HS Qty: 90 3RF spironolacton-hydrochlorothiaz 25-25 mg tablet 2 tab PO QAM Qty: 180 3RF sertraline 100 mg tablet 100 mg PO QAM Qty: 90 3RF Rx Instructions: 1 tablet per day. insulin glargine [Lantus Solostar U-100 Insulin] 100 unit/mL (3 mL) insulin pen 76 unit subcut BID MDD 152 Qty: 150 3RF insulin aspart U-100 [Novolog FlexPen U-100 Insulin] 100 unit/mL (3 mL) insulin pen 60 unit subcut DAILY Qty: 60 3RF Rx Instructions: Inject per Sliding Scale with Meals. TDD 60 units (DME) Dexcom G6 Capture Manager Misc See Rx Instructions .Route Rx Instructions: As directed acetaminophen [Tylenol 8 Hour] 650 mg tablet extended release 650 mg PO HS diphenhydramine HCl [Benadryl] 25 mg capsule 25 mg PO HS PRN (Reason: Sleep) cholecalciferol (vitamin D3) 25 mcg (1,000 unit) capsule 25 mcg PO DAILY (DME) OneTouch Verio test strips Strip See Rx Instructions .ROUTE .MEDSUPPLY Qty: 50 0RF Rx Instructions: Test once PRN tramadol 50 mg tablet 50 mg PO DAILY PRN (Reason: pain) Qty: 30 0RF gabapentin 300 mg capsule 300 mg PO QAM gabapentin 300 mg Capsule 600 mg PO QPM levothyroxine [Synthroid] 125 mcg tablet 125 mcg PO DAILYBB Referrals Referrals: Radhika Gordon MD [Primary Care Provider] - Discharge Problem: Sepsis Qualifiers: Sepsis type: sepsis due to unspecified organism Sepsis acute organ dysfunction status: unspecified Qualified Code(s): A41.9 - Sepsis, unspecified organism Altered mental status Qualifiers: Altered mental status type: unspecified Qualified Code(s): R41.82 - Altered mental status, unspecified
[2024-08-03 22:13] LABS: iSTAT Creatinine 1.1 mg/dl (0.6-1.3); iSTAT Hemoglobin 8.8 g/dl (12.0-16.0); iSTAT Ionized Calcium 1.08 mmol/l (1.12-1.32); iSTAT Potassium 4.4 mmol/L (3.3-5.0)
[2024-08-03] MEDS: SODIUM CHLORIDE 0.9% 1,000 ML IV ONE (22:13)
[2024-08-03 22:19] LABS: Basophils # (auto) 0.03 K/uL (0.00-0.20); Basophils % (auto) 0.2 %; Eosinophils # (auto) 0.04 K/uL (0.00-0.50); Eosinophils % (auto) 0.3 %; Hematocrit (blood only) 28.3 % (37.0-47.0); Hemoglobin 8.9 g/dl (12.0-16.0); Immature Granulocytes # (auto) 0.11 K/uL (0.01-0.20); Immature Granulocytes % (auto) 0.8 %; Lymphocytes # (auto) 1.52 K/uL (1.20-3.40); Lymphocytes % (auto) 11.1 %; Mean Corpuscular Hemoglobin 25.4 pg (25.0-34.0); Mean Corpuscular Hgb Conc 31.4 g/dL (32.0-36.0); Mean Corpuscular Volume 80.9 fL (80.0-100.0); Mean Platelet Volume 9.8 fL (9.4-12.4); Monocytes # (auto) 0.83 K/uL (0.11-0.59); Neutrophils # (auto) 11.19 K/uL (1.40-6.50); Neutrophils % (auto) 81.6 %; Platelet Count 359 K/uL (130-400); RDW Coefficient of Variation 17.3 % (11.5-14.5); RDW Standard Deviation 51.3 fL (36.4-46.3); White Blood Count 13.72 K/ul (4.8-10.8)
[2024-08-03 22:30] LABS: Albumin Globulin Ratio 1.1 (0.9-2); Albumin Level 3.4 gm/dl (3.4-5.0); BUN Creatinine Ratio 24.5 (10-20); Bilirubin,Total 0.8 mg/dl (0.2-1.0); Calcium 8.6 mg/dl (8.6-10.3); Creatinine Clr Calc Pharmacy 56.1 ml/min; Globulin 3.2 gm/dl (2.5-4.0); Magnesium 1.9 mg/dl (1.7-2.4); Potassium 4.4 mmol/L (3.5-5.1); Total Protein 6.6 gm/dl (6.0-8.3)
[2024-08-03] MEDS: CEFEPIME 2000MG 2,000 MG/20 ML SYR IV STA (22:32)
--- NOTE | 2024-08-03 22:33 | CT Scan Report ---
Exam(s): CT HEAD Without Contrast EXAM: CT Head Without Intravenous Contrast CLINICAL HISTORY: neuro deficit, acute stroke suspected. TECHNIQUE: Axial computed tomography images of the head/brain without intravenous contrast. CTDI is 64.15 mGy and DLP is 1011.54 mGy-cm. Automated exposure control was utilized for the study. A dose lowering technique was utilized adhering to the principles of ALARA. COMPARISON: CT head dated 07/29/2024 FINDINGS: Limitations: There is motion artifact, which degrades image quality on multiple image slices. Brain: There has been interval surgical decompression of the right hemispheric hemorrhagic subdural collection. The collection now measures up to 13 mm in diameter anteriorly from 17 mm previously. There is partial decompression of the hemorrhagic products, smaller in volume. Minimal residual hemorrhagic products noted along the posterior falx. Minimal pneumocephalus noted in the extra-axial operative bed. Chronic underlying chronic periventricular deep white matter hypodense changes remain. There is some improvement in the previously noted diffuse effacement in the right hemispheric cerebral sulci with some minimal residual mass-effect noted. Ventricles: There is interval improvement in the right to left midline shift of the septum pellucidum, now measuring 5 mm from 10 mm previously with mild improvement in the partial effacement of the right lateral ventricle. Bones/joints: Right hemispheric large craniotomy now identified. No acute fracture. Soft tissues: The superficial soft tissues demonstrate normal postoperative changes with skin francisco. No postoperative complication. Sinuses: Unremarkable as visualized. No acute sinusitis. Mastoid air cells: Unremarkable as visualized. No mastoid effusion. IMPRESSION: 1. There has been interval surgical decompression of the right hemispheric hemorrhagic subdural collection. The collection now measures up to 13 mm in diameter anteriorly from 17 mm previously. There is partial decompression of the hemorrhagic products, smaller in volume. Minimal residual hemorrhagic products noted along the posterior falx. 2. There is interval improvement in the right to left midline shift of the septum pellucidum, now measuring 5 mm from 10 mm previously with mild improvement in the partial effacement of the right lateral ventricle. Communications: Call Doctor Stroke Electronically signed by: Francisco Adams MD 08/03/24 22:32 PM
[2024-08-03] MEDS: VANCOMYCIN HCL 2,000 MG in SODIUM CHLORIDE 0.9% 500 ML IV STA (22:34)
[2024-08-03 22:37] LABS: Troponin I High Sensitivity 10.9 pg/ml (0-14)
[2024-08-03 22:39] LABS: INR 1.1 (0.9-1.1); Partial Thromboplastin Ratio 0.9; Partial Thromboplastin Time 25 Seconds (21-31); Prothrombin Time 12.2 Seconds (9.0-12.0)
--- NOTE | 2024-08-03 23:11 | XRay Report ---
Exam(s): XR CXR 1 VIEW EXAM: XR Chest, 1 View CLINICAL HISTORY: ?pna. TECHNIQUE: Frontal view of the chest. COMPARISON: Chest single view 07/29/2024 FINDINGS: Lungs: No focal consolidation. The pulmonary vasculature demonstrates no significant radiographic abnormality. Pleural space: Unremarkable. No pneumothorax. No large pleural effusion. Heart: Unremarkable. No cardiomegaly. Mediastinum: The mediastinal contours are stable and unremarkable. The trachea is midline. Bones/joints: Unremarkable. No acute fracture. IMPRESSION: No acute cardiopulmonary process or significant alteration from the prior examination. Electronically signed by: Francisco Adams MD 08/03/24 23:09 PM
[2024-08-03 23:32] LABS: Appearance Urine Turbid (Clear); Bacteria Urine Automated 4+ (None Seen); Bilirubin Urine Negative (Negative); Blood Urine 2+ (Negative); Color Urine Yellow; Glucose Urine UA Trace (Negative); Ketones Urine 3+ (Negative); Leukocyte Esterase Urine 3+ (Negative); Nitrite Urine Positive (Negative); Protein Urine 2+ (Negative); Urobilinogen Urine Negative (Negative); WBC Urine Automated >50 /hpf (0-5); pH Urine 5.5 (4.5-7.5)
--- NOTE | 2024-08-03 23:56 | History & Physical Report ---
Date of Service August 03, 2024 Assessment & Plan (1) Altered mental status: (2) Sepsis: (3) Subdural bleeding: (4) Type 2 diabetes mellitus with obesity: (5) Hypertension: (6) Asthma: (7) Hypothyroidism: (8) Dyslipidemia: (9) Atrial fibrillation: Plan 77-year-old female with history of diabetes, hypertension, hyperlipidemia, atrial fibrillation on rivaroxaban anticoagulation, recent ground-level fall with head trauma resulting in subdural hematoma with midline shift requiring surgical decompression performed 07/30/2024 presenting from her rehab with acute metabolic encephalopathy and sepsis present on admission (SIRS 4 out of 4 with WBC = 13.7, temperature = 30.9, heart rate = 112, respiratory rate = 26). Most likely source of infection is urinary. #Metabolic Encephalopathy - likely secondary to UTI, sepsis present on admission. CT imaging findings consistent with post-operative changes - reviewed with [place] [facility] [place]Admit to PCU -Maintain aspiration precautions, Fall precautions -Follow cultures -Continue Vancomycin and Cefepime -Hold Gabapentin for now, possibly contributing to encephalopathy -Hold PM Bendadryl #Sepsis - SIRS 4/4, likely UTI -Follow cultures -Cefepime and Vancomycin -Tylenol PRN -NSS at 80mL/hr x 2L #Subdural hematoma - s/p evacuation, no complications. CT Head reviewed with Neurosurgery and reveals expected post-operative changes -Neuro checks with GCS q 4 hours -Hold Rivaroxaban for now, uncertain if patient has been restarted on this medication #Diabetes - last HgbA1C on 05/30/24=6.5. Patient on Empagliflozin, Lantus 76u BID and Novolog 60u daily as an outpatient. DC medications from [facility] have Lantus 45u BID, Jardiance -Lantus 25u BID with ISS - CF 15 and CR 5 -Pharmacy consultation appreciated #Hypertension -Continue Metoprolol -Hold Spironolactone/HCTZ #Asthma -Albuterol PRN #Hypothyroidism -Continue Synthroid #Dyslipidemia -Continue Crestor #Atrial fibrillation -Continue Digoxin and Metoprolol -Holding anticoagulation for now - should clarify with neurosurgery when to restart this medication (may be in DC summary from [facility]) #GERD -Protonix History of Present Illness Chief Complaint: Encephalopathy Primary Care Provider: Radhika Gordon MD Melissa Stephens Is a 78-year-old female with history of diabetes, hypertension, hyperlipidemia, atrial fibrillation on rivaroxaban anticoagulation and hypothyroidism presenting from [facility] with encephalopathy. Patient with multiple falls over the last month. She was seen in [facility] ER on 07/29/2024 after multiple ground-level falls with head trauma. She was found to have a large subdural hematoma with midline shift And left-sided weakness. Patient was administered Kcentra for partial rivaroxaban reversal and transferred to [facility]. upon arrival to [place] patient was taken emergently to the operating room for evacuation of subdural hematoma. Patient was extubated in the neuro ICU shortly after the procedure. Her neurological status was noted to improve. She was transfused 2 units of PRBCs. Evaluation by PT and OT recommended inpatient rehab. Patient had her drain removed on 08/02/2024 and was discharged to [facility] rehabilitation on 08/03/2024. Patient's reports that he spoke with her on the phone while at [facility] prior to transfer. At that time patient was able to converse and answer questions. she arrived to [facility] around 13:00. Patient's visited her around 16:30 and patient was noted to be somnolent, minimally verbal and confused. No report of fever, chest pain, palpitations, nausea, vomiting, diarrhea, constipation. In the ER patient febrile to 38.9, tachycardic to 112 bpm, tachypneic at 26 breaths/min. ER course: Cefepime Vancomycin Normal saline Allergies Allergy/AdvReac Type Severity Reaction Status Date / Time ciprofloxacin Allergy Intermediate severe rash Verified 08/04/24 00:25 procainamide Allergy Intermediate shaky, Verified 08/04/24 00:25 rapid heart beat, rash shrimp Allergy Intermediate Hives Verified 08/04/24 00:25 verapamil Allergy Intermediate shaky, Verified 08/04/24 00:25 rapid heart beat, rash chloramphenicol Allergy Mild rash,diarrh Verified 08/04/24 00:25 [From Chloromycetin] ea codeine Allergy Mild RASH Verified 08/04/24 00:25 esomeprazole Allergy Mild Rash Verified 08/04/24 00:25 lansoprazole Allergy Mild Rash Verified 08/04/24 00:25 omeprazole Allergy Mild Rash Verified 08/04/24 00:25 propoxyphene Allergy Mild Rash Verified 08/04/24 00:25 Quinolones Allergy Mild RASH Verified 08/04/24 00:25 metformin AdvReac Intermediate Severe Verified 08/04/24 00:25 diarrhea (incontinent) Home Medications Medication Instructions Recorded Confirmed Type loperamide 2 mg tablet (Imodium 2 mg PO TID PRN loose stool 12/23/18 08/04/24 History A-D) blood-glucose meter,continuous 12/06/20 06/22/24 History (Dexcom G6 Archaeology Professor) acetaminophen 650 mg 650 mg PO HS 01/15/21 08/04/24 History tablet,extended release (Tylenol 8 Hour) blood sugar diagnostic (OneTouch #50 ea 06/20/21 06/22/24 Rx Verio test strips) insulin syringe-needle U-100 1 mL #400 ea 04/15/22 06/22/24 Rx 31 gauge x 5/16" (BD Insulin Syringe Ultra-Fine) diphenhydramine HCl 25 mg capsule 25 mg PO HS PRN Sleep 06/16/22 08/04/24 History (Benadryl) Diabetic Shoes #1 ea 07/10/22 06/22/24 Rx cholecalciferol (vitamin D3) 25 25 mcg PO DAILY 08/12/22 08/04/24 History mcg (1,000 unit) capsule albuterol sulfate 1.25 mg/3 mL 1.25 mg (3 mL) inhalation Q4H PRN 01/30/23 08/04/24 Rx solution for nebulization Shortness Of Breath #15 mL albuterol sulfate 90 mcg/actuation 2 puff inhalation Q6H PRN 04/13/23 08/04/24 Rx aerosol inhaler Shortness Of Breath #8.5 grams tramadol 50 mg tablet 50 mg PO DAILY PRN pain #30 tabs 12/17/23 08/04/24 Rx Dexcom G6 Sensor (blood-glucose #9 ea 05/04/24 06/22/24 Rx sensor) Dexcom G6 Transmitter #1 ea 05/04/24 06/22/24 Rx (blood-glucose transmitter) empagliflozin 10 mg tablet 10 mg PO DAILY #30 tabs 05/17/24 08/04/24 Rx (Jardiance) rivaroxaban 20 mg tablet (Xarelto) 20 mg PO QAM #90 tabs 06/03/24 08/04/24 Rx digoxin 125 mcg (0.125 mg) tablet 125 mcg PO QAM #90 tabs 06/23/24 08/04/24 Rx levocetirizine 5 mg tablet 5 mg PO QPM allergy symptoms #90 06/23/24 08/04/24 Rx tabs metoprolol succinate 50 mg 50 mg PO QAM #90 tabs 06/23/24 08/04/24 Rx tablet,extended release 24 hr pantoprazole 40 mg tablet,delayed 40 mg PO DAILY #90 tabs 06/23/24 08/04/24 Rx release (Protonix) pen needle, diabetic 31 gauge x #600 ea 06/23/24 06/27/24 Rx 3/16" rosuvastatin 10 mg tablet 10 mg PO HS #90 tabs 06/23/24 08/04/24 Rx spironolactone 25 2 tab PO QAM #180 tabs 06/23/24 08/04/24 Rx mg-hydrochlorothiazide 25 mg tablet sertraline 100 mg tablet 100 mg PO QAM #90 tabs 06/24/24 08/04/24 Rx Novolog FlexPen U-100 Insulin 100 60 unit (0.6 mL) subcut DAILY #60 07/13/24 08/04/24 Rx unit/mL (3 mL) subcutaneous mL (insulin aspart U-100) insulin glargine 100 unit/mL (3 76 unit (0.76 mL) subcut BID #150 07/13/24 08/04/24 Rx mL) subcutaneous pen (Lantus mL Solostar U-100 Insulin) gabapentin 300 mg capsule 300 mg PO QAM 08/04/24 08/04/24 History gabapentin 300 mg capsule 600 mg PO QPM 08/04/24 08/04/24 History levothyroxine 125 mcg tablet 125 mcg PO DAILYBB 08/04/24 08/04/24 History (Synthroid) Past Med/Surg History Problem List Subdural bleeding (Acute) Pneumocephalus (Acute) Altered mental status (Acute) Subarachnoid bleed (Acute) Sepsis (Acute) Head injury (Acute) Fall (Acute) Acute subdural hematoma (Acute) 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 Urinary incontinence Type 2 diabetes mellitus with neurologic complication, with long-term current use of insulin 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) Frequent falls Peripheral neuropathy (Acute) Exogenous obesity (Acute) Lumbosacral radiculopathy at L5 Charcot foot due to diabetes mellitus (Chronic) Weakness (Acute) Impaired gait and mobility Hypertension (Chronic) Depression (Chronic) Osteoarthritis (Acute) Asthma (Chronic) inhaler daily/prn, nebulizer prn Recurrent UTI (urinary tract infection) (Chronic) Hypothyroidism Dyslipidemia Atrial fibrillation (Chronic) reason for xarelto/digoxin Stage 3a chronic kidney disease (CKD) Medical History Family history of malignant hyperthermia Daughter- malignant hyperthermia with appendectomy 26 years ago Patient/no other family members tested Walker as ambulation aid also uses bilt diabetic shoes Fever Calcaneus fracture, right hx of--pt wears diabetic shoes Confusion Hx of gastric ulcer On anticoagulant therapy xarelto daily History of pulmonary embolism 2017--d/t sx Pressure ulcer of left heel, stage 1 hx of Herniated intervertebral disc of lumbar spine Endometrial cancer diagnosed 2018--sx Surgical History History of total hysterectomy with bilateral salpingo-oophorectomy (BSO) History of removal of cyst off left breast History of dilatation and curettage x3 History of cystoscopy x3 History of colonoscopy History of esophagogastroduodenoscopy (EGD) last 07/2019 @ [facility] History of tooth extraction all teeth History of tonsillectomy and adenoidectomy History of partial thyroidectomy Right--benign tumor History of bilateral cataract extraction History of fusion of cervical spine x2--slightly stiff, normal ROM History of total right knee replacement Hx of cholecystectomy Family History Mother , 86 - COPD/Lung CA T2DM (type 2 diabetes mellitus) Lung cancer Steroid-induced diabetes mellitus COPD (chronic obstructive pulmonary disease) Father , 59 - Pancreatic CA Pancreatic cancer T2DM (type 2 diabetes mellitus) Sister , 55 - Rare Vaginal CA with mets to the liver and pancreas Vaginal cancer Sister Melanoma Grandmother (Maternal) , 93 Hypertension Stroke T2DM (type 2 diabetes mellitus) Pancreatic cancer Grandfather (Maternal) , 93 T2DM (type 2 diabetes mellitus) Myocardial infarction Grandmother (Paternal) , 73 T2DM (type 2 diabetes mellitus) Grandfather (Paternal) , 70 Rheumatoid arthritis Heart disease Aunt , 72 - Pancreatic CA Pancreatic cancer Daughter Family history of malignant hyperthermia went into malignant hyperthermia with appy sx 26yrs ago Sarcoma of body of uterus Social History Smoking Status: Unknown if ever smoked Second Hand Exposure: Yes; Do You Dip or Chew Tobacco: No; Hx Alcohol Use: Yes Alcohol type: wine Alcohol Intake Frequency: Monthly or Less Hx Substance Use: No Preferred Language: Serbian Communication Ability: Effective Visual Impairment: Limited Hearing Ability: Hard of Hearing Pattern Checker Required: No Beliefs That Will Affect Care: None marital status: Current Living Situation: Spouse 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 No erythema, bleeding or drainage, small wound on left thigh/forrest, healing wound on right heel HEENT: bruising present, changes from recent hemicraniotomy, PERRL, EOMI, anicteric sclera, conjunctiva without injection, external ear normal to inspection and nontender, nares patent, Dry mucus membranes, dentition intact, no oropharyngeal lesions, neck supple, trachea midline, no LAD, no thyromegaly, no JVD Heart: +S1/S2, regular, tachycardic, no m/r/g Lungs: equal air entry bilaterally, no rales/rhonchi/wheezes Abd: +BS, soft, NT/ND, no masses/organomegaly/ascites Ext: warm, 2+ pulses in UE/LE bilaterally, no clubbing/cyanosis or edema Neuro: patient oriented to self, possible left-sided neglect, strength 3 out of 5 in left upper extremity Results & Data Results & Data Vital Signs (Past 12 Hours) Vital Signs Temp Pulse Pulse Resp BP Pulse Ox O2 Del Method 08/03/24 22:40 38.9 C H 112 H 26 H 97 Nasal Cannula 08/03/24 22:30 98 Nasal Cannula 08/03/24 22:00 119 H 26 H 150/90 H 96 Nasal Cannula 08/03/24 22:00 121 H 08/03/24 21:40 38.6 C H 120 H 26 H 150/90 H 95 Nasal Cannula O2 Flow Rate 08/03/24 22:40 2 08/03/24 22:30 2 08/03/24 22:00 2 08/03/24 22:00 08/03/24 21:40 2 Laboratory Results Laboratory Results WBC 13.72 K/ul (4.8-10.8) H 08/03/24 21:58 RBC 3.50 M/uL (4.20-5.40) L 08/03/24 21:58 Hgb 8.9 g/dl (12.0-16.0) L 08/03/24 21:58 POC Hgb 8.8 g/dl (12.0-16.0) L 08/03/24 21:59 Hct 28.3 % (37.0-47.0) L 08/03/24 21:58 POC Hct 26 % (37-47) L 08/03/24 21:59 MCV 80.9 fL (80.0-100.0) 08/03/24 21:58 MCH 25.4 pg (25.0-34.0) 08/03/24 21:58 MCHC 31.4 g/dL (32.0-36.0) L 08/03/24 21:58 RDW Std Deviation 51.3 fL (36.4-46.3) H 08/03/24 21:58 RDW Coeff of Filomena 17.3 % (11.5-14.5) H 08/03/24 21:58 Plt Count 359 K/uL (130-400) 08/03/24 21:58 MPV 9.8 fL (9.4-12.4) 08/03/24 21:58 Immature Gran % (Auto) 0.8 % 08/03/24 21:58 Neut % (Auto) 81.6 % 08/03/24 21:58 Lymph % (Auto) 11.1 % 08/03/24 21:58 [place] % (Auto) 6.0 % 08/03/24 21:58 Eos % (Auto) 0.3 % 08/03/24 21:58 Baso % (Auto) 0.2 % 08/03/24 21:58 Neut # (Auto) 11.19 K/uL (1.40-6.50) H 08/03/24 21:58 Lymph # (Auto) 1.52 K/uL (1.20-3.40) 08/03/24 21:58 [place] # (Auto) 0.83 K/uL (0.11-0.59) H 08/03/24 21:58 Eos # (Auto) 0.04 K/uL (0.00-0.50) 08/03/24 21:58 Baso # (Auto) 0.03 K/uL (0.00-0.20) 08/03/24 21:58 Immature Gran # (Auto) 0.11 K/uL (0.01-0.20) 08/03/24 21:58 PT 12.2 Seconds (9.0-12.0) H 08/03/24 21:58 INR 1.1 (0.9-1.1) 08/03/24 21:58 APTT 25 Seconds (21-31) 08/03/24 21:58 PTT Ratio 0.9 08/03/24 21:58 POC Sodium 140 mmol/L (135-144) 08/03/24 21:59 Sodium 140 mmol/L (136-145) 08/03/24 21:58 POC Potassium 4.4 mmol/L (3.3-5.0) 08/03/24 21:59 Potassium 4.4 mmol/L (3.5-5.1) 08/03/24 21:58 POC Chloride 105 mmol/L (101-112) 08/03/24 21:59 Chloride 105 mmol/L (98-107) 08/03/24 21:58 Carbon Dioxide 23 mmol/L (21-32) 08/03/24 21:58 POC Total CO2 21 mmol/L (24-31) L 08/03/24 21:59 Anion Gap 12 (3-11) H 08/03/24 21:58 POC Anion Gap 19.0 mmol/L (16-25) 08/03/24 21:59 POC BUN 21 mg/dl (7-18) H 08/03/24 21:59 BUN 24 mg/dl (6-23) H 08/03/24 21:58 Creatinine 0.98 mg/dl (0.6-1.2) 08/03/24 21:58 POC Creatinine 1.1 mg/dl (0.6-1.3) 08/03/24 21:59 Est Cr Clr Drug Dosing 56.1 ml/min 08/03/24 21:58 eGFR 58.71 08/03/24 21:58 BUN/Creatinine Ratio 24.5 (10-20) H 08/03/24 21:58 Glucose 216 mg/dl (70-99(Fasting)) H 08/03/24 21:58 POC Glucose 205 mg/dl (70-99) H 08/03/24 22:16 POC Glucose (other) 210 mg/dl (70-99) H 08/03/24 21:59 Lactate 1.3 mmol/L (0.4-2.0) 08/03/24 21:58 Calcium 8.6 mg/dl (8.6-10.3) 08/03/24 21:58 POC Ioniz Calcium James 1.08 mmol/l (1.12-1.32) L 08/03/24 21:59 Magnesium 1.9 mg/dl (1.7-2.4) 08/03/24 21:58 Total Bilirubin 0.8 mg/dl (0.2-1.0) 08/03/24 21:58 AST 18 U/L (13-39) 08/03/24 21:58 ALT 10 U/L (7-52) 08/03/24 21:58 Alkaline Phosphatase 56 U/L (34-104) 08/03/24 21:58 Troponin I High Sens 10.9 pg/ml (0-14) 08/03/24 21:58 Total Protein 6.6 gm/dl (6.0-8.3) 08/03/24 21:58 Albumin 3.4 gm/dl (3.4-5.0) 08/03/24 21:58 Globulin 3.2 gm/dl (2.5-4.0) 08/03/24 21:58 Albumin/Globulin Ratio 1.1 (0.9-2) 08/03/24 21:58 Procalcitonin 0.10 ng/ml (0-0.5) 08/03/24 22:00 Urine Color Yellow 08/03/24 22:55 Urine Appearance Turbid (Clear) A 08/03/24 22:55 Urine pH 5.5 (4.5-7.5) 08/03/24 22:55 Ur Specific [place] 1.030 (1.000-1.030) 08/03/24 22:55 Urine Protein 2+ (Negative) H 08/03/24 22:55 Urine Glucose (UA) Trace (Negative) H 08/03/24 22: Urine Ketones 3+ (Negative) H 08/03/24 22:55 Urine Blood 2+ (Negative) H 08/03/24 22:55 Urine Nitrite Positive (Negative) A 08/03/24:55 Urine Bilirubin Negative (Negative) 08/03/24 22:55 Urine Urobilinogen Negative (Negative) 08/03/24 22:55 Ur Leukocyte Esterase 3+ (Negative) H 08/03/24 22:55 Urine WBC (Auto) >50 /hpf (0-5) H 08/03/24 22:55 Urine RBC (Auto) 6-10 /hpf (0-2) H 08/03/24 22:55 U Hyaline Cast (Auto) 0-2 /lpf (0-2) 08/03/24 22:55 U Epithel Cells (Auto) 0-2 /hpf (0-2) 08/03/24 22:55 Urine Bacteria (Auto) 4+ (None Seen) H 08/03/24 22:55 Calcium Oxalate Crystal Present (None Prsent) A 08/03/24 22:55 Urine Mucus Present (None Prsent) A 08/03/24 22:[address] 08/03/24 21:39 CR Exam(s): CT HEAD Without Contrast EXAM: CT Head Without Intravenous Contrast CLINICAL HISTORY: neuro deficit, acute stroke suspected. TECHNIQUE: Axial computed tomography images of the head/brain without intravenous contrast. CTDI is 64.15 mGy and DLP is 1011.54 mGy-cm. Automated exposure control was utilized for the study. A dose lowering technique was utilized adhering to the principles of ALARA. COMPARISON: CT head dated 07/29/2024 FINDINGS: Limitations: There is motion artifact, which degrades image quality on multiple image slices. Brain: There has been interval surgical decompression of the right hemispheric hemorrhagic subdural collection. The collection now measures up to 13 mm in diameter anteriorly from 17 mm previously. There is partial decompression of the hemorrhagic products, smaller in volume. Minimal residual hemorrhagic products noted along the posterior falx. Minimal pneumocephalus noted in the extra-axial operative bed. Chronic underlying chronic periventricular deep white matter hypodense changes remain. There is some improvement in the previously noted diffuse effacement in the right hemispheric cerebral sulci with some minimal residual mass-effect noted. Ventricles: There is interval improvement in the right to left midline shift of the septum pellucidum, now measuring 5 mm from 10 mm previously with mild improvement in the partial effacement of the right lateral ventricle. Bones/joints: Right hemispheric large craniotomy now identified. No acute fracture. Soft tissues: The superficial soft tissues demonstrate normal postoperative changes with skin francisco. No postoperative complication. Sinuses: Unremarkable as visualized. No acute sinusitis. Mastoid air cells: Unremarkable as visualized. No mastoid effusion. IMPRESSION: 1. There has been interval surgical decompression of the right hemispheric hemorrhagic subdural collection. The collection now measures up to 13 mm in diameter anteriorly from 17 mm previously. There is partial decompression of the hemorrhagic products, smaller in volume. Minimal residual hemorrhagic products noted along the posterior falx. 2. There is interval improvement in the right to left midline shift of the septum pellucidum, now measuring 5 mm from 10 mm previously with mild improvement in the partial effacement of the right lateral ventricle. Communications: Call Doctor Stroke Electronically signed by: Francisco Adams MD 08/03/24 22:32 PM Chest X-Ray 08/03/24 21:53 Exam(s): XR CXR 1 VIEW EXAM: XR Chest, 1 View CLINICAL HISTORY: ?pna. TECHNIQUE: Frontal view of the chest. COMPARISON: Chest single view 07/29/2024 FINDINGS: Lungs: No focal consolidation. The pulmonary vasculature demonstrates no significant radiographic abnormality. Pleural space: Unremarkable. No pneumothorax. No large pleural effusion. Heart: Unremarkable. No cardiomegaly. Mediastinum: The mediastinal contours are stable and unremarkable. The trachea is midline. Bones/joints: Unremarkable. No acute fracture. IMPRESSION: No acute cardiopulmonary process or significant alteration from the prior examination. Electronically signed by: Francisco Adams MD 08/03/24 23:09 PM ) Code Status & VTE Plan VTE Prophylaxis Plan VTE Prophylaxis will be ordered: Yes PG Care Time/CCT Total # of Minutes Spent Total Time Spent with Patient: Total time spent is greater than 50% in coordination of care (as documented) at patient's floor/unit and/or counseling patient: Coding Level of Care Code 51465 INT INP/OBS CARE 3/75MIN Diagnoses Altered mental status R41.82 Altered mental status type: unspecified Sepsis A41.9 Sepsis acute organ dysfunction status: unspecified Sepsis type: sepsis due to unspecified organism Subdural bleeding I62.00 Type 2 diabetes mellitus with obesity E11.69; E66.9 Essential hypertension I10 Hypertension type: essential hypertension Asthma J45.909 Hypothyroidism E03.9 Dyslipidemia E78.5 Atrial fibrillation, unspecified type I48.91 Atrial fibrillation type: unspecified (1) Altered mental status Altered mental status type: unspecified Qualified Code(s): R41.82 - Altered mental status, unspecified (2) Sepsis Sepsis acute organ dysfunction status: unspecified Sepsis type: sepsis due to unspecified organism Qualified Code(s): A41.9 - Sepsis, unspecified organism (5) Hypertension Hypertension type: essential hypertension Qualified Code(s): I10 - Essential (primary) hypertension (9) Atrial fibrillation Atrial fibrillation type: unspecified Qualified Code(s): I48.91 - Unspecified atrial fibrillation
[2024-08-03 23:58] LABS: Calcium Oxalate Crystals Urine Present (None Prsent); Cast Urine Automated 0-2 /lpf (0-2); Epithelial Cell Urine Auto 0-2 /hpf (0-2)
[2024-08-03 23:59] LABS: Mucus Urine Present (None Prsent)
[2024-08-04] MEDS ORDERED: ONDANSETRON INJ 2 MG/ML 2 ML VIAL IV PRN (01:52)
[2024-08-04] MEDS ORDERED: VANCOMYCIN CONSULT ACTIVE PRN (01:52)
[2024-08-04] MEDS ORDERED: ACETAMINOPHEN 325 MG TAB PO PRN (01:52)
[2024-08-04] MEDS ORDERED: VANCOMYCIN HCL 1,000 MG/270 ML BAG IV SCH ×2 (01:52→10:00)
[2024-08-04] MEDS: CALCIUM GLUCONATE 1,000 MG/60 ML BAG IV STA (02:12)
[2024-08-04] MEDS: SODIUM CHLORIDE 0.9% 1,000 ML IV SCH (02:17)
[2024-08-04] MEDS: ACETAMINOPHEN 1,000 MG/100 ML VIAL IV PRN (02:36)
[2024-08-04] MEDS ORDERED: traMADol HCL 50 MG TABLET PO PRN (05:24)
[2024-08-04] MEDS ORDERED: ALBUTEROL HFA 8 GM INHALER INH PRN (05:24)
[2024-08-04] MEDS ORDERED: GLUCAGON FOR INJ 1 MG VIAL SQ PRN (05:55)
[2024-08-04] MEDS ORDERED: GLUCOSE 40% GEL 15 GM TUBE PO PRN (05:55)
[2024-08-04] MEDS ORDERED: DEXTROSE 50% 50 ML SYRINGE IV PRN (05:55)
[2024-08-04] MEDS ORDERED: PHARMACY GLYCEMIC MGMT CONSULT PRN (05:55)
[2024-08-04] MEDS ORDERED: GLUCOSE 10 TAB/TUBE PO PRN (05:55)
[2024-08-04] MEDS ORDERED: CARBOHYDRATES FOR HYPOGLYCEMIA PO PRN (05:55)
[2024-08-04 06:11] LABS: Hematocrit (blood only) 27.3 % (37.0-47.0); Hemoglobin 8.4 g/dl (12.0-16.0); Mean Corpuscular Hemoglobin 25.1 pg (25.0-34.0); Mean Corpuscular Hgb Conc 30.8 g/dL (32.0-36.0); Mean Corpuscular Volume 81.7 fL (80.0-100.0); Mean Platelet Volume 9.7 fL (9.4-12.4); Platelet Count 322 K/uL (130-400); RDW Coefficient of Variation 17.3 % (11.5-14.5); RDW Standard Deviation 51.3 fL (36.4-46.3); Red Blood Count 3.34 M/uL (4.20-5.40); White Blood Count 14.08 K/ul (4.8-10.8)
[2024-08-04] MEDS: LEVOTHYROXINE SODIUM 125 MCG TABLET PO SCH (06:23)
[2024-08-04 06:28] LABS: Albumin Level 3.2 gm/dl (3.4-5.0); BUN Creatinine Ratio 28.2 (10-20); Bilirubin Direct 0.1 mg/dl (0-0.2); Bilirubin,Total 0.7 mg/dl (0.2-1.0); Calcium 8.4 mg/dl (8.6-10.3); Creatinine Clr Calc Pharmacy 64.7 ml/min; Potassium 4.2 mmol/L (3.5-5.1); Total Protein 6.2 gm/dl (6.0-8.3)
[2024-08-04] MEDS: INSULIN ASPART PER UNIT CHARGE SC SCH (08:43)
[2024-08-04] MEDS: LANTUS PER UNIT CHARGE SQ SCH (08:43)
--- NOTE | 2024-08-04 08:45 | Electrocardiogram Report ---
Test Reason : Blood Pressure : */* mmHG Vent. Rate : 116 BPM Atrial Rate : 116 BPM P-R Int : 174 ms QRS Dur : 80 ms QT Int : 326 ms P-R-T Axes : 71 22 109 degrees QTcB Int : 453 ms Sinus tachycardia with Premature supraventricular complexes Nonspecific T wave abnormality Abnormal ECG When compared with ECG of 29-Jul-2024 22:23, Premature ventricular complexes are no longer Present Premature supraventricular complexes are now Present NM interval has decreased Confirmed by Jordan Grande ([id number]) on 08/04/2024 8:44:59 AM Referred By: REFERRED SELF Confirmed By: Jordan Grande
[2024-08-04] MEDS: METOPROLOL SUCC 50MG EXT REL TAB PO SCH (09:39)
[2024-08-04] MEDS: PANTOprazole 40 MG TAB PO SCH (09:39)
[2024-08-04] MEDS: SERTRALINE HCL 100 MG TABLET PO SCH (09:39)
--- NOTE | 2024-08-04 09:46 | Hospitalist Progress Note ---
Date of Service August 04, 2024 Assessment & Plan (1) Altered mental status: (2) Sepsis: (3) Subdural bleeding: (4) Type 2 diabetes mellitus with obesity: (5) Hypertension: (6) Asthma: (7) Hypothyroidism: (8) Dyslipidemia: (9) Atrial fibrillation: Plan 77-year-old female with history of diabetes, hypertension, hyperlipidemia, atrial fibrillation on rivaroxaban anticoagulation, recent ground-level fall with head trauma resulting in subdural hematoma with midline shift requiring surgical decompression performed 07/30/2024 presenting from her rehab with acute metabolic encephalopathy and sepsis present on admission (SIRS 4 out of 4 with WBC = 13.7, temperature = 30.9, heart rate = 112, respiratory rate = 26). Most likely source of infection is urinary. #Metabolic Encephalopathy - suspected secondary to UTI although given worsening clinical status will repeat CT head this morning - CT head reviewed on admission with Neurosurgery at [facility] -treat sepsis/UTI as below -Maintain aspiration precautions, Fall precautions -Hold Gabapentin for now, possibly contributing to encephalopathy -Hold PM Bendadryl -Avoid opiates #Sepsis - SIRS 4/4, suspected UTI -Previous ESBL therefore we will switch cefepime to meropenem and continue vancomycin #Subdural hematoma - s/p evacuation, no complications. CT Head reviewed with Neurosurgery and reveals expected post-operative changes -Neuro checks with GCS q 4 hours -Hold Rivaroxaban #Type 2 Diabetes Mellitus - last HgbA1C on 05/30/24=6.5. Patient on Empagliflozin, Lantus 76u BID and Novolog 60u daily as an outpatient. DC medications from [facility] have Lantus 45u BID, Jardiance -Lantus 25u BID with ISS - CF 15 and CR 5 -Pharmacy consultation appreciated #Hypertension -Continue Metoprolol -Hold Spironolactone/HCTZ #Asthma -Albuterol PRN #Hypothyroidism -Continue Synthroid #Dyslipidemia -Continue Crestor #Atrial fibrillation -Continue Digoxin and Metoprolol -Holding anticoagulation for now - should clarify with neurosurgery when to restart this medication (may be in DC summary from [facility]) #GERD -Protonix VTE prophylaxis - SCDs Diet - n.p.o. pending speech evaluation Disposition - continued admission to PCU Admission and Anticipated Discharge Date Admission Date: August 03, 2024 Subjective Patient only able to say her head hurts. Somewhat able to follow one step commands. Not moving her left side of her body. H&P documentation that she has 3/5 power in LUE but with some left neglect. Left side currently appears flaccid. Physical Exam Constitutional: WD/WN, vitals as above ENMT: Mouth: + dry oral mucous membranes Respiratory: normal respiratory effort, lungs clear to auscultation Cardiovascular: Rate/Rhythm: regular rhythm and + tachycardic Heart Sounds: no murmur Extremities: normal capillary refill; no calf tenderness and no pedal edema Gastrointestinal (Abdomen): normal bowel sounds, soft, nontender, no hepatosplenomegaly Skin: Ecchymosis at various stages of healing surrounding bilateral eyes Farheen over the cranium without surrounding cellulitic changes Neurologic: + focal motor deficit (Not moving left s anthony of the body), awake and + confused Speech / Cognition: + abnormal speech Cranial Nerves: PERRL (Minimally reactive but pupils appear equal) and normal facial strength Psychiatric: Orientation: alert; + not oriented to person, + not oriented to place and + not oriented to time Results & Data Results & Data Vital Signs (Past 12 Hours) Vital Signs Temp Pulse Pulse Resp BP BP Pulse Ox 08/04/24 08:00 37.3 C 113 H 23 179/93 H 96 08/04/24 03:25 37.5 C 102 H 20 159/84 H 98 08/04/24 01:52 110 H 08/04/24 01:52 08/04/24 01:52 08/04/24 01:52 37.1 C 103 H 18 159/85 H 98 08/04/24 01:00 38.2 C H 108 H 24 169/91 H 99 08/04/24 00:00 107 H 21 155/85 H 99 08/03/24 23:30 108 H 22 156/78 H 95 08/03/24 23:00 117 H 26 H 151/85 H 90 08/03/24 22:40 38.9 C H 112 H 26 H 97 08/03/24 22:30 118 H 24 154/99 H 98 08/03/24 22:30 98 08/03/24 22:00 119 H 26 H 150/90 H 96 08/03/24 22:00 121 H 08/03/24 21:40 38.6 C H 120 H 26 H 150/90 H 95 Pulse Ox O2 Del Method O2 Del Method O2 Flow Rate O2 Flow Rate 08/04/24 08:00 Nasal Cannula 2 08/04/24 03:25 Nasal Cannula 2 08/04/24 01:52 08/04/24 01:52 Nasal Cannula 2 08/04/24 01:52 98 Nasal Cannula 2 08/04/24 01:52 Nasal Cannula 2 08/04/24 01:00 Nasal Cannula 2 08/04/24 00:00 Nasal Cannula 2 08/03/24 23:30 Nasal Cannula 2 08/03/24 23:00 Room Air 08/03/24 22:40 Nasal Cannula 2 08/03/24 22:30 Room Air 08/03/24 22:30 Nasal Cannula 2 08/03/24 22:00 Nasal Cannula 2 08/03/24 22:00 08/03/24 21:40 Nasal Cannula 2 PG Care Time/CCT Total # of Minutes Spent Total Time Spent with Patient: Total time spent is greater than 50% in coordination of care (as documented) at patient's floor/unit and/or counseling patient: Coding Level of Care Code 38517 SUB INP/OBS CARE 3/50MIN Diagnoses Altered mental status R41.82 Altered mental status type: unspecified Sepsis A41.9 Sepsis acute organ dysfunction status: unspecified Sepsis type: sepsis due to unspecified organism Subdural bleeding I62.00 Type 2 diabetes mellitus with obesity E11.69; E66.9 Essential hypertension I10 Hypertension type: essential hypertension Asthma J45.909 Hypothyroidism E03.9 Dyslipidemia E78.5 Atrial fibrillation, unspecified type I48.91 Atrial fibrillation type: unspecified (1) Altered mental status Altered mental status type: unspecified Qualified Code(s): R41.82 - Altered mental status, unspecified (2) Sepsis Sepsis acute organ dysfunction status: unspecified Sepsis type: sepsis due to unspecified organism Qualified Code(s): A41.9 - Sepsis, unspecified organism (5) Hypertension Hypertension type: essential hypertension Qualified Code(s): I10 - Essential (primary) hypertension (9) Atrial fibrillation Atrial fibrillation type: unspecified Qualified Code(s): I48.91 - Unspecified atrial fibrillation
[2024-08-04] MEDS ORDERED: CEFEPIME 2000MG 2,000 MG/20 ML SYR IV SCH ×2 (10:00)
--- NOTE | 2024-08-04 10:43 | Pharmacy Report ---
Pharmacy PK ABX Note - Date of Service August 04, 2024 - Assessment and Plan Assessment 78 year old F receiving Vancomycin and Meropenem for empiric treatment of a UTI. * Day #1 of antimicrobial therapy. History of ESBL and MRSA. * 24-hr Tmax of 38.9oC. Leukocytosis of 14k. SCr improving, 0.85 mg/dL this AM. * Blood and urine cultures pending. MRSA swab uncollected but ordered. Plan Vancomycin * Loading dose: 2000 mg IV x 1 * Maintenance dose: 1250 mg IV every 24 hours * Regimen is predicted to achieve target AUC/MEREDITH of 400-600 mg/L.hr * Level not ordered at this time. Will order if duration extends beyond 48 hours Meropenem * 500 mg IV every 8 hours Pharmacy will continue to follow and will adjust dose/frequency as necessary. Thank you. Pharmacy has transitioned to AUC monitoring for vancomycin. AUC/MEREDITH is the preferred PK/PD target and is associated with decreased risk of nephrotoxicity compared to traditional trough targets.
--- NOTE | 2024-08-04 10:44 | CT Scan Report ---
CT head/brain wo con CLINICAL HISTORY: worsening clincal status ?increasing subdural. TECHNIQUE: Multiple axial CT images of the head were obtained without contrast. A dose lowering tech nique was utilized adhering to the principles of ALARA. CT DOSE: 751.73 mGy.cm COMPARISON: Compared with 08/03/2024 FINDINGS: Stable right craniectomy. Mixed density right subdural hemorrhage measures 1.4 cm maximal t hickness series 2 axial image 19, stable. Stable small amount of expected pneumocephalus. Stable righ t sulcal effacement and stable 4 mm of midline shift. No new intracranial hemorrhage seen. IMPRESSION: Stable exam. ACT 112: Negative or not required by law. The above report was generated using voice recognition software. It may contain grammatical, syntax o r spelling errors. Electronically signed by: Trenton Heredia M.D. 08/04/2024 10:43 AM
--- NOTE | 2024-08-04 10:47 | Pharmacy Report ---
Pharmacy Glycemic Short Note 2 - Date of Service August 04, 2024 - Glycemic Short BSG Results (Last 24 hours): 08/03/24 08/03/24 08/03/24 21:58 21:59 22:16 Glucose 216 H POC Glucose 205 H POC Glucose (other) 210 H 08/04/24 08/04/24 05:58 07:28 Glucose 188 H POC Glucose 184 H POC Glucose (other) OUTPATIENT ANTIDIABETIC REGIMEN: * Lantus 76 units SC BID * Novolog 12 units SC w/ breakfast, 8 units SC w/ lunch, 12 units SC w/ dinner * Jardiance 10 mg PO AM HbA1c: * 6.5% (05/30/24) ASSESSMENT: * 78 yo F admitted on 08/03/24 secondary to encephalopathy. Pharmacy has been consulted to assist with inpatient glycemic management. Patient is a Type 2 diabetic as an outpatient. Please refer to outpatient regimen and most recent HbA1c above. * BSGs were above 200 mg/dL last evening. Fasting BSG is 184 mg/dL this AM. Ordered a T2DM diet but didn't eat any breakfast. Receiving Vancomycin and Meropenem empirically for UTI. * Continue with basal and bolus insulin ordered based on weight/stress of 3. PLAN FOR INPATIENT GLYCEMIC CONTROL: * Hold outpatient oral diabetes medications * Basal insulin * Lantus 25 units SC BID * Bolus insulin * NovoLog per scale ACHS or Q6hrs while NPO * Goal Range: Low 110 mg/dL - High 140 mg/dL * Correction Factor: 15 mg/dL/unit * Nutritional / Prandial insulin per carb ratio of 1 unit per 5 grams CHO consumed
[2024-08-04] MEDS: MEROPENEM 500 MG in SYRINGE 0 ML IV SCH (10:51)
[2024-08-04] MEDS ORDERED: VANCOMYCIN HCL 1,500 MG in SODIUM CHLORIDE 0.9% 500 ML IV SCH (11:00)
[2024-08-04] MEDS: VANCOMYCIN HCL 1,250 MG in SODIUM CHLORIDE 0.9% 250 ML IV SCH (11:23)
[2024-08-04] MEDS: LABETALOL HCL IV 5 MG/ML 20ML IV PRN (12:27)
[2024-08-04] MEDS: DIGOXIN 0.125 MG TAB PO SCH (16:59)
[2024-08-04] MEDS: LACTATED RINGER'S 1,000 ML IV SCH (17:50)
[2024-08-04] MEDS: DIGOXIN 125 MCG in SYRINGE 9.5 ML IV SCH (18:20)
[2024-08-04] MEDS: PANTOprazole 40 MG/10 ML SYR IV SCH (18:20)
[2024-08-04] MEDS ORDERED: ROSUVASTATIN CALCIUM 10 MG TAB PO SCH (21:00)
[2024-08-04] MEDS: LIDOCAINE 5% 1 PATCH TD STA (21:20)
[2024-08-04] MEDS: diphenhydrAMINE 50 MG/ML VIAL IV STA (21:21)
[2024-08-04] MEDS: MAGNESIUM SULFATE / D5W 1 GM/100 ML BAG IV ONE (21:21)
[2024-08-05] MEDS: ACETAMINOPHEN 1,000 MG/100 ML VIAL IV PRN (04:32)
--- NOTE | 2024-08-05 05:19 | XRay Report ---
EXAM: XR chest 1V portable CLINICAL HISTORY: increased O2 requirements TECHNIQUE: Radiograph of chest was acquired. COMPARISON: 07/29/2024 21:30:39 [employer] FINDINGS: Prominent bilateral bronchovascular shadows. Small patchy air space opacities in right lower zone. No pleural effusion. The cardiomediastinal silhouette is within normal limits. No acute osseous abnormality. IMPRESSION: 1. Prominent bilateral bronchovascular shadows. 2. Small patchy air space opacities in right lower zone. 3. No significant interval changes compared to prior. Electronically signed by Rey Becker 08-05-2024 05:19 AM
--- NOTE | 2024-08-05 05:47 | Communication Note ---
Date of Service: August 05, 2024 S/O: Nurse communicated that patient was with increased O2 requirements, transitioned to OxyMask, 12L O2, O2Sats at 87%. Went to bedside, patient noted to have very productive cough. Lung exam noted with end expiratory wheezing that cleared upon second listen, some crackles noted in bases of r. lung. Patient and nurse endorsed only dabs of water in mouth administered by nurses. Denied opportunity for aspiration since admission. Patient noted to be AAO x 3.5 (Time, month only). Nurse did aspirate some secretions while I was at bedside, which improved patient's O2Sats temporarily to 94% on 12L O2, before falling to upper 80s. Respiratory called to bedside. A/P: CXR, 1 view ordered at bedside. Hypertonic saline nebs ordered, BIDR. Flutter valve, QID, also ordered. High-flow O2 was started for patient by respiratory. CXR came back noting no interval change since CXR done on 08/03/24. An ABG, POC was ordered around 5:40 am. Day team can follow up with patient's respiratory status. Resident Activity Tracking Resident Involvement: Resident Care Provided Care Provided: Adult Hospital Medicine
[2024-08-05 06:13] LABS: iSTAT Arterial Blood Gas HCO3 21 meg/L (19-24); iSTAT Arterial Blood Gas pCO2 28 mmHg (35-46); iSTAT Arterial Blood Gas pH 7.49 (7.35-7.45); iSTAT Arterial Blood Gas pO2 69 mmHg (80-95); iSTAT Carbon Dioxide 22 mmol/L (24-31); iSTAT Hematocrit 24 % (37-47); iSTAT Hemoglobin 8.2 g/dl (12.0-16.0); iSTAT Potassium 3.9 mmol/L (3.3-5.0); iSTAT Sodium 144 mmol/L (135-144)
[2024-08-05 06:44] LABS: Basophils # (auto) 0.02 K/uL (0.00-0.20); Basophils % (auto) 0.1 %; Eosinophils % (auto) 0.6 %; Immature Granulocytes # (auto) 0.13 K/uL (0.01-0.20); Immature Granulocytes % (auto) 0.8 %; Lymphocytes # (auto) 1.05 K/uL (1.20-3.40); Lymphocytes % (auto) 6.3 %; Mean Corpuscular Hemoglobin 25.1 pg (25.0-34.0); Mean Corpuscular Hgb Conc 30.8 g/dL (32.0-36.0); Mean Corpuscular Volume 81.5 fL (80.0-100.0); Mean Platelet Volume 10.1 fL (9.4-12.4); Monocytes # (auto) 0.97 K/uL (0.11-0.59); Monocytes % (auto) 5.8 %; Neutrophils # (auto) 14.33 K/uL (1.40-6.50); Neutrophils % (auto) 86.4 %; Platelet Count 336 K/uL (130-400); RDW Coefficient of Variation 17.3 % (11.5-14.5); RDW Standard Deviation 51.8 fL (36.4-46.3); Red Blood Count 3.19 M/uL (4.20-5.40); Reticulocyte % 3.45 % (0.50-2.00)
[2024-08-05 07:04] LABS: Albumin Level 3.1 gm/dl (3.4-5.0); BUN Creatinine Ratio 29.7 (10-20); Bilirubin,Total 0.7 mg/dl (0.2-1.0); Calcium 8.3 mg/dl (8.6-10.3); Creatinine Clr Calc Pharmacy 67.6 ml/min; Potassium 3.9 mmol/L (3.5-5.1); Total Protein 6.1 gm/dl (6.0-8.3)
[2024-08-05] MEDS: SODIUM CHLOR 7% 4 ML NEB NEB SCH (07:10)
[2024-08-05 07:23] LABS: Ferritin 45.5 ng/ml (8-388)
[2024-08-05] MEDS: OPTIRAY 320 125ml IV ONE (09:44)
--- NOTE | 2024-08-05 10:05 | CT Scan Report ---
CT ANGIOGRAPHY OF THE CHEST, PULMONARY EMBOLUS PROTOCOL CLINICAL HISTORY: Increased O2 requirements. Evaluate for pulmonary embolus. COMPARISON STUDY: Chest radiograph performed earlier today. Chest CT July 29, 2024. TECHNIQUE: Following IV administration of 112 mL of Optiray, helical axial images of the chest were o btained utilizing the pulmonary embolus protocol. Maximal intensity projections and sagittal and cor onal reformats were viewed on an independent 3D workstation. IV contrast was administered without co mplication. Automated exposure control was utilized for the study. A dose lowering technique was ut ilized adhering to the principles of ALARA. CT DOSE: 841.11 mGy.cm FINDINGS: No pulmonary emboli are identified although segmental and subsegmental pulmonary arteries are suboptimally assessed due to respiratory motion. There is no thoracic aortic dissection. Size of the heart is normal. Extensive coronary artery calcification is again noted. There are no enlarged ax illary, mediastinal or hilar lymph nodes. There is no pneumothorax. There is trace right pleural flui d. There has been interval development of extensive secretions within the right lower lobe bronchus a nd segmental bronchi of the right lower lobe which are occluded. There are also extensive secretions within right middle lobe bronchi. There are mild secretions within the right upper lobe bronchi. No c entral obstructing mass was present on recent CT of July 29, 2024. Lungs are suboptimally assessed d ue to respiratory motion. Extensive right lower lobe consolidation with mild volume loss has develope d. There are mild alveolar opacities within the right middle and right upper lobes. Left lung is christiano r. Splenomegaly is again noted. There is body wall edema. IMPRESSION: 1. No pulmonary emboli identified although segmental and subsegmental pulmonary arteries suboptimally assessed due to respiratory motion. 2. Interval development of extensive secretions/mucous plugging within the right lower lobe and right middle lobe bronchi with associated dense consolidation within the right lower lobe. The findings fa vor aspiration pneumonitis/pneumonia. 3. Extensive coronary artery calcification. 4. Splenomegaly. ACT 112: Negative or not required by law. Electronically signed by: Kike Yi M.D. 08/05/2024 10:04 AM
--- NOTE | 2024-08-05 10:18 | Hospitalist Progress Note ---
Date of Service August 05, 2024 Assessment & Plan (1) Altered mental status: (2) Sepsis: (3) Subdural bleeding: (4) Type 2 diabetes mellitus with obesity: (5) Hypertension: (6) Asthma: (7) Hypothyroidism: (8) Dyslipidemia: (9) Atrial fibrillation: (10) Acute respiratory failure with hypoxia: Plan 77-year-old female with history of diabetes, hypertension, hyperlipidemia, atrial fibrillation on rivaroxaban anticoagulation, recent ground-level fall with head trauma resulting in subdural hematoma with midline shift requiring surgical decompression performed 07/30/2024 presenting from her rehab with acute metabolic encephalopathy and sepsis present on admission (SIRS 4 out of 4 with WBC = 13.7, temperature = 30.9, heart rate = 112, respiratory rate = 26). Most likely source of infection is urinary. #Metabolic Encephalopathy - suspected secondary to UTI although given worsening clinical status will repeat CT head this morning - CT head reviewed on admission with Neurosurgery at [facility] -treat sepsis/UTI as below -Maintain aspiration precautions, Fall precautions -Hold Gabapentin for now, possibly contributing to encephalopathy -Hold PM Bendadryl -Avoid opiates #Sepsis - SIRS 4/4, suspected UTI -Previous ESBL therefore we will switch cefepime to meropenem #Aspiration pneumonia Increase meropenem, stop vancomycin #Acute respiratory failure with hypoxia Now needing high flow #Subdural hematoma - s/p evacuation, no complications. CT Head reviewed with Neurosurgery and reveals expected post-operative changes -Neuro checks with GCS q 4 hours -Hold Rivaroxaban #Type 2 Diabetes Mellitus - last HgbA1C on 05/30/24=6.5. Patient on Empagliflozin, Lantus 76u BID and Novolog 60u daily as an outpatient. DC medications from [facility] have Lantus 45u BID, Jardiance -Lantus 25u BID with ISS - CF 15 and CR 5 -Pharmacy consultation appreciated #Hypertension -Continue Metoprolol -Hold Spironolactone/HCTZ #Asthma -Albuterol PRN #Hypothyroidism -Continue Synthroid #Dyslipidemia -Continue Crestor #Atrial fibrillation -Continue Digoxin and Metoprolol -Holding anticoagulation for now - should clarify with neurosurgery when to restart this medication (may be in DC summary from [facility]) #GERD -Protonix VTE prophylaxis - SCDs Diet - n.p.o. Disposition - prognosis is poor awaiting family to make final decisions regarding comfort care Admission and Anticipated Discharge Date Admission Date: August 03, 2024 Subjective Patient unable to contribute towards decision making. Left side of body remains flaccid. Sudden worsening hypoxia overnight and now requiring high flow oxygen with reduced flow rate but on FiO2 to 100% maintaining O2 sats of 90%. She notes her head to feeling short of breath. Ongoing headache pain. I read through her living well and discussed with her at bedside. She aspirated during bedside assessment yesterday but clearly aspirated much more overnight. CT for PE rule out alternative pathology and unfortunately she continues to aspirate despite being NPO. Discussed poor prognosis and open to discussing further with palliative care. Physical Exam ENMT: Mouth: + dry oral mucous membranes Respiratory: normal respiratory effort; no respiratory distress Auscultation: + rhonchi (throughout); no wheezes Cardiovascular: Rate/Rhythm: regular rhythm and + tachycardic Heart Sounds: no murmur Extremities: normal capillary refill; no calf tenderness and no pedal edema Gastrointestinal (Abdomen): Percussion/Palpation: abdomen soft; abdomen nontender Skin: francisco in head with ecchymosis but no surrounding erythema Neurologic: + focal motor deficit (Not moving left s anthony of the body), awake and + confused Psychiatric: Orientation: alert; + not oriented to person, + not oriented to place and + not oriented to time Results & Data Results & Data Vital Signs (Past 12 Hours) Vital Signs Temp Pulse Pulse Pulse Resp BP Pulse Ox 08/05/24 09:59 107 H 30 H 92 08/05/24 09:30 117 H 31 H 08/05/24 08:17 110 H 20 93 08/05/24 08:16 110 H 20 93 08/05/24 07:49 38.0 C H 114 H 18 119/91 95 08/05/24 05:03 103 H 18 93 08/05/24 03:00 37.9 C H 107 H 26 H 140/86 92 08/04/24 23:58 90 08/04/24 23:00 37.2 C 92 H 20 154/72 H 96 O2 Del Method O2 Flow Rate FiO2 08/05/24 09:59 High Flow Nasal Cannula 30 100 08/05/24 09:30 85 08/05/24 08:17 High Flow Nasal Cannula 20 100 08/05/24 08:16 High Flow Nasal Cannula 20 100 08/05/24 07:49 High Flow Nasal Cannula 20 08/05/24 05:03 High Flow Nasal Cannula 20 100 08/05/24 03:00 Oxymask 10 08/04/24 23:58 08/04/24 23:00 Nasal Cannula 2 PG Care Time/CCT Total # of Minutes Spent Total Time Spent with Patient: Total time spent is greater than 50% in coordination of care (as documented) at patient's floor/unit and/or counseling patient: Coding Level of Care Code 85182 SUB INP/OBS CARE 3/50MIN Diagnoses Altered mental status R41.82 Altered mental status type: unspecified Sepsis A41.9 Sepsis acute organ dysfunction status: unspecified Sepsis type: sepsis due to unspecified organism Subdural bleeding I62.00 Type 2 diabetes mellitus with obesity E11.69; E66.9 Essential hypertension I10 Hypertension type: essential hypertension Asthma J45.909 Hypothyroidism E03.9 Dyslipidemia E78.5 Atrial fibrillation, unspecified type I48.91 Atrial fibrillation type: unspecified Acute respiratory failure with hypoxia J96.01 (1) Altered mental status Altered mental status type: unspecified Qualified Code(s): R41.82 - Altered mental status, unspecified (2) Sepsis Sepsis acute organ dysfunction status: unspecified Sepsis type: sepsis due to unspecified organism Qualified Code(s): A41.9 - Sepsis, unspecified organism (5) Hypertension Hypertension type: essential hypertension Qualified Code(s): I10 - Essential (primary) hypertension (9) Atrial fibrillation Atrial fibrillation type: unspecified Qualified Code(s): I48.91 - Unspecified atrial fibrillation
[2024-08-05] MEDS: ALBUT/IPRATROP 3MG/0.5MG NEB 3 ML VIAL NEB SCH (10:35)
[2024-08-05 11:11] LABS: Folate (Folic Acid),Ser orPlas > 22.30 ng/ml (>5.38)
[2024-08-05 11:12] LABS: Vitamin B12 610 pg/ml (180-914)
[2024-08-05 13:24] VITALS: O2SAT 88
--- NOTE | 2024-08-05 13:53 | Pharmacy Report ---
Pharmacy Glycemic Short Note 2 - Date of Service August 05, 2024 - Glycemic Short BSG Results (Last 24 hours): 08/04/24 08/04/24 08/05/24 16:35 20:09 05:56 Glucose 164 H POC Glucose 171 H 153 H 08/05/24 11:24 Glucose POC Glucose 162 H OUTPATIENT ANTIDIABETIC REGIMEN: * Lantus 76 units SC BID * Novolog 12 units SC w/ breakfast, 8 units SC w/ lunch, 12 units SC w/ dinner * Jardiance 10 mg PO AM HbA1c: * 6.5% (05/30/24) ASSESSMENT: 08/05 * BSGs [phone] mg/dL with 50 units of basal, 7 units of correctional. * Fasting this AM 164 mg/dL on labs. Patient is now NPO, will continue with same basal for now, weight stress 3/ reduced ~66% from home dosing. * BSG has remained stable at lunch today, continue with current novolog parameters 08/04 * 78 yo F admitted on 08/03/24 secondary to encephalopathy. Pharmacy has been consulted to assist with inpatient glycemic management. Patient is a Type 2 diabetic as an outpatient. Please refer to outpatient regimen and most recent HbA1c above. * BSGs were above 200 mg/dL last evening. Fasting BSG is 184 mg/dL this AM. Ordered a T2DM diet but didn't eat any breakfast. Receiving Vancomycin and Meropenem empirically for UTI. * Continue with basal and bolus insulin ordered based on weight/stress of 3. PLAN FOR INPATIENT GLYCEMIC CONTROL: * Hold outpatient oral diabetes medications * Basal insulin * Lantus 25 units SC BID * Bolus insulin * NovoLog per scale ACHS or Q6hrs while NPO * Goal Range: Low 110 mg/dL - High 140 mg/dL * Correction Factor: 20 mg/dL/unit * Nutritional / Prandial insulin per carb ratio of 1 unit per 7 grams CHO consumed
--- NOTE | 2024-08-05 14:52 | Palliative Care Consultation ---
Date of Consultation August 05, 2024 Assessment & Plan (1) Palliative care by specialist: Met with spouse and large family at bedside. Introduced Palliative Medicine and explained our role in advanced care planning, symptom management and navigation through the progression of life limiting disease. Family were receptive to palliative services for goals of care discussions. Reviewed we are different from hospice, a home health nurse visiting service. (2) Comfort measures only status: Spouse is retired RT, he shared that he "understand(s) what is happening, I know she is not getting better and would not want to live like this". After brief conversation, he requested transition to REPAIR OPERATOR. He sharaed that they have another daughter who is on her way to hospital from [place] and would like to delay transition until she is at bedside. (3) Need for comfort care: Plan for transition to comfort directed care when all family present at bedside. At least 15 minutes prior to removal of HFNC recommend premedicating with the following IVP medications 0.4mg robinul, 0.5mg dilaudid, and 0.5mg ativan. Ongoing EOL Symptom manamgement: Continue AEDs per primary Pain/dyspnea/tachypnea Dilaudid 0.2mg IVP PRN [id number] Consider titratable dilaudid drip if pt requires >3 PRN doses in under two consecutive hours. Nausea/vomitting zofran 4mg IVP q4h PRN Agitation ativan 0.5mg IVP q4h PRN Hyperactive delirium haldol 5mg IVP q6h PRN Secretions - if repositioning not effective robinul 0.4mg IV q4h PRN atropine SL 3 drops Q1h PRN Nursing care: Discontinue all medications not directed towards comfort. Detether pt from IV tubing, monitor cables, and check vitals once per shift. Please continue HFNC and titrate down as able for patient comfort. Use medications above PRN for dyspnea/tachypnea and do not increase oxygen once titrated down. Assess q1h for pain/dyspnea and treat accordingly. Plan as above History of Present Illness Reason for Consultation: goals of care Requesting Physician: Manolo Valenzuela MD Attending Physician: Manolo Valenzuela MD History of Present Illness 77-year-old female with history of diabetes, hypertension, hyperlipidemia, atrial fibrillation on rivaroxaban anticoagulation, recent ground-level fall with head trauma resulting in subdural hematoma with midline shift requiring surgical decompression performed 07/30/2024 presenting from her rehab with acute metabolic encephalopathy and sepsis. Admission course has been complicated by frequent aspiration of secretions despite NPO status/ Pt has escalating oxygen demands with refractory hypoxia. She is DNR/DNI status. Allergies Allergy/AdvReac Type Severity Reaction Status Date / Time ciprofloxacin Allergy Intermediate severe rash Verified 08/04/24 00:25 procainamide Allergy Intermediate shaky, Verified 08/04/24 00:25 rapid heart beat, rash shrimp Allergy Intermediate Hives Verified 08/04/24 00:25 verapamil Allergy Intermediate shaky, Verified 08/04/24 00:25 rapid heart beat, rash chloramphenicol Allergy Mild rash,diarrh Verified 08/04/24 00:25 [From Chloromycetin] ea codeine Allergy Mild RASH Verified 08/04/24 00:25 esomeprazole Allergy Mild Rash Verified 08/04/24 00:25 lansoprazole Allergy Mild Rash Verified 08/04/24 00:25 omeprazole Allergy Mild Rash Verified 08/04/24 00:25 propoxyphene Allergy Mild Rash Verified 08/04/24 00:25 Quinolones Allergy Mild RASH Verified 08/04/24 00:25 metformin AdvReac Intermediate Severe Verified 08/04/24 00:25 diarrhea (incontinent) Home Medications Medication Instructions Recorded Confirmed Type loperamide 2 mg tablet (Imodium 2 mg PO TID PRN loose stool 12/23/18 08/04/24 History A-D) blood-glucose meter,continuous 12/06/20 06/22/24 History (Dexcom G6 Warehouse Coordinator) acetaminophen 650 mg 650 mg PO HS 01/15/21 08/04/24 History tablet,extended release (Tylenol 8 Hour) blood sugar diagnostic (OneTouch #50 ea 06/20/21 06/22/24 Rx Verio test strips) insulin syringe-needle U-100 1 mL #400 ea 04/15/22 06/22/24 Rx 31 gauge x 5/16" (BD Insulin Syringe Ultra-Fine) diphenhydramine HCl 25 mg capsule 25 mg PO HS PRN Sleep 06/16/22 08/04/24 History (Benadryl) Diabetic Shoes #1 ea 07/10/22 06/22/24 Rx cholecalciferol (vitamin D3) 25 25 mcg PO DAILY 08/12/22 08/04/24 History mcg (1,000 unit) capsule albuterol sulfate 1.25 mg/3 mL 1.25 mg (3 mL) inhalation Q4H PRN 01/30/23 08/04/24 Rx solution for nebulization Shortness Of Breath #15 mL albuterol sulfate 90 mcg/actuation 2 puff inhalation Q6H PRN 04/13/23 08/04/24 Rx aerosol inhaler Shortness Of Breath #8.5 grams tramadol 50 mg tablet 50 mg PO DAILY PRN pain #30 tabs 12/17/23 08/04/24 Rx Dexcom G6 Sensor (blood-glucose #9 ea 05/04/24 06/22/24 Rx sensor) Dexcom G6 Transmitter #1 ea 05/04/24 06/22/24 Rx (blood-glucose transmitter) empagliflozin 10 mg tablet 10 mg PO DAILY #30 tabs 05/17/24 08/04/24 Rx (Jardiance) rivaroxaban 20 mg tablet (Xarelto) 20 mg PO QAM #90 tabs 06/03/24 08/04/24 Rx digoxin 125 mcg (0.125 mg) tablet 125 mcg PO QAM #90 tabs 06/23/24 08/04/24 Rx levocetirizine 5 mg tablet 5 mg PO QPM allergy symptoms #90 06/23/24 08/04/24 Rx tabs metoprolol succinate 50 mg 50 mg PO QAM #90 tabs 06/23/24 08/04/24 Rx tablet,extended release 24 hr pantoprazole 40 mg tablet,delayed 40 mg PO DAILY #90 tabs 06/23/24 08/04/24 Rx release (Protonix) pen needle, diabetic 31 gauge x #600 ea 06/23/24 06/27/24 Rx 3/16" rosuvastatin 10 mg tablet 10 mg PO HS #90 tabs 06/23/24 08/04/24 Rx spironolactone 25 2 tab PO QAM #180 tabs 06/23/24 08/04/24 Rx mg-hydrochlorothiazide 25 mg tablet sertraline 100 mg tablet 100 mg PO QAM #90 tabs 06/24/24 08/04/24 Rx Novolog FlexPen U-100 Insulin 100 60 unit (0.6 mL) subcut DAILY #60 07/13/24 08/04/24 Rx unit/mL (3 mL) subcutaneous mL (insulin aspart U-100) insulin glargine 100 unit/mL (3 76 unit (0.76 mL) subcut BID #150 07/13/24 08/04/24 Rx mL) subcutaneous pen (Lantus mL Solostar U-100 Insulin) gabapentin 300 mg capsule 300 mg PO QAM 08/04/24 08/04/24 History gabapentin 300 mg capsule 600 mg PO QPM 08/04/24 08/04/24 History levothyroxine 125 mcg tablet 125 mcg PO DAILYBB 08/04/24 08/04/24 History (Synthroid) Patient History Medical History Family history of malignant hyperthermia Daughter- malignant hyperthermia with appendectomy 26 years ago Patient/no other family members tested Walker as ambulation aid also uses bilt diabetic shoes Fever Calcaneus fracture, right hx of--pt wears diabetic shoes Confusion Hx of gastric ulcer On anticoagulant therapy xarelto daily History of pulmonary embolism 2017--d/t sx Pressure ulcer of left heel, stage 1 hx of Herniated intervertebral disc of lumbar spine Endometrial cancer diagnosed 2018--sx Surgical History History of total hysterectomy with bilateral salpingo-oophorectomy (BSO) History of removal of cyst off left breast History of dilatation and curettage x3 History of cystoscopy x3 History of colonoscopy History of esophagogastroduodenoscopy (EGD) last 07/2019 @ [facility] History of tooth extraction all teeth History of tonsillectomy and adenoidectomy History of partial thyroidectomy Right--benign tumor History of bilateral cataract extraction History of fusion of cervical spine x2--slightly stiff, normal ROM History of total right knee replacement Hx of cholecystectomy Family History Mother , 86 - COPD/Lung CA T2DM (type 2 diabetes mellitus) Lung cancer Steroid-induced diabetes mellitus COPD (chronic obstructive pulmonary disease) Father , 59 - Pancreatic CA Pancreatic cancer T2DM (type 2 diabetes mellitus) Sister , 55 - Rare Vaginal CA with mets to the liver and pancreas Vaginal cancer Sister Melanoma Grandmother (Maternal) , 93 Hypertension Stroke T2DM (type 2 diabetes mellitus) Pancreatic cancer Grandfather (Maternal) , 93 T2DM (type 2 diabetes mellitus) Myocardial infarction Grandmother (Paternal) , 73 T2DM (type 2 diabetes mellitus) Grandfather (Paternal) , 70 Rheumatoid arthritis Heart disease Aunt , 72 - Pancreatic CA Pancreatic cancer Daughter Family history of malignant hyperthermia went into malignant hyperthermia with appy sx 26yrs ago Sarcoma of body of uterus Social History Smoking Status: Never smoker Second Hand Exposure: No; Do You Dip or Chew Tobacco: No; Tobacco Cessation Education Requested by Patient: No Hx Alcohol Use: No Hx Substance Use: No Preferred Language: Croatian Communication Ability: Impaired Communication Ability Comment: Patient is lethargic and has a short attention span Visual Impairment: Limited Hearing Ability: Hard of Hearing Record Changer Tester Required: No Beliefs That Will Affect Care: None marital status: Current Living Situation: Rehab Current Living Situation Comment: [facility] current occupational status: retired Other Information That Helps Us Care for You: 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 No erythema, bleeding or drainage, small wound on left thigh/forrest, healing wound on right heel HEENT: bruising present, changes from recent hemicraniotomy, PERRL, EOMI, anicteric sclera, neck supple, trachea midline, no LAD, no thyromegaly, no JVD Heart: +S1/S2, regular, tachycardic Lungs: equal air entry bilaterally, no rales/rhonchi/wheezes Abd: +BS, soft, NT/ND, no masses/organomegaly/ascites Ext: warm, 2+ pulses in UE/LE bilaterally, no clubbing/cyanosis or edema Neuro: patient oriented to self, possible left-sided neglect, strength 3 out of 5 in left upper extremity Results & Data Vital Signs (Past 12 Hours) Vital Signs Temp Pulse Pulse Pulse Resp BP BP 08/05/24 13:34 08/05/24 13:24 135 H 08/05/24 13:23 139 H 33 H 08/05/24 11:22 39.2 C H 117 H 25 H 153/83 H 08/05/24 10:41 119 H 24 08/05/24 09:59 107 H 30 H 08/05/24 09:30 117 H 31 H 08/05/24 09:00 08/05/24 08:17 110 H 20 08/05/24 08:16 110 H 20 08/05/24 07:49 38.0 C H 114 H 18 119/91 08/05/24 05:03 103 H 18 08/05/24 03:00 37.9 C H 107 H 26 H 140/86 Pulse Ox O2 Del Method O2 Del Method O2 Flow Rate FiO2 08/05/24 13:34 High Flow Nasal Cannula 30 100 08/05/24 13:24 08/05/24 13:23 88 L High Flow Nasal Cannula 30 100 08/05/24 11:22 91 High Flow Nasal Cannula 08/05/24 10:41 92 High Flow Nasal Cannula 30 95 08/05/24 09:59 92 High Flow Nasal Cannula 30 100 08/05/24 09:30 85 08/05/24 09:00 High Flow Nasal Cannula 08/05/24 08:17 93 High Flow Nasal Cannula 20 100 08/05/24 08:16 93 High Flow Nasal Cannula 20 100 08/05/24 07:49 95 High Flow Nasal Cannula 20 08/05/24 05:03 93 High Flow Nasal Cannula 20 100 08/05/24 03:00 92 Oxymask 10 Laboratory Results Abnormal lab results 08/04/24 08/04/24 08/05/24 Range/Units 16:35 20:09 05:56 WBC 16.60 H (4.8-10.8) K/ul RBC 3.19 L (4.20-5.40) M/uL Hgb 8.0 L (12.0-16.0) g/dl POC Hgb (12.0-16.0) g/dl Hct 26.0 L (37.0-47.0) % POC Hct (37-47) % MCHC 30.8 L (32.0-36.0) g/dL RDW Std Deviation 51.8 H (36.4-46.3) fL RDW Coeff of Filomena 17.3 H (11.5-14.5) % Reticulocyte % (Auto) 3.45 H (0.50-2.00) % Neut # (Auto) 14.33 H (1.40-6.50) K/uL Lymph # (Auto) 1.05 L (1.20-3.40) K/uL Gilpin # (Auto) 0.97 H (0.11-0.59) K/uL Reticulocyte # 0.110 H (0.020-0.100) 10^6/uL POC pH (7.35-7.45) POC pCO2 (35-46) mmHg POC pO2 (80-95) mmHg POC Total CO2 (24-31) mmol/L Chloride 108 H (98-107) mmol/L BUN/Creatinine Ratio 29.7 H (10-20) Glucose 164 H (70-99(Fasting)) mg/dl POC Glucose 171 H 153 H (70-99) mg/dl Calcium 8.3 L (8.6-10.3) mg/dl Iron 15 L (35-150) mcg/dl Transferrin % Sat 5 L (15-50) % Albumin 3.1 L (3.4-5.0) gm/dl 08/05/24 08/05/24 Range/Units 05:57 11:24 WBC (4.8-10.8) K/ul RBC (4.20-5.40) M/uL Hgb (12.0-16.0) g/dl POC Hgb 8.2 L (12.0-16.0) g/dl Hct (37.0-47.0) % POC Hct 24 L (37-47) % MCHC (32.0-36.0) g/dL RDW Std Deviation (36.4-46.3) fL RDW Coeff of Filomena (11.5-14.5) % Reticulocyte % (Auto) (0.50-2.00) % Neut # (Auto) (1.40-6.50) K/uL Lymph # (Auto) (1.20-3.40) K/uL Gilpin # (Auto) (0.11-0.59) K/uL Reticulocyte # (0.020-0.100) 10^6/uL POC pH 7.49 H (7.35-7.45) POC pCO2 28 L (35-46) mmHg POC pO2 69 L (80-95) mmHg POC Total CO2 22 L (24-31) mmol/L Chloride (98-107) mmol/L BUN/Creatinine Ratio (10-20) Glucose (70-99(Fasting)) mg/dl POC Glucose 162 H (70-99) mg/dl Calcium (8.6-10.3) mg/dl Iron (35-150) mcg/dl Transferrin % Sat (15-50) % Albumin (3.4-5.0) gm/dl Diagnostic Findings Head CT 08/04/24 09:12 CT head/brain wo con CLINICAL HISTORY: worsening clincal status ?increasing subdural. TECHNIQUE: Multiple axial CT images of the head were obtained without contrast. A dose lowering technique was utilized adhering to the principles of ALARA. CT DOSE: 751.73 mGy.cm COMPARISON: Compared with 08/03/2024 FINDINGS: Stable right craniectomy. Mixed density right subdural hemorrhage measures 1.4 cm maximal thickness series 2 axial image 19, stable. Stable small amount of expected pneumocephalus. Stable right sulcal effacement and stable 4 mm of midline shift. No new intracranial hemorrhage seen. IMPRESSION: Stable exam. ACT 112: Negative or not required by law. The above report was generated using voice recognition software. It may contain grammatical, syntax or spelling errors. Electronically signed by: Trenton Heredia M.D. 08/04/2024 10:43 AM Chest X-Ray 08/05/24 04:13 EXAM: XR chest 1V portable CLINICAL HISTORY: increased O2 requirements TECHNIQUE: Radiograph of chest was acquired. 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 Small patchy air space opacities in right lower zone. No pleural effusion. The cardiomediastinal silhouette is within normal limits. No acute osseous abnormality. IMPRESSION: 1. Prominent bilateral bronchovascular shadows. 2. Small patchy air space opacities in right lower zone. 3. No significant interval changes compared to prior. Electronically signed by Rey Becker 08-05-2024 05:19 AM Chest CTA 08/05/24 07:18 CT ANGIOGRAPHY OF THE CHEST, PULMONARY EMBOLUS PROTOCOL CLINICAL HISTORY: Increased O2 requirements. Evaluate for pulmonary embolus. COMPARISON STUDY: Chest radiograph performed earlier today. Chest CT July 29, 2024. TECHNIQUE: Following IV administration of 112 mL of Optiray, helical axial images of the chest were obtained utilizing the pulmonary embolus protocol. Maximal intensity projections and sagittal and coronal reformats were viewed on an independent 3D workstation. IV contrast was administered without complication. Automated exposure control was utilized for the study. A dose lowering technique was utilized adhering to the principles of ALARA. CT DOSE: 841.11 mGy.cm FINDINGS: No pulmonary emboli are identified although segmental and sub segmental pulmonary arteries are suboptimally assessed due to respiratory motion. There is no thoracic aortic dissection. Size of the heart is normal. Extensive coronary artery calcification is again noted. There are no enlarged axillary, mediastinal or hilar lymph nodes. There is no pneumothorax. There is trace right pleural fluid. There has been interval development of extensive secretions within the right lower lobe bronchus and segmental bronchi of the right lower lobe which are occluded. There are also extensive secretions within right middle lobe bronchi. There are mild secretions within the right upper lobe bronchi. No central obstructing mass was present on recent CT of July 29, 2024. Lungs are suboptimally assessed due to respiratory motion. Extensive right lower lobe consolidation with mild volume loss has developed. There are mild alveolar opacities within the right middle and right upper lobes. Left lung is clear. Splenomegaly is again noted. There is body wall edema. IMPRESSION: 1. No pulmonary emboli identified although segmental and subsegmental pulmonary arteries suboptimally assessed due to respiratory motion. 2. Interval development of extensive secretions/mucous plugging within the right lower lobe and right middle lobe bronchi with associated dense consolidation within the right lower lobe. The findings favor aspiration pneumonitis/pneumonia. 3. Extensive coronary artery calcification. 4. Splenomegaly. ACT 112: Negative or not required by law. Electronically signed by: Kike Yi M.D. 08/05/2024 10:04 AM Medications Administered Current Inpatient Medications Acetaminophen (Acetaminophen 325 Mg Tab) 650 mg PO Q4H PRN PRN Reason: Pain or Fever Stop: 09/03/24 01:51 Dextrose (Dextrose 50% 50 Ml Syringe) 25 - 50 ml IV UD PRN; Protocol PRN Reason: Hypoglycemia Protocol Stop: 09/03/24 05:54 Glucagon (Glucagon For Inj 1 Mg Vial) 1 mg SQ UD PRN; Protocol PRN Reason: Hypoglycemia Protocol Stop: 09/03/24 05:54 Glucose (Glucose 40% Gel 15 Gm Tube) 15 - 30 gm PO UD PRN; Protocol PRN Reason: Hypoglycemia Protocol Stop: 09/03/24 05:54 Glucose (Glucose 10 Tab/Tube) 4 - 8 tab PO UD PRN; Protocol PRN Reason: Hypoglycemia Protocol Stop: 09/03/24 05:54 Digoxin 125 mcg/ Syringe 10 mls @ 2 mls/min IV DAILY@1600 [facility] Stop: 09/03/24 16:59 Last Admin: 08/05/24 13:24 Dose: 2 mls/min Lactated Ringer's (Lr) 1,000 mls @ 80 mls/hr IV .[id number] [facility] Stop: 09/03/24 16:59 Last Admin: 08/05/24 14:39 Dose: 100 mls/hr Pantoprazole Sodium (Protonix) 40 mg in 10 mls @ 5 mls/min IV DAILY [facility] [place] Stop: 09/03/24 17:29 Last Admin: 08/05/24 10:40 Dose: 5 mls/min Acetaminophen (Ofirmev) 1,000 mg in 100 mls @ 400 mls/hr IV Q8H PRN PRN Reason: Pain or Fever Stop: 08/08/24 04:08 Last Infusion: 08/05/24 04:50 Dose: Infused Meropenem 1,000 mg/ Syringe 20 mls @ 2 mls/min IV Q8H [facility]; Protocol Stop: 08/15/24 18:59 Insulin Glargine (Lantus Per Unit Charge) 25 units SQ BID [facility] Stop: 09/03/24 08:59 Last Admin: 08/05/24 10:53 Dose: 25 units Labetalol HCl (Labetalol Hcl Iv 5 Mg/Ml 20ml) 10 mg IV Q1H PRN PRN Reason: sBP > 160 Stop: 09/03/24 11:44 Last Admin: 08/04/24 19:57 Dose: 10 mg Levothyroxine Sodium (Levothyroxine Sodium 125 Mcg Tablet) 125 mcg PO DAILYBB [facility] [place] Stop: 09/03/24 06:29 Last Admin: 08/04/24 06:23 Dose: Not Given Metoprolol Succinate (Metoprolol Succ 50mg Ext Rel Tab) 50 mg PO QAM [facility] Stop: 09/03/24 08:59 Last Admin: 08/04/24 09:39 Dose: Not Given Miscellaneous (Carbohydrates For Hypoglycemia ) 15 - 30 gm PO UD PRN PRN Reason: Hypoglycemia Protocol Stop: 09/03/24 05:54 Miscellaneous Information (Pharmacy Glycemic Mgmt Consult) 1 each N/A UD PRN PRN Reason: Consult Stop: 09/03/24 05:54 Ondansetron HCl (Ondansetron Inj 2 Mg/Ml 2 Ml Vial) 4 mg IV Q6H PRN PRN Reason: Nausea And Vomiting Stop: 09/03/24 01:51 Pantoprazole Sodium (Pantoprazole 40 Mg Tab) 40 mg PO DAILY [facility] Stop: 09/03/24 08:59 Last Admin: 08/04/24 09:39 Dose: Not Given Rosuvastatin Calcium (Rosuvastatin Calcium 10 Mg Tab) 10 mg PO HS [facility] Stop: 09/03/24 20:59 Sertraline HCl (Sertraline Hcl 100 Mg Tablet) 100 mg PO QAM [facility] Stop: 09/03/24 08:59 Last Admin: 08/04/24 09:39 Dose: Not Given PG Care Time/CCT Total # of Minutes Spent Total Time Spent with Patient: Total time spent is greater than 50% in coordination of care (as documented) at patient's floor/unit and/or counseling patient: [place] [address] IN/OBS CONSULT LVL 4,60M Patient Type New History Problem Focused Exam Problem Focused Medical Decision Making Moderate Complexity Diagnoses Palliative care by specialist Z51.5 Comfort measures only status Z51.5 Need for comfort care
[2024-08-05 16:23] VITALS: BP 156/78; PULSE 147; RESP 24; TEMP 103.6
[2024-08-05] MEDS ORDERED: PROMETHAZINE 12.5 MG/50.5 ML BAG IV PRN (16:39)
[2024-08-05] MEDS ORDERED: HYOSCYAMINE SULFATE 0.125 MG TAB SL PRN (16:39)
[2024-08-05] MEDS ORDERED: PROCHLORPERAZINE 5 MG in SYRINGE 4 ML IV PRN (16:39)
[2024-08-05] MEDS ORDERED: ONDANSETRON INJ 2 MG/ML 2 ML VIAL IV PRN (16:39)
[2024-08-05] MEDS ORDERED: LORazepam 2 MG/1 ML VIAL IV PRN ×3 (16:39→16:45)
[2024-08-05] MEDS ORDERED: MoRPHine SULFATE 2 MG/ML CARP IV PRN (16:39)
[2024-08-05] MEDS ORDERED: MoRPHine BOLUS from BAG IV PRN (16:39)
[2024-08-05] MEDS ORDERED: ATROPINE SULFATE 1% OP SOLN 5 ML BTL SL PRN (16:39)
[2024-08-05] MEDS ORDERED: STAT IV Infusion **Titration per Protocol STA ×2 (16:39→16:45)
[2024-08-05] MEDS ORDERED: MoRPHine SULF 100 MG/100 ML BAG IV SCH (16:45)
[2024-08-05] MEDS ORDERED: GLYCOPYRROLATE 0.2 MG/ML VIAL IV PRN (16:45)
[2024-08-05] MEDS: HYDROmorphone INJ 0.5 MG/0.5 ML SYR IV PRN (17:04)
[2024-08-05] MEDS: HYDROmorphone 100 MG/100 ML BAG IV SCH (17:04)
[2024-08-05] MEDS: GLYCOPYRROLATE 0.2 MG/ML VIAL IV PRN (17:21)
--- NOTE | 2024-08-05 18:09 | Communication Note ---
Date of Service: August 05, 2024 Patient continued to deteriorate throughout the day. Worsening O2 requirement and tachycardia. Patient seen with , family and palliative care and aw aiting additional family members to be made comfort care. Daughter arrived and comfort care measures were placed. Please see palliative note from earlier today for directions.
[2024-08-05] MEDS: HYDROmorphone BOLUS from BAG IV PRN (18:33)
[2024-08-05] MEDS ORDERED: MEROPENEM 1,000 MG in SYRINGE 0 ML IV SCH (19:00)
--- NOTE | 2024-08-05 22:21 | Death Pronouncement Note ---
Date of Service August 05, 2024 Pronouncement Note Admission Date August 03, 2024 Date and Time of Date of : 08/05/24 Time of : 22:17 Summary I was called to pronounce the of Melissa Stephens ( 1945) by Joelle Chavez RN on 08/05/2024 Upon entering the room, patient was found to be in a terminal state. They were unresponsive to, and did not withdraw from, verbal or tactile stimuli such as pressing of nail bed and sternal rub. They were unresponsive to corneal, pupillary, and oculocephalic reflexes. On cardiopulmonary exam, they were found to be without detectable carotid pulses, and without spontaneous heart tones or respirations. Time of was pronounced by me on 08/05/2024 at 22:17. Attending physician was notified. Family members present at bedside. Additional Data Attending physician: Manolo Valenzuela MD
--- NOTE | 2024-08-08 16:55 | Discharge Summary ---
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 She continued to aspirate Admission HPI Per Admitting Provider Melissa Stephens Is a 78-year-old female with history of diabetes, hypertension, hyperlipidemia, atrial fibrillation on rivaroxaban anticoagulation and hypothyroidism presenting from [facility] with encephalopathy. Patient with multiple falls over the last month. She was seen in [facility] ER on 07/29/2024 after multiple ground-level falls with head trauma. She was found to have a large subdural hematoma with midline shift And left-sided weakness. Patient was administered Kcentra for partial rivaroxaban reversal and transferred to [facility]. upon arrival to [place] patient was taken emergently to the operating room for evacuation of subdural hematoma. Patient was extubated in the neuro ICU shortly after the procedure. Her neurological status was noted to improve. She was transfused 2 units of PRBCs. Evaluation by PT and OT recommended inpatient rehab. Patient had her drain removed on 08/02/2024 and was discharged to [facility] rehabilitation on 08/03/2024. Patient's reports that he spoke with her on the phone while at [place] prior to transfer. At that time patient was able to converse and answer questions. she arrived to [facility] around 13:00. Patient's visited her around 16:30 and patient was noted to be somnolent, minimally verbal and confused. No report of fever, chest pain, palpitations, nausea, vomiting, diarrhea, constipation. In the ER patient febrile to 38.9, tachycardic to 112 bpm, tachypneic at 26 breaths/min. ER course: Cefepime Vancomycin Normal saline Discharge Plan Discharge Items Patient Disposition: Other Date/Time: 08/05/24 22:17 Hospital Stay Data Consultations 08/05/24 10:58 Consult Palliative Care Routine Diagnostic Imagining Performed 08/03/24 21:39 CT head/brain wo con Stat 08/04/24 09:12 CT head/brain wo con Stat 08/05/24 07:18 CT for pulmonary embolism PE [CT angio chest PE protocol] Stat Coding Diagnoses Altered mental status R41.82 Altered mental status type: unspecified Sepsis A41.9 Sepsis acute organ dysfunction status: unspecified Sepsis type: sepsis due to unspecified organism Subdural bleeding I62.00 Type 2 diabetes mellitus with obesity E11.69; E66.9 Essential hypertension I10 Hypertension type: essential hypertension Asthma J45.909 Hypothyroidism E03.9 Dyslipidemia E78.5 Atrial fibrillation, unspecified type I48.91 Atrial fibrillation type: unspecified Acute respiratory failure with hypoxia J96.01
== END 2024-08-05 23:15 | disposition expired | DRG 871 ==
LOC: ED 21:38 → 2E 23:55 → SUATTDRO 23:55 → 2E 08-04 00:59